=== PATIENT | female | born 1970 | race Caucasian/White ===

== ENCOUNTER 2016-08-20 19:36 | Observation (INO) | payer OTHER ==
[~2016-08-20] VITALS: Ht 167.6 cm; Wt 121.9 kg
[~2016-08-20 19:36] MED LIST: ACET-1325; ATV/1 PO; CALC600T9 PO; CARB200T PO; CARB200T3 PO; CLOM50CA3 PO; DULO60CA44 PO; ERGO500037 PO; FERR1TAB23 PO; FURO-85 PO; LAMO100T16 PO; LSNP/30 PO; MAGN250T8 PO; METO-551 PO; MULTTAB58 PO; OMEP40CA41 PO; RIBO100T9 PO; TOPI100T45 PO; ZIPR1CAP6 PO
[2016-08-20] MEDS ORDERED: SODIUM CHLORIDE 0.9% 1000ML 1,000 ML IV STA (19:54)
[2016-08-20] MEDS ORDERED: SODIUM CHLORIDE 0.9% 500ML 500 ML IV STA (19:54)
--- NOTE | 2016-08-20 19:59 | EMERGENCY ROOM VISIT NOTE ---
History Report prepared by Garret: Molina Bailon Under the Supervision of: Dr. Parish Nguyen M.D. 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 She notes taking seven 1 mg Klonopin tablets this evening. She admits this was an attempt at suicide, noting that she "just does not care anymore". She has done this before in the past and has been to a hospital before for similar reasons. She notes she misses her father who around 1 year ago. The patient states her mental health issues began before the holidays but became worse after the holidays. She feels sleepy, and denies any vomiting or alcohol consumption. the patient is not wanting to stay in the hospital. Per the patient 's , she was holding groceries, dropped them and went to the bedroom and locked the door. She has been struggling with depression around the holidays. 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 Review of Systems See HPI for pertinent positives & negatives. A total of 10 systems reviewed and were otherwise negative. Past Medical & Surgical Medical Problems: (1) Benign hypertension (2) Bipolar disorder (3) Klonopin use disorder, severe Family History No pertinent family history stated. Social History Smoking Status: Never Smoker Marital Status: Occupation Status: disabled Current/Historical Medications Scheduled Atorvastatin (Lipitor), 10 MG PO DAILY Carbamazepine (Tegretol), 800 MG PO HS Clomipramine Hcl (Anafranil), 200 MG PO HS Duloxetine Hcl (Cymbalta), 60 MG PO DAILY Ferrous Sulfate (Ferrous Sulfate), 325 MG PO DAILY Furosemide (Lasix), 40 MG PO DAILY Magnesium Oxide (Mg Supplement (Magnesium), 250 MG PO BID Metoprolol Tartrate (Lopressor), 50 MG PO QPM Multiple Minerals W/ Vitamins (Citracal Plus), 2 TABS PO BID Omeprazole (Prilosec), 40 MG PO DAILY Riboflavin (Vitamin B-2), 200 MG PO BID Topiramate (Topamax), 100 MG PO BID Valsartan/Hctz (Diovan Hct 320MG/12.5MG), 1 TAB PO DAILY Ziprasidone Hcl (Geodon), 60 MG PO BID Scheduled PRN Clonazepam (Klonopin), 1 MG PO UD PRN for Anxiety and/or Sedation Lorazepam (Ativan), 0.5-1 MG PO Q4-6HRS PRN for Anxiety Ziprasidone Hcl (Geodon), 20-40 MG PO DAILY PRN for UNDECIDED Allergies Coded Allergies: No Known Allergies (Unverified , 03/04/13) Physical Exam Vital Signs Date Time Temp Pulse Resp B/P Pulse Ox O2 Delivery O2 Flow Rate FiO2 08/20/16 20:49 68 08/20/16 19:57 96 Room Air 08/20/16 19:44 36.9 77 20 144/85 98 Room Air Physical Exam GENERAL: Patient is in no acute distress, but tearful. HEENT: No acute trauma, normocephalic atraumatic, mucous membranes moist, no nasal congestion, no scleral icterus. NECK: No stridor, no adenopathy, no meningismus, trachea is midline. LUNGS: Clear to auscultation bilaterally, no wheeze, no rhonchi, breath sounds equal. HEART: Without murmurs gallops or rubs, regular rate and rhythm. ABDOMEN: Soft, nontender, bowel sounds positive, no hernias, no peritonitis. EXTREMITIES: No cyanosis or edema, full range of motion of all the joints without pain or difficulty, no signs for acute trauma. NEUROLOGIC: Oriented x 3, no acute motor or sensory deficits, no focal weakness. Patient is somewhat somnolent. SKIN: No rash, no jaundice, no diaphoresis. PSYCH: Patient is tearful, cooperative, and admits to overdosing on pills this evening. Medical Decision & Procedures Laboratory Results 08/20/16 20:07 08/20/16 20:07 Test 08/20/16 00:00 08/20/16 20:07 Red Blood Count 4.19 M/uL (4.2-5.4) Mean Corpuscular Volume 95.2 fL (80-100) Mean Corpuscular Hemoglobin 33.2 pg (25-34) Mean Corpuscular Hemoglobin Concent 34.8 g/dl (32-36) RDW Standard Deviation 42.4 fL (36.4-46.3) RDW Coefficient of Variation 12.3 % (11.5-14.5) Mean Platelet Volume 10.2 fL (7.4-10.4) Anion Gap 12.0 mmol/L (3-11) Est Creatinine Clear Calc Drug Dose 151.0 ml/min Estimated GFR () 126.4 Estimated GFR (Non- 109.1 BUN/Creatinine Ratio 28.6 (10-20) Calcium Level 8.5 mg/dl (8.5-10.1) Magnesium Level 2.4 mg/dl (1.8-2.4) Total Bilirubin 0.3 mg/dl (0.2-1) Aspartate Amino Transf (AST/SGOT) 23 U/L (15-37) Alanine Aminotransferase (ALT/SGPT) 46 U/L (12-78) Alkaline Phosphatase 121 U/L (45-117) Total Protein 6.9 gm/dl (6.4-8.2) Albumin 4.2 gm/dl (3.4-5.0) Globulin 2.7 gm/dl (2.5-4.0) Albumin/Globulin Ratio 1.6 (0.9-2) Thyroid Stimulating Hormone (TSH) 0.786 uIu/ml (0.300-4.500) Human Chorionic Gonadotropin, Qual NEG (NEG) Salicylates Level < 1.7 mg/dl (2.8-20) Acetaminophen Level < 2 ug/ml (10-30) Carbamazepine (Tegretol) Level 8.2 mcg/ml (4-12) Ethyl Alcohol mg/dL < 3.0 mg/dl (0-3) Laboratory results reviewed by me. Medications Administered Medications (Trade) Dose Ordered Sig/Nisha Route Start Time Stop Time Status Last Admin Dose Admin Sodium Chloride 500 ml @ 999 mls/hr Q31M STAT IV 08/20/16 19:54 08/20/16 20:24 DC 08/20/16 20:19 999 MLS/HR Sodium Chloride (Nss 1000ml) 1,000 ml @ 125 mls/hr Q8H STAT IV 08/20/16 19:54 08/21/16 03:53 08/20/16 21:01 125 MLS/HR ED Course 1948: The patient was evaluated in room A2. A complete history and physical exam was performed. 1953: Ordered NSS 1,000 ml @ 125 mls/hr IV, and NSS 500 ml @ 999 mls/hr IV. 2134: Discussed the patient's case with Dr. Angie Kumari. The patient will be evaluated for further management. 2139: Upon reexamination the patient is hemodynamically stable. I discussed results and treatment plan with the patient. She verbalizes agreement and understanding. The patient will be evaluated for further management. Medical Decision Differentials include suicidal ideation, overdose, electrolyte imbalance, anemia , and alcohol or drug abuse. There is no leukocytosis or worrisome anemia. No significant electrolyte abnormality, kidney failure, hepatitis. The patient appears to be in a euthyroid state. Carbamazepine level is therapeutic. Aspirin and Tylenol levels are undetectable. Alcohol level is undetectable. Urine tox and urinalysis are pending. testing is negative. The patient presents for suicidal ideation. She overdosed on Klonopin. She is somnolent but arousable to voice and tactile stimulation. She requires hospitalization medically until her mental status returns to baseline. She is not clear to be admitted directly to psychiatry. I talked to the patient and her . I talked to case management. The on-call hospitalist was consulted. During the patient's ER stay, she received IV saline, her vital signs are stable.. Consults Time Called: 2129 Consulting Physician: Dr. Angie Kumari Returned Call: 2134 Discussed the patient's case with Dr. Angie Kumari. The patient will be evaluated for further management. Impression Primary Impression: Suicidal ideation Additional Impressions: Medication overdose Somnolence Scribe Attestation The scribe's documentation has been prepared under my direction and personally reviewed by me in its entirety. I confirm that the note above accurately reflects all work, treatment, procedures, and medical decision making performed by me. Departure Information Dispostion Being Evaluated By Hospitalist Referrals Abdoul Oseguera M.D. (PCP) Patient Instructions A Signature Page, My Norma Kumari Health Problem Qualifiers
[2016-08-20 20:16] LABS: HEMATOCRIT 39.9 % (37-47); MEAN CELL VOLUME 95.2 fL (80-100); MEAN CORPUSCULAR HEMOGLOBIN 33.2 pg (25-34); MEAN CORPUSCULAR HGB CONC 34.8 g/dl (32-36); MEAN PLATELET VOLUME 10.2 fL (7.4-10.4); PLATELET COUNT 165 K/uL (130-400); RED BLOOD COUNT 4.19 M/uL (4.2-5.4); WHITE BLOOD COUNT 8.15 K/uL (4.8-10.8)
[2016-08-20 20:37] LABS: BUN/CREATININE RATIO 28.6 (10-20); CALCIUM 8.5 mg/dl (8.5-10.1); CREATININE 0.63 mg/dl (0.60-1.20); POTASSIUM 3.1 mmol/L (3.5-5.1)
[2016-08-20 20:47] LABS: ALB/GLOB RATIO 1.6 (0.9-2); THYROID STIMULATING HORMONE 0.786 uIu/ml (0.300-4.500)
[2016-08-20] MEDS ORDERED: ZIPR20CA PO (20:56)
[2016-08-20] MEDS ORDERED: ZIPR1CAP5 PO (20:56)
[2016-08-20] MEDS ORDERED: FURO40TA3 PO (20:56)
[2016-08-20] MEDS ORDERED: ATOR10TA88 PO (20:56)
[2016-08-20] MEDS ORDERED: ZIPR60CA PO (20:56)
[2016-08-20] MEDS ORDERED: VALS-10 PO (20:56)
[2016-08-20 20:57] LABS: PREG INTERNAL NEGATIVE QC NEG CLEAR BACKGROUND; PREG INTERNAL POSITIVE QC POS CONTROL LINE
[2016-08-20] MEDS ORDERED: MULT-663 PO (21:00)
[2016-08-20] MEDS ORDERED: FERR325T PO (21:00)
[2016-08-20 21:15] LABS: ACETAMINOPHEN < 2 ug/ml (10-30)
[2016-08-20] MEDS ORDERED: CLON1TAB3 PO (21:29)
[2016-08-20] MEDS ORDERED: ACETAMINOPHEN 325 MG TAB PO PRN (21:45)
[2016-08-20] MEDS ORDERED: ZOLPIDEM TARTRATE 5 MG TAB PO PRN (21:45)
[2016-08-20 22:07] LABS: MANUAL MICROSCOPIC REQUIRED? NO; REVIEW REQ? NO; URINE APPEARANCE CLEAR (CLEAR); URINE BILIRUBIN NEG (NEG); URINE COLOR DK YELLOW; URINE NITRITE NEG (NEG); URINE PH 6.5 (4.5-7.5); URINE SPECIFIC GRAVITY 1.019 (1.000-1.030); UROBILINOGEN NEG (NEG); ZZUR CULT IF INDIC CLEAN CATCH NO
[2016-08-20 22:33] LABS: BENZODIAZEPINE, URINE NEG (NEG); COCAINE,URINE NEG (NEG); PHENCYCLIDINE, URINE NEG (NEG)
[2016-08-20] MEDS ORDERED: IV FLUIDS COMPLETED PRN (22:45)
[2016-08-20 22:55] VITALS: BP 137/85; PULSE 67; TEMP 36.9; O2SAT 97; Ht 167.6 cm; Wt 121.9 kg
[2016-08-20] MEDS: NSS + 20MEQ KCL 1000ML 1,000 ML IV SCH (23:12)
[2016-08-20] MEDS ORDERED: NURSING DECISION MEDICATION ORDER SCH (23:45)
[2016-08-20 23:59] VITALS: O2SAT 97
[2016-08-21 03:26] VITALS: BP 118/73; PULSE 58; TEMP 36.7; O2SAT 97
[2016-08-21 04:00] VITALS: O2SAT 97
--- NOTE | 2016-08-21 04:03 | History and Physical ---
History & Physical Date & Time of Service: Aug 21, 2016 at 03:54 Chief Complaint: Klonopin Use Disorder, Severe; Medication Overdose Primary Care Physician: Abdoul Oseguera M.D. History of Present Illness Source: patient, spouse The patient is a 46-year-old female who presents to the emergency department after an intentional overdose occurred about 2 hours prior to arrival. She reports that she took 7 Klonopin 1 mg tablets, and would've taken more, but that was all she had. She has had suicidal ideations in the past, and this episode appears be triggered by remembrance of the of her father who 1 year ago. She reports that she became more depressed before the holidays has become even worse after the holidays. The reports that she was holding groceries, drop them and that went to the bathroom a lot the door. The patient herself does not want to stay in the hospital. Past Medical/Surgical History Medical Problems: (1) Benign hypertension Status: Chronic (2) Bipolar disorder Status: Chronic Social History Smoking Status: Never Smoker Smokeless Tobacco Use: No Alcohol Use: none Drug Use: none Marital Status: Housing status: lives with family Occupational Status: disabled Immunizations History of Influenza Vaccine: Yes History of Tetanus Vaccine?: unknown History of Pneumococcal: No History of Hepatitis B Vaccine: Yes Multi-Drug Resistant Organisms History of MDRO: No Allergies Coded Allergies: No Known Allergies (Unverified , 03/04/13) Home Medications Scheduled Atorvastatin (Lipitor), 10 MG PO DAILY Carbamazepine (Tegretol), 800 MG PO HS Clomipramine Hcl (Anafranil), 200 MG PO HS Duloxetine Hcl (Cymbalta), 60 MG PO DAILY Ferrous Sulfate (Ferrous Sulfate), 325 MG PO DAILY Furosemide (Lasix), 40 MG PO DAILY Magnesium Oxide (Mg Supplement (Magnesium), 250 MG PO BID Metoprolol Tartrate (Lopressor), 50 MG PO QPM Multiple Minerals W/ Vitamins (Citracal Plus), 2 TABS PO BID Omeprazole (Prilosec), 40 MG PO DAILY Riboflavin (Vitamin B-2), 200 MG PO BID Topiramate (Topamax), 100 MG PO BID Valsartan/Hctz (Diovan Hct 320MG/12.5MG), 1 TAB PO DAILY Ziprasidone Hcl (Geodon), 60 MG PO BID Scheduled PRN Clonazepam (Klonopin), 1 MG PO UD PRN for Anxiety and/or Sedation Lorazepam (Ativan), 0.5-1 MG PO Q4-6HRS PRN for Anxiety Ziprasidone Hcl (Geodon), 20-40 MG PO DAILY PRN for UNDECIDED Review of Systems The patient denies chest pain, palpitations, shortness of breath, cough, lower extremity swelling, vision change, hearing change, sore throat, fevers, chills, sweats, nausea, vomiting, abdominal pain, pelvic pain, blood in urine or stool, dysuria, urinary frequency or urgency, rash, abnormal bruising or bleeding, imbalance, focal weakness, numbness or tingling in arms or legs, arthralgias or myalgias, back or neck pain, night sweats, or allergy symptoms. The review of systems is otherwise negative other than for that already noted above, and at least 10 systems have been reviewed. Physical Exam Vital Signs Date Time Temp Pulse Resp B/P Pulse Ox O2 Delivery O2 Flow Rate FiO2 08/21/16 03:26 36.7 58 18 118/73 97 Room Air 08/20/16 23:59 97 Room Air 08/20/16 22:55 36.9 67 18 137/85 97 Room Air 08/20/16 22:00 72 12 116/70 98 08/20/16 21:00 70 16 109/80 99 08/20/16 20:49 68 08/20/16 20:00 70 12 119/94 98 08/20/16 19:57 96 Room Air 08/20/16 19:44 36.9 77 20 144/85 98 Room Air The patient is awake, alert and oriented 3, opens her eyes in a slit -like fashion as she answers questions , normocephalic and atraumatic, lying in bed and in no acute distress. HEENT--PERRL, EOMI, mucous membranes moist, and oropharynx normal. Neck--supple, no JVD or bruits, thyroid normal, trachea midline, no adenopathy. Heart--normal S1 and S2, no extra beats, no murmurs, rubs or gallops. Lungs--clear bilaterally with good air movement, no respiratory distress, no accessory muscle use. Abdomen--normal bowel sounds and soft, nontender and nondistended, no hernias or masses, no organomegaly. Extremities--no cyanosis, clubbing or edema. There are good distal pulses b/l. Dermatologic--normal skin turgor, normal color, warm and dry, no abnormal lymph nodes, no rash. Neurologic--cranial nerves II through XII grossly intact. Rheumatologic--normal range of motion, nontender, muscles and joints. Psychiatric--depressed. Diagnostics Laboratory Results Results Past 24 Hours Test 08/20/16 20:07 Range/Units White Blood Count 8.15 4.8-10.8 K/uL Red Blood Count 4.19 4.2-5.4 M/uL Hemoglobin 13.9 12.0-16.0 g/dL Hematocrit 39.9 37-47 % Mean Corpuscular Volume 95.2 80-100 fL Mean Corpuscular Hemoglobin 33.2 25-34 pg Mean Corpuscular Hemoglobin Concent 34.8 32-36 g/dl RDW Standard Deviation 42.4 36.4-46.3 fL RDW Coefficient of Variation 12.3 11.5-14.5 % Platelet Count 165 130-400 K/uL Mean Platelet Volume 10.2 7.4-10.4 fL Sodium Level 140 136-145 mmol/L Potassium Level 3.1 3.5-5.1 mmol/L Chloride Level 99 98-107 mmol/L Carbon Dioxide Level 29 21-32 mmol/L Anion Gap 12.0 3-11 mmol/L Blood Urea Nitrogen 18 7-18 mg/dl Creatinine 0.63 0.60-1.20 mg/dl Est Creatinine Clear Calc Drug Dose 151.0 ml/min Estimated GFR () 126.4 Estimated GFR (Non- 109.1 BUN/Creatinine Ratio 28.6 10-20 Random Glucose 86 70-99 mg/dl Calcium Level 8.5 8.5-10.1 mg/dl Magnesium Level 2.4 1.8-2.4 mg/dl Total Bilirubin 0.3 0.2-1 mg/dl Aspartate Amino Transf (AST/SGOT) 23 15-37 U/L Alanine Aminotransferase (ALT/SGPT) 46 12-78 U/L Alkaline Phosphatase 121 45-117 U/L Total Protein 6.9 6.4-8.2 gm/dl Albumin 4.2 3.4-5.0 gm/dl Globulin 2.7 2.5-4.0 gm/dl Albumin/Globulin Ratio 1.6 0.9-2 Thyroid Stimulating Hormone (TSH) 0.786 0.300-4.500 uIu/ml Human Chorionic Gonadotropin, Qual NEG NEG Salicylates Level < 1.7 2.8-20 mg/dl Acetaminophen Level < 2 10-30 ug/ml Carbamazepine (Tegretol) Level 8.2 4-12 mcg/ml Ethyl Alcohol mg/dL < 3.0 0-3 mg/dl Impression Assessment and Plan Intentional Klonopin overdose, with previous episodes of suicidal ideation, bipolar disorder with depression--the patient will be admitted to the telemetry unit, for cardiac rhythm monitoring. We'll consult psychiatry. We'll continue carbamazepine 800 mg by mouth at bedtime, clomipramine 20 mg by mouth at bedtime , Cymbalta 60 mg by mouth every morning, Topamax 100 mg by mouth twice a day and Geodon 60 mg by mouth twice a day. We'll hold Klonopin 1 mg by mouth daily when necessary and lorazepam when necessary. She'll be placed on a one-on-one observation Hypercholesterolemia--continue atorvastatin 10 mg by mouth daily. Hypertension--continue metoprolol tartrate 50 mg by mouth every afternoon, hold Diovan HCT 320/12.5 daily, and hold furosemide 40 mg by mouth daily. GERD--change omeprazole to 40 mg by mouth daily to pantoprazole 40 mg by mouth daily. Level of Care Telemetry Advanced Directives Existing Advance Directive: No Existing Living Will: No Existing Power of Range Aide: No Resuscitation Status FULL RESUSCITATION VTE Prophylaxis VTE Risk Assessment Done? Y/N: Yes Risk Level: Moderate Given or contraindicated: SCD's Social Service Consult None Apply
[2016-08-21 07:28] VITALS: BP 119/81; PULSE 63; TEMP 36.8; O2SAT 97
[2016-08-21] MEDS: NSS + 20MEQ KCL 1000ML 1,000 ML IV SCH (08:21)
[2016-08-21] MEDS ORDERED: ZIPRASIDONE 20 MG CAP PO SCH (09:00)
[2016-08-21] MEDS ORDERED: PANTOprazole SOD 40 MG TAB PO SCH (09:00)
[2016-08-21] MEDS ORDERED: TOPIRAMATE 100 MG TAB PO SCH (09:00)
[2016-08-21] MEDS ORDERED: ATORVASTATIN 10 MG TAB PO SCH (09:00)
[2016-08-21] MEDS ORDERED: DULOXETINE HCL 60 MG CAP PO SCH (09:00)
[2016-08-21 10:47] VITALS: BP 127/84; PULSE 68; TEMP 36.3; O2SAT 96
[2016-08-21 11:59] VITALS: O2SAT 96
--- NOTE | 2016-08-21 12:10 | Psychiatric Consultation ---
Psychiatric Consultation Date of Service: Aug 21, 2016. 46 yo female admitted following an intentional toxic ingestion of 7 klonopin. Patient is an OP of Dr. Ozuna and Lesley Armando LCSW at [facility]. Has been increasingly depressed over the loss of several close relatives in recent years , ongoing marital conflict, parent child relational problems. Took the OD to "escape". Is willing for voluntary inpatient treatment and will admit to the Behavioral Health Unit today with Dr. Kapoor as attending. Full psychiatric intake will be completed upon admission to mental health as she is medically cleared and transferring today. DIAGNOSES: 1. Bipolar disorder NOS, depressed, severe, without psychotic features. 2. Other mixed anxiety disorder PLAN: Transfer voluntarily to mental health.
--- NOTE | 2016-08-21 12:15 | Discharge Instructions ---
Discharge Instructions Admission Reason for Admission: Klonopin Use Disorder, Severe; Medication Overdose Discharge Discharge Diagnosis / Problem: Medication overdose Discharge Goals Goal(s): Improve disease control Activity Recommendations Activity Limitations: resume your previous activity . Instructions / Follow-Up Instructions / Follow-Up Follow up with family physician in one week after discharge from Mental health unit Current Hospital Diet Patient's current hospital diet: Regular Diet Discharge Diet Recommended Diet: AHA Diet (Heart Healthy) Pending Studies Studies pending at discharge: no Medical Emergencies . Who to Call and When: Medical Emergencies: If at any time you feel your situation is an emergency, please call 911 immediately. . Non-Emergent Contact Non-Emergency issues call your: Primary Care Provider . . "Provider Documentation" section prepared by Sri Magdaleno. VTE Core Measure Inpt VTE Proph given/why not?: SCD's
[2016-08-21 13:37] VITALS: BP 127/84; PULSE 68; TEMP 36.3; O2SAT 96
--- NOTE | 2016-08-21 15:03 | Discharge Summary ---
Discharge Summary Admission Date: Aug 20, 2016 at 21:53 Discharge Date: Aug 21, 2016 Discharge Disposition: Acute care mental health Principal Diagnosis: Overdose Immunizations: Have You Had Influenza Vaccine: Yes History of Tetanus Vaccine?: unknown History of Pneumococcal: No History of Hepatitis B Vaccine: Yes Consultations: Psychiatry Medication Reconciliation Continued Medications: Atorvastatin (Lipitor) 10 Mg Tab 10 MG PO DAILY, TAB Carbamazepine (Tegretol) 200 Mg Tab 800 MG PO HS, TAB Clomipramine Hcl (Anafranil) 50 Mg Cap 200 MG PO HS Clonazepam (Klonopin) 1 Mg Tab 1 MG PO UD PRN for Anxiety and/or Sedation, TAB Duloxetine Hcl (Cymbalta) 60 Mg Cap 60 MG PO DAILY, CAP Ferrous Sulfate (Ferrous Sulfate) 325 Mg Tab 325 MG PO DAILY TAKE THIS MEDICATION WITH EVENING MEAL Furosemide (Lasix) 40 Mg Tab 40 MG PO DAILY, TAB Lorazepam (Ativan) 1 Mg Tab 0.5-1 MG PO Q4-6HRS PRN for Anxiety, TAB Magnesium Oxide (Mg Supplement (Magnesium) 250 Mg Tab 250 MG PO BID TAKE THIS MEDICATION WITH BREKFAST AND EVENING MEAL Metoprolol Tartrate (Lopressor) 50 Mg Tab 50 MG PO QPM, TAB TAKE THIS MEDICATION WITH EVENING MEAL Multiple Minerals W/ Vitamins (Citracal Plus) 1 Tab Tab 2 TABS PO BID TAKE THIS MEDICATION WITH BREKFAST AND EVENING MEAL Omeprazole (Prilosec) 40 Mg Cap 40 MG PO DAILY, CAP Riboflavin (Vitamin B-2) 100 Mg Tab 200 MG PO BID TAKE THIS MEDICATION WITH BREKFAST AND EVENING MEAL Topiramate (Topamax) 100 Mg Tab 100 MG PO BID, TAB Valsartan/Hctz (Diovan Hct 320MG/12.5MG) 1 Tab Tab 1 TAB PO DAILY, TAB Ziprasidone Hcl (Geodon) 20 Mg Cap 20-40 MG PO DAILY PRN for UNDECIDED, CAP Ziprasidone Hcl (Geodon) 60 Mg Cap 60 MG PO BID, CAP TAKE THIS MEDICATION WITH BREKFAST AND EVENING MEAL Discharge Exam Last 24 Hours Test 08/20/16 20:07 08/21/16 11:15 White Blood Count 8.15 K/uL Red Blood Count 4.19 M/uL Hemoglobin 13.9 g/dL Hematocrit 39.9 % Mean Corpuscular Volume 95.2 fL Mean Corpuscular Hemoglobin 33.2 pg Mean Corpuscular Hemoglobin Concent 34.8 g/dl RDW Standard Deviation 42.4 fL RDW Coefficient of Variation 12.3 % Platelet Count 165 K/uL Mean Platelet Volume 10.2 fL Sodium Level 140 mmol/L Potassium Level 3.1 mmol/L Chloride Level 99 mmol/L Carbon Dioxide Level 29 mmol/L Anion Gap 12.0 mmol/L Blood Urea Nitrogen 18 mg/dl Creatinine 0.63 mg/dl Est Creatinine Clear Calc Drug Dose 151.0 ml/min Estimated GFR () 126.4 Estimated GFR (Non- 109.1 BUN/Creatinine Ratio 28.6 Random Glucose 86 mg/dl Calcium Level 8.5 mg/dl Magnesium Level 2.4 mg/dl Total Bilirubin 0.3 mg/dl Aspartate Amino Transf (AST/SGOT) 23 U/L Alanine Aminotransferase (ALT/SGPT) 46 U/L Alkaline Phosphatase 121 U/L Total Protein 6.9 gm/dl Albumin 4.2 gm/dl Globulin 2.7 gm/dl Albumin/Globulin Ratio 1.6 Thyroid Stimulating Hormone (TSH) 0.786 uIu/ml Human Chorionic Gonadotropin, Qual NEG Salicylates Level < 1.7 mg/dl Acetaminophen Level < 2 ug/ml Carbamazepine (Tegretol) Level 8.2 mcg/ml Ethyl Alcohol mg/dL < 3.0 mg/dl Bedside Glucose 112 mg/dl Review of Systems: Constitutional: No fever Respiratory: No shortness of breath Cardiovascular: No chest pain Abdomen: No nausea, No pain, No vomiting Psychiatric: + depression symptoms Hospital Course 46 yo female with h/o Bipolar ds and sees Dr. Ozuna and Lesley Armando [facility] was brought to the ED for intentional toxic ingestion of 7 klonopin. Has been increasingly depressed over the loss of several close relatives in recent years, ongoing marital conflict, parent child relational problems. Took the OD to "escape". Was kept on PCU for monitoring overnight. Stayed medically stable. Evaluated by Psychiatry and willing for voluntary inpatient treatment. Discharged to Psychiatry unit. Total Time Spent: Greater than 30 minutes (35) This includes examination of the patient, discharge planning, medication reconciliation, and communication with other providers. Discharge Instructions Please refer to the electronic Patient Visit Report (Discharge Instructions) for additional information.
[2016-08-21] MEDS ORDERED: CARBAMAZEPINE 200 MG TAB PO SCH (21:00)
[2016-08-21] MEDS ORDERED: METOPROLOL TARTRATE 50 MG TAB PO SCH (21:00)
[2016-08-21] MEDS ORDERED: CLOMIPRAMINE HCL 25 MG PO SCH (21:00)
[2016-08-26] MEDS ORDERED: CYM30 PO (09:06)
[2016-08-26] MEDS ORDERED: ATR25 PO (09:07)
== END 2016-08-21 14:00 ==
LOC: ENRESERVTM → ENRESERVDT → C.EDB 19:36 → C.2T 21:53
PROVIDERS: ADMIT Hospitalist; ATTEND Family Medicine
DX: T42.4X2A Poisoning by benzodiazepines, intentional self-harm, initial encounter (principal); F31.4 Bipolar disorder, current episode depressed, severe, without psychotic features; K21.9 Gastro-esophageal reflux disease without esophagitis; E78.00 Pure hypercholesterolemia, unspecified; I10 Essential (primary) hypertension

== ENCOUNTER 2016-08-21 12:15 | Inpatient (IN) | payer OTHER ==
[~2016-08-21] VITALS: Ht 167.6 cm; Wt 123.1 kg
[~2016-08-21 12:15] MED LIST changes: -ACET-1325; +ATOR10TA88 PO; -CALC600T9 PO; -CARB200T3 PO; +CLON1TAB3 PO; -ERGO500037 PO; -FERR1TAB23 PO; +FERR325T PO; -FURO-85 PO; +FURO40TA3 PO; -LAMO100T16 PO; -LSNP/30 PO; +MULT-663 PO; -MULTTAB58 PO; +VALS-10 PO; +ZIPR1CAP5 PO; -ZIPR1CAP6 PO; +ZIPR60CA PO
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
[2016-08-21 15:02] VITALS: BP 139/88; PULSE 69; TEMP 37.1; Ht 167.6 cm; Wt 123.1 kg
[2016-08-21] MEDS ORDERED: hydrOXYzine HCL 25 MG TAB PO PRN (15:15)
[2016-08-21] MEDS ORDERED: MAGNESIUM HYDROXIDE SUSP 30 ML UDC PO PRN (15:15)
[2016-08-21] MEDS ORDERED: ACETAMINOPHEN 325 MG TAB PO PRN (15:15)
[2016-08-21] MEDS ORDERED: BISMUTH SUBSALICYLATE PER ML OMNICELL CHARGE PO PRN (15:15)
[2016-08-21] MEDS ORDERED: SODIUM CHLORIDE 0.65% NA SOLN 45 ML (OCEAN) PRN (15:15)
[2016-08-21] MEDS ORDERED: ALUMINUM/MAGNESIUM SUSP 30 ML UDC PO PRN (15:15)
[2016-08-21] MEDS: ZIPRASIDONE 20 MG CAP PO SCH (17:23)
[2016-08-21 21:00] VITALS: BP 117/75; PULSE 69
[2016-08-21] MEDS: METOPROLOL TARTRATE 50 MG TAB PO SCH (21:01)
[2016-08-21] MEDS: TOPIRAMATE 100 MG TAB PO SCH (21:01)
[2016-08-21] MEDS: CARBAMAZEPINE 200 MG TAB PO SCH (21:02)
[2016-08-22 06:49] VITALS: BP_SYST 129; BP_SYST 139; BP_DIAS 82; BP_DIAS 93; PULSE 59; PULSE 67; TEMP 36.6
[2016-08-22] MEDS: DULOXETINE HCL 60 MG CAP PO SCH (08:03)
[2016-08-22] MEDS: VALSARTAN/HCTZ 320/12.5 MG TAB PO SCH (08:03)
[2016-08-22] MEDS: ZIPRASIDONE 20 MG CAP PO SCH ×2 (08:04→17:26)
[2016-08-22] MEDS: FUROSEMIDE 40 MG TAB PO SCH (08:04)
[2016-08-22] MEDS: TOPIRAMATE 100 MG TAB PO SCH ×2 (08:04→21:22)
[2016-08-22] MEDS ORDERED: ATORVASTATIN 10 MG TAB PO SCH (09:00)
--- NOTE | 2016-08-22 11:13 | Psychiatric Progress Notes ---
Progress Note Date of Service Aug 22, 2016. Interval History Crystal Reyna is a 46-year-old woman from [place], [place], who was brought to the Emergency Room by her after overdosing on 7 Klonopin pills. She was initially admitted to the medical floor initially and then transferred to our mental health unit 08/21/16 on a voluntary basis. Chief Complaint "Not great". Subjective Patient was seen & assessed interval progress reviewed with Treatment Team. Staff report she is cooperative with treatment, but remains very depressed. She continues to report severe depression, saying she feels hopeless, "I can't do anything, can't work, worthless." She says she tried to return to work in Apr. "but I couldn't do it." She admits it was a high-stress job, and there were problems with coworkers, which made it more difficult. She feels "I don't matter , and it wouldn't matter" if she committed suicide, and is having suicidal thoughts, looking around to find something sharp to cut herself with, but hasn' t found anything. She is not sure if she could go to staff, saying "I haven't been here long enough." She says she wouldn't tell anyone because "I want to be successful," says there is an 80% chance she will try to hurt herself here. Her and daughter came to visit but she "didn't really talk to them." She She doesn't think anything will help, "I just don't know what to do." She went to some groups last night, but is in her room in bed today, after leaving group early because "I wasn't interested." Sleep Information Total Hours of Sleep: 6.00 Meal Information Percent of Breakfast Consumed: 100 Percent of Dinner Consumed: 5 Mental Status Exam During interview pt is: alert and oriented Appearance: appropriately dressed, appropriately groomed Eye contact is: poor Motor behavior is: psychomotor retardation Speech: loud Affect: depressed, tearful, constricted Mood is: depressed Thought process: goal directed Thought content: hopelessness, worthlessness, self deprecation Suicidal thought are: present, Plan: present, Intent: present Homicidal thoughts are: denied Hallucinations: denies auditory, denies visual Cognition: memory grossly intact, attention grossly intact, language grossly intact Intelligence estimated to be: average Insight: impaired Judgement: severely impaired Impression RISK ASSESSMENT: 1. Risk factors -- , access to guns, multiple comorbid medical conditions, ongoing mental illness, episodic substance use, previous hospitalizations and suicide attempts, intentional overdose prior to admission, psychosocial stress, unemployed, severe depression and anxiety, continued SI here with a plan and intent to harm herself, inability to contract for safety even on the inpatient unit. 2. Protective factors -- , cares for her children, and has good rapport with outpatient providers. IMPRESSION: A 46-year-old woman admitted to the hospital following a toxic ingestion of Klonopin. She admits to being severely depressed with multiple stressors. She is on multiple psychotropic agents from her outpatient provider , Dr. Ozuna. Anafranil is being used for obsessive thoughts, and she was on two different benzodiazepines, which are now being held due to overdose and risk for suicide. We will need to schedule a family meeting. At this time, the patient requires inpatient mental health treatment due to the severity of her condition and high risk for suicide if discharged. DIAGNOSES: 1. Bipolar disorder, not otherwise specified, depressed, severe, without psychotic features. 2. Mixed anxiety disorder. 3. Hypertension. 4. Dyslipidemia. 5. Obesity. Plan (1) Intentional clonazepam overdose Benzos held on admission. Will consider discontinuing vs minimizing use and developing plan to ensure she doesn't have access to large amounts of medications. Outpatient psychiatrist in favor of limiting benzos given overdose and risk of harm to herself. - Work on safety plan to include no access to guns or other weapons, or medications (2) Depressed bipolar disorder 08/21 - Continue home medications for now (Geodon, Anafranil, Topamax, Tegretol, and Cymbalta) until we clarify dosage and purpose of some of her medications. Consider tapering off of antidepressants in the event it is destabilizing her mood. - Family meeting with . - Q 15 minute checks for safety. - Encourage participation in group and individual counseling. - Coordinate aftercare with current providers and obtain outpatient records. 08/22 - Fasting lipid profile and glucose ordered for tomorrow for monitoring on an atypical antipsychotic. - Consider increasing Geodon - Patient reporting SI with a plan to find something sharp enough to cut herself, unable to go to staff if feels unsafe, states she wants her next attempt to be successful. Will place on close observation (within line of sight of staff), as she agrees to stay in sight of staff and to attend all groups. Have a low threshold to place on 1:1 if she is not compliant or SI worsens. (3) Anxiety 08/21 - Continue home meds. She is on both Klonopin and Ativan and we may want to reevaluate this during her stay. - Assist the patient in learning and utilize additional healthy coping strategies. (4) Obesity 08/21 - Consider a dietary consult. - Encourage exercise. (5) Benign hypertension Continue home medications. Monitor blood pressure. (6) Hyperlipidemia Continue home dose of Lipitor. Discharge / Aftercare Planning Primary Care Physician: Name: Dr Oseguera Psychiatrist: Name: Dr Ozuna Date of Appointment: Aug 29, 2016 Time of Appointment: 1:20am Therapist: Name: Lesley Armando Date of Appointment: Aug 27, 2016 Time of Appointment: 11:00am Visit Code E&M Code: 52257 Data Vital Signs Last 24 Hrs: Date Time Temp Pulse Resp B/P Pulse Ox O2 Delivery O2 Flow Rate FiO2 08/22/16 06:49 36.6 67 16 139/82 59 129/93 08/21/16 21:00 69 18 117/75 08/21/16 15:02 37.1 69 16 139/88 Meds Administered Last 24 Hrs: Meds Administered (Past 24Hrs) Medications (Trade) Dose Ordered Sig/Nisha Route Start Time Stop Time Status Last Admin Dose Admin Carbamazepine (Tegretol Tab) 800 mg HS PO 08/21/16 22:00 09/20/16 21:59 08/21/16 21:02 800 MG Duloxetine HCl (Cymbalta Cap) 60 mg DAILY PO 08/22/16 09:00 09/21/16 08:59 08/22/16 08:03 60 MG Furosemide (Lasix tab) 40 mg DAILY PO 08/22/16 09:00 09/21/16 08:59 08/22/16 08:04 40 MG Metoprolol Tartrate (Lopressor Tab) 50 mg QPM PO 08/21/16 21:00 09/20/16 20:59 08/21/16 21:01 50 MG Topiramate (Topamax Tab) 100 mg BID PO 08/21/16 22:00 09/20/16 21:59 08/22/16 08:04 100 MG HCTZ/Valsartan (Diovan Hct 320/ 12.5MG Tab) 1 tab DAILY PO 08/22/16 09:00 09/21/16 08:59 08/22/16 08:03 1 TAB Ziprasidone (Geodon Cap) 60 mg BIDM PO 08/21/16 17:45 09/20/16 17:44 08/22/16 08:04 60 MG
[2016-08-22] MEDS: FERROUS SULFATE 325 MG TAB PO SCH (12:23)
[2016-08-22] MEDS: hydrOXYzine HCL 25 MG TAB PO PRN (14:28)
[2016-08-22 21:13] VITALS: BP 119/78; PULSE 60
[2016-08-22] MEDS: MAGNESIUM OXIDE 400 MG TAB PO SCH (21:22)
[2016-08-22] MEDS: METOPROLOL TARTRATE 50 MG TAB PO SCH (21:22)
[2016-08-22] MEDS: CARBAMAZEPINE 200 MG TAB PO SCH (21:22)
[2016-08-22] MEDS: ATORVASTATIN 10 MG TAB PO SCH (21:22)
[2016-08-22] MEDS ORDERED: NON-FORMULARY MEDICATION (Riboflavin (Vitamin B-2) 200 MG) PO SCH (22:00)
[2016-08-23 06:47] VITALS: BP_SYST 145; BP_SYST 152; BP_DIAS 102; BP_DIAS 93; PULSE 58; PULSE 64; TEMP 36.4
[2016-08-23] MEDS: ZIPRASIDONE 20 MG CAP PO SCH ×2 (08:04→18:00)
[2016-08-23] MEDS: FERROUS SULFATE 325 MG TAB PO SCH (08:04)
[2016-08-23] MEDS: VALSARTAN/HCTZ 320/12.5 MG TAB PO SCH (08:04)
[2016-08-23] MEDS: DULOXETINE HCL 60 MG CAP PO SCH (08:04)
[2016-08-23] MEDS: MAGNESIUM OXIDE 400 MG TAB PO SCH ×2 (08:05→22:27)
[2016-08-23] MEDS: FUROSEMIDE 40 MG TAB PO SCH (08:05)
[2016-08-23] MEDS: TOPIRAMATE 100 MG TAB PO SCH ×2 (08:05→22:29)
[2016-08-23] MEDS: PANTOprazole SOD 40 MG TAB PO SCH (08:05)
[2016-08-23 08:25] LABS: CHOLESTEROL/HDL RATIO 3.5
[2016-08-23] MEDS: hydrOXYzine HCL 25 MG TAB PO PRN ×3 (08:32→18:00)
[2016-08-23 08:51] LABS: POTASSIUM 3.6 mmol/L (3.5-5.1)
[2016-08-23 09:27] VITALS: BP 121/82; PULSE 73
--- NOTE | 2016-08-23 12:55 | Psychiatric Progress Notes ---
Progress Note Date of Service Aug 23, 2016. Interval History Crystal Reyna is a 46-year-old woman from [place], [place], who was brought to the Emergency Room by her after overdosing on 7 Klonopin pills. She was initially admitted to the medical floor initially and then transferred to our mental health unit 08/21/16 on a voluntary basis. Chief Complaint "Better". Subjective Patient was seen & assessed interval progress reviewed with Treatment Team. The patient had a very difficult day yesterday feeling "worthless", with suicidal thoughts, and not feeling in control of herself. She was place on Line of Vision (CIARA) for her safety and she slept in the quiet room for the night. Today she is feeling in better control and has been taken off of CIARA. She had a family meeting with her this AM and felt that it went well. She and her talked about their relationship, with her saying that he has been sleeping in the basement due to his sleep apnea, but wants to be able to return to their bedroom. She was surprised and happy about this. She also describes that she is a "dominant personality" and tends to dominate their relationship, with her being somewhat passive. He agrees that he has fallen away from some of the base remover that he usually helps with and is willing to return to them. today she says that her mood is improved, rating it 7/10 and denying any SI so far today. Sleep was poor last night, but attributes this to not having her clomipramine which her will bring in today. Review of Systems Constitutional: + fatigue ENT: No dental problems, No hearing loss, No nasal symptoms, No problem reported, No sore throat, No tinnitus, No trouble swallowing, No unusual epistaxis Respiratory: No cough, No dyspnea at rest, No dyspnea on exertion, No hemoptysis, No problem reported, No shortness of breath, No sputum, No wheezing Cardiovascular: No PND, No chest pain, No claudication, No edema, No orthopnea , No palpitations, No problem reported Abdomen: No GI bleeding, No constipation, No diarrhea, No nausea, No pain, No problem reported, No vomiting Musculoskeletal: No calf pain, No joint pain, No muscle pain, No problem reported, No swelling Neurologic: No balance problems, No memory loss, No numbness/tingling, No paralysis, No problem reported, No vertigo, No weakness Psychiatric: + anxiety, + depression symptoms Sleep Information Total Hours of Sleep: 6.00 Meal Information Percent of Breakfast Consumed: 100 Percent of Lunch Consumed: 100 Percent of Dinner Consumed: 100 Mental Status Exam During interview pt is: alert and oriented Appearance: appropriately dressed, appropriately groomed Eye contact is: poor Motor behavior is: no abnormal motor movements Speech: loud (but of normal rate) Affect: depressed, flat, constricted Mood is: depressed Thought process: goal directed Thought content: hopelessness, worthlessness, self deprecation Suicidal thought are: denied, Plan: denied, Intent: denied Homicidal thoughts are: denied Hallucinations: denies auditory, denies visual Cognition: memory grossly intact, attention grossly intact, language grossly intact Intelligence estimated to be: average Insight: impaired Judgement: impaired Impression RISK ASSESSMENT: 1. Risk factors -- , access to guns, multiple comorbid medical conditions, ongoing mental illness, episodic substance use, previous hospitalizations and suicide attempts, intentional overdose prior to admission, psychosocial stress, unemployed, severe depression and anxiety, continued SI here with a plan and intent to harm herself, inability to contract for safety even on the inpatient unit. 2. Protective factors -- , cares for her children, and has good rapport with outpatient providers. IMPRESSION: A 46-year-old woman admitted to the hospital following a toxic ingestion of Klonopin. She admits to being severely depressed with multiple stressors. She is on multiple psychotropic agents from her outpatient provider , Dr. Ozuna. Anafranil is being used for obsessive thoughts, and she was on two different benzodiazepines, which are now being held due to overdose and risk for suicide. We will need to schedule a family meeting. At this time, the patient requires inpatient mental health treatment due to the severity of her condition and high risk for suicide if discharged. DIAGNOSES: 1. Bipolar disorder, not otherwise specified, depressed, severe, without psychotic features. 2. Mixed anxiety disorder. 3. Hypertension. 4. Dyslipidemia. 5. Obesity. Plan (1) Intentional clonazepam overdose Benzos held on admission. Will consider discontinuing vs minimizing use and developing plan to ensure she doesn't have access to large amounts of medications. Outpatient psychiatrist in favor of limiting benzos given overdose and risk of harm to herself. - Work on safety plan to include no access to guns or other weapons, or medications (2) Depressed bipolar disorder 08/21 - Continue home medications for now (Geodon, Anafranil, Topamax, Tegretol, and Cymbalta) until we clarify dosage and purpose of some of her medications. Consider tapering off of antidepressants in the event it is destabilizing her mood. - Family meeting with . - Q 15 minute checks for safety. - Encourage participation in group and individual counseling. - Coordinate aftercare with current providers and obtain outpatient records. 08/22 - Fasting lipid profile and glucose ordered for tomorrow for monitoring on an atypical antipsychotic. - Consider increasing Geodon - Patient reporting SI with a plan to find something sharp enough to cut herself, unable to go to staff if feels unsafe, states she wants her next attempt to be successful. Will place on close observation (within line of sight of staff), as she agrees to stay in sight of staff and to attend all groups. Have a low threshold to place on 1:1 if she is not compliant or SI worsens. 08/23 -Increase Cymbalta to 90 mg. daily - Will have family bring in clomipramine - DC Line of Vision (CIARA) (3) Anxiety 08/21 - Continue home meds. She is on both Klonopin and Ativan and we may want to reevaluate this during her stay. - Assist the patient in learning and utilize additional healthy coping strategies. (4) Obesity 08/21 - Consider a dietary consult. - Encourage exercise. 08/23 - Patient has modifiable cardiovascular risks including obesity, dyslipidemia and sedentary lifestyle. Encourage patient to exercise, make good food choices (5) Benign hypertension Continue home medications. Monitor blood pressure. (6) Hyperlipidemia Continue home dose of Lipitor. Discharge / Aftercare Planning Primary Care Physician: Name: Dr Oseguera Psychiatrist: Name: Dr Ozuna Date of Appointment: Aug 29, 2016 Time of Appointment: 1:20am Therapist: Name: Lesley Armando Date of Appointment: Aug 27, 2016 Time of Appointment: 11:00am Visit Code E&M Code: 77161 Risk Factors Assessment : Yes /single/: No Higher / Fall in social status: Yes Access to guns: No Health problems: Yes Mental Health Diagnoses: Yes Substance use disorders: Yes Previous attempt: Yes Previous psychiatric stay: Yes Smoker: No Protective Factors Assessment Hoahaoism beliefs: No : Yes Responsible for young children: Yes Employed: No Stable relationships: Yes Supportive family: Yes Good rapport with provider: Yes Data Vital Signs Last 24 Hrs: Date Time Temp Pulse Resp B/P Pulse Ox O2 Delivery O2 Flow Rate FiO2 08/23/16 09:27 73 121/82 08/23/16 06:47 36.4 58 16 145/102 64 152/93 08/22/16 21:13 60 119/78 Meds Administered Last 24 Hrs: Meds Administered (Past 24Hrs) Medications (Trade) Dose Ordered Sig/Nisha Route Start Time Stop Time Status Last Admin Dose Admin Carbamazepine (Tegretol Tab) 800 mg HS PO 08/21/16 22:00 09/20/16 21:59 08/22/16 21:22 800 MG Duloxetine HCl (Cymbalta Cap) 60 mg DAILY PO 08/22/16 09:00 08/23/16 12:38 DC 08/23/16 08:04 60 MG Furosemide (Lasix tab) 40 mg DAILY PO 08/22/16 09:00 09/21/16 08:59 08/23/16 08:05 40 MG Metoprolol Tartrate (Lopressor Tab) 50 mg QPM PO 08/21/16 21:00 09/20/16 20:59 08/22/16 21:22 50 MG Topiramate (Topamax Tab) 100 mg BID PO 08/21/16 22:00 09/20/16 21:59 08/23/16 08:05 100 MG HCTZ/Valsartan (Diovan Hct 320/ 12.5MG Tab) 1 tab DAILY PO 08/22/16 09:00 09/21/16 08:59 08/23/16 08:04 1 TAB Ziprasidone (Geodon Cap) 60 mg BIDM PO 08/21/16 17:45 09/20/16 17:44 08/23/16 08:04 60 MG Hydroxyzine HCl (Vistaril Tab) 25 mg Q4H PRN PO 08/21/16 15:15 09/20/16 15:14 08/23/16 08:32 25 MG Atorvastatin Calcium (Lipitor Tab) 10 mg HS PO 08/22/16 22:00 09/21/16 21:59 08/22/16 21:22 10 MG Ferrous Sulfate (Feosol Tab) 325 mg DAILY PO 08/22/16 09:00 09/21/16 08:59 08/23/16 08:04 325 MG Magnesium Oxide (Mag-Ox Tab) 400 mg BID PO 08/22/16 22:00 09/21/16 21:59 08/23/16 08:05 400 MG Pantoprazole Sodium (Protonix Tab) 40 mg QAM PO 08/23/16 09:00 09/22/16 08:59 08/23/16 08:05 40 MG Lab Results Last 24 Hrs: Last 24 Hours Test 08/23/16 07:10 Sodium Level 142 mmol/L Potassium Level 3.6 mmol/L Chloride Level 106 mmol/L Carbon Dioxide Level 26 mmol/L Anion Gap 10.0 mmol/L Fasting Glucose 85 mg/dl Triglycerides Level 171 mg/dl Cholesterol Level 188 mg/dl HDL Cholesterol 53 mg/dl LDL Cholesterol, Calculated 101 mg/dl VLDL Cholesterol, Calculated 34 mg/dl Cholesterol/HDL Ratio 3.5 Problem Qualifiers (1) Obesity: Obesity type: due to excess calories
[2016-08-23] MEDS ORDERED: DULOXETINE (CYMBALTA) 30 MG CAP PO ONE (13:15)
[2016-08-23 22:23] VITALS: BP 114/76; PULSE 63
[2016-08-23] MEDS: CEROVITE ADV FORMULA TAB PO SCH (22:27)
[2016-08-23] MEDS: ATORVASTATIN 10 MG TAB PO SCH (22:27)
[2016-08-23] MEDS: METOPROLOL TARTRATE 50 MG TAB PO SCH (22:28)
[2016-08-23] MEDS: CARBAMAZEPINE 200 MG TAB PO SCH (22:29)
[2016-08-23] MEDS: CLOMIPRAMINE 50 MG PO SCH (22:32)
[2016-08-24 06:47] VITALS: BP_SYST 116; BP_SYST 134; BP_DIAS 80; BP_DIAS 84; PULSE 60; PULSE 63; TEMP 37.1
[2016-08-24] MEDS: DULOXETINE (CYMBALTA) 30 MG CAP PO SCH (07:50)
[2016-08-24] MEDS: VALSARTAN/HCTZ 320/12.5 MG TAB PO SCH (07:50)
[2016-08-24] MEDS: MAGNESIUM OXIDE 400 MG TAB PO SCH ×2 (07:50→21:40)
[2016-08-24] MEDS: FERROUS SULFATE 325 MG TAB PO SCH (07:50)
[2016-08-24] MEDS: ZIPRASIDONE 20 MG CAP PO SCH ×2 (07:51→17:44)
[2016-08-24] MEDS: PANTOprazole SOD 40 MG TAB PO SCH (07:51)
[2016-08-24] MEDS: FUROSEMIDE 40 MG TAB PO SCH (07:52)
[2016-08-24] MEDS: CEROVITE ADV FORMULA TAB PO SCH ×2 (07:52→21:40)
[2016-08-24] MEDS: TOPIRAMATE 100 MG TAB PO SCH ×2 (07:52→21:42)
[2016-08-24] MEDS: hydrOXYzine HCL 25 MG TAB PO PRN (07:58)
--- NOTE | 2016-08-24 09:41 | Psychiatric Progress Notes ---
Progress Note Date of Service Aug 24, 2016. Interval History Crystal Reyna is a 46-year-old woman from [place], [place], who was brought to the Emergency Room by her after overdosing on 7 Klonopin pills. She was initially admitted to the medical floor initially and then transferred to our mental health unit 08/21/16 on a voluntary basis. Chief Complaint "Not as depressed". Subjective Patient was seen & assessed interval progress reviewed with nursing. Staff report she had a meeting with her that went well, he is supportive, and agreed to monitor her meds. She says her mood has improved which she attributes to being out of her home environment which she thinks is stressful, a good meeting with her , and med adjustments. She has been using Vistaril prn for anxiety and says it is "soothing." Denies side effects to meds. Has been working on better ways to communicate and cope in the groups and finds that helpful. She had a good visit with her mother and daughter last night. She is now feeling safe on the unit, and denies urges to try to harm herself here. She thinks her SI has improved because her "recognized what I was doing around the house." She agrees with the plan to keep her meds locked and to hold the le and dispense to her weekly pill container, so that she won't have access to large amounts of pills. Sleep Information Total Hours of Sleep: 6.50 Meal Information Percent of Breakfast Consumed: 100 Percent of Lunch Consumed: 100 Percent of Dinner Consumed: 100 Mental Status Exam During interview pt is: alert and oriented Appearance: appropriately dressed, appropriately groomed Eye contact is: good Motor behavior is: steady gait & station, no abnormal motor movements Speech: loud (but of normal rate) Affect: depressed (but reactive and more animated) Mood is: other ("better") Thought process: goal directed Thought content: worthlessness, self deprecation Suicidal thought are: denied Homicidal thoughts are: denied Hallucinations: denies auditory, denies visual Cognition: memory grossly intact, attention grossly intact, language grossly intact Intelligence estimated to be: average Insight: fair Judgement: fair Impression RISK ASSESSMENT: 1. Risk factors -- , access to guns, multiple comorbid medical conditions, ongoing mental illness, episodic substance use, previous hospitalizations and suicide attempts, intentional overdose prior to admission, psychosocial stress, unemployed, severe depression and anxiety, continued SI here with a plan and intent to harm herself, inability to contract for safety even on the inpatient unit. 2. Protective factors -- , cares for her children, and has good rapport with outpatient providers. IMPRESSION: A 46-year-old woman admitted to the hospital following a toxic ingestion of Klonopin. She admits to being severely depressed with multiple stressors. She is on multiple psychotropic agents from her outpatient provider , Dr. Ozuna. Anafranil is being used for obsessive thoughts, and she was on two different benzodiazepines, which are now being held due to overdose and risk for suicide. We will need to schedule a family meeting. At this time, the patient requires inpatient mental health treatment due to the severity of her condition and high risk for suicide if discharged. DIAGNOSES: 1. Bipolar disorder, not otherwise specified, depressed, severe, without psychotic features. 2. Mixed anxiety disorder. 3. Hypertension. 4. Dyslipidemia. 5. Obesity. Plan (1) Intentional clonazepam overdose Benzos held on admission. Will consider discontinuing vs minimizing use and developing plan to ensure she doesn't have access to large amounts of medications. Outpatient psychiatrist in favor of limiting benzos given overdose and risk of harm to herself. - Work on safety plan to include no access to guns or other weapons, or medications - agreed to keep her meds locked and fill weekly pill box (2) Depressed bipolar disorder 08/21 - Continue home medications for now (Geodon, Anafranil, Topamax, Tegretol, and Cymbalta) until we clarify dosage and purpose of some of her medications. Consider tapering off of antidepressants in the event it is destabilizing her mood. - Family meeting with . - Q 15 minute checks for safety. - Encourage participation in group and individual counseling. - Coordinate aftercare with current providers and obtain outpatient records. 08/22 - Fasting lipid profile and glucose ordered for tomorrow for monitoring on an atypical antipsychotic. - Consider increasing Geodon - Patient reporting SI with a plan to find something sharp enough to cut herself, unable to go to staff if feels unsafe, states she wants her next attempt to be successful. Will place on close observation (within line of sight of staff), as she agrees to stay in sight of staff and to attend all groups. Have a low threshold to place on 1:1 if she is not compliant or SI worsens. 08/23 - Increase Cymbalta to 90 mg. daily - Will have family bring in clomipramine - DC Line of Vision (CIARA) 08/24 - Continue current meds - Patient report chronic talking in her sleep, snoring, and PCP has recommended sleep study, which she never followed through on. Discussed concerns for sleep disorder and recs that she pursue sleep study as outpatient (3) Anxiety 08/21 - Continue home meds. She is on both Klonopin and Ativan and we may want to reevaluate this during her stay. - Assist the patient in learning and utilize additional healthy coping strategies. (4) Obesity 08/21 - Consider a dietary consult. - Encourage exercise. 08/23 - Patient has modifiable cardiovascular risks including obesity, dyslipidemia and sedentary lifestyle. Encourage patient to exercise, make good food choices (5) Benign hypertension Continue home medications. Monitor blood pressure. (6) Hyperlipidemia Continue home dose of Lipitor. Discharge / Aftercare Planning Primary Care Physician: Name: Dr Oseguera Psychiatrist: Name: Dr Ozuna Date of Appointment: Aug 29, 2016 Time of Appointment: 1:20am Therapist: Name: Lesley Armando Date of Appointment: Aug 27, 2016 Time of Appointment: 11:00am Visit Code E&M Code: 35528 Risk Factors Assessment : Yes /single/: No Higher / Fall in social status: Yes Access to guns: No Health problems: Yes Mental Health Diagnoses: Yes Substance use disorders: Yes Previous attempt: Yes Previous psychiatric stay: Yes Hopelessness: Yes Smoker: No Protective Factors Assessment Sikh beliefs: No : Yes Responsible for young children: Yes Employed: No Stable relationships: Yes Supportive family: Yes Good rapport with provider: Yes Data Vital Signs Last 24 Hrs: Date Time Temp Pulse Resp B/P Pulse Ox O2 Delivery O2 Flow Rate FiO2 08/24/16 06:47 37.1 63 16 134/84 60 116/80 08/23/16 22:23 63 20 114/76 Meds Administered Last 24 Hrs: Meds Administered (Past 24Hrs) Medications (Trade) Dose Ordered Sig/Nisha Route Start Time Stop Time Status Last Admin Dose Admin Atorvastatin Calcium (Lipitor Tab) 10 mg HS PO 08/22/16 22:00 2/11/17 21:59 08/23/16 22:27 10 MG Magnesium Oxide (Mag-Ox Tab) 400 mg BID PO 08/22/16 22:00 09/21/16 21:59 08/24/16 07:50 400 MG Multivitamins/ Minerals (Multivitamin W/ Minerals Tab) 1 tab BID PO 08/23/16 22:00 09/22/16 21:59 08/24/16 07:52 1 TAB Pantoprazole Sodium (Protonix Tab) 40 mg QAM PO 08/23/16 09:00 09/22/16 08:59 08/24/16 07:51 40 MG Duloxetine HCl (Cymbalta Cap) 90 mg QAM PO 08/24/16 09:00 09/23/16 08:59 08/24/16 07:50 90 MG Duloxetine HCl (Cymbalta Cap) 30 mg 1315 ONCE PO 08/23/16 13:15 08/23/16 13:16 DC 08/23/16 13:14 30 MG Non-Formulary Medication (Non-Formulary Patient'S Own Med) 4 ea HS PO 08/23/16 22:00 09/22/16 21:59 08/23/16 22:32 4 EA Problem Qualifiers (1) Obesity: Obesity type: due to excess calories
[2016-08-24 21:37] VITALS: BP 150/96; PULSE 71
[2016-08-24] MEDS: METOPROLOL TARTRATE 50 MG TAB PO SCH (21:40)
[2016-08-24] MEDS: ATORVASTATIN 10 MG TAB PO SCH (21:40)
[2016-08-24] MEDS: CLOMIPRAMINE 50 MG PO SCH (21:41)
[2016-08-24] MEDS: CARBAMAZEPINE 200 MG TAB PO SCH (21:42)
[2016-08-25 07:04] VITALS: BP_SYST 132; BP_SYST 133; BP_DIAS 76; BP_DIAS 85; PULSE 62; PULSE 70; TEMP 36.9
[2016-08-25] MEDS: MAGNESIUM OXIDE 400 MG TAB PO SCH ×2 (08:04→21:23)
[2016-08-25] MEDS: PANTOprazole SOD 40 MG TAB PO SCH (08:04)
[2016-08-25] MEDS: FUROSEMIDE 40 MG TAB PO SCH (08:04)
[2016-08-25] MEDS: TOPIRAMATE 100 MG TAB PO SCH ×2 (08:05→21:25)
[2016-08-25] MEDS: CEROVITE ADV FORMULA TAB PO SCH ×2 (08:05→21:23)
[2016-08-25] MEDS: FERROUS SULFATE 325 MG TAB PO SCH (08:05)
[2016-08-25] MEDS: DULOXETINE (CYMBALTA) 30 MG CAP PO SCH (08:05)
[2016-08-25] MEDS: VALSARTAN/HCTZ 320/12.5 MG TAB PO SCH (08:05)
[2016-08-25] MEDS: ZIPRASIDONE 20 MG CAP PO SCH ×2 (08:05→17:17)
--- NOTE | 2016-08-25 08:19 | Psychiatric Progress Notes ---
Progress Note Date of Service Aug 25, 2016. Interval History Crystal Reyna is a 46-year-old woman from [place], [place], who was brought to the Emergency Room by her after overdosing on 7 Klonopin pills. She was initially admitted to the medical floor initially and then transferred to our mental health unit 08/21/16 on a voluntary basis. Chief Complaint "My threw a little bit of a tantrum before he left, so that was a little bit hard". Subjective Patient was seen & assessed interval progress reviewed with nursing. Staff report she is going to groups and participating. Her visited and they got into an argument. The patient is still upset about this today, saying she doesn't have many friends, but does have a male friend who now lives in another state, but comes to visit his mother every couple months, and they go out to drink and socialize, which her doesn't like. He accused them of having an affair in the past, so she stopped seeing him, and then "weaned him back into my life." He called her here, and was "asking me what I was wearing, he was just joking," but her heard her talking about it to her daughter and got upset. He stormed out of the unit last night after she "yelled at him." She has not talked to him since then, but is planning to talk to him today, and met with staff last night to discuss how she wants to address this problem. 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 She says that now that she is not working, she'll have more free time, and will also be spending more time with her mom. Her mood is improved from admission, but still feels overwhelmed at times. She denies SI and feels safe here. Sleep Information Total Hours of Sleep: 6.75 Meal Information Percent of Breakfast Consumed: 100 Percent of Lunch Consumed: 90 Percent of Dinner Consumed: 100 Mental Status Exam During interview pt is: alert and oriented Appearance: appropriately dressed, appropriately groomed Eye contact is: good Motor behavior is: steady gait & station, no abnormal motor movements Speech: loud (but of normal rate) Affect: depressed (but reactive and more animated) Mood is: other ("better") Thought process: goal directed Thought content: loneliness Suicidal thought are: denied Homicidal thoughts are: denied Hallucinations: denies auditory, denies visual Cognition: memory grossly intact, attention grossly intact, language grossly intact Intelligence estimated to be: average Insight: fair Judgement: fair Impression RISK ASSESSMENT: 1. Risk factors -- , access to guns, multiple comorbid medical conditions, ongoing mental illness, episodic substance use, previous hospitalizations and suicide attempts, intentional overdose prior to admission, psychosocial stress, unemployed, severe depression and anxiety, continued SI here with a plan and intent to harm herself, inability to contract for safety even on the inpatient unit. 2. Protective factors -- , cares for her children, and has good rapport with outpatient providers. IMPRESSION: A 46-year-old woman admitted to the hospital following a toxic ingestion of Klonopin. She admits to being severely depressed with multiple stressors. She is on multiple psychotropic agents from her outpatient provider , Dr. Ozuna. Anafranil is being used for obsessive thoughts, and she was on two different benzodiazepines, which are now being held due to overdose and risk for suicide. At this time, the patient requires inpatient mental health treatment due to the severity of her condition and high risk for suicide if discharged. DIAGNOSES: 1. Bipolar disorder, not otherwise specified, depressed, severe, without psychotic features. 2. Mixed anxiety disorder. 3. Hypertension. 4. Dyslipidemia. 5. Obesity. Plan (1) Intentional clonazepam overdose Benzos held on admission. Will consider discontinuing vs minimizing use and developing plan to ensure she doesn't have access to large amounts of medications. Outpatient psychiatrist in favor of limiting benzos given overdose and risk of harm to herself. - Work on safety plan to include no access to guns or other weapons, or medications. - agreed to keep her meds locked and fill weekly pill box. (2) Depressed bipolar disorder 08/21 - Continue home medications for now (Geodon, Anafranil, Topamax, Tegretol, and Cymbalta) until we clarify dosage and purpose of some of her medications. Consider tapering off of antidepressants in the event it is destabilizing her mood. - Family meeting with . - Q 15 minute checks for safety. - Encourage participation in group and individual counseling. - Coordinate aftercare with current providers and obtain outpatient records. 08/22 - Fasting lipid profile and glucose ordered for tomorrow for monitoring on an atypical antipsychotic. - Consider increasing Geodon - Patient reporting SI with a plan to find something sharp enough to cut herself, unable to go to staff if feels unsafe, states she wants her next attempt to be successful. Will place on close observation (within line of sight of staff), as she agrees to stay in sight of staff and to attend all groups. Have a low threshold to place on 1:1 if she is not compliant or SI worsens. 08/23 - Increase Cymbalta to 90 mg. daily - Will have family bring in clomipramine - DC Line of Vision ([facility]) 08/24 - Continue current meds - Patient report chronic talking in her sleep, snoring, and PCP has recommended sleep study, which she never followed through on. Discussed concerns for sleep disorder and recs that she pursue sleep study as outpatient 08/25 - Discussed ways to increase socialization and structure after returning home , including volunteering and getting involved in activities she's previously enjoyed - Encourage couples' counseling as patient feels there are chronic marital issues that need to be addressed (3) Anxiety 08/21 - Continue home meds. She is on both Klonopin and Ativan and we may want to reevaluate this during her stay. - Assist the patient in learning and utilize additional healthy coping strategies. (4) Obesity 08/21 - Consider a dietary consult. - Encourage exercise. 08/23 - Patient has modifiable cardiovascular risks including obesity, dyslipidemia and sedentary lifestyle. Encourage patient to exercise, make good food choices (5) Benign hypertension Continue home medications. Monitor blood pressure. (6) Hyperlipidemia Continue home dose of Lipitor. Discharge / Aftercare Planning Primary Care Physician: Name: Dr Oseguera Psychiatrist: Name: Dr Ozuna Date of Appointment: Aug 29, 2016 Time of Appointment: 1:20am Therapist: Name: Lesley Armando Date of Appointment: Aug 27, 2016 Time of Appointment: 11:00am Visit Code E&M Code: 58742 Risk Factors Assessment : Yes /single/: No Higher / Fall in social status: Yes Access to guns: No Health problems: Yes Mental Health Diagnoses: Yes Substance use disorders: Yes Previous attempt: Yes Previous psychiatric stay: Yes Hopelessness: Yes Smoker: No Protective Factors Assessment Oriental Orthodox beliefs: No : Yes Responsible for young children: Yes Employed: No Stable relationships: Yes Supportive family: Yes Good rapport with provider: Yes Data Vital Signs Last 24 Hrs: Date Time Temp Pulse Resp B/P Pulse Ox O2 Delivery O2 Flow Rate FiO2 08/25/16 07:04 36.9 62 16 133/76 70 132/85 08/24/16 21:37 71 20 150/96 Meds Administered Last 24 Hrs: Meds Administered (Past 24Hrs) Medications (Trade) Dose Ordered Sig/Nisha Route Start Time Stop Time Status Last Admin Dose Admin Multivitamins/ Minerals (Multivitamin W/ Minerals Tab) 1 tab BID PO 08/23/16 22:00 09/22/16 21:59 08/24/16 21:40 1 TAB Pantoprazole Sodium (Protonix Tab) 40 mg QAM PO 08/23/16 09:00 09/22/16 08:59 08/24/16 07:51 40 MG Duloxetine HCl (Cymbalta Cap) 90 mg QAM PO 08/24/16 09:00 09/23/16 08:59 08/24/16 07:50 90 MG Duloxetine HCl (Cymbalta Cap) 30 mg 1315 ONCE PO 08/23/16 13:15 08/23/16 13:16 DC 08/23/16 13:14 30 MG Non-Formulary Medication (Non-Formulary Patient'S Own Med) 4 ea HS PO 08/23/16 22:00 09/22/16 21:59 08/24/16 21:41 4 EA Problem Qualifiers (1) Obesity: Obesity type: due to excess calories
[2016-08-25 21:17] VITALS: BP 130/85; PULSE 75
[2016-08-25] MEDS: METOPROLOL TARTRATE 50 MG TAB PO SCH (21:22)
[2016-08-25] MEDS: ATORVASTATIN 10 MG TAB PO SCH (21:23)
[2016-08-25] MEDS: CLOMIPRAMINE 50 MG PO SCH (21:24)
[2016-08-25] MEDS: CARBAMAZEPINE 200 MG TAB PO SCH (21:25)
[2016-08-26 06:47] VITALS: BP_SYST 112; BP_SYST 126; BP_DIAS 78; BP_DIAS 84; PULSE 57; PULSE 70; TEMP 36.8
[2016-08-26] MEDS: FERROUS SULFATE 325 MG TAB PO SCH (07:56)
[2016-08-26] MEDS: ZIPRASIDONE 20 MG CAP PO SCH (07:56)
[2016-08-26] MEDS: DULOXETINE (CYMBALTA) 30 MG CAP PO SCH (07:56)
[2016-08-26] MEDS: VALSARTAN/HCTZ 320/12.5 MG TAB PO SCH (07:56)
[2016-08-26] MEDS: PANTOprazole SOD 40 MG TAB PO SCH (07:57)
[2016-08-26] MEDS: CEROVITE ADV FORMULA TAB PO SCH (07:57)
[2016-08-26] MEDS: TOPIRAMATE 100 MG TAB PO SCH (07:57)
[2016-08-26] MEDS: MAGNESIUM OXIDE 400 MG TAB PO SCH (07:57)
[2016-08-26] MEDS: FUROSEMIDE 40 MG TAB PO SCH (07:57)
[2016-08-26] MEDS ORDERED: CYM30 PO (09:06)
[2016-08-26] MEDS ORDERED: ATR25 PO (09:07)
--- NOTE | 2016-08-26 09:19 | Discharge Instructions ---
Discharge Information Report Includes Report will include the: Discharge Instructions & Summary Admission Admission Date / Time: Aug 21, 2016 at 12:15 Reason for Admission: Bipolar Disorder Discharge Discharge Diagnosis / Problem: Klonopin overdose, bipolar depression, anxiety Condition at Discharge: Good Discharge Goals Goal(s): Improve function, Improve disease control, Learn about illness, Therapeutic intervention Activity Recommendations Activity Limitations: resume your previous activity . Instructions / Follow-Up Instructions / Follow-Up . SPECIAL CARE INSTRUCTIONS: 1. Follow through with your scheduled aftercare appointments. If unable to keep an appointment, please call to reschedule. 2. Take your medication only as prescribed. Medication should not be changed or stopped without the approval of your doctor. In the event of worsening symptoms or concerns about side effects, contact your doctor immediately. 3. Utilize new healthy coping skills, anger management skills, and stress management skills learned during your hospitalization. Journal feelings and process them with a support person. Identify stressors or situations that may result in relapse, deterioration or inappropriate behaviors and develop a plan to deal with those issues. 4. If your coping skills are ineffective and you are in crisis, contact your outpatient providers for direction. If unable to reach your providers, please call the CAN HELP LINE AT or go to the closest Emergency Room. 5. Avoid alcohol and un-prescribed drugs. 6. You have been provided with the Mental Health Advance Directives Pamphlet for your review. AFTERCARE APPOINTMENTS: * Please call your insurance company prior to your scheduled appointment to confirm your aftercare providers are covered. Take your insurance information to your appointments. . Discharge / Aftercare Planning Primary Care Physician: Name: Dr Oseguera Psychiatrist: Name: Dr Ozuna Date of Appointment: Aug 29, 2016 Time of Appointment: 1:20am Therapist: Name Of Therapist: Lesley Armando Date of Appointment: Aug 27, 2016 Time of Appointment: 11:00am . Follow-Up Care Plan for Follow-Up Care: See above Current Hospital Diet Patient's current hospital diet: Regular Diet Discharge Diet Recommended Diet: Regular Diet Procedures Procedures Performed: No Pending Studies Pending Studies at Discharge: No Medical Emergencies . Who to Call and When: Medical Emergencies: For questions or emergencies related to your hospital stay, please contact the Inpatient Behavioral Health Unit at [phone]. A parking lot attendant is on-call 03/03 for the Behavioral Health Unit for emergencies At any time you feel your situation is an emergency, you may also call 911 immediately. . Non-Emergent Contact Non-Emergency issues call your: Primary Care Provider, Psychiatrist, Therapist Past History Medical & Surgical History: (1) Obesity (2) Hyperlipidemia (3) Hypertension Advance Directives Existing Advance Directive: No Do You Have an Existing Mental: No Existing Living Will: No Existing Power of Credit Counselor: No Advance Directives Info Given: To Pt/S.O. Discharge Summary Admission HPI Per the Admitting provider: Please see admission H&P. Admission Exam Per the Admitting provider: Please see admission H&P. Hospital Course (1) Intentional clonazepam overdose Benzos held on admission. Will consider discontinuing vs minimizing use and developing plan to ensure she doesn't have access to large amounts of medications. Outpatient psychiatrist in favor of limiting benzos given overdose and risk of harm to herself. - Work on safety plan to include no access to guns or other weapons, or medications. - agreed to keep her meds locked and fill weekly pill box. - Patient has done well here without benzos, so will discontinue. She reports benefit from prn hydroxyzine 25mg for anxiety, so will write prescription for # 28 tabs. (2) Depressed bipolar disorder 08/21 - Continue home medications for now (Geodon, Anafranil, Topamax, Tegretol, and Cymbalta) until we clarify dosage and purpose of some of her medications. Consider tapering off of antidepressants in the event it is destabilizing her mood. - Family meeting with . - Q 15 minute checks for safety. - Encourage participation in group and individual counseling. - Coordinate aftercare with current providers and obtain outpatient records. 08/22 - Fasting lipid profile and glucose ordered for tomorrow for monitoring on an atypical antipsychotic. - Consider increasing Geodon - Patient reporting SI with a plan to find something sharp enough to cut herself, unable to go to staff if feels unsafe, states she wants her next attempt to be successful. Will place on close observation (within line of sight of staff), as she agrees to stay in sight of staff and to attend all groups. Have a low threshold to place on 1:1 if she is not compliant or SI worsens. 08/23 - Increase Cymbalta to 90 mg. daily - Will have family bring in clomipramine - DC Line of Vision ([facility]) 08/24 - Continue current meds - Patient report chronic talking in her sleep, snoring, and PCP has recommended sleep study, which she never followed through on. Discussed concerns for sleep disorder and recs that she pursue sleep study as outpatient 08/25 - Discussed ways to increase socialization and structure after returning home , including volunteering and getting involved in activities she's previously enjoyed - Encourage couples' counseling as patient feels there are chronic marital issues that need to be addressed (3) Anxiety 08/21 - Continue home meds, with the exception of Klonopin and Ativan, due to overdose. - Assist the patient in learning and utilize additional healthy coping strategies. 08/26 - anxiety well controlled. Provided Rx for #28 hydroxyzine 25mg (bid prn anxiety) at patient's request. (4) Obesity 08/21 - Consider a dietary consult. - Encourage exercise. 08/23 - Patient has modifiable cardiovascular risks including obesity, dyslipidemia and sedentary lifestyle. Encourage patient to exercise, make good food choices (5) Benign hypertension Continue home medications. Monitor blood pressure. (6) Hyperlipidemia Continue home dose of Lipitor. Risk Factors Assessment : Yes /single/: No Higher / Fall in social status: Yes Access to guns: No Health problems: Yes Mental Health Diagnoses: Yes Substance use disorders: Yes Previous attempt: Yes Previous psychiatric stay: Yes Hopelessness: Yes Smoker: No Protective Factors Assessment Amish beliefs: No : Yes Responsible for young children: Yes Employed: No Stable relationships: Yes Supportive family: Yes Good rapport with provider: Yes Absence of risk factors above: Yes (Patient has participated in treatment, medications have been adjusted to target mood and anxiety and to remove medications dangerous in OD, her mood and anxiety have both improved, she has denied SI for several days, had a meeting with her who is supportive, and has worked on healthy coping skills and her discharge safety plan. She has appointments with her therapist and psychiatrist this week. She is denying SI and is requesting discharge today. She is no longer at acute risk of harm to herself, so can be managed as an outpatient at this time.) Day of Discharge Assessment Hospital course: On admission, the patient's benzodiazepines were stopped, due to her overdose. She was offered hydroxyzine 25 mg as needed for anxiety, which she used with good benefit throughout her stay. She continued to endorse suicidal thoughts during her first 2 days on the unit, stating that she didn't feel safe and was looking around the unit for think she could use to cut herself, so was kept in the line of sight of staff for safety. She attended groups and participated appropriately. She tolerated the increased dose of Cymbalta well, and consistently denied development of any manic symptoms. Her sleep was fair, 5-7 hours a night throughout her stay. Appetite was good, and she ate 100% of most meals. She denied side effects to medications. She had a family meeting with her on 08/23/2016, and she discussed her frustration as she does not feel supported by her , whom she described as rather passive. She discussed her struggles to lose weight, having gained back much of the weight she lost while in [employer], and that this makes her feel like a failure. She also endorsed worries about her 's weight and health as he is morbidly obese, and he agreed to also attend [employer]. They also discussed moving back into the same bedroom, which both agreed with. They discussed their family dynamics, including their son with autism, which requires a lot of the patient's time and energy. They discussed giving their son some additional responsibilities, so that the patient would not be responsible for every aspect of his daily life. She was also encouraged to follow through on ideas to get out of the home, such as returning to volunteer work. Safety concerns at home were also discussed. Their son has guns, and they are kept locked up and he has the le. Her agreed to get a weekly med box which she will fill, and keep all the other medications locked. The patient's mood improved over the next several days, and her suicidal ideation resolved. She was able to work on healthy ways to cope with anxiety and frustration, and was able to review her discharge safety plan. She had an argument with her during visiting hours, when he became upset because she had been talking on the phone to a male friend of hers. She was able to process this with staff, and talked about the fact that she has few friends and does not think it is fair that her gets upset with her for talking to this particular male friend. She discussed her desire to get couples counseling , as this is a long-standing issue, and was also encouraged to work on ways to increase her socialization outside the home and make new friends. Date of discharge assessment: The patient states that her mood is "great," and she feels ready for discharge. She denies any suicidal thoughts for the past 3-4 days. She reports good sleep and appetite, and denies mood swings, euphoric mood, and racing thoughts. She is able to review her safety plan. She has appointments with both her therapist and her psychiatrist this week. She states that she had a very good visit with her last night, as he apologized for his behavior the previous day, which surprised her. He states that they had a good talk about their disagreements over her eating friends with this particular male, and that she thinks her understands her perspective. She feels safe going home, and denies any concerns. She is excited to see her family and her dog, and endorses hopefulness that things will continue to improve. She feels the hydroxyzine has been helpful for anxiety here, and requested a prescription at discharge. Obese WF appearing stated age. Casually dressed and adequately groomed. Calm and cooperative. Seated in NAD, with fair eye contact and no abnormal movements. Speech is normal rate, volume, and tone. Mood is "great," and affect is stable and congruent. Thoughts are linear, logical and goal directed. The patient denied suicidal and homicidal ideation and was able to safety plan. No paranoia, delusions, or hallucinations, and did not appear to be responding to internal stimuli. Cognition was grossly intact. Alert and oriented to person, place and time. Intelligence is consistent with level of education. Insight and and judgment are fair. Laboratory Refer to printed laboratory reports Total Time Total Time Spent (min): Greater than 30 minutes Total Time Included: examination of the patient, discharge planning, medication reconciliation, communication with other providers Tobacco Cessation at Discharge FDA approved Prescription: non-smoker Problem Qualifiers (1) Obesity: Obesity type: due to excess calories
== END 2016-08-26 11:38 | disposition home or self-care (01) | DRG 885 ==
LOC: C.MHU 12:15
PROVIDERS: ADMIT Psychiatry & Neurology Psychiatry; ATTEND Psychiatry & Neurology Psychiatry
DX: F31.9 Bipolar disorder, unspecified (principal); R45.851 Suicidal ideations; Z68.41 Body mass index [BMI] 40.0-44.9, adult; F41.9 Anxiety disorder, unspecified; T42.4X2A Poisoning by benzodiazepines, intentional self-harm, initial encounter; E66.9 Obesity, unspecified; Z81.8 Family history of other mental and behavioral disorders; E78.5 Hyperlipidemia, unspecified; I10 Essential (primary) hypertension; Y92.009 Unspecified place in unspecified non-institutional (private) residence as the place of occurrence of the external cause

== ENCOUNTER 2017-08-19 16:35 | Inpatient (IN) | payer OTHER ==
[~2017-08-19] VITALS: Ht 170.2 cm; Wt 127.3 kg
[~2017-08-19 16:35] MED LIST changes: +ATOR10TA82 PO; -ATOR10TA88 PO; -ATV/1 PO; +CALC500T83 PO; -CLON1TAB3 PO; +CYM30 PO; -DULO60CA44 PO; +FERR1TAB62 PO; -FERR325T PO; -ZIPR1CAP5 PO
[2017-08-19 17:39] LABS: BASO % 0.2 %; BASO ABS # 0.02 K/uL (0-0.2); EOS % 1.6 %; EOS ABS # 0.15 K/uL (0-0.5); HEMATOCRIT 38.8 % (37-47); HEMOGLOBIN 13.3 g/dL (12.0-16.0); IG# 0.05 K/uL (0.00-0.02); LYMPH % 32.5 %; LYMPH ABS # 3.13 K/uL (1.2-3.4); MEAN CELL VOLUME 99.2 fL (80-100); MEAN CORPUSCULAR HGB CONC 34.3 g/dl (32-36); MEAN PLATELET VOLUME 10.3 fL (7.4-10.4); MONO % 6.9 %; MONO ABS # 0.66 K/uL (0.11-0.59); NEUT % 58.3 %; NEUT ABS # 5.61 K/uL (1.4-6.5); PLATELET COUNT 178 K/uL (130-400); RED CELL DISTRIBUTION WIDTH CV 12.7 % (11.5-14.5); RED CELL DISTRIBUTION WIDTH SD 45.9 fL (36.4-46.3); WHITE BLOOD COUNT 9.62 K/uL (4.8-10.8)
[2017-08-19] MEDS ORDERED: CYM/60 PO (17:46)
[2017-08-19] MEDS ORDERED: ERGO500037 PO (17:46)
[2017-08-19] MEDS ORDERED: ZIPR1CAP4 PO (17:49)
[2017-08-19 17:57] LABS: ALBUMIN 3.9 gm/dl (3.4-5.0); ALT/SGPT 46 U/L (12-78); BLOOD UREA NITROGEN 17 mg/dl (7-18); CALCIUM 8.7 mg/dl (8.5-10.1); CARBON DIOXIDE 24 mmol/L (21-32); CREATININE 0.63 mg/dl (0.60-1.20); GLUCOSE 89 mg/dl (70-99); POTASSIUM 3.6 mmol/L (3.5-5.1); SODIUM 138 mmol/L (136-145)
[2017-08-19 18:08] LABS: ALKALINE PHOSPHATASE 122 U/L (45-117); AST/SGOT 21 U/L (15-37)
[2017-08-19 18:42] VITALS: O2SAT 98
[2017-08-19] MEDS ORDERED: SODIUM CHLORIDE 0.65% NA SOLN 45 ML (OCEAN) PRN (19:00)
[2017-08-19] MEDS ORDERED: hydrOXYzine HCL 25 MG TAB PO PRN (19:00)
[2017-08-19] MEDS ORDERED: BISMUTH SUBSALICYLATE PER ML OMNICELL CHARGE PO PRN (19:00)
[2017-08-19] MEDS ORDERED: MAGNESIUM HYDROXIDE SUSP 30 ML UDC PO PRN (19:00)
[2017-08-19] MEDS ORDERED: ALUMINUM/MAGNESIUM SUSP 30 ML UDC PO PRN (19:00)
--- NOTE | 2017-08-19 19:13 | EMERGENCY ROOM VISIT NOTE ---
History Report prepared by Garret: Rao John Under the Supervision of: Dr. Emir Mcgregor M.D. First contact with patient: 16:51 Chief Complaint: MENTAL HEALTH EVALUATION Stated Complaint: DEPRESSION,SUICIDAL THOUGHTS History of Present Illness The patient is a 47 year old female who presents to the Emergency Room for a mental health evaluation for persistent depression and suicidal thoughts for the past week. The patient states that she was admitted in June for similar episodes, and she states that she never bounced back and feels even worse than before being admitted. The patient states that there were no specific triggers this time. The patient notes that she was looking up medications that she could take to harm herself, and she was thinking about Seroquel which her son takes. She additionally states that she has no energy, and she has been unable to get out of bed and is sleeping all day or is just laying in bed. The patient denies any alcohol or drug use. The patient states that she takes Cymbalta, Geodon, and Tegretol. Pt denies LOC, headache, fevers, chills, diaphoresis, visual changes, neck pain, chest pain, breathing difficulties, nausea, vomiting, abdominal pain, back pain, melena, hematochezia, urinary symptoms, numbness, weakness, lymphadenopathy, rash, or other complaints. Source of History: patient Onset: the past week Position: other (global) Quality: other (depression and suicidal ideations) Timing: other (persistent) Review of Systems See HPI for pertinent positives and negatives. A total of ten systems were reviewed and were otherwise negative. Past Medical & Surgical Medical Problems: (1) Anxiety (2) Benign hypertension (3) Bipolar disorder current episode depressed (4) Hyperlipidemia (5) Hypertension (6) Klonopin use disorder, severe (7) Obesity Social History Smoking Status: Never Smoker Drug Use: none Marital Status: Occupation Status: disabled Current/Historical Medications Scheduled Atorvastatin (Lipitor), 10 MG PO DAILY Calcium (Calcium), 1,000 MG PO BID Carbamazepine (Tegretol), 800 MG PO HS Clomipramine Hcl (Anafranil), 100 MG PO HS Duloxetine HCl (Cymbalta), 60 MG PO QAM Ergocalciferol (Vitamin D 62141 Unit), 50,000 UNIT PO MWF Ferrous Sulfate (Ferrous Sulfate), 325 MG PO DAILY Furosemide (Lasix), 20 MG PO QAM Magnesium Oxide (Mg Supplement (Magnesium), 250 MG PO BID Metoprolol Tartrate (Lopressor), 50 MG PO QPM Multiple Minerals W/ Vitamins (Citracal Plus), 1 TABS PO BID Omeprazole (Prilosec), 40 MG PO DAILY Riboflavin (Vitamin B-2), 200 MG PO BID Topiramate (Topamax), 100 MG PO BID Valsartan/Hctz (Diovan Hct 320MG/12.5MG), 1 TAB PO DAILY Ziprasidone Hcl (Geodon), 40 MG PO BID Allergies Coded Allergies: Milk (Unverified Allergy, Unknown, GI UPSET, 08/19/17) Physical Exam Vital Signs Date Time Temp Pulse Resp B/P (MAP) Pulse Ox O2 Delivery O2 Flow Rate FiO2 08/19/17 18:42 65 20 103/51 98 Room Air 08/19/17 16:37 37.1 75 20 195/112 100 Room Air Physical Exam GENERAL: Awake, alert, well-appearing, in no distress HENT: Normocephalic, atraumatic. Oropharynx unremarkable. EYES: Normal conjunctiva. Sclera non-icteric. NECK: Supple. No nuchal rigidity. FROM. No JVD. RESPIRATORY: Clear to auscultation. CARDIAC: Regular rate, normal rhythm. Extremities warm and well perfused. Pulses equal. ABDOMEN: Soft, non-distended. No tenderness to palpation. No rebound or guarding. No masses. RECTAL: Deferred. MUSCULOSKELETAL: Chest examination reveals no tenderness. The back is symmetrical on inspection without obvious abnormality. There is no CVA tenderness to palpation. No joint edema. LOWER EXTREMITIES: Calves are equal size bilaterally and non-tender. No edema. No discoloration. NEURO: Normal sensorium. No sensory or motor deficits noted. SKIN: No rash or jaundice noted. PSYCH: Flat affect. Admits to suicidal ideations by overdose. Medical Decision & Procedures Laboratory Results 08/19/17 17:22 Red Blood Count 3.91, Mean Corpuscular Volume 99.2, Mean Corpuscular Hemoglobin 34.0, Mean Corpuscular Hemoglobin Concent 34.3, Mean Platelet Volume 10.3, Neutrophils (%) (Auto) 58.3, Lymphocytes (%) (Auto) 32.5, Monocytes (%) (Auto) 6.9, Eosinophils (%) (Auto) 1.6, Basophils (%) (Auto) 0.2, Neutrophils # (Auto) 5.61, Lymphocytes # (Auto) 3.13, Monocytes # (Auto) 0.66, Eosinophils # (Auto) 0.15, Basophils # (Auto) 0.02 08/19/17 17:22 Test 08/19/17 16:55 08/19/17 17:22 Urine Color DK YELLOW Urine Appearance CLEAR (CLEAR) Urine pH 5.0 (4.5-7.5) Urine Specific [place] 1.018 (1.000-1.030) Urine Protein NEG (NEG) Urine Glucose (UA) NEG (NEG) Urine Ketones NEG (NEG) Urine Occult Blood NEG (NEG) Urine Nitrite NEG (NEG) Urine Bilirubin NEG (NEG) Urine Urobilinogen NEG (NEG) Urine Leukocyte Esterase NEG (NEG) Urine Test NEG (NEG) Urine Opiates Screen NEG (NEG) Urine Methadone, Qualitative NEG (NEG) Urine Barbiturates NEG (NEG) Urine Phencyclidine (PCP) Level NEG (NEG) Ur Amphetamine/Methamphetamine NEG (NEG) MDMA (Ecstasy) Screen NEG (NEG) Urine Benzodiazepines Screen NEG (NEG) Urine Cocaine Metabolite NEG (NEG) Urine Marijuana (THC) NEG (NEG) White Blood Count 9.62 K/uL (4.8-10.8) Red Blood Count 3.91 M/uL (4.2-5.4) Hemoglobin 13.3 g/dL (12.0-16.0) Hematocrit 38.8 % (37-47) Mean Corpuscular Volume 99.2 fL (80-100) Mean Corpuscular Hemoglobin 34.0 pg (25-34) Mean Corpuscular Hemoglobin Concent 34.3 g/dl (32-36) Platelet Count 178 K/uL (130-400) Mean Platelet Volume 10.3 fL (7.4-10.4) Neutrophils (%) (Auto) 58.3 % Lymphocytes (%) (Auto) 32.5 % Monocytes (%) (Auto) 6.9 % Eosinophils (%) (Auto) 1.6 % Basophils (%) (Auto) 0.2 % Neutrophils # (Auto) 5.61 K/uL (1.4-6.5) Lymphocytes # (Auto) 3.13 K/uL (1.2-3.4) Monocytes # (Auto) 0.66 K/uL (0.11-0.59) Eosinophils # (Auto) 0.15 K/uL (0-0.5) Basophils # (Auto) 0.02 K/uL (0-0.2) RDW Standard Deviation 45.9 fL (36.4-46.3) RDW Coefficient of Variation 12.7 % (11.5-14.5) Immature Granulocyte % (Auto) 0.5 % Immature Granulocyte # (Auto) 0.05 K/uL (0.00-0.02) Anion Gap 9.0 mmol/L (3-11) Est Creatinine Clear Calc Drug Dose 156.5 ml/min Estimated GFR () 125.6 Estimated GFR (Non- 108.3 BUN/Creatinine Ratio 27.0 (10-20) Calcium Level 8.7 mg/dl (8.5-10.1) Total Bilirubin 0.1 mg/dl (0.2-1) Direct Bilirubin < 0.1 mg/dl (0-0.2) Aspartate Amino Transf (AST/SGOT) 21 U/L (15-37) Alanine Aminotransferase (ALT/SGPT) 46 U/L (12-78) Alkaline Phosphatase 122 U/L (45-117) Total Protein 7.0 gm/dl (6.4-8.2) Albumin 3.9 gm/dl (3.4-5.0) Thyroid Stimulating Hormone (TSH) 0.974 uIu/ml (0.300-4.500) Salicylates Level < 1.7 mg/dl (2.8-20) Acetaminophen Level < 2 ug/ml (10-30) Carbamazepine (Tegretol) Level 9.5 mcg/ml (4-12) Ethyl Alcohol mg/dL < 3.0 mg/dl (0-3) Laboratory results reviewed by ar ED Course 1651: The patient was evaluated in room A8. A complete history and physical exam was performed. 1730: The patient was accepted as a patient by [facility] Prior records/ancillary studies reviewed. Triage Nursing notes reviewed and agree them. The patient's history was concerning for possible psychiatric disturbance. Differential diagnosis: Etiologies such as mood disorder, infection, hypoglycemia, electrolyte abnormalities, cardiac sources, intracerebral event, toxicologic, neurologic, as well as others were entertained. Physical examination: The physical examination was performed as above and was completely benign. No emergent medical pathologies were noted. No cart suturing. ER treatment provided: No parenteral medications given. Diagnostic interpretation by me: The labs revealed normal CBC and chemistry panel. Tox screen unremarkable. Imaging studies: Deferred Patient was referred to the Emergency Room by her psychiatrist for inpatient treatment. Consultation: A consultation was placed with [address] [place] [address]. The patient was accepted for voluntary psychiatric treatment. Medication Reconcilliation Current Medication List: was personally reviewed by me Blood Pressure Screening Patient's blood pressure: Elevated blood pressure Blood pressure disposition: Elevated BP felt to be situational Impression Primary Impression: Suicidal ideation Additional Impression: Mood disorder Scribe Attestation The scribe's documentation has been prepared under my direction and personally reviewed by me in its entirety. I confirm that the note above accurately reflects all work, treatment, procedures, and medical decision making performed by me. Departure Information Dispostion Mental Health Acute Care Referrals No Doctor, Assigned (PCP) Forms HOME CARE DOCUMENTATION FORM, IMPORTANT VISIT INFORMATION Patient Instructions My [facility] Problem Qualifiers
[2017-08-19 20:46] VITALS: BP 128/83; PULSE 76; TEMP 37.1; Ht 170.2 cm; Wt 127.3 kg
[2017-08-19] MEDS ORDERED: NON-FORMULARY MEDICATION (Riboflavin (Vitamin B-2) 200 MG) PO SCH (21:00)
[2017-08-19] MEDS ORDERED: ZIPRASIDONE 20 MG CAP PO SCH (21:00)
[2017-08-19] MEDS: CARBAMAZEPINE 200 MG TAB PO SCH (21:15)
[2017-08-19] MEDS: MAGNESIUM OXIDE 400 MG TAB PO SCH (21:15)
[2017-08-19] MEDS: TOPIRAMATE 100 MG TAB PO SCH (21:15)
[2017-08-19] MEDS: CEROVITE ADV FORMULA TAB PO SCH (21:15)
[2017-08-19] MEDS: METOPROLOL TARTRATE 50 MG TAB PO SCH (21:16)
[2017-08-19] MEDS: CALCIUM 600MG + VIT D 400 IU TAB PO SCH (21:16)
[2017-08-19] MEDS ORDERED: NURSING VERBAL MED ORDER ONE (21:30)
[2017-08-20] MEDS: hydrOXYzine HCL 25 MG TAB PO PRN ×2 (02:36→21:18)
[2017-08-20 06:54] VITALS: BP_SYST 149; BP_SYST 154; BP_DIAS 91; BP_DIAS 98; PULSE 61; PULSE 63; TEMP 36.4
[2017-08-20] MEDS: FERROUS SULFATE 325 MG TAB PO SCH (08:42)
[2017-08-20] MEDS: VALSARTAN 80 MG TAB PO SCH (08:42)
[2017-08-20] MEDS: DULOXETINE HCL 60 MG CAP PO SCH (08:42)
[2017-08-20] MEDS: CALCIUM 600MG + VIT D 400 IU TAB PO SCH ×2 (08:42→21:15)
[2017-08-20] MEDS: FUROSEMIDE 20 MG TAB PO SCH (08:43)
[2017-08-20] MEDS: HYDROCHLOROTHIAZIDE 25 MG TAB PO SCH (08:43)
[2017-08-20] MEDS: MAGNESIUM OXIDE 400 MG TAB PO SCH ×2 (08:43→21:16)
[2017-08-20] MEDS: PANTOprazole SOD 40 MG TAB PO SCH (08:44)
[2017-08-20] MEDS: CEROVITE ADV FORMULA TAB PO SCH ×2 (08:44→21:17)
[2017-08-20] MEDS: TOPIRAMATE 100 MG TAB PO SCH ×2 (08:44→21:17)
[2017-08-20] MEDS: ERGOCALCIFEROL 50,000 INTER.UNIT CAP PO SCH (08:44)
[2017-08-20] MEDS ORDERED: ATORVASTATIN 10 MG TAB PO SCH (09:00)
--- NOTE | 2017-08-20 11:43 | Psychiatric History & Physical ---
History Date of Service Aug 20, 2017. Identifying Data Crystal Reyna is a 47-year-old female admitted on Aug 19, 2017 at 18:48 who currently lives in [place] with her and son, has a history of bipolar disorder type I, and follows with this physician at [facility]. She was admitted on a 201 voluntary commitment after she made an urgent appointment at the office yesterday and expressed worsening depression and suicidal ideation with a plan to overdose on her son's Seroquel. Chief Complaint "Okay". Past Psychiatric History Current OP Treatment: psychiatrist (Dr. Kapoor at [facility]), therapist ( Lesley Armando ) Prior OP Treatment: psychiatrist (Dr. Ozuna, Dr. Rowe), therapist Prior Psych Hospitalizations: [facility] (June 2017 for mood instability and suicidal ideation), [facility] (first hospitalization in February 2013, again in August 2016), [facility] (2015) Access to a Gun: Yes (son owns guns) Suicide Attempts: Yes (2 or 3: overdose on clonazepam in August 2016, overdose on zolpidem prior to 2012) Past Medication Trials [place] - patient self discontinued in 2012 due to concerns for "increased pressure in my brain," per patient neurologist Dr. He advised her of this (has pseudotumor cerebri). It helped, and her mood worsened leading to her first hospitalization in 2012. Lamotrigine - years ago, doesn't recall response Depakote - "eyes were fast and jittery when I lay down or stood up" Paliperidone - doesn't recall response Aripiprazole - multiple trials, doesn't recall response Risperidone - ? Clonazepam - stopped after intentional overdose in August 2016 Temazepam Lorazepam Hydroxyzine Trazodone Zolpidem Bupropion SR Fluoxetine - activating Escitalopram - activating Citalopram - activating Paroxetine Sertraline - activating Additional Notes Diagnosed with bipolar disorder at age 32, although her symptoms began in high school. Also had significant anxiety in high school and would develop GI symptoms prior to field trips or exposure to new settings. History of self injury by cutting during adolescence. Was prescribed a series of antidepressants when she was first diagnosed (in the period), as she was only reporting symptoms of depression. She has been on current meds ( duloxetine, carbamazepine, topiramate, ziprasidone) for many years, with others added at times. During her [facility] admission, medications were decreased due to polypharmacy (ziprasidone, clomipramine, duloxetine), with a plan to taper her off of some of them over time. Past Medical/Surgical History History of Concussion/Seizure: No (1) Pseudotumor cerebri (2) Hyperlipidemia (3) Hypertension (4) Obesity (5) H/O gastric bypass (6) H/O: hysterectomy PCP is Marisol Garcia PA-C Allergies Allergies: Coded Allergies: Milk (Unverified Allergy, Unknown, GI UPSET, 08/19/17) Home Medications Scheduled Atorvastatin (Lipitor), 10 MG PO DAILY Calcium (Calcium), 1,000 MG PO BID Carbamazepine (Tegretol), 800 MG PO HS Clomipramine Hcl (Anafranil), 100 MG PO HS Duloxetine HCl (Cymbalta), 60 MG PO QAM Ergocalciferol (Vitamin D 38832 Unit), 50,000 UNIT PO MWF Ferrous Sulfate (Ferrous Sulfate), 325 MG PO DAILY Furosemide (Lasix), 20 MG PO QAM Magnesium Oxide (Mg Supplement (Magnesium), 250 MG PO BID Metoprolol Tartrate (Lopressor), 50 MG PO QPM Multiple Minerals W/ Vitamins (Citracal Plus), 1 TABS PO BID Omeprazole (Prilosec), 40 MG PO DAILY Riboflavin (Vitamin B-2), 200 MG PO BID Topiramate (Topamax), 100 MG PO BID Valsartan/Hctz (Diovan Hct 320MG/12.5MG), 1 TAB PO DAILY Ziprasidone Hcl (Geodon), 40 MG PO BID Family History History of Suicide: Yes (brother committed suicide by gun at age 30, had depression and alcohol abuse) History of Substance Abuse: Yes (Brother with alcohol abuse, uncle with drug and alcohol addiction, cousin with alcoholism, and another cousin with drug and alcohol) Psychiatric History: Yes (Brother with depression as above, son with autism, maternal aunt with depression, and maternal cousin with bipolar disorder.) Alcohol Use Alcohol Use In Past 12 Months: No AUDIT Total Score: 0 Smoking Use Smoking Status: Never Smoker Substance History Denies abusing recreational or illicit substances. Clonazepam was discontinued after she overdosed on it one year ago. Personal History Lives in: [place] with her and 17-year-old son Childhood: Grew up in [place], raised by both parents. Education: advanced degree (master's degree from [employer] in undergraduate degree from [employer] Work History: Unemployed Relationship History: (25 years) Children: 23-year-old daughter and 17-year-old son. Spiritual Affiliation: none Psychological Trauma History: Significant Loss, Other (denies history of abuse) Additional Comments: Father in July 2015 and paternal grandfather in October 2015, and she has struggled with her grief. Her brother completed suicide in 2004 when he was 30 years old, which was a surprise to the family. 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 Examination Physical Examination A physical exam was performed in the ER prior to admission to the unit by Dr. Mcgregor. I accept that physical as correct/medical clearance for the inpatient physical exam. Vital Signs Vital Signs Past 12 Hours Date Time Temp Pulse Resp B/P (MAP) Pulse Ox O2 Delivery O2 Flow Rate FiO2 08/20/17 06:54 36.4 63 16 154/91 61 149/98 Laboratory Results Last 24 Hours Test 08/19/17 16:55 08/19/17 17:22 Urine Color DK YELLOW Urine Appearance CLEAR Urine pH 5.0 Urine Specific [place] 1.018 Urine Protein NEG Urine Glucose (UA) NEG Urine Ketones NEG Urine Occult Blood NEG Urine Nitrite NEG Urine Bilirubin NEG Urine Urobilinogen NEG Urine Leukocyte Esterase NEG Urine Test NEG Urine Opiates Screen NEG Urine Methadone, Qualitative NEG Urine Barbiturates NEG Urine Phencyclidine (PCP) Level NEG Ur Amphetamine/Methamphetamine NEG MDMA (Ecstasy) Screen NEG Urine Benzodiazepines Screen NEG Urine Cocaine Metabolite NEG Urine Marijuana (THC) NEG White Blood Count 9.62 K/uL Red Blood Count 3.91 M/uL Hemoglobin 13.3 g/dL Hematocrit 38.8 % Mean Corpuscular Volume 99.2 fL Mean Corpuscular Hemoglobin 34.0 pg Mean Corpuscular Hemoglobin Concent 34.3 g/dl Platelet Count 178 K/uL Mean Platelet Volume 10.3 fL Neutrophils (%) (Auto) 58.3 % Lymphocytes (%) (Auto) 32.5 % Monocytes (%) (Auto) 6.9 % Eosinophils (%) (Auto) 1.6 % Basophils (%) (Auto) 0.2 % Neutrophils # (Auto) 5.61 K/uL Lymphocytes # (Auto) 3.13 K/uL Monocytes # (Auto) 0.66 K/uL Eosinophils # (Auto) 0.15 K/uL Basophils # (Auto) 0.02 K/uL RDW Standard Deviation 45.9 fL RDW Coefficient of Variation 12.7 % Immature Granulocyte % (Auto) 0.5 % Immature Granulocyte # (Auto) 0.05 K/uL Sodium Level 138 mmol/L Potassium Level 3.6 mmol/L Chloride Level 105 mmol/L Carbon Dioxide Level 24 mmol/L Anion Gap 9.0 mmol/L Blood Urea Nitrogen 17 mg/dl Creatinine 0.63 mg/dl Est Creatinine Clear Calc Drug Dose 156.5 ml/min Estimated GFR () 125.6 Estimated GFR (Non- 108.3 BUN/Creatinine Ratio 27.0 Random Glucose 89 mg/dl Calcium Level 8.7 mg/dl Total Bilirubin 0.1 mg/dl Direct Bilirubin < 0.1 mg/dl Aspartate Amino Transf (AST/SGOT) 21 U/L Alanine Aminotransferase (ALT/SGPT) 46 U/L Alkaline Phosphatase 122 U/L Total Protein 7.0 gm/dl Albumin 3.9 gm/dl Thyroid Stimulating Hormone (TSH) 0.974 uIu/ml Salicylates Level < 1.7 mg/dl Acetaminophen Level < 2 ug/ml Carbamazepine (Tegretol) Level 9.5 mcg/ml Ethyl Alcohol mg/dL < 3.0 mg/dl Mental Examination During interview pt is: alert and oriented, cooperative Appearance: appropriately dressed, appropriately groomed, appeared stated age Eye contact is: good Motor behavior is: steady gait & station, no abnormal motor movements Speech: normal in rate, rhythm & volume Affect: mood congruent, depressed, tearful Mood is: depressed Thought process: goal directed, linear, logical, clear, coherent Thought content: reality based without delusions Suicidal thought are: present, Plan: present, Intent: denied (in the hospital, but cannot contract for safety outside of the hospital) Hallucinations: denies auditory, denies visual Cognition: memory grossly intact, attention grossly intact, language grossly intact Intelligence estimated to be: consistent with level of education Insight: fair Judgement: fair Impression / Recommendations Impression 47-year-old white female with bipolar disorder type I and anxiety disorder not otherwise specified who presents with worsening depression and suicidal ideation with a plan to overdose on her son's quetiapine, which she researched and actually counted his pills to determine if there was enough to end her life. She requires inpatient treatment due to the high risk of suicide if discharged, as she has a history of multiple suicide attempts, and was unable to contract for safety outside of the hospital. She has communication difficulties with her which she would like to address in a family meeting, and have also discussed the idea of working on a safety plan with him, given her multiple episodes of depression and suicidal thoughts, which would include her intervening when she becomes more depressed or has suicidal thoughts and securing the guns and medications to decrease the chances that she would act impulsively on these thoughts. She has been on multiple medications for mood and anxiety for many years, including carbamazepine, duloxetine, clomipramine, topiramate, and ziprasidone, some of which were decreased during her admission to the [facility] several months ago. She is willing for a trial of lurasidone, and we will attempt to clean up her medication regimen to avoid polypharmacy and remove medications that have not been effective. Inventory Assets Strengths: willing for treatment, good medication compliance, intelligence Needs: medication adjustments, increased structure at home Risk Factors Assessment : Yes /single/: No Higher / Fall in social status: No Access to guns: Yes (son owns guns) Health problems: Yes Mental Health Diagnoses: Yes Substance use disorders: No Previous attempt: Yes Family history of suicide: Yes Previous psychiatric stay: Yes Hopelessness: Yes Smoker: No Protective Factors Assessment Baptism beliefs: No : Yes Responsible for young children: Yes Employed: No Stable relationships: Yes Supportive family: Yes Good rapport with provider: Yes Recommendations (1) Suicidal ideation Q 15 min checks for safety Attend groups and work on healthy coping skills and discharge safety plan, to include no access to guns or medications. Recommend involving her in this, and given her recurrent suicidal ideation, working on a plan whereby she notifies him when mood is worse or suicidal thoughts are returning, so that all medications can be locked and secured during the times when she is at high risk. (2) Bipolar disorder current episode depressed 08/20 - reviewed extensive past medication trials, and she has not been on lurasidone, quetiapine, olanzapine/fluoxetine combination, or cariprazine, and had a good response to lithium but self-discontinued it due to concerns that it would cause increased intracranial pressure. Olanzapine and quetiapine are relatively contraindicated given her obesity, hyperlipidemia, and hypertension, but a trial of lurasidone would be less likely to exacerbate metabolic syndrome. Reviewed medication options with her, and she agreed to a trial of lurasidone after review of the side effects. Provided her with an Up To Date handout about the medication. - Reviewed her current medications: topiramate 100 mg twice a day (initially started for migraines, but continued for mood stabilizing properties as HAs are much improved, but prescribed by PCP), duloxetine 60mg qam, ziprasidone 40mg bid w/ meals, clomipramine 100mg qhs, and carbamazepine 800mg qhs. Ideally, I would like to taper her off some of these medications, consolidate her to one antidepressant, and I am not sure if the topiramate is doing anything as a mood stabilizer. We will start by tapering off the trazodone, and decreasing the clomipramine to 50 mg daily at bedtime. We will check with her insurance to ensure that lurasidone will be covered/affordable, and then will start 20 mg daily and titrate as tolerated. - Care coordinated with therapist, Lesley Armando at [facility]; next appointment is 08/26/2017 at 3 PM. She has an appointment with this physician on , 08/28/2016 at 4 PM. - Schedule family meeting with , both to discuss communication issues and a detailed safety plan as above. (3) Anxiety Diagnosed with anxiety not otherwise specified, with symptoms of generalized anxiety disorder and panic. Continue duloxetine 60 mg daily. Offer hydroxyzine as needed, and encourage behavioral techniques to manage anxiety. (4) Hyperlipidemia Continue home dose of atorvastatin, and check fasting lipid profile tomorrow. (5) Hypertension Continue home doses of furosemide and metoprolol. She has had intermittent elevated blood pressure, and we will continue to monitor here. (6) Obesity Encourage healthy diet and exercise. (7) GERD (gastroesophageal reflux disease) Takes Prilosec at home, will administer pantoprazole here. CPT Code Initial Hospital Care: 23431
[2017-08-20] MEDS ORDERED: ZIPRASIDONE 20 MG CAP PO SCH (17:30)
[2017-08-20 20:44] VITALS: BP 126/79; PULSE 72
[2017-08-20] MEDS: METOPROLOL TARTRATE 50 MG TAB PO SCH (21:14)
[2017-08-20] MEDS: CLOMIPRAMINE 50 MG PO SCH (21:15)
[2017-08-20] MEDS: ATORVASTATIN 10 MG TAB PO SCH (21:15)
[2017-08-20] MEDS: CARBAMAZEPINE 200 MG TAB PO SCH (21:17)
[2017-08-21] MEDS: hydrOXYzine HCL 25 MG TAB PO PRN ×2 (01:30→20:52)
[2017-08-21 06:45] VITALS: BP_SYST 135; BP_SYST 141; BP_DIAS 84; BP_DIAS 89; PULSE 61; PULSE 63; TEMP 36.5
[2017-08-21] MEDS: CALCIUM 600MG + VIT D 400 IU TAB PO SCH ×2 (08:43→20:49)
[2017-08-21] MEDS: FERROUS SULFATE 325 MG TAB PO SCH (08:44)
[2017-08-21] MEDS: ZIPRASIDONE 20 MG CAP PO SCH (08:44)
[2017-08-21] MEDS: HYDROCHLOROTHIAZIDE 25 MG TAB PO SCH (08:44)
[2017-08-21] MEDS: DULOXETINE HCL 60 MG CAP PO SCH (08:44)
[2017-08-21] MEDS: VALSARTAN 80 MG TAB PO SCH (08:44)
[2017-08-21] MEDS: MAGNESIUM OXIDE 400 MG TAB PO SCH ×2 (08:45→20:50)
[2017-08-21] MEDS: FUROSEMIDE 20 MG TAB PO SCH (08:45)
[2017-08-21] MEDS: TOPIRAMATE 100 MG TAB PO SCH ×2 (08:46→20:51)
[2017-08-21] MEDS: CEROVITE ADV FORMULA TAB PO SCH ×2 (08:46→20:50)
[2017-08-21] MEDS: PANTOprazole SOD 40 MG TAB PO SCH (08:46)
--- NOTE | 2017-08-21 11:29 | Psychiatric Progress Notes ---
Progress Note Date of Service Aug 21, 2017. Interval History Crystal Reyna is a 47-year-old female admitted on Aug 19, 2017 at 18:48 who currently lives in [place] with her and son, has a history of bipolar disorder type I, and follows with this physician at [facility]. She was admitted on a 201 voluntary commitment after she made an urgent appointment at the office yesterday and expressed worsening depression and suicidal ideation with a plan to overdose on her son's Seroquel. Chief Complaint "feeling pretty low". Subjective Patient was seen & assessed interval progress reviewed with Nursing. Pt reportedly slept well with 2 prn doses of Vistaril. Planning for meeting this afternoon with . Prior-auth for Latuda completed and is approved by patient's insurance, but is a $300 copay. Nursing planning to call insurance with $15-copay card to see if cost can be reduced before starting. Pt seen today to assess progress since admission. She report feeling "low" and being nervous bout her meeting with her this afternoon. Pt states he will agree to changes, but is unable to keep them going. She states she has been focusing a lot on a recent therapy group in which the discussion was about assertive, aggressive, and passive conversations. Pt states she is interested in working on how to be more assertive without coming off as aggressive to her as she feels this causes him to get upset. Pt states she has been sleeping well with occasional assistance from prn Vistaril. She reports eating less since admission to the unit, but she remains hungry. Pt reports this may not be a bad thing as she was over-eating and frequently snacking prior to her admission. Pt denies SI since admission as "I've been removed from that environment". She is able to distract herself with activities while on the unit , but is unable to contract for safety outside the unit stating, "I'll just end up crawling back into bed...that's what I feel like doing now." Pt is discouraged that she is not feeling better and that medication changes have not been made, but she is understanding to the process and patient about hearing back from her insurance. Review of Systems Psych: denies symptoms other than stated above Constitutional: denied Cardiovascular: denied GI: denied Neurologic: denied Remainder of 10 body systems also reviewed and denied other than noted above. Sleep Information Total Hours of Sleep: 7.00 Meal Information Percent of Breakfast Consumed: 90 Percent of Lunch Consumed: 100 Percent of Dinner Consumed: 100 Mental Status Exam During interview pt is: alert and oriented, cooperative Appearance: appropriately dressed, appropriately groomed, appeared stated age Eye contact is: good Motor behavior is: steady gait & station, no abnormal motor movements Speech: normal in rate, rhythm & volume Affect: depressed, tearful Mood is: depressed Thought process: goal directed, linear, logical Thought content: reality based without delusions Suicidal thought are: denied, Plan: present (overdose on son's Seroquel), Intent: denied (currently, but cannot contract for safety outside the hospital) Hallucinations: denies auditory, denies visual Cognition: memory grossly intact, attention grossly intact, language grossly intact Intelligence estimated to be: consistent with level of education Insight: fair Judgement: fair Medication Trials [place] - patient self discontinued in 2012 due to concerns for "increased pressure in my brain," per patient neurologist Dr. He advised her of this (has pseudotumor cerebri). It helped, and her mood worsened leading to her first hospitalization in 2012. Lamotrigine - years ago, doesn't recall response Depakote - "eyes were fast and jittery when I lay down or stood up" Paliperidone - doesn't recall response Aripiprazole - multiple trials, doesn't recall response Risperidone - ? Clonazepam - stopped after intentional overdose in August 2016 Temazepam Lorazepam Hydroxyzine Trazodone Zolpidem Bupropion SR Fluoxetine - activating Escitalopram - activating Citalopram - activating Paroxetine Sertraline - activating Impression Ongoing depression while inpatient, but admitting that SI has resolved since her admission. Continues to be unable to contract for safety outside the hospital. Meeting with this afternoon to address support and help with safety plan to assist patient in safe and helpful discharge. Pt has tried multiple medications for mood and anxiety in the past which have either been ineffective or activating. Currently awaiting response from patient's insurance on starting Latuda. Prior-auth has been approved with a copay of $ 303. Call placed to patient's insurance about possibility of using $15 copay card, reported we should hear back tomorrow about the status. Pt eager for medication adjustment, but understanding as to the process. Will plan to further simplify medication regimen if Latuda is started. Plan (1) Suicidal ideation Q 15 min checks for safety Attend groups and work on healthy coping skills and discharge safety plan, to include no access to guns or medications. Recommend involving her in this, and given her recurrent suicidal ideation, working on a plan whereby she notifies him when mood is worse or suicidal thoughts are returning, so that all medications can be locked and secured during the times when she is at high risk. 08/21 - Address safety plan during meeting with this afternoon. - Continue as above. (2) Bipolar disorder current episode depressed 08/20 - reviewed extensive past medication trials, and she has not been on lurasidone, quetiapine, olanzapine/fluoxetine combination, or cariprazine, and had a good response to lithium but self-discontinued it due to concerns that it would cause increased intracranial pressure. Olanzapine and quetiapine are relatively contraindicated given her obesity, hyperlipidemia, and hypertension, but a trial of lurasidone would be less likely to exacerbate metabolic syndrome. Reviewed medication options with her, and she agreed to a trial of lurasidone after review of the side effects. Provided her with an Up To Date handout about the medication. - Reviewed her current medications: topiramate 100 mg twice a day (initially started for migraines, but continued for mood stabilizing properties as HAs are much improved, but prescribed by PCP), duloxetine 60mg qam, ziprasidone 40mg bid w/ meals, clomipramine 100mg qhs, and carbamazepine 800mg qhs. Ideally, I would like to taper her off some of these medications, consolidate her to one antidepressant, and I am not sure if the topiramate is doing anything as a mood stabilizer. We will start by tapering off the trazodone, and decreasing the clomipramine to 50 mg daily at bedtime. We will check with her insurance to ensure that lurasidone will be covered/affordable, and then will start 20 mg daily and titrate as tolerated. - Care coordinated with therapist, Lesley Armando at [facility]; next appointment is 08/26/2017 at 3 PM. She has an appointment with this physician on , 08/28/2016 at 4 PM. - Schedule family meeting with , both to discuss communication issues and a detailed safety plan as above. 08/21 - Continue medication regimen as above. Awaiting response from insurance as to $15 copay coupon for Latuda as previous copay was $303/month. Pt supplied with home medication of clomipramine and received 50mg dose last PM. Continue for now, but plan to taper dose in the next few days. (3) Anxiety Diagnosed with anxiety not otherwise specified, with symptoms of generalized anxiety disorder and panic. Continue duloxetine 60 mg daily. Offer hydroxyzine as needed, and encourage behavioral techniques to manage anxiety. 08/21 - continue as above (4) Hyperlipidemia Continue home dose of atorvastatin, and check fasting lipid profile tomorrow. (5) Hypertension Continue home doses of furosemide and metoprolol. She has had intermittent elevated blood pressure, and we will continue to monitor here. (6) Obesity Encourage healthy diet and exercise. (7) GERD (gastroesophageal reflux disease) Takes Prilosec at home, will administer pantoprazole here. Discharge / Aftercare Planning Primary Care Physician: Name: Marisol Garcia, [facility] in [facility] Therapist: Name: Lesley Armando Date of Appointment: Aug 26, 2017 Director Of Recruitment And Admissions: Name: Claudio Visit Code E&M Code: 06176 Inventory Assets Strengths: willing for treatment, good medication compliance, intelligence Needs: medication adjustments, increased structure at home Risk Factors Assessment : Yes /single/: No Higher / Fall in social status: No Health problems: Yes Mental Health Diagnoses: Yes Substance use disorders: No Previous attempt: Yes Family history of suicide: Yes Previous psychiatric stay: Yes Hopelessness: Yes Smoker: No Protective Factors Assessment Tenriism beliefs: No : Yes Responsible for young children: Yes Employed: No Stable relationships: Yes Supportive family: Yes Good rapport with provider: Yes Data Vital Signs Last 24 Hrs: Date Time Temp Pulse Resp B/P (MAP) Pulse Ox O2 Delivery O2 Flow Rate FiO2 08/21/17 06:45 36.5 63 16 135/84 61 141/89 08/20/17 20:44 72 16 126/79 Meds Administered Last 24 Hrs: Meds Administered (Past 24Hrs) Medications (Trade) Dose Ordered Sig/Nisha Route Start Time Stop Time Status Last Admin Dose Admin Hydroxyzine HCl (Vistaril Tab) 50 mg HSZ PRN PO 08/19/17 19:00 09/18/17 18:59 08/21/17 01:30 50 MG Atorvastatin Calcium (Lipitor Tab) 10 mg DAILY PO 08/20/17 09:00 08/20/17 09:00 DC 08/19/17 21:20 10 MG Carbamazepine (Tegretol Tab) 800 mg HS PO 08/19/17 21:00 09/18/17 20:59 08/20/17 21:17 800 MG Duloxetine HCl (Cymbalta Cap) 60 mg QAM PO 08/20/17 09:00 09/19/17 08:59 08/21/17 08:44 60 MG Ergocalciferol (Vitamin D Cap) 50,000 interunit MoWeFr@0900 PO 08/20/17 09:00 09/19/17 08:59 08/20/17 08:44 50,000 INTERUNIT Furosemide (Lasix Tab) 20 mg QAM PO 08/20/17 09:00 09/19/17 08:59 08/21/17 08:45 20 MG Metoprolol Tartrate (Lopressor Tab) 50 mg QPM PO 08/19/17 21:00 09/18/17 20:59 08/20/17 21:14 50 MG Topiramate (Topamax Tab) 100 mg BID PO 08/19/17 21:00 09/18/17 20:59 08/21/17 08:46 100 MG Valsartan (Diovan Tab) 320 mg DAILY PO 08/20/17 09:00 09/19/17 08:59 08/21/17 08:44 320 MG Calcium/Vitamin D (Caltrate Plus Tab) 1 tab BID PO 08/19/17 21:00 09/18/17 20:59 08/21/17 08:43 1 TAB Ferrous Sulfate (Feosol Tab) 325 mg DAILY PO 08/20/17 09:00 09/19/17 08:59 08/21/17 08:44 325 MG Magnesium Oxide (Mag-Ox Tab) 200 mg BID PO 08/19/17 21:00 09/18/17 20:59 08/21/17 08:45 200 MG Multivitamins/ Minerals (Multivitamin W/ Minerals Tab) 1 tab BID PO 08/19/17 21:00 09/18/17 20:59 08/21/17 08:46 1 TAB Pantoprazole Sodium (Protonix Tab) 40 mg QAM PO 08/20/17 09:00 09/19/17 08:59 08/21/17 08:46 40 MG Ziprasidone (Geodon Cap) 40 mg BID PO 08/19/17 21:00 08/20/17 08:21 DC 08/19/17 21:16 40 MG Hydrochlorothiazide (Hydrochlorothiazide Tab) 12.5 mg DAILY PO 08/20/17 09:00 09/19/17 08:59 08/21/17 08:44 12.5 MG Atorvastatin Calcium (Lipitor Tab) 10 mg HS PO 08/20/17 22:00 09/19/17 21:59 08/20/17 21:15 10 MG Ziprasidone (Geodon Cap) 40 mg QAM PO 08/21/17 09:00 08/23/17 08:59 08/21/17 08:44 40 MG Non-Formulary Medication (Non-Formulary Patient'S Own Med) 1 ea QPM PO 08/20/17 21:00 09/19/17 20:59 08/20/17 21:15 1 EA Lab Results Last 24 Hrs: Last 24 Hours Test 08/21/17 08:24 Fasting Glucose 92 mg/dl Triglycerides Level 171 mg/dl Cholesterol Level 186 mg/dl HDL Cholesterol 52 mg/dl LDL Cholesterol, Calculated 100 mg/dl VLDL Cholesterol, Calculated 34 mg/dl Cholesterol/HDL Ratio 3.6
[2017-08-21] MEDS: ACETAMINOPHEN 325 MG TAB PO PRN (12:32)
[2017-08-21] MEDS: METOPROLOL TARTRATE 50 MG TAB PO SCH (20:48)
[2017-08-21] MEDS: ATORVASTATIN 10 MG TAB PO SCH (20:49)
[2017-08-21] MEDS: CARBAMAZEPINE 200 MG TAB PO SCH (20:50)
[2017-08-21] MEDS: CLOMIPRAMINE 50 MG PO SCH (20:51)
[2017-08-21 20:59] VITALS: BP 125/86; PULSE 71
[2017-08-22] MEDS: hydrOXYzine HCL 25 MG TAB PO PRN ×2 (01:35→21:08)
[2017-08-22 06:55] VITALS: BP_SYST 139; BP_SYST 154; BP_DIAS 93; BP_DIAS 95; PULSE 60; PULSE 67; TEMP 36.8
[2017-08-22] MEDS: VALSARTAN 80 MG TAB PO SCH (08:52)
[2017-08-22] MEDS: MAGNESIUM OXIDE 400 MG TAB PO SCH ×2 (08:52→21:10)
[2017-08-22] MEDS: PANTOprazole SOD 40 MG TAB PO SCH (08:52)
[2017-08-22] MEDS: DULOXETINE HCL 60 MG CAP PO SCH (08:52)
[2017-08-22] MEDS: FUROSEMIDE 20 MG TAB PO SCH (08:52)
[2017-08-22] MEDS: ZIPRASIDONE 20 MG CAP PO SCH (08:52)
[2017-08-22] MEDS: CALCIUM 600MG + VIT D 400 IU TAB PO SCH ×2 (08:52→21:10)
[2017-08-22] MEDS: ERGOCALCIFEROL 50,000 INTER.UNIT CAP PO SCH (08:52)
[2017-08-22] MEDS: TOPIRAMATE 100 MG TAB PO SCH ×2 (08:53→21:09)
[2017-08-22] MEDS: CEROVITE ADV FORMULA TAB PO SCH ×2 (08:53→21:09)
[2017-08-22] MEDS: HYDROCHLOROTHIAZIDE 25 MG TAB PO SCH (08:53)
[2017-08-22] MEDS: FERROUS SULFATE 325 MG TAB PO SCH (08:53)
--- NOTE | 2017-08-22 13:34 | Psychiatric Progress Notes ---
Progress Note Date of Service Aug 22, 2017. Interval History Crystal Reyna is a 47-year-old female admitted on Aug 19, 2017 at 18:48 who currently lives in [place] with her and son, has a history of bipolar disorder type I, and follows with this physician at [facility]. She was admitted on a 201 voluntary commitment after she made an urgent appointment at the office yesterday and expressed worsening depression and suicidal ideation with a plan to overdose on her son's Seroquel. Chief Complaint "I'm getting a UTI". Subjective Patient was seen & assessed interval progress reviewed with Treatment Team. Pt slept well with two doses of Vistril last evening. Meeting with went well yesterday and patient received a visit from her daughter as well. Pt was seen today to assess progress since admission. Pt states today has not been good due to feeling as though she has a UTI. Pt states she will frequently experience, low-grade fever, sweats, and pain and burning with urination. She has been in bed most of the day due to not feeling well. Her last UTI was in July and patient says she required antibiotic treatment for 2 weeks because her symptoms did not resolve. Pt reports that apart from physical symptoms, her mood is "good" and she feels as though she is improving. Pt was informed of $180 copay for Latuda and she is agreeable, stating, "We' ll make it work". Discussed the medication with the patient who states she had already received information on the drug and is agreeable. She feels that her meeting with her went well yesterday and is appearing a little more optimistic than the day before. Denies SI at this point in time, but has had limited intervention in regard to medication changes. Review of Systems Psych: denies symptoms other than stated above Constitutional: reports sweating and hot flashes Cardiovascular: denied GI: denied : reports burning and pain with urination, bladder "fullness". Neurologic: denied Remainder of 10 body systems also reviewed and denied other than noted above. Sleep Information Total Hours of Sleep: 7.25 Meal Information Percent of Breakfast Consumed: 100 Percent of Lunch Consumed: 100 Percent of Dinner Consumed: 100 Mental Status Exam During interview pt is: alert and oriented, cooperative Appearance: appropriately dressed, appropriately groomed, appeared stated age Eye contact is: good Motor behavior is: steady gait & station, no abnormal motor movements Speech: normal in rate, rhythm & volume Affect: depressed Mood is: depressed Thought process: goal directed, linear, logical Thought content: reality based without delusions Suicidal thought are: denied, Plan: present (take an overdose of son's Seroquel ), Intent: denied Hallucinations: denies auditory, denies visual Cognition: memory grossly intact, attention grossly intact, language grossly intact Intelligence estimated to be: consistent with level of education Insight: fair Judgement: fair Medication Trials [place] - patient self discontinued in 2012 due to concerns for "increased pressure in my brain," per patient neurologist Dr. He advised her of this (has pseudotumor cerebri). It helped, and her mood worsened leading to her first hospitalization in 2012. Lamotrigine - years ago, doesn't recall response Depakote - "eyes were fast and jittery when I lay down or stood up" Paliperidone - doesn't recall response Aripiprazole - multiple trials, doesn't recall response Risperidone - ? Clonazepam - stopped after intentional overdose in August 2016 Temazepam Lorazepam Hydroxyzine Trazodone Zolpidem Bupropion SR Fluoxetine - activating Escitalopram - activating Citalopram - activating Paroxetine Sertraline - activating Impression Pt reports mild improvement in mood, but has been noticing symptoms of UTI. UA ordered since it sounds like pt's last UTI was complicated and required additional treatment. Pt denies SI at this point in time. Will start Latuda this evening at 20mg. Copay of $180, but patient says will be fine. Plan to taper Latuda to adequate dosing and then simplify medication regimen from there. EKG ordered due to combination of medications to evaluate for QTc. Plan (1) Suicidal ideation Q 15 min checks for safety Attend groups and work on healthy coping skills and discharge safety plan, to include no access to guns or medications. Recommend involving her in this, and given her recurrent suicidal ideation, working on a plan whereby she notifies him when mood is worse or suicidal thoughts are returning, so that all medications can be locked and secured during the times when she is at high risk. 08/21 - Address safety plan during meeting with this afternoon. - Continue as above. 08/22 - continue as above (2) Bipolar disorder current episode depressed 08/20 - reviewed extensive past medication trials, and she has not been on lurasidone, quetiapine, olanzapine/fluoxetine combination, or cariprazine, and had a good response to lithium but self-discontinued it due to concerns that it would cause increased intracranial pressure. Olanzapine and quetiapine are relatively contraindicated given her obesity, hyperlipidemia, and hypertension, but a trial of lurasidone would be less likely to exacerbate metabolic syndrome. Reviewed medication options with her, and she agreed to a trial of lurasidone after review of the side effects. Provided her with an Up To Date handout about the medication. - Reviewed her current medications: topiramate 100 mg twice a day (initially started for migraines, but continued for mood stabilizing properties as HAs are much improved, but prescribed by PCP), duloxetine 60mg qam, ziprasidone 40mg bid w/ meals, clomipramine 100mg qhs, and carbamazepine 800mg qhs. Ideally, I would like to taper her off some of these medications, consolidate her to one antidepressant, and I am not sure if the topiramate is doing anything as a mood stabilizer. We will start by tapering off the trazodone, and decreasing the clomipramine to 50 mg daily at bedtime. We will check with her insurance to ensure that lurasidone will be covered/affordable, and then will start 20 mg daily and titrate as tolerated. - Care coordinated with therapist, Lesley Armando at [facility]; next appointment is 08/26/2017 at 3 PM. She has an appointment with this physician on , 08/28/2016 at 4 PM. - Schedule family meeting with , both to discuss communication issues and a detailed safety plan as above. 08/21 - Continue medication regimen as above. Awaiting response from insurance as to $15 copay coupon for Latuda as previous copay was $303/month. Pt supplied with home medication of clomipramine and received 50mg dose last PM. Continue for now, but plan to taper dose in the next few days. 08/22 - Pt confirms $180 copay for Latuda will be manageable and agrees to proceed with plan as above. Pt was provided with information on Latuda previously, but risks, benefits, side effects, and alternatives were reviewed. Pt verbalized understanding and is in agreement. EKG ordered prior to start to assess QTc due to combination of multiple medications. Latuda 20mg to start this even, will titrate from there to an effective dose. Plan to simplify medication regimen thereafter. - Fasting labs completed 08/21 within normal limits aside from elevated triglycerides at 171. - Clomipramine at 50mg at bedtime, tapering to discontinue. - UA ordered to assess for UTI as patient is verbalizing symptoms. (3) Anxiety Diagnosed with anxiety not otherwise specified, with symptoms of generalized anxiety disorder and panic. Continue duloxetine 60 mg daily. Offer hydroxyzine as needed, and encourage behavioral techniques to manage anxiety. 08/21 - continue as above (4) Hyperlipidemia Continue home dose of atorvastatin, and check fasting lipid profile tomorrow. (5) Hypertension Continue home doses of furosemide and metoprolol. She has had intermittent elevated blood pressure, and we will continue to monitor here. (6) Obesity Encourage healthy diet and exercise. (7) GERD (gastroesophageal reflux disease) Takes Prilosec at home, will administer pantoprazole here. Discharge / Aftercare Planning Primary Care Physician: Name: Marisol Garcia [facility] Psychiatrist: Name: Dr. Kapoor, [facility] Date of Appointment: Aug 28, 2017 Time of Appointment: 4pm Therapist: Name: Lesley Armando, [facility] Date of Appointment: Aug 26, 2017 Time of Appointment: 3pm [facility] Specialists: Name: Claudio Visit Code E&M Code: 66431 Inventory Assets Strengths: willing for treatment, good medication compliance, intelligence Needs: medication adjustments, increased structure at home Risk Factors Assessment : Yes /single/: No Higher / Fall in social status: No Health problems: Yes Mental Health Diagnoses: Yes Substance use disorders: No Previous attempt: Yes Family history of suicide: Yes Previous psychiatric stay: Yes Hopelessness: Yes Smoker: No Protective Factors Assessment Cheondoism beliefs: No : Yes Responsible for young children: Yes Employed: No Stable relationships: Yes Supportive family: Yes Good rapport with provider: Yes Data Vital Signs Last 24 Hrs: Date Time Temp Pulse Resp B/P (MAP) Pulse Ox O2 Delivery O2 Flow Rate FiO2 08/22/17 06:55 36.8 60 16 154/95 67 139/93 08/21/17 20:59 71 125/86 Meds Administered Last 24 Hrs: Meds Administered (Past 24Hrs) Medications (Trade) Dose Ordered Sig/Nisha Route Start Time Stop Time Status Last Admin Dose Admin Atorvastatin Calcium (Lipitor Tab) 10 mg HS PO 08/20/17 22:00 09/19/17 21:59 08/21/17 20:49 10 MG Ziprasidone (Geodon Cap) 40 mg QAM PO 08/21/17 09:00 08/23/17 08:59 08/22/17 08:52 40 MG Non-Formulary Medication (Non-Formulary Patient'S Own Med) 1 ea QPM PO 08/20/17 21:00 09/19/17 20:59 08/21/17 20:51 1 EA
[2017-08-22] MEDS: LURASIDONE HCL 40 MG TAB PO SCH (17:22)
[2017-08-22 21:04] VITALS: BP 168/76; PULSE 81; TEMP 37.3
[2017-08-22] MEDS: ACETAMINOPHEN 325 MG TAB PO PRN (21:08)
[2017-08-22] MEDS: ATORVASTATIN 10 MG TAB PO SCH (21:09)
[2017-08-22] MEDS: METOPROLOL TARTRATE 50 MG TAB PO SCH (21:09)
[2017-08-22] MEDS: CLOMIPRAMINE 50 MG PO SCH (21:09)
[2017-08-22] MEDS: CARBAMAZEPINE 200 MG TAB PO SCH (21:11)
[2017-08-23 07:06] VITALS: BP_SYST 109; BP_SYST 120; BP_DIAS 74; BP_DIAS 85; PULSE 66; PULSE 72; TEMP 36.6
[2017-08-23] MEDS: DULOXETINE HCL 60 MG CAP PO SCH (08:14)
[2017-08-23] MEDS: CALCIUM 600MG + VIT D 400 IU TAB PO SCH ×2 (08:14→21:13)
[2017-08-23] MEDS: FERROUS SULFATE 325 MG TAB PO SCH (08:15)
[2017-08-23] MEDS: VALSARTAN 80 MG TAB PO SCH (08:15)
[2017-08-23] MEDS: HYDROCHLOROTHIAZIDE 25 MG TAB PO SCH (08:16)
[2017-08-23] MEDS: FUROSEMIDE 20 MG TAB PO SCH (08:17)
[2017-08-23] MEDS: MAGNESIUM OXIDE 400 MG TAB PO SCH ×2 (08:18→21:14)
[2017-08-23] MEDS: CEROVITE ADV FORMULA TAB PO SCH ×2 (08:19→21:13)
[2017-08-23] MEDS: TOPIRAMATE 100 MG TAB PO SCH (08:19)
[2017-08-23] MEDS: PANTOprazole SOD 40 MG TAB PO SCH (08:19)
--- NOTE | 2017-08-23 12:04 | Psychiatric Progress Notes ---
Progress Note Date of Service Aug 23, 2017. Interval History Crystal Reyna is a 47-year-old female admitted on Aug 19, 2017 at 18:48 who currently lives in [place] with her and son, has a history of bipolar disorder type I, and follows with this physician at [facility]. She was admitted on a 201 voluntary commitment after she made an urgent appointment at the office yesterday and expressed worsening depression and suicidal ideation with a plan to overdose on her son's Seroquel. Chief Complaint "good". Subjective Patient was seen & assessed interval progress reviewed with Nursing. Pt states she feels "good" in regard to mood and thinks things have been improving. Pt voiced concerns for urinary symptoms despite no sign of UTI on UA. She now feels this may have been caused by a small kidney stone which she has had in the past. Will continue to monitor. Pt denies any adverse reaction to starting Latuda. She reports mild difficulty sleeping last evening, but found a white noise machine helpful. She denies any issues with appetite. Continues to denies SI while here on the unit. Review of Systems Psych: denies symptoms other than stated above Constitutional: denied Cardiovascular: denied GI: denied : pain and bleeding with urination, bladder "fullness" Neurologic: denied Remainder of 10 body systems also reviewed and denied other than noted above. Sleep Information Total Hours of Sleep: 6.25 Meal Information Percent of Breakfast Consumed: 100 Percent of Lunch Consumed: 100 Percent of Dinner Consumed: 100 Mental Status Exam During interview pt is: alert and oriented, cooperative Appearance: appropriately dressed, appropriately groomed Eye contact is: good Motor behavior is: steady gait & station, no abnormal motor movements Speech: normal in rate, rhythm & volume Affect: blunted Mood is: other ("good") Thought process: goal directed, linear, logical Thought content: reality based without delusions Suicidal thought are: denied, Plan: present (overdose on son's Seroquel), Intent: denied Hallucinations: denies auditory, denies visual Cognition: memory grossly intact, attention grossly intact, language grossly intact Intelligence estimated to be: consistent with level of education Insight: fair Judgement: fair Medication Trials [place] - patient self discontinued in 2012 due to concerns for "increased pressure in my brain," per patient neurologist Dr. He advised her of this (has pseudotumor cerebri). It helped, and her mood worsened leading to her first hospitalization in 2012. Lamotrigine - years ago, doesn't recall response Depakote - "eyes were fast and jittery when I lay down or stood up" Paliperidone - doesn't recall response Aripiprazole - multiple trials, doesn't recall response Risperidone - ? Clonazepam - stopped after intentional overdose in August 2016 Temazepam Lorazepam Hydroxyzine Trazodone Zolpidem Bupropion SR Fluoxetine - activating Escitalopram - activating Citalopram - activating Paroxetine Sertraline - activating Impression Improvement in mood without adverse reaction to starting Latuda 20mg last PM. Reports ongoing pain and blood with urination. UA negative for UTI, and patient feels she may have passed a small kidney stone. She states pain has improved, but is still present. Mood is stable with start of Latuda. Pt requested this provider call her PCP to determine if Topamax could be tapered while she is inpatient. Marisol Garcia PA-C was called and was in agreement to tapering medication so as to simplify regimen. The hope is that any mood stabilization she had been receiving for this medication, initially started for pain resulting from pseudotumor cerebri, would be covered by starting Latuda. Will continue to monitor as dose is tapered. EKG ordered yesterday with QTc of 460. Plan (1) Suicidal ideation Q 15 min checks for safety Attend groups and work on healthy coping skills and discharge safety plan, to include no access to guns or medications. Recommend involving her in this, and given her recurrent suicidal ideation, working on a plan whereby she notifies him when mood is worse or suicidal thoughts are returning, so that all medications can be locked and secured during the times when she is at high risk. 08/21 - Address safety plan during meeting with this afternoon. - Continue as above. 08/22 - continue as above (2) Bipolar disorder current episode depressed 08/20 - reviewed extensive past medication trials, and she has not been on lurasidone, quetiapine, olanzapine/fluoxetine combination, or cariprazine, and had a good response to lithium but self-discontinued it due to concerns that it would cause increased intracranial pressure. Olanzapine and quetiapine are relatively contraindicated given her obesity, hyperlipidemia, and hypertension, but a trial of lurasidone would be less likely to exacerbate metabolic syndrome. Reviewed medication options with her, and she agreed to a trial of lurasidone after review of the side effects. Provided her with an Up To Date handout about the medication. - Reviewed her current medications: topiramate 100 mg twice a day (initially started for migraines, but continued for mood stabilizing properties as HAs are much improved, but prescribed by PCP), duloxetine 60mg qam, ziprasidone 40mg bid w/ meals, clomipramine 100mg qhs, and carbamazepine 800mg qhs. Ideally, I would like to taper her off some of these medications, consolidate her to one antidepressant, and I am not sure if the topiramate is doing anything as a mood stabilizer. We will start by tapering off the trazodone, and decreasing the clomipramine to 50 mg daily at bedtime. We will check with her insurance to ensure that lurasidone will be covered/affordable, and then will start 20 mg daily and titrate as tolerated. - Care coordinated with therapist, Lesley Armando at [facility]; next appointment is 08/26/2017 at 3 PM. She has an appointment with this physician on , 08/28/2016 at 4 PM. - Schedule family meeting with , both to discuss communication issues and a detailed safety plan as above. 08/21 - Continue medication regimen as above. Awaiting response from insurance as to $15 copay coupon for Latuda as previous copay was $303/month. Pt supplied with home medication of clomipramine and received 50mg dose last PM. Continue for now, but plan to taper dose in the next few days. 08/22 - Pt confirms $180 copay for Latuda will be manageable and agrees to proceed with plan as above. Pt was provided with information on Latuda previously, but risks, benefits, side effects, and alternatives were reviewed. Pt verbalized understanding and is in agreement. EKG ordered prior to start to assess QTc due to combination of multiple medications. Latuda 20mg to start this even, will titrate from there to an effective dose. Plan to simplify medication regimen thereafter. - Fasting labs completed 08/21 within normal limits aside from elevated triglycerides at 171. - Clomipramine at 50mg at bedtime, tapering to discontinue. - UA ordered to assess for UTI as patient is verbalizing symptoms. 08/23 - Pt started on Latuda 20mg last evening. Tolerating medication well. EKG shows QTc of 460. - Topamax to be tapered with approval from pt's PCP. Will order 50mg BID to taper dose. - Clomipramine reached scheduled stop date and will therefore be discontinued with start of Latuda. - No current treatment for urinary symptoms, continue to monitor. (3) Anxiety Diagnosed with anxiety not otherwise specified, with symptoms of generalized anxiety disorder and panic. Continue duloxetine 60 mg daily. Offer hydroxyzine as needed, and encourage behavioral techniques to manage anxiety. 08/21 - continue as above (4) Hyperlipidemia Continue home dose of atorvastatin, and check fasting lipid profile tomorrow. (5) Hypertension Continue home doses of furosemide and metoprolol. She has had intermittent elevated blood pressure, and we will continue to monitor here. (6) Obesity Encourage healthy diet and exercise. (7) GERD (gastroesophageal reflux disease) Takes Prilosec at home, will administer pantoprazole here. Discharge / Aftercare Planning Primary Care Physician: Name: Marisol Garcia [facility] in [facility] Psychiatrist: Name: Dr. Kapoor, [facility] [employer] Date of Appointment: Aug 28, 2017 Time of Appointment: 4pm Therapist: Name: Lesley Armando [employer] Date of Appointment: Aug 26, 2017 Time of Appointment: 3pm Service Plumber: Name: Claudio Visit Code E&M Code: 77020 Inventory Assets Strengths: willing for treatment, good medication compliance, intelligence Needs: medication adjustments, increased structure at home Risk Factors Assessment : Yes /single/: No Higher / Fall in social status: No Health problems: Yes Mental Health Diagnoses: Yes Substance use disorders: No Previous attempt: Yes Family history of suicide: Yes Previous psychiatric stay: Yes Hopelessness: Yes Smoker: No Protective Factors Assessment Mormonism beliefs: No : Yes Responsible for young children: Yes Employed: No Stable relationships: Yes Supportive family: Yes Good rapport with provider: Yes Data Vital Signs Last 24 Hrs: Date Time Temp Pulse Resp B/P (MAP) Pulse Ox O2 Delivery O2 Flow Rate FiO2 08/23/17 07:06 36.6 66 16 120/85 72 109/74 08/22/17 21:04 37.3 81 16 168/76 Meds Administered Last 24 Hrs: Meds Administered (Past 24Hrs) Medications (Trade) Dose Ordered Sig/Nisha Route Start Time Stop Time Status Last Admin Dose Admin Lurasidone HCl (Latuda Tab) 20 mg DAILY@1730 PO 08/22/17 17:30 09/21/17 17:29 08/22/17 17:22 20 MG Lab Results Last 24 Hrs: Last 24 Hours Test 08/22/17 18:02 Urine Color YELLOW Urine Appearance CLEAR Urine pH 5.0 Urine Specific [place] 1.020 Urine Protein NEG Urine Glucose (UA) NEG Urine Ketones NEG Urine Occult Blood NEG Urine Nitrite NEG Urine Bilirubin NEG Urine Urobilinogen NEG Urine Leukocyte Esterase NEG
[2017-08-23] MEDS: LURASIDONE HCL 40 MG TAB PO SCH (18:02)
[2017-08-23 21:11] VITALS: BP 126/81; PULSE 76
[2017-08-23] MEDS: METOPROLOL TARTRATE 50 MG TAB PO SCH (21:12)
[2017-08-23] MEDS: TOPIRAMATE 50 MG TAB PO SCH (21:13)
[2017-08-23] MEDS: CARBAMAZEPINE 200 MG TAB PO SCH (21:13)
[2017-08-23] MEDS: ATORVASTATIN 10 MG TAB PO SCH (21:13)
[2017-08-23] MEDS: hydrOXYzine HCL 25 MG TAB PO PRN (21:16)
[2017-08-24 07:03] VITALS: BP_SYST 121; BP_SYST 124; BP_DIAS 70; BP_DIAS 77; PULSE 66; PULSE 72; TEMP 36.9
[2017-08-24] MEDS: CALCIUM 600MG + VIT D 400 IU TAB PO SCH ×2 (08:13→21:33)
[2017-08-24] MEDS: VALSARTAN 80 MG TAB PO SCH (08:13)
[2017-08-24] MEDS: DULOXETINE HCL 60 MG CAP PO SCH (08:13)
[2017-08-24] MEDS: FERROUS SULFATE 325 MG TAB PO SCH (08:14)
[2017-08-24] MEDS: HYDROCHLOROTHIAZIDE 25 MG TAB PO SCH (08:15)
[2017-08-24] MEDS: FUROSEMIDE 20 MG TAB PO SCH (08:16)
[2017-08-24] MEDS: MAGNESIUM OXIDE 400 MG TAB PO SCH ×2 (08:16→21:31)
[2017-08-24] MEDS: CEROVITE ADV FORMULA TAB PO SCH ×2 (08:16→21:32)
[2017-08-24] MEDS: PANTOprazole SOD 40 MG TAB PO SCH (08:17)
[2017-08-24] MEDS: TOPIRAMATE 50 MG TAB PO SCH (08:18)
[2017-08-24] MEDS ORDERED: DESTROY THIS MEDICATION ONE (11:45)
[2017-08-24] MEDS ORDERED: LURASIDONE HCL 40 MG TAB PO SCH (17:30)
--- NOTE | 2017-08-24 18:34 | Psychiatric Progress Notes ---
Progress Note Date of Service Aug 24, 2017. Interval History Crystal Reyna is a 47-year-old female admitted on Aug 19, 2017 at 18:48 who currently lives in [place] with her and son, has a history of bipolar disorder type I, and follows with Dr. Kapoor at [facility]. She was admitted on a 201 voluntary commitment after she made an urgent appointment at the office 08/18/17 and expressed worsening depression and suicidal ideation with a plan to overdose on her son's Seroquel. Chief Complaint "I'm trying to ignore annoying people". Subjective Patient was seen & assessed interval progress reviewed with Nursing. No acute issues over night. Tolerating med changes. glad to be consolidating but seems somewhat resistant to discuss any issues with peers on the unit. She became tearful but couldn't say why. Denied SI. Seemed to have a good visit with family. Review of Systems Psych: denies symptoms other than stated above Constitutional: denied Cardiovascular: denied GI: denied Neurologic: denied Remainder of 10 body systems also reviewed and denied other than noted above. Sleep Information Total Hours of Sleep: 6.75 Meal Information Percent of Breakfast Consumed: 100 Percent of Lunch Consumed: 100 Percent of Dinner Consumed: 75 Mental Status Exam During interview pt is: alert and oriented, cooperative Appearance: appropriately dressed, appropriately groomed Eye contact is: good Motor behavior is: steady gait & station, no abnormal motor movements Speech: normal in rate, rhythm & volume Affect: blunted Mood is: depressed Thought process: goal directed, linear, logical Thought content: reality based without delusions Suicidal thought are: denied Homicidal thoughts are: denied Hallucinations: denies auditory, denies visual Cognition: memory grossly intact, attention grossly intact, language grossly intact Intelligence estimated to be: consistent with level of education Insight: fair Judgement: fair Medication Trials [place] - patient self discontinued in 2012 due to concerns for "increased pressure in my brain," per patient neurologist Dr. He advised her of this (has pseudotumor cerebri). It helped, and her mood worsened leading to her first hospitalization in 2012. Lamotrigine - years ago, doesn't recall response Depakote - "eyes were fast and jittery when I lay down or stood up" Paliperidone - doesn't recall response Aripiprazole - multiple trials, doesn't recall response Risperidone - ? Clonazepam - stopped after intentional overdose in August 2016 Temazepam Lorazepam Hydroxyzine Trazodone Zolpidem Bupropion SR Fluoxetine - activating Escitalopram - activating Citalopram - activating Paroxetine Sertraline - activating Impression Crystal's clomipramine was tapered and discontinued during her stay as was Henry in favor of a trial of Latuda. Topamax is being tapered and discontinued with support of PCP given hx of kidney stones. Plan (1) Suicidal ideation Q 15 min checks for safety Attend groups and work on healthy coping skills and discharge safety plan, to include no access to guns or medications. Recommend involving her in this, and given her recurrent suicidal ideation, working on a plan whereby she notifies him when mood is worse or suicidal thoughts are returning, so that all medications can be locked and secured during the times when she is at high risk. 08/21 - Address safety plan during meeting with this afternoon. - Continue as above. 08/22 - continue as above 08/24 -- brought in meds that she is no longer taking and wrote order to destroy. He also brought son's old medications but pharmacy cannot destroy a non-patient meds so staff to direct to take to drop box. He has also agreed to oversee son's meds for safety. (2) Bipolar disorder current episode depressed 08/20 - reviewed extensive past medication trials, and she has not been on lurasidone, quetiapine, olanzapine/fluoxetine combination, or cariprazine, and had a good response to lithium but self-discontinued it due to concerns that it would cause increased intracranial pressure. Olanzapine and quetiapine are relatively contraindicated given her obesity, hyperlipidemia, and hypertension, but a trial of lurasidone would be less likely to exacerbate metabolic syndrome. Reviewed medication options with her, and she agreed to a trial of lurasidone after review of the side effects. Provided her with an Up To Date handout about the medication. - Reviewed her current medications: topiramate 100 mg twice a day (initially started for migraines, but continued for mood stabilizing properties as HAs are much improved, but prescribed by PCP), duloxetine 60mg qam, ziprasidone 40mg bid w/ meals, clomipramine 100mg qhs, and carbamazepine 800mg qhs. Ideally, I would like to taper her off some of these medications, consolidate her to one antidepressant, and I am not sure if the topiramate is doing anything as a mood stabilizer. We will start by tapering off the trazodone, and decreasing the clomipramine to 50 mg daily at bedtime. We will check with her insurance to ensure that lurasidone will be covered/affordable, and then will start 20 mg daily and titrate as tolerated. - Care coordinated with therapist, Lesley Armando at [facility]; next appointment is 08/26/2017 at 3 PM. She has an appointment with this physician on , 08/28/2016 at 4 PM. - Schedule family meeting with , both to discuss communication issues and a detailed safety plan as above. 08/21 - Continue medication regimen as above. Awaiting response from insurance as to $15 copay coupon for Latuda as previous copay was $303/month. Pt supplied with home medication of clomipramine and received 50mg dose last PM. Continue for now, but plan to taper dose in the next few days. 08/22 - Pt confirms $180 copay for Latuda will be manageable and agrees to proceed with plan as above. Pt was provided with information on Latuda previously, but risks, benefits, side effects, and alternatives were reviewed. Pt verbalized understanding and is in agreement. EKG ordered prior to start to assess QTc due to combination of multiple medications. Latuda 20mg to start this even, will titrate from there to an effective dose. Plan to simplify medication regimen thereafter. - Fasting labs completed 08/21 within normal limits aside from elevated triglycerides at 171. - Clomipramine at 50mg at bedtime, tapering to discontinue. - UA ordered to assess for UTI as patient is verbalizing symptoms. 08/23 - Pt started on Latuda 20mg last evening. Tolerating medication well. EKG shows QTc of 460. - Topamax to be tapered with approval from pt's PCP. Will order 50mg BID to taper dose. - Clomipramine reached scheduled stop date and will therefore be discontinued with start of Latuda. - No current treatment for urinary symptoms, continue to monitor. 08/24--titrate Latuda to 40 mg (3) Anxiety Diagnosed with anxiety not otherwise specified, with symptoms of generalized anxiety disorder and panic. Continue duloxetine 60 mg daily. Offer hydroxyzine as needed, and encourage behavioral techniques to manage anxiety. 08/21 - continue as above (4) Hyperlipidemia Continue home dose of atorvastatin, and check fasting lipid profile tomorrow. (5) Hypertension Continue home doses of furosemide and metoprolol. She has had intermittent elevated blood pressure, and we will continue to monitor here. (6) Obesity Encourage healthy diet and exercise. (7) GERD (gastroesophageal reflux disease) Takes Prilosec at home, will administer pantoprazole here. Discharge / Aftercare Planning Primary Care Physician: Name: Marisol Garcia [facility] in [facility] Psychiatrist: Name: Dr. Kapoor, [employer] Date of Appointment: Aug 28, 2017 Time of Appointment: 4pm Therapist: Name: Lesley Armando, [email or web address] Date of Appointment: Aug 26, 2017 Time of Appointment: 3pm Public Policy Professor: Name: Claudio Visit Code E&M Code: 69724 Inventory Assets Strengths: willing for treatment, good medication compliance, intelligence Needs: medication adjustments, increased structure at home Risk Factors Assessment : Yes /single/: No Higher / Fall in social status: No Health problems: Yes Mental Health Diagnoses: Yes Substance use disorders: No Previous attempt: Yes Family history of suicide: Yes Previous psychiatric stay: Yes Hopelessness: Yes Smoker: No Protective Factors Assessment Islam beliefs: No : Yes Responsible for young children: Yes Employed: No Stable relationships: Yes Supportive family: Yes Good rapport with provider: Yes Data Vital Signs Last 24 Hrs: Date Time Temp Pulse Resp B/P (MAP) Pulse Ox O2 Delivery O2 Flow Rate FiO2 08/24/17 07:03 36.9 66 20 121/70 72 124/77 08/23/17 21:11 76 18 126/81 Meds Administered Last 24 Hrs: Meds Administered (Past 24Hrs) Medications (Trade) Dose Ordered Sig/Nisha Route Start Time Stop Time Status Last Admin Dose Admin Topiramate (Topamax Tab) 50 mg BID PO 08/23/17 22:00 08/24/17 13:17 DC 08/24/17 08:18 50 MG Lurasidone HCl (Latuda Tab) 40 mg DAILY@1730 PO 1/14/18 17:30 09/21/17 17:29 08/24/17 18:22 40 MG
[2017-08-24 21:28] VITALS: BP 139/85; PULSE 75
[2017-08-24] MEDS: METOPROLOL TARTRATE 50 MG TAB PO SCH (21:30)
[2017-08-24] MEDS: ATORVASTATIN 10 MG TAB PO SCH (21:30)
[2017-08-24] MEDS: CARBAMAZEPINE 200 MG TAB PO SCH (21:33)
[2017-08-24] MEDS: hydrOXYzine HCL 25 MG TAB PO PRN (21:37)
[2017-08-25 06:58] VITALS: BP_SYST 117; BP_SYST 137; BP_DIAS 77; BP_DIAS 83; PULSE 60; PULSE 67; TEMP 36.5
[2017-08-25] MEDS: VALSARTAN 80 MG TAB PO SCH (08:03)
[2017-08-25] MEDS: FERROUS SULFATE 325 MG TAB PO SCH (08:03)
[2017-08-25] MEDS: CALCIUM 600MG + VIT D 400 IU TAB PO SCH (08:03)
[2017-08-25] MEDS: DULOXETINE HCL 60 MG CAP PO SCH (08:03)
[2017-08-25] MEDS: FUROSEMIDE 20 MG TAB PO SCH (08:04)
[2017-08-25] MEDS: HYDROCHLOROTHIAZIDE 25 MG TAB PO SCH (08:04)
[2017-08-25] MEDS: CEROVITE ADV FORMULA TAB PO SCH (08:05)
[2017-08-25] MEDS: PANTOprazole SOD 40 MG TAB PO SCH (08:05)
[2017-08-25] MEDS: MAGNESIUM OXIDE 400 MG TAB PO SCH (08:05)
[2017-08-25] MEDS: ERGOCALCIFEROL 50,000 INTER.UNIT CAP PO SCH (08:05)
[2017-08-25] MEDS ORDERED: TOPIRAMATE 50 MG TAB PO SCH (09:00)
[2017-08-25] MEDS ORDERED: LTD40 PO ×3 (10:07→10:36)
--- NOTE | 2017-08-25 10:33 | Discharge Instructions ---
Discharge Information Report Includes Report will include the: Discharge Instructions & Summary Admission Admission Date / Time: Aug 19, 2017 at 18:48 Reason for Admission: Bipolar Disorder Current Episode Depressed Discharge Discharge Diagnosis / Problem: bipolar disorder type I, most recent episode depressed Condition at Discharge: Fair Discharge Goals Goal(s): Improve function, Increase independence, Improve disease control, Learn about illness, Therapeutic intervention, Specific goals (increase structure and socialization) Activity Recommendations Activity Limitations: per Instructions/Follow-up section . Instructions / Follow-Up Instructions / Follow-Up . SPECIAL CARE INSTRUCTIONS: 1. Follow through with your scheduled aftercare appointments. If unable to keep an appointment, please call to reschedule. 2. Take your medication only as prescribed. Medication should not be changed or stopped without the approval of your doctor. In the event of worsening symptoms or concerns about side effects, contact your doctor immediately. 3. Utilize new healthy coping skills, anger management skills, and stress management skills learned during your hospitalization. Journal feelings and process them with a support person. Identify stressors or situations that may result in relapse, deterioration or inappropriate behaviors and develop a plan to deal with those issues. 4. If your coping skills are ineffective and you are in crisis, contact your outpatient providers for direction. If unable to reach your providers, please call the CAN HELP LINE AT or go to the closest Emergency Room. 5. Avoid alcohol and un-prescribed drugs. 6. You have been provided with the Mental Health Advance Directives Pamphlet for your review. AFTERCARE APPOINTMENTS: * Please call your insurance company prior to your scheduled appointment to confirm your aftercare providers are covered. Take your insurance information to your appointments. . Discharge / Aftercare Planning Primary Care Physician: Name: Marisol Garcia [facility] Appointment Notes: follow up as needed Psychiatrist: Name: Dr. Kapoor, [facility] Date of Appointment: Aug 28, 2017 Time of Appointment: 1:30 PM Therapist: Name Of Therapist: Lesley Armando Neuravi Date of Appointment: Aug 26, 2017 Time of Appointment: 3pm Front Desk Agent: Name: Claudio . Follow-Up Care Plan for Follow-Up Care: See above. Current Hospital Diet Patient's current hospital diet: Regular Diet Discharge Diet Recommended Diet: Regular Diet Procedures Procedures Performed: No Pending Studies Pending Studies at Discharge: No Medical Emergencies . Who to Call and When: Medical Emergencies: For questions or emergencies related to your hospital stay, please contact the Inpatient Behavioral Health Unit at [phone]. A box annealer is on-call 03/03 for the Behavioral Health Unit for emergencies At any time you feel your situation is an emergency, you may also call 911 immediately. . Non-Emergent Contact Non-Emergency issues call your: Primary Care Provider, Psychiatrist, Therapist Advance Directives Existing Advance Directive: No Do You Have an Existing Mental: No Existing Living Will: No Existing Power of Engineer System Administrator: No Advance Directives Info Given: To Pt/S.O. Advance Directives Reason: Declines as Mental Health Visit. Discharge Summary Admission HPI Per the Admitting provider: Please see admission H&P. Admission Exam Per the Admitting provider: Please see admission H&P. Consultations None. Hospital Course (1) Suicidal ideation Q 15 min checks for safety Attend groups and work on healthy coping skills and discharge safety plan, to include no access to guns or medications. Recommend involving her in this, and given her recurrent suicidal ideation, working on a plan whereby she notifies him when mood is worse or suicidal thoughts are returning, so that all medications can be locked and secured during the times when she is at high risk. 08/21 - Address safety plan during meeting with this afternoon. - Continue as above. 08/22 - continue as above 08/24 - brought in meds that she is no longer taking and wrote order to destroy. He also brought son's old medications but pharmacy cannot destroy a non-patient meds so staff to direct to take to drop box. He has also agreed to oversee son's meds for safety. 08/25 - Patient able to review her discharge safety plan, and is aware of the plan as well, and that they should secure medications any time that the patient becomes depressed or that suicidal thoughts return. secured guns and medications at home, and old prescription medications were disposed of. (2) Bipolar disorder current episode depressed 08/20 - reviewed extensive past medication trials, and she has not been on lurasidone, quetiapine, olanzapine/fluoxetine combination, or cariprazine, and had a good response to lithium but self-discontinued it due to concerns that it would cause increased intracranial pressure. Olanzapine and quetiapine are relatively contraindicated given her obesity, hyperlipidemia, and hypertension, but a trial of lurasidone would be less likely to exacerbate metabolic syndrome. Reviewed medication options with her, and she agreed to a trial of lurasidone after review of the side effects. Provided her with an Up To Date handout about the medication. - Reviewed her current medications: topiramate 100 mg twice a day (initially started for migraines, but continued for mood stabilizing properties as HAs are much improved, but prescribed by PCP), duloxetine 60mg qam, ziprasidone 40mg bid w/ meals, clomipramine 100mg qhs, and carbamazepine 800mg qhs. Ideally, I would like to taper her off some of these medications, consolidate her to one antidepressant, and I am not sure if the topiramate is doing anything as a mood stabilizer. We will start by tapering off the trazodone, and decreasing the clomipramine to 50 mg daily at bedtime. We will check with her insurance to ensure that lurasidone will be covered/affordable, and then will start 20 mg daily and titrate as tolerated. - Care coordinated with therapist, Lesley Armando at [facility]; next appointment is 08/26/2017 at 3 PM. She has an appointment with this physician on , 08/28/2016 at 4 PM. - Schedule family meeting with , both to discuss communication issues and a detailed safety plan as above. 08/21 - Continue medication regimen as above. Awaiting response from insurance as to $15 copay coupon for Latuda as previous copay was $303/month. Pt supplied with home medication of clomipramine and received 50mg dose last PM. Continue for now, but plan to taper dose in the next few days. 08/22 - Pt confirms $180 copay for Latuda will be manageable and agrees to proceed with plan as above. Pt was provided with information on Latuda previously, but risks, benefits, side effects, and alternatives were reviewed. Pt verbalized understanding and is in agreement. EKG ordered prior to start to assess QTc due to combination of multiple medications. Latuda 20mg to start this even, will titrate from there to an effective dose. Plan to simplify medication regimen thereafter. - Fasting labs completed 08/21 within normal limits aside from elevated triglycerides at 171. - Clomipramine at 50mg at bedtime, tapering to discontinue. - UA ordered to assess for UTI as patient is verbalizing symptoms. 08/23 - Pt started on Latuda 20mg last evening. Tolerating medication well. EKG shows QTc of 460. - Topamax to be tapered with approval from pt's PCP. Will order 50mg BID to taper dose. - Clomipramine reached scheduled stop date and will therefore be discontinued with start of Latuda. - No current treatment for urinary symptoms, continue to monitor. 08/24 - titrate Latuda to 40 mg 08/25 - although patient is nervous about returning home and resuming her previous patterns of behavior including social isolation, she is denying suicidal thoughts, mood has improved, and she is willing for discharge. We explored options for increasing her outpatient supports, but there is no psych rehabilitation or IOP available in her county. She will follow-up with this psychiatrist in 3 days, and her therapist tomorrow (care coordinated with Lesley Armando). She will be provided with a coupon to assist with the cost of lurasidone. A 30 day supply prescription was sent to [facility], and at her request a 10 day prescription was sent to [facility] while she waits for the mail order medication to arrive. - Reviewed all of her medications with her, including discontinued medications ( clomipramine, topiramate, ziprasidone), new medication (lurasidone), and all other medications were continued at home doses. - The patient states her primary concern is her loneliness at home, and has looked into options for volunteering. She was encouraged to make phone calls today before leaving the hospital to set this up, as she is worried that when she returns home, she will not follow through on it, and will continue in her pattern of isolation. (3) Anxiety Diagnosed with anxiety not otherwise specified, with symptoms of generalized anxiety disorder and panic. Continue duloxetine 60 mg daily. Offer hydroxyzine as needed, and encourage behavioral techniques to manage anxiety. 08/21 - continue as above (4) Hyperlipidemia Continue home dose of atorvastatin, and check fasting lipid profile tomorrow. (5) Hypertension Continue home doses of furosemide and metoprolol. She has had intermittent elevated blood pressure, and we will continue to monitor here. (6) Obesity Encourage healthy diet and exercise. (7) GERD (gastroesophageal reflux disease) Takes Prilosec at home, will administer pantoprazole here. Risk Factors Assessment : Yes /single/: No Higher / Fall in social status: No Access to guns: No ( will secure guns so that the patient will not have access) Health problems: Yes Mental Health Diagnoses: Yes Substance use disorders: No Previous attempt: Yes Family history of suicide: Yes Previous psychiatric stay: Yes Hopelessness: Yes Smoker: No Protective Factors Assessment Muslim beliefs: No : Yes Responsible for young children: Yes Employed: No Stable relationships: Yes Supportive family: Yes Good rapport with provider: Yes Absence of risk factors above: Yes (risk factors were mitigated by admission to the inpatient unit, adjusting medications to target bipolar depression, tapering her off medications that have not been overly effective, involving her in groups and therapy on the unit, working on healthy coping skills, encouraging a plan to better structure her days at home and increase socialization (she is exploring volunteer options), working on a discharge safety plan to include securing guns in the home so she will not have access, securing all medications in the home so she will not have access to large amounts of pills, and assisting with oversight of medications. Her mood has improved here in the hospital, she is actively participated in groups and unit programming, and she is denying suicidal thoughts. She had a family meeting with her who is supportive, and has outpatient appointments with her therapist and psychiatrist in the next 3 days. She is no longer at acute risk of harm to herself, so can be discharged and managed as an outpatient at this time.) Day of Discharge Assessment Hospital course: Multiple medication changes were made during this hospitalization, as she has been on multiple medications with limited efficacy, and doses of ziprasidone, clomipramine, and duloxetine were decreased during her hospitalization at the [facility] in June 2017. While here, she was tapered off of clomipramine, ziprasidone, and topiramate, and continued on duloxetine 60 mg daily and carbamazepine 800 mg daily at bedtime. She was started on lurasidone for bipolar depression, which she tolerated well. As cost is an issue, options for vouchers were explored. She attended and participated in groups, and identified loneliness and lack of structure at home his chronic issues. She talked about her goal to volunteer, as had previously explored multiple options in her community which she thought would be appropriate for her. She tended to her ADLs independently. She had a meeting with her on 08/21/2017, and they processed stressors, including ongoing issues with her 17-year-old son who has ASD, stressors related to their daughter, and the patient's mental illness and loneliness. Her son is doing poorly in school, and does not always tended his ADLs, and resents encouragement to work on these things. Her son owns guns , several of which are not locked, and they agreed to recommendations to lock all of the guns. She stated that she recently thought herself and both of her children new cars, and was planning to buy her 's new car, but agreed to forego that in order to be able to afford her medication. She talked about feeling overwhelmed with all there is to do at home, so ends up for treating to bed and doing nothing. Her works full-time, and often needs to do all the housework and cooking as well. Their daughter is 23 and lives at home, but does not contribute to the household, and does not even do her own laundry. They discussed their communication issues, as they typically do not talk unless they have a date night, and both said they know they need to do a better job of talking about issues on a regular basis. The patient said she understands she needs to take some responsibility for her feelings of loneliness, and not expect that her will fix this for her. She talked about exploring options for volunteering, and is looking into a book club. Her suggested they consider sleeping in the same bed again, but the patient dismissed this idea. Her safety plan was reviewed, and her agreed to secure all medications, including the patient's and her son's prescription medications, so that the patient would not have access to them. He also brought in all of her old medications to be destroyed and the pharmacy. Her son 's old medications were taken to a drop box to be safely disposed of. Day of discharge assessment: The patient states that her mood has improved since admission, and she denies suicidal thoughts. She is able to review her safety plan in detail, and is willing to communicate with her if mood is worsening her suicidal thoughts return. She also confirms the plan to have all medications locked and secured so that she will not have access to large amounts of pills in the home, and the plan to secure guns. She states she would ultimately like the guns to be removed, and they're discussing taking them to a relative's house. Social work explored options for increased outpatient care in her county, but unfortunately there is no option for psych rehabilitation or IOP/PHP. The patient states her primary concern in going home is that she will again revert to old behavioral patterns of isolating and will not follow through on her plans to volunteer. She was encouraged to make some phone calls regarding potential volunteer options today before she leaves the unit, and is considering the [employer] or [employer]. She denies side effects to medications, and we reviewed all of her discharge medications in detail. Obese white female appearing stated age. Casually dressed and adequately groomed. Calm and cooperative. Seated in NAD, with fair eye contact and no abnormal movements. Speech is normal rate, volume, and tone. Mood is "okay," and affect is tearful at times. Thoughts are linear, logical and goal directed. The patient denied suicidal and homicidal ideation and was able to review her safety plan. No paranoia, delusions, or hallucinations, and did not appear to be responding to internal stimuli. Cognition was grossly intact. Alert and oriented to person, place and time. Intelligence is consistent with level of education. Insight and and judgment are fair. Laboratory Test 08/19/17 16:55 08/19/17 17:22 08/21/17 08:24 08/22/17 18:02 Urine Color DK YELLOW YELLOW Urine Appearance CLEAR CLEAR Urine pH 5.0 5.0 Urine Specific [place] 1.018 1.020 Urine Protein NEG NEG Urine Glucose (UA) NEG NEG Urine Ketones NEG NEG Urine Occult Blood NEG NEG Urine Nitrite NEG NEG Urine Bilirubin NEG NEG Urine Urobilinogen NEG NEG Urine Leukocyte Esterase NEG NEG Urine Test NEG Urine Opiates Screen NEG Urine Methadone, Qualitative NEG Urine Barbiturates NEG Urine Phencyclidine (PCP) Level NEG Ur Amphetamine/Methamphetamine NEG MDMA (Ecstasy) Screen NEG Urine Benzodiazepines Screen NEG Urine Cocaine Metabolite NEG Urine Marijuana (THC) NEG White Blood Count 9.62 Red Blood Count 3.91 Hemoglobin 13.3 Hematocrit 38.8 Mean Corpuscular Volume 99.2 Mean Corpuscular Hemoglobin 34.0 Mean Corpuscular Hemoglobin Concent 34.3 Platelet Count 178 Mean Platelet Volume 10.3 Neutrophils (%) (Auto) 58.3 Lymphocytes (%) (Auto) 32.5 Monocytes (%) (Auto) 6.9 Eosinophils (%) (Auto) 1.6 Basophils (%) (Auto) 0.2 Neutrophils # (Auto) 5.61 Lymphocytes # (Auto) 3.13 Monocytes # (Auto) 0.66 Eosinophils # (Auto) 0.15 Basophils # (Auto) 0.02 RDW Standard Deviation 45.9 RDW Coefficient of Variation 12.7 Immature Granulocyte % (Auto) 0.5 Immature Granulocyte # (Auto) 0.05 Sodium Level 138 Potassium Level 3.6 Chloride Level 105 Carbon Dioxide Level 24 Anion Gap 9.0 Blood Urea Nitrogen 17 Creatinine 0.63 Est Creatinine Clear Calc Drug Dose 156.5 Estimated GFR () 125.6 Estimated GFR (Non- 108.3 BUN/Creatinine Ratio 27.0 Random Glucose 89 Calcium Level 8.7 Total Bilirubin 0.1 Direct Bilirubin < 0.1 Aspartate Amino Transferase (AST) 21 Alanine Aminotransferase (ALT) 46 Alkaline Phosphatase 122 Total Protein 7.0 Albumin 3.9 Thyroid Stimulating Hormone (TSH) 0.974 Salicylates Level < 1.7 Acetaminophen Level < 2 Carbamazepine (Tegretol) Level 9.5 Ethyl Alcohol mg/dL < 3.0 Fasting Glucose 92 Triglycerides Level 171 Cholesterol Level 186 HDL Cholesterol 52 LDL Cholesterol, Calculated 100 VLDL Cholesterol, Calculated 34 Cholesterol/HDL Ratio 3.6 Total Time Total Time Spent (min): Greater than 30 minutes Total Time Included: examination of the patient, discharge planning, medication reconciliation, communication with other providers Tobacco Cessation at Discharge Smoking Status: Never Smoker FDA approved Prescription: non-smoker
== END 2017-08-25 13:12 | disposition home or self-care (01) | DRG 885 ==
LOC: C.EDB 16:36 → C.MHU 18:48
PROVIDERS: ADMIT Psychiatry & Neurology Psychiatry; ATTEND Psychiatry & Neurology Psychiatry
DX: F31.9 Bipolar disorder, unspecified (principal); R45.851 Suicidal ideations; F41.9 Anxiety disorder, unspecified; I10 Essential (primary) hypertension; E78.5 Hyperlipidemia, unspecified; E66.9 Obesity, unspecified; K21.9 Gastro-esophageal reflux disease without esophagitis; Z81.8 Family history of other mental and behavioral disorders

== ENCOUNTER 2018-11-19 18:00 | Inpatient (IN) ==
[2018-11-19 18:45] LABS: Appearance Urine Clear (Clear); Bilirubin Urine Negative (Negative); Blood Urine Negative (Negative); Color Urine Yellow; Glucose Urine UA Negative (Negative); Ketones Urine Negative (Negative); Leukocyte Esterase Urine Negative (Negative); Nitrite Urine Negative (Negative); Protein Urine Negative (Negative); Specific Gravity Urine 1.023 (1.000-1.030); Urobilinogen Urine Negative (Negative); pH Urine 6.5 (4.5-7.5)
[2018-11-19 18:56] LABS: Basophils # (auto) 0.01 K/uL (0-0.2); Basophils % (auto) 0.1 %; Eosinophils % (auto) 1.2 %; Hematocrit (blood only) 39.3 % (37-47); Hemoglobin 13.5 g/dL (12.0-16.0); Immature Granulocytes # (auto) 0.05 K/uL (0.00-0.02); Immature Granulocytes % (auto) 0.6 %; Lymphocytes # (auto) 2.59 K/uL (1.2-3.4); Lymphocytes % (auto) 31.7 %; Mean Corpuscular Hgb Conc 34.4 g/dL (32-36); Mean Corpuscular Volume 95.2 fL (80-100); Mean Platelet Volume 10.6 fL (7.4-10.4); Monocytes # (auto) 0.62 K/uL (0.11-0.59); Monocytes % (auto) 7.6 %; Neutrophils % (auto) 58.8 %; Platelet Count 190 K/uL (130-400); RDW Coefficient of Variation 12.5 % (11.5-14.5); RDW Standard Deviation 43.1 fL (36.4-46.3); Red Blood Count 4.13 M/uL (4.2-5.4); White Blood Count 8.17 K/uL (4.8-10.8)
[2018-11-19 19:07] LABS: Amphetamines+Metham, Urine Neg (Neg); Barbiturates, Urine Neg (Neg); Benzodiazepine, Urine Neg (Neg); Cocaine, Urine Neg (Neg); MDMA (Ecstacy), Urine Neg (Neg); Methadone, Urine Neg (Neg); Opiate, Urine Neg (Neg); Phencyclidine, Urine Neg (Neg)
[2018-11-19 19:20] LABS: Alanine Aminotransferase 42 U/L (12-78); Albumin Level 3.6 gm/dl (3.4-5.0); Aspartate Aminotransferase 18 U/L (15-37); BUN Creatinine Ratio 33.1 (10-20); Blood Urea Nitrogen 22 mg/dl (7-18); Calcium 8.3 mg/dl (8.5-10.1); Carbon Dioxide 24 mmol/L (21-32); Chloride 111 mmol/L (98-107); Creatinine Clr Calc Pharmacy 138.8 ml/min; Est GFR (African American) 122.2; Est GFR (Non-African American) 105.4; Glucose 105 mg/dl (70-99); Potassium 3.3 mmol/L (3.5-5.1); Sodium 141 mmol/L (136-145)
[2018-11-19 19:30] LABS: Albumin Globulin Ratio 1.1 (0.9-2); Alkaline Phosphatase 134 U/L (45-117); Bilirubin,Total < 0.1 mg/dl (0.2-1); Globulin 3.2 gm/dl (2.5-4.0); Total Protein 6.8 gm/dl (6.4-8.2)
[2018-11-19 19:31] LABS: Acetaminophen < 2 ug/ml (10-30); Salicylate < 1.7 mg/dl (2.8-20)
[2018-11-19 20:43] LABS: Pregnancy Test, Urine Negative (Negative)
--- NOTE | 2018-11-20 01:02 | Emergency Department Note ---
Entered by Kemi Almonte acting as a scribe for History of Present Illness General Chief Complaint: Mental Health Evaluation Stated Complaint: SUICIDAL/DEPRESSED Time Seen by Provider: 11/19/18 18:36 Source: patient Mode of arrival: ambulatory Limitations: no limitations History of Present Illness Provider complaint: suicidal ideation Onset (ago): week(s) (3-4) Duration: getting worse History of same: Yes Relieved By: not by medication Associated psychiatric symptoms: + depression; no homicidal ideation, no auditory hallucinations and no visual hallucinations Associated symptoms: + denies other symptoms (abd pain, leg swelling); no nausea and no vomiting If self harm: + admits thoughts of self harm The patient is a 48 year old white female with a past medical history of depression who presents to the Emergency Room with complaints of a worsening suicidal ideation that began 3-4 weeks ago. The patient reports that she was referred to the ER by her psychiatrist whom she conatcted earlier today stating that she has been having thoughts about hurting herself. She states that they did recently increase her medication and notes it has not been alleviating her symptoms. She reports that since the dosage increase, she has not wanted to leave her bed. She admits to trying to hurt herself in the past. She denies any homicidal ideation as well as any auditory or visual hallucinations. She denies any alcohol, tobacco or substance use. She reports that she has been compliant with her medications. She denies any abdominal pain, nausea, vomiting or leg swelling. Home Medications Home Medications Medication Instructions Recorded Confirmed Type Ca-D3-mag ph-arjh-afc-davey-bor 1 tab PO DAILY 06/13/18 11/19/18 History [Calcium 600-D3 Plus] atorvastatin 10 mg PO DAILY 06/13/18 11/19/18 History carbamazepine [Tegretol] 600 mg PO QPM 06/13/18 11/19/18 History duloxetine [Cymbalta] 120 mg PO DAILY 06/13/18 11/19/18 History ergocalciferol (vitamin D2) 50,000 unit PO 3XWK 06/13/18 11/19/18 History [Vitamin D2] furosemide [Lasix] 20 mg PO DAILY 06/13/18 11/19/18 History iron 27 mg PO DAILY 06/13/18 11/19/18 History lurasidone [Latuda] 80 mg PO DAILY 06/13/18 11/19/18 History magnesium oxide 400 mg PO DAILY 06/13/18 11/19/18 History omeprazole 40 mg PO DAILY 06/13/18 11/19/18 History riboflavin (vitamin B2) [Vitamin 400 mg PO BID 06/13/18 11/19/18 History B-2] acetazolamide 125 mg PO BID 11/19/18 11/19/18 History losartan-hydrochlorothiazide 1 tab PO DAILY 11/19/18 11/19/18 History metoprolol succinate [Toprol XL] 75 mg PO DAILY 11/19/18 11/19/18 History mccuappmirfe-wmqc-ihcuw acid 1 tab PO DAILY 11/19/18 11/19/18 History [Centrum Complete] Allergies Allergy/AdvReac Type Severity Reaction Status Date / Time Sulfa (Sulfonamide Allergy Hives Verified 11/19/18 19:44 Antibiotics) milk AdvReac Intermediate Diarrhea Verified 11/19/18 19:44 Past Med/Surg History Medical History Bipolar disorder current episode depressed (Chronic 03/04/13) Anxiety (Chronic) Hyperlipidemia Hypertension Obesity Klonopin use disorder, severe GERD (gastroesophageal reflux disease) Pseudotumor cerebri Surgical History H/O gastric bypass H/O: hysterectomy Social History Preferred Language: Croatian current occupational status: retired Feels Safe at Home: Yes Smoking Status: Never smoker Hx Alcohol Use: No Hx Substance Use: No Review of Systems See HPI for pertinent positives & negatives. and A total of 10 systems reviewed and were otherwise negative Physical Exam Vital Signs Vital Signs - 24 hr 11/19/18 18:07 Temperature 36.9 C Temperature Source Oral Sepsis Recent Fever Within 48 Hours No Sepsis New/Unexplained Change in Mental Status No Sepsis Action Taken by Nursing No Action Required Pulse Rate 72 Respiratory Rate 20 Blood Pressure 157/85 H Blood Pressure Mean 109 Pulse Oximetry 97 Oxygen Delivery Method Room Air GENERAL: Well appearing, well nourished, NAD, non-toxic. Wearing glasses. EYE EXAM: Normal conjunctiva. PERRL, no anisocoria and EOM's grossly intact w/o pain. OROPHARYNX: Moist MM. NECK: Supple, no nuchal rigidity, no adenopathy, non-tender. No signs of meningismus. LUNGS: Clear to auscultation. Normal chest wall mechanics. HEART: NSR, no MRG. ABDOMEN: Abdomen soft, non-tender, normo-active bowel sounds, no masses, no rebound or guarding. BACK: No CVA TTP. SKIN: No rashes and no bruising. UPPER EXTREMITIES: Upper extremities are grossly normal. LOWER EXTREMITIES: No pitting edema. No calf pain. NEURO EXAM: A and O x3. GCS 15. Moves all 4 extremities on command w/o issue. PSYCH: Depressed mood. Apathetic. No HI or AVH. Course 191: Past medical records reviewed. The patient was evaluated in room A7, and a complete history and physical examination were performed. 0030: The patient was signed-out to Dr. Coughlin at the change of shifts. Administered Medications Medical Decision Making Medical Records Attestation: I reviewed the patient's medical records. Home Medications Current Medication List: was personally reviewed by me Laboratory Data Attestation: I reviewed the patient's lab results. Result diagrams: 11/19/18 18:45 11/19/18 18:45 Lab Results 11/19/18 11/19/18 11/19/18 Range/Units 18:16 18:16 18:16 WBC (4.8-10.8) K/uL RBC (4.2-5.4) M/uL Hgb (12.0-16.0) g/dL Hct (37-47) % MCV (80-100) fL MCH (25-34) pg MCHC (32-36) g/dL RDW Std Deviation (36.4-46.3) fL RDW Coeff of Reji (11.5-14.5) % Plt Count (130-400) K/uL MPV (7.4-10.4) fL Immature Gran % (Auto) % Neut % (Auto) % Lymph % (Auto) % Lea % (Auto) % Eos % (Auto) % Baso % (Auto) % Immature Gran # (Auto) (0.00-0.02) K/uL Neut # (Auto) (1.4-6.5) K/uL Lymph # (Auto) (1.2-3.4) K/uL Lea # (Auto) (0.11-0.59) K/uL Eos # (Auto) (0-0.5) K/uL Baso # (Auto) (0-0.2) K/uL Sodium (136-145) mmol/L Potassium (3.5-5.1) mmol/L Chloride (98-107) mmol/L Carbon Dioxide (21-32) mmol/L Anion Gap (3-11) BUN (7-18) mg/dl Creatinine (0.6-1.2) mg/dl Est Cr Clr Drug Dosing ml/min Est GFR ( Amer) Est GFR (Non-Af Amer) BUN/Creatinine Ratio (10-20) Glucose (70-99) mg/dl Calcium (8.5-10.1) mg/dl Total Bilirubin (0.2-1) mg/dl AST (15-37) U/L ALT (12-78) U/L Alkaline Phosphatase (45-117) U/L Total Protein (6.4-8.2) gm/dl Albumin (3.4-5.0) gm/dl Globulin (2.5-4.0) gm/dl Albumin/Globulin Ratio (0.9-2) TSH (0.300-4.500) uIu/ml Urine Color Yellow Urine Appearance Clear (Clear) Urine pH 6.5 (4.5-7.5) Ur Specific [place] 1.023 (1.000-1.030) Urine Protein Negative (Negative) Urine Glucose (UA) Negative (Negative) Urine Ketones Negative (Negative) Urine Blood Negative (Negative) Urine Nitrite Negative (Negative) Urine Bilirubin Negative (Negative) Urine Urobilinogen Negative (Negative) Ur Leukocyte Esterase Negative (Negative) Urine Test Negative (Negative) Salicylates (2.8-20) mg/dl Urine Opiates Screen Neg (Neg) Ur Methadone, Qual Neg (Neg) Acetaminophen (10-30) ug/ml Urine Barbiturates Neg (Neg) Ur Phencyclidine (PCP) Neg (Neg) U Amphetamin/Meth Scrn Neg (Neg) MDMA (Ecstasy) Screen Neg (Neg) U Benzodiazepines Scrn Neg (Neg) Ur Cocaine Metabolite Neg (Neg) U Marijuana (THC) Screen Neg (Neg) Ethyl Alcohol mg/dL (0-3) mg/dl 0411/19/18 11/19/18 Range/Units 18:45 18:45 18:45 WBC 8.17 (4.8-10.8) K/uL RBC 4.13 L (4.2-5.4) M/uL Hgb 13.5 (12.0-16.0) g/dL Hct 39.3 (37-47) % MCV 95.2 (80-100) fL MCH 32.7 (25-34) pg MCHC 34.4 (32-36) g/dL RDW Std Deviation 43.1 (36.4-46.3) fL RDW Coeff of Reji 12.5 (11.5-14.5) % Plt Count 190 (130-400) K/uL MPV 10.6 H (7.4-10.4) fL Immature Gran % (Auto) 0.6 % Neut % (Auto) 58.8 % Lymph % (Auto) 31.7 % Lea % (Auto) 7.6 % Eos % (Auto) 1.2 % Baso % (Auto) 0.1 % Immature Gran # (Auto) 0.05 H (0.00-0.02) K/uL Neut # (Auto) 4.80 (1.4-6.5) K/uL Lymph # (Auto) 2.59 (1.2-3.4) K/uL Lea # (Auto) 0.62 H (0.11-0.59) K/uL Eos # (Auto) 0.10 (0-0.5) K/uL Baso # (Auto) 0.01 (0-0.2) K/uL Sodium 141 (136-145) mmol/L Potassium 3.3 L (3.5-5.1) mmol/L Chloride 111 H (98-107) mmol/L Carbon Dioxide 24 (21-32) mmol/L Anion Gap 6.0 (3-11) BUN 22 H (7-18) mg/dl Creatinine 0.67 (0.6-1.2) mg/dl Est Cr Clr Drug Dosing 138.8 ml/min Est GFR ( Amer) 122.2 Est GFR (Non-Af Amer) 105.4 BUN/Creatinine Ratio 33.1 H (10-20) Glucose 105 H (70-99) mg/dl Calcium 8.3 L (8.5-10.1) mg/dl Total Bilirubin < 0.1 L (0.2-1) mg/dl AST 18 (15-37) U/L ALT 42 (12-78) U/L Alkaline Phosphatase 134 H (45-117) U/L Total Protein 6.8 (6.4-8.2) gm/dl Albumin 3.6 (3.4-5.0) gm/dl Globulin 3.2 (2.5-4.0) gm/dl Albumin/Globulin Ratio 1.1 (0.9-2) TSH 0.671 (0.300-4.500) uIu/ml Urine Color Urine Appearance (Clear) Urine pH (4.5-7.5) Ur Specific [place] (1.000-1.030) Urine Protein (Negative) Urine Glucose (UA) (Negative) Urine Ketones (Negative) Urine Blood (Negative) Urine Nitrite (Negative) Urine Bilirubin (Negative) Urine Urobilinogen (Negative) Ur Leukocyte Esterase (Negative) Urine Test (Negative) Salicylates < 1.7 L (2.8-20) mg/dl Urine Opiates Screen (Neg) Ur Methadone, Qual (Neg) Acetaminophen < 2 L (10-30) ug/ml Urine Barbiturates (Neg) Ur Phencyclidine (PCP) (Neg) U Amphetamin/Meth Scrn (Neg) MDMA (Ecstasy) Screen (Neg) U Benzodiazepines Scrn (Neg) Ur Cocaine Metabolite (Neg) U Marijuana (THC) Screen (Neg) Ethyl Alcohol mg/dL (0-3) mg/dl 11/19/18 Range/Units 18:45 WBC (4.8-10.8) K/uL RBC (4.2-5.4) M/uL Hgb (12.0-16.0) g/dL Hct (37-47) % MCV (80-100) fL MCH (25-34) pg MCHC (32-36) g/dL RDW Std Deviation (36.4-46.3) fL RDW Coeff of Reji (11.5-14.5) % Plt Count (130-400) K/uL MPV (7.4-10.4) fL Immature Gran % (Auto) % Neut % (Auto) % Lymph % (Auto) % Lea % (Auto) % Eos % (Auto) % Baso % (Auto) % Immature Gran # (Auto) (0.00-0.02) K/uL Neut # (Auto) (1.4-6.5) K/uL Lymph # (Auto) (1.2-3.4) K/uL Lea # (Auto) (0.11-0.59) K/uL Eos # (Auto) (0-0.5) K/uL Baso # (Auto) (0-0.2) K/uL Sodium (136-145) mmol/L Potassium (3.5-5.1) mmol/L Chloride (98-107) mmol/L Carbon Dioxide (21-32) mmol/L Anion Gap (3-11) BUN (7-18) mg/dl Creatinine (0.6-1.2) mg/dl Est Cr Clr Drug Dosing ml/min Est GFR ( Amer) Est GFR (Non-Af Amer) BUN/Creatinine Ratio (10-20) Glucose (70-99) mg/dl Calcium (8.5-10.1) mg/dl Total Bilirubin (0.2-1) mg/dl AST (15-37) U/L ALT (12-78) U/L Alkaline Phosphatase (45-117) U/L Total Protein (6.4-8.2) gm/dl Albumin (3.4-5.0) gm/dl Globulin (2.5-4.0) gm/dl Albumin/Globulin Ratio (0.9-2) TSH (0.300-4.500) uIu/ml Urine Color Urine Appearance (Clear) Urine pH (4.5-7.5) Ur Specific [place] (1.000-1.030) Urine Protein (Negative) Urine Glucose (UA) (Negative) Urine Ketones (Negative) Urine Blood (Negative) Urine Nitrite (Negative) Urine Bilirubin (Negative) Urine Urobilinogen (Negative) Ur Leukocyte Esterase (Negative) Urine Test (Negative) Salicylates (2.8-20) mg/dl Urine Opiates Screen (Neg) Ur Methadone, Qual (Neg) Acetaminophen (10-30) ug/ml Urine Barbiturates (Neg) Ur Phencyclidine (PCP) (Neg) U Amphetamin/Meth Scrn (Neg) MDMA (Ecstasy) Screen (Neg) U Benzodiazepines Scrn (Neg) Ur Cocaine Metabolite (Neg) U Marijuana (THC) Screen (Neg) Ethyl Alcohol mg/dL < 3.0 (0-3) mg/dl Blood Pressure Blood Pressure Findings: Elevated blood pressure Blood Pressure Disposition: Referred to patients primary care provider KAL Narrative The patient is a 48 year old white female with a past medical history of depression who presents to the Emergency Room with complaints of a worsening suicidal ideation that began 3-4 weeks ago. Differential diagnosis includes: mood disorder, infection, hypoglycemia, electrolyte abnormalities, cardiac sources, intracerebral event, toxicologic, neurologic, as well as others. Patient was seen and evaluated the bedside. The patient was referred from her psychiatrist's office for increasing depressed mood. The patient has SI without active plan. The patient denies any alcohol tobacco or drug use. The patient recently did have an up titration of her antidepressants without much change in her symptoms. Patient was deemed medically clear and seen and evaluated by the psych case consultant. The patient is pending reassessment and possible placement in the morning tired of the [facility] or inpatient psychiatric service on 3 [address]. Patient had brought her medications which she took here in the department. The patient was pending reassessment and placement in the morning she was signed out to the nighttime physician Dr. Coughlin. Impression & Plan Depression with suicidal ideation Discharge Plan Visit Data Chief Complaint: Mental Health Evaluation Stated Complaint: SUICIDAL/DEPRESSED ED Provider: Bhumi Coughlin Discharge Problem: Depression with suicidal ideation Forms Stand Alone Forms: [facility] Prescriptions Prescriptions: No Action atorvastatin 10 mg Tablet 10 mg PO DAILY RF: 0 riboflavin (vitamin B2) [Vitamin B-2] 100 mg Tablet 400 mg PO BID RF: 0 omeprazole 40 mg Capsule,Delayed Release(Dr/Ec) 40 mg PO DAILY RF: 0 carbamazepine [Tegretol] 200 mg Tablet 600 mg PO QPM RF: 0 magnesium oxide 400 mg (241.3 mg magnesium) Tablet 400 mg PO DAILY RF: 0 furosemide [Lasix] 20 mg Tablet 20 mg PO DAILY RF: 0 ergocalciferol (vitamin D2) [Vitamin D2] 50,000 unit Capsule 50,000 unit PO 3XWK RF: 0 iron 18 mg Tablet 27 mg PO DAILY RF: 0 duloxetine [Cymbalta] 60 mg Capsule,Delayed Release(Dr/Ec) 120 mg PO DAILY RF: 0 Latuda 80 mg Tablet 80 mg PO DAILY RF: 0 Ca-D3-mag ba-vdme-aol-davey-bor [Calcium 600-D3 Plus] 600 mg calcium- 800 unit- 50 mg Tablet 1 tab PO DAILY RF: 0 acetazolamide 125 mg Tablet 125 mg PO BID RF: 0 metoprolol succinate [Toprol XL] 50 mg Tablet Extended Release 24 Hr 75 mg PO DAILY RF: 0 losartan-hydrochlorothiazide 100-12.5 mg Tablet 1 tab PO DAILY RF: 0 Centrum Complete 18-400 mg-mcg Tablet 1 tab PO DAILY RF: 0 Referrals Referrals: Gayatri Granda, [Primary Care Provider] - The scribe's documentation has been prepared under my direction and personally reviewed by me in its entirety. I confirm that the note above accurately reflects all work, treatment, procedures, and medical decision making performed by me.
--- NOTE | 2018-11-20 07:09 | Emergency Department Note ---
ED Visit Note I received this patient in signout at the change of shift from Dr. Zavala, awaiting psychiatric bed placement. The patient's bed search was suspended overnight and she is awaiting a bed hopefully at [facility] or the [facility]. Patient was signed out at the change of shift to Dr. Alegria. Please see previous documentation for details of the history, physical and visit. .
[2018-11-20] MEDS ORDERED: SODIUM CHLORIDE 0.65% NA SOLN 45 ML (OCEAN) PRN (11:27)
[2018-11-20] MEDS ORDERED: ACETAMINOPHEN 325 MG TAB PO PRN (11:27)
[2018-11-20] MEDS ORDERED: BISMUTH SUBSALICYLATE PER ML OMNICELL CHARGE PO PRN (11:27)
[2018-11-20] MEDS ORDERED: ALUMINUM/MAGNESIUM SUSP 30 ML UDC PO PRN (11:27)
[2018-11-20] MEDS ORDERED: MAGNESIUM HYDROXIDE SUSP 30 ML UDC PO PRN (11:27)
--- NOTE | 2018-11-20 13:00 | History & Physical ---
Date of Service November 20, 2018 Impression / Recommendations Impression This 48-year-old woman with a known diagnosis of bipolar disorder type I reports a long-standing history of mood alterations, beginning when she was in college and persisting throughout her adult life. She notes that typically her episodes of depression and her episodes of be (or hypomania) are short-lived and may only last a matter of part of a day, or several days in a row before relief is achieved. She does acknowledges that there have been times during which she is experienced persistent manic episodes that have lasted for as long as 6 months, but she does not believe that she has had a full-blown manic episode since her college days. She also says that she is depressed more often than she is hypomanic, but, currently y, she has been feeling depressed since approximately November 01, 2018. November 01 is significant to the patient because it is the anniversary of her late brother's . The patient's brother committed suicide by self-inflicted gunshot wound in 2004. The patient tells me that she typically has trouble around the time of her brother's birthday, as well as on the anniversary of his in May, and, sometimes, at [facility] she always associates as being a "fun family time." Several adjustments in the patient's medications have been made recently by her outpatient psychiatrist. Her dose of duloxetine had been increased several months ago to a dose of 120 mg daily, and her outpatient psychiatrist was concerned that some of the hypomanic symptoms that she was experiencing during the months of August and September may have been related to the higher dose of duloxetine. Her dose of duloxetine was then decreased back to the previous dose, which had been 60 mg a day, and not long after that the patient began to experience depression. Her current pres entation is somewhat puzzling. She is quite verbal, and her speech is fairly rapid, although not fully pressured. She also is tangential, and at times circumferential in a fashion that is suggestive of a mild flight of ideas. At the same time, the patient tells me that her mood is "depressed" and then "mixed" and at times she becomes tearful, and at other times she laughs out loud and makes joking comments. The context is that the patient tells me that she is feeling better now that she has taken a positive step to get help and is in the hospital. She tells me that she feels proud of herself because of making this decision and feels that she will not require a particularly long hospitalization. As noted above, the patient quickly told me that she wants to be out of the hospital by Friday because she has an appointment Friday afternoon for further testing of a lesion that was identified in upper right quadrant of her right breast. She identifies several women friends as well as her as strong sources of support. She is also extremely close with her 24-year-old daughter. 1 of the recent stressors identified by the patient is the fact that her daughter recently moved out of the home and into her own apartment. 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 The patient and I discussed possible changes in her treatment plan. I recommended that we decrease her dose of Cymbalta to a dose of 100 mg daily. We will hold Latuda at 80 mg daily. We will also continue carbamazepine extended release 600 mg daily. The patient indicates that she feels that this is quite helpful to her. Her laboratory studies at admission indicate that she may be somewhat dehydrated. She takes furosemide 20 mg daily for hypertension, according the patient, and we discussed possibly decreasing her dose this medication. However, for now the decision will be to continue to encourage fluids.. The patient is also taking multiple somatic medications, and collectively these medications may be contributing to some of the patient's presenting symptoms which include lethargy and fatigue. The most recent carbamazepine level on file was obtained in June 2018 and was 11 (1) Depression with suicidal ideation: 11/20/18 -immediately following admission, the patient reports that her mood improved considerably and now presents with a somewhat mixed pattern, characterized by a generally bright, animated mood, combined with emotional lability and periodic tearfulness when discussing sad subjects, such as her brother's by suicide and the fact that she is missing her daughter who recently moved family home. -Her outpatient psychiatrist reportedly has suspected that her dose of duloxetine may have contributed to symptoms of hypomania experienced earlier this year, and it is noted that her dose of duloxetine was decreased to a dose of 60 mg daily, shortly before her depression returned, and the dose was recently increased back to 120 mg daily. Because now the patient seems to be presenting with more hypomanic symptoms than anything, I will reduce the dose of duloxetine to a dose of 100 mg daily. -Patient reports that her suicidal thoughts have resolved, but she had them as recently as last evening. She had a plan to take an overdose and has a history of at least 2 suicide attempts by overdose. Patient will be placed on suicide precautions and observed closely. Present on Admission?: Yes (2) Bipolar disorder current episode depressed: 11/20/18 -the patient reports that her standing diagnosis recently has been bipolar 1 disorder, rapid cycling or mixed. Although the patient presented to the emergency room with complaints of depression and suicidality, she has noticed a shift in her mood subsequent to arriving on the unit and now appears to be somewhat hypomanic, although she continues to endorse mixed symptoms which include fleeting feelings of depression, mixed with feelings of optimism and enthusiasm. -We will obtain a current carbamazepine level. -The plan will be to continue carbamazepine 600 mg daily, Latuda 80 mg daily, and we will decrease the dose of duloxetine from a dose of 120 mg daily to 100 mg daily, primarily because the patient now appears to be experiencing symptoms of hypomania. Present on Admission?: Yes (3) Pseudotumor cerebri: 11/20/18 -we will continue Diamox 250 mg twice a day. Present on Admission?: Yes (4) Hypertension: 11/20/18 -patient has a known history of hypertension and her most recent measured blood pressures have been elevated. The patient tells me that she has been taking metoprolol extended release at 75 mg daily by taking an extended release tablet, 50 mg, and breaking it in half. This may be contributing to alterations in her blood pressure, and she was advised accordingly that one cannot divide extended release tablets -We will increase the dose of metoprolol XL to 100 mg daily, continue losartan 100/12.5, and monitor blood pressure. Present on Admission?: Yes Inventory Assets Strengths: Supportive family. Motivated to recovery. Actively involved in treatment. Adherent with treatment recommendations. Knowledgeable about her illness and medications. Risk Factors Assessment Improve mood regulation. Resolution of suicidal thoughts. Improved coping strategies when feeling depressed. Male: No : Yes Do You Have Access To A Gun?: Yes (The patient says that there are 2 guns in the house but they are antiques, they do not have ammunition, and she adds "I would have no idea how to use them.") Health Problems: Yes Mental Health Diagnoses: Yes Substance Use Disorders: No Previous Attempt: Yes Previous Attempt; Highly Lethal: Yes Previous Attempt; Planned: Yes Previous Attempt; Didn't Tell Anyone: No Family History of Suicide: Yes (The patient's brother committed suicide by self- inflicted gunshot wound in 2004. The patient's brother may have carried a diagnosis of bipolar disorder.) Previous Psychiatric Hospitalization: Yes Hopelessness: No Smoker: No Protective Factors Assessment : Yes Responsible for Young Children: No Employed: No Stable Relationships: Yes Supportive Family: Yes Good Rapport with Provider: Yes Absence of Any Risk Factors Above: No Psychiatric History Identifying Data ANGELO MEHTA is a 48-year-old F who currently lives in [place], [place] with her of 26-years. She has a history of Bipolar I Disorder, and was admitted on 11/20/18 11:35 on a 201 voluntary. According to the patient, she has a known diagnosis of bipolar 1 disorder, "rapid cycling," and has a history of multiple previous psychiatric hospitalizations, as well as a history of at least 2 suicide attempts. The patient reports that she came to the emergency department because she was having persistent suicidal thoughts with a plan to overdose on her medications. These thoughts have persisted for several days, but during the past 2 days her was home from work, and the patient realized her was going to go into work today and she thought it was not a good idea for her to stay home alone because of the persistent suicidal thoughts. Although the patient reports that her usual pattern is to have rapid cycling symptoms with be, alternating with depression and rapid sequences of sometimes less than a day, this time she indicates that she had been feeling "manic" or "hypomanic" for approximately 2 months, beginning in August 2018. And then on or about November 01, the anniversary of her late brothers , she suddenly became depr essed. The depression persisted for about a week and then worsened. She became concerned because often when she becomes depressed she "snaps out of it" fairly quickly, at this time she was alarmed because the depression seemed to be intensifying. Patient reports that her symptoms of be typically include elevated mood, expansive mood, increased energy, flight of ideas, pressured speech, decreased desire for sleep, and some impulsive behaviors. The patient reports that her symptoms of depression include depressed mood, psychosocial withdrawal, anergia, anhedonia, mood irritability, and recurrent thoughts of suicide. Her most recent previous suicide attempt occurred in August 2017 and involved an overdose of "sleeping pills" (Ambien) she was psychiatrically hospitalized on the behavioral health unit at [facility] at that time. Although the patient tells me that she was eminently suicidal when she came to the hospital, she indicates that her suicidal thoughts have now dissipated, and she is future oriented to the degree that she tells me that she is eager to be discharged "by Friday morning" so that she can keep an appointment at [facility] for further studies of a lesion that has been discovered on mammogram and her left breast (at "11:00") Chief Complaint "Depressed and Suicidal". Past Psychiatric History Current Psychiatric Diagnosis: Bipolar Do You Have Access To A Gun?: Yes (The patient says that there are 2 guns in the house but they are antiques, they do not have ammunition, and she adds "I would have no idea how to use them.") Describe Attempts in the Past: OD on Ambien Aug 2017 Allergies Allergy/AdvReac Type Severity Reaction Status Date / Time Sulfa (Sulfonamide Allergy Hives Verified 11/19/18 19:44 Antibiotics) Home Medications Home Medications Medication Instructions Recorded Confirmed Type Ca-D3-mag gu-cugi-zpj-davey-bor 1 tab PO DAILY 06/13/18 11/19/18 History [Calcium 600-D3 Plus] atorvastatin 10 mg PO DAILY 06/13/18 11/19/18 History carbamazepine [Tegretol] 600 mg PO QPM 06/13/18 11/19/18 History duloxetine [Cymbalta] 120 mg PO DAILY 06/13/18 11/19/18 History ergocalciferol (vitamin D2) 50,000 unit PO 3XWK 06/13/18 11/19/18 History [Vitamin D2] furosemide [Lasix] 20 mg PO DAILY 06/13/18 11/19/18 History iron 27 mg PO DAILY 06/13/18 11/19/18 History lurasidone [Latuda] 80 mg PO DAILY 06/13/18 11/19/18 History magnesium oxide 400 mg PO DAILY 06/13/18 11/19/18 History omeprazole 40 mg PO DAILY 06/13/18 11/19/18 History riboflavin (vitamin B2) [Vitamin 400 mg PO BID 06/13/18 11/19/18 History B-2] acetazolamide 250 mg PO BID 11/19/18 11/20/18 History losartan-hydrochlorothiazide 1 tab PO DAILY 11/19/18 11/19/18 History metoprolol succinate [Toprol XL] 75 mg PO DAILY 11/19/18 11/19/18 History gmkdoibhzmbj-anvz-zxclc acid 1 tab PO DAILY 11/19/18 11/19/18 History [Centrum Complete] Family History Family History of: Depression and Suicide Completion Family Mental Health History Comment: brother Alcohol History Hx of Alcohol Use Over the Past 12 Months: No AUDIT Total Score: 0 Smoking Use Have You Smoked or Used Tobacco Products in the Last 30 Days: No Smoking Status: Never smoker Substance History Hx of Prescription Med Misuse Over the Past 12 Months: No Hx of Over the Counter Med Misuse Over the Past 12 Months: No Hx of Inhalent Misuse Over the Past 12 Months: No Hx of Organic Substance Use Over the Past 12 Months: No Hx of Illegal Substances/Street Drug Use Over Past 12 Months: No Problems as a Result of Past Substance Use: None Identified Personal History Living Arrangements: Home Beliefs That Will Affect Care: None Patient History Medical History Bipolar disorder current episode depressed (Chronic 03/04/13) Anxiety (Chronic) Hyperlipidemia Hypertension Obesity Klonopin use disorder, severe GERD (gastroesophageal reflux disease) Pseudotumor cerebri Surgical History H/O gastric bypass H/O: hysterectomy Social History Preferred Language: Welsh Communication Ability: Effective 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 Physical Exam Psychiatric Orientation: oriented x 3 Apperance: appropriately dressed and appropriately groomed Eye Contact: + fair eye contact Motor Behavior: steady gait and station Speech: + pressured speech Affect: + labile affect For the most part, the patient's affect was quite bright. She laughed a number of times and smiled frequently during the interview. She also joked a bit. The patient did first describes her mood as "depressed." When I commented that she did not appear particularly depressed, she explains that she has "mixed" mood symptoms, and describes emotional lability. Thought Process: + circumstantial thought process and + tangential thought process At times the patient's thought processes approach flight of ideas, but she was interruptible and although she was quite circumferential, she was able to stay on a subject long enough to complete the thought and make her point, in most cases. Thought Content: reality based without delusions The patient reports suicidal thoughts as recently as last evening. She tells me that today she is not experiencing active suicidal thoughts, but recognizes that her suicidal thoughts tend to "come and go." Homicidal Thoughts: denies homicidal thoughts Hallucinations: no auditory hallucinations and no visual hallucinations Cognition: recent memory grossly intact, remote memory grossly intact and language grossly intact Estimated Intelligence: + above average estimated intelligence Insight: + fair insight Judgement: + fair judgement The patient indicates that this is 1 of the only time she has ever directly sought hospital treatment in the face of worsening symptoms. She notes that typically she has allowed the symptoms to become so severe that someone else brings her to the hospital, or she makes a suicide attempt. She described the decision to come to the hospital on her own this time is evident "growing up." Vital Signs (Past 24 Hours) Last Vital Signs Temp 37 C 11/20/18 12:12 Pulse 58 L 11/20/18 12:12 Resp 20 11/20/18 12:12 BP 149/88 H 11/20/18 12:12 Pulse Ox 97 11/20/18 11:36 Results & Data Laboratory Results Laboratory Results - last 24 hr 11/19/18 11/19/18 11/19/18 18:16 18:16 18:16 WBC RBC Hgb Hct MCV MCH MCHC RDW Std Deviation RDW Coeff of Reji Plt Count MPV Immature Gran % (Auto) Neut % (Auto) Lymph % (Auto) Callahan % (Auto) Eos % (Auto) Baso % (Auto) Immature Gran # (Auto) Neut # (Auto) Lymph # (Auto) Callahan # (Auto) Eos # (Auto) Baso # (Auto) Sodium Potassium Chloride Carbon Dioxide Anion Gap BUN Creatinine Est Cr Clr Drug Dosing Est GFR ( Amer) Est GFR (Non-Af Amer) BUN/Creatinine Ratio Glucose Calcium Total Bilirubin AST ALT Alkaline Phosphatase Total Protein Albumin Globulin Albumin/Globulin Ratio TSH Urine Color Yellow Urine Appearance Clear Urine pH 6.5 Ur Specific Shreve 1.023 Urine Protein Negative Urine Glucose (UA) Negative Urine Ketones Negative Urine Blood Negative Urine Nitrite Negative Urine Bilirubin Negative Urine Urobilinogen Negative Ur Leukocyte Esterase Negative Urine Test Negative Salicylates Urine Opiates Screen Neg Ur Methadone, Qual Neg Acetaminophen Urine Barbiturates Neg Ur Phencyclidine (PCP) Neg U Amphetamin/Meth Scrn Neg MDMA (Ecstasy) Screen Neg U Benzodiazepines Scrn Neg Ur Cocaine Metabolite Neg U Marijuana (THC) Screen Neg Ethyl Alcohol mg/dL 11/19/18 11/19/18 11/19/18 18:45 18:45 18:45 WBC 8.17 RBC 4.13 L Hgb 13.5 Hct 39.3 MCV 95.2 MCH 32.7 MCHC 34.4 RDW Std Deviation 43.1 RDW Coeff of Reji 12.5 Plt Count 190 MPV 10.6 H Immature Gran % (Auto) 0.6 Neut % (Auto) 58.8 Lymph % (Auto) 31.7 Callahan % (Auto) 7.6 Eos % (Auto) 1.2 Baso % (Auto) 0.1 Immature Gran # (Auto) 0.05 H Neut # (Auto) 4.80 Lymph # (Auto) 2.59 Callahan # (Auto) 0.62 H Eos # (Auto) 0.10 Baso # (Auto) 0.01 Sodium 141 Potassium 3.3 L Chloride 111 H Carbon Dioxide 24 Anion Gap 6.0 BUN 22 H Creatinine 0.67 Est Cr Clr Drug Dosing 138.8 Est GFR ( Amer) 122.2 Est GFR (Non-Af Amer) 105.4 BUN/Creatinine Ratio 33.1 H Glucose 105 H Calcium 8.3 L Total Bilirubin < 0.1 L AST 18 ALT 42 Alkaline Phosphatase 134 H Total Protein 6.8 Albumin 3.6 Globulin 3.2 Albumin/Globulin Ratio 1.1 TSH 0.671 Urine Color Urine Appearance Urine pH Ur Specific [place]reve Urine Protein Urine Glucose (UA) Urine Ketones Urine Blood Urine Nitrite Urine Bilirubin Urine Urobilinogen Ur Leukocyte Esterase Urine Test Salicylates < 1.7 L Urine Opiates Screen Ur Methadone, Qual Acetaminophen < 2 L Urine Barbiturates Ur Phencyclidine (PCP) U Amphetamin/Meth Scrn MDMA (Ecstasy) Screen U Benzodiazepines Scrn Ur Cocaine Metabolite U Marijuana (THC) Screen Ethyl Alcohol mg/dL 11/19/18 18:45 WBC RBC Hgb Hct MCV MCH MCHC RDW Std Deviation RDW Coeff of Reji Plt Count MPV Immature Gran % (Auto) Neut % (Auto) Lymph % (Auto) Callahan % (Auto) Eos % (Auto) Baso % (Auto) Immature Gran # (Auto) Neut # (Auto) Lymph # (Auto) Callahan # (Auto) Eos # (Auto) Baso # (Auto) Sodium Potassium Chloride Carbon Dioxide Anion Gap BUN Creatinine Est Cr Clr Drug Dosing Est GFR ( Amer) Est GFR (Non-Af Amer) BUN/Creatinine Ratio Glucose Calcium Total Bilirubin AST ALT Alkaline Phosphatase Total Protein Albumin Globulin Albumin/Globulin Ratio TSH Urine Color Urine Appearance Urine pH Ur Specific Shreve Urine Protein Urine Glucose (UA) Urine Ketones Urine Blood Urine Nitrite Urine Bilirubin Urine Urobilinogen Ur Leukocyte Esterase Urine Test Salicylates Urine Opiates Screen Ur Methadone, Qual Acetaminophen Urine Barbiturates Ur Phencyclidine (PCP) U Amphetamin/Meth Scrn MDMA (Ecstasy) Screen U Benzodiazepines Scrn Ur Cocaine Metabolite U Marijuana (THC) Screen Ethyl Alcohol mg/dL < 3.0 Current Inpatient Medications Current Inpatient Medications: Current Inpatient Medications Acetaminophen (Tylenol) 650 mg PO Q4H PRN PRN Reason: Headache or Minor Fever Stop: 12/20/18 11:26 Al Hydrox/Mg Hydrox/Simethicone (Maalox) 30 ml PO Q4H PRN PRN Reason: GI Upset Stop: 12/20/18 11:26 Bismuth Subsalicylate (Kaopectate) 15 ml PO PRN PRN PRN Reason: Loose Stool Stop: 12/20/18 11:26 Hydroxyzine HCl (Vistaril) 25 mg PO Q4H PRN PRN Reason: Anxiety Stop: 12/20/18 11:26 Hydroxyzine HCl (Vistaril) 50 mg PO HSZ PRN PRN Reason: Insomnia Stop: 12/20/18 11:26 Magnesium Hydroxide (Milk Of Magnesia) 30 ml PO DAILY PRN PRN Reason: Heartburn Stop: 12/20/18 11:26 Sodium Chloride ([place] Nasal) 1 - 2 sprays NA PRN PRN PRN Reason: Nasal Dryness/Congestion Stop: 12/20/18 11:26 CPT Code CPT Code Initial Hospital Care: [id number]
[2018-11-20] MEDS: CARBAMAZEPINE 200 MG TABCR PO SCH (20:57)
[2018-11-20] MEDS ORDERED: acetaZOLAMIDE 250 MG TAB PO SCH ×2 (21:00)
[2018-11-20] MEDS ORDERED: PANTOprazole 40 MG TAB PO SCH (21:00)
[2018-11-21] MEDS: DULOXETINE HCL 60 MG CAP PO SCH (08:44)
[2018-11-21] MEDS: LOSARTAN POTASSIUM 50 MG TAB PO SCH (08:44)
[2018-11-21] MEDS: PANTOprazole 40 MG TAB PO SCH (08:45)
[2018-11-21] MEDS: DULOXETINE HCL 20 MG CAP PO SCH (08:45)
[2018-11-21] MEDS: hydroCHLOROthiazide 25 MG TAB PO SCH (08:45)
[2018-11-21] MEDS: acetaZOLAMIDE 250 MG TAB PO SCH ×2 (08:45→17:46)
[2018-11-21] MEDS: CEROVITE ADV FORMULA TAB PO SCH ×2 (08:46→17:47)
[2018-11-21] MEDS ORDERED: CHOLECALCIFEROL 1,000 UNITS TAB PO SCH (09:00)
[2018-11-21] MEDS ORDERED: LURASIDONE HCL 40 MG TAB PO SCH (09:00)
[2018-11-21] MEDS ORDERED: CARBAMAZEPINE 200 MG TABCR PO SCH (09:00)
[2018-11-21] MEDS ORDERED: METOPROLOL SUCC 50MG EXT REL TAB PO SCH (09:00)
[2018-11-21] MEDS ORDERED: CEROVITE ADV FORMULA TAB PO SCH (09:00)
--- NOTE | 2018-11-21 10:43 | Psychiatric Progress Note ---
Date of Service November 21, 2018 Impression / Recommendations Impression Already appearing more stable and euthymic however she has h/o rapid cycling and 2 suicide attempts and requires continued monitoring. Tolerating dose reduction of Cymbalta without difficulty. Tegretol level within acceptable range. Watching mild bradycardia following metoprolol dose escalation. (1) Depression with suicidal ideation: 11/20/18 -immediately following admission, the patient reports that her mood improved considerably and now presents with a somewhat mixed pattern, characterized by a generally bright, animated mood, combined with emotional lability and periodic tearfulness when discussing sad subjects, such as her brother's by suicide and the fact that she is missing her daughter who recently moved family home. -Her outpatient psychiatrist reportedly has suspected that her dose of duloxetine may have contributed to symptoms of hypomania experienced earlier this year, and it is noted that her dose of duloxetine was decreased to a dose of 60 mg daily, shortly before her depression returned, and the dose was recently increased back to 120 mg daily. Because now the patient seems to be presenting with more hypomanic symptoms than anything, I will reduce the dose of duloxetine to a dose of 100 mg daily. -Patient reports that her suicidal thoughts have resolved, but she had them as recently as last evening. She had a plan to take an overdose and has a history of at least 2 suicide attempts by overdose. Patient will be placed on suicide precautions and observed closely. (2) Bipolar disorder current episode depressed: 11/20/18 -the patient reports that her standing diagnosis recently has been bipolar 1 disorder, rapid cycling or mixed. Although the patient presented to the emergency room with complaints of depression and suicidality, she has noticed a shift in her mood subsequent to arriving on the unit and now appears to be somewhat hypomanic, although she continues to endorse mixed symptoms which include fleeting feelings of depression, mixed with feelings of optimism and enthusiasm. -We will obtain a current carbamazepine level. -The plan will be to continue carbamazepine 600 mg daily, Latuda 80 mg daily, and we will decrease the dose of duloxetine from a dose of 120 mg daily to 100 mg daily, primarily because the patient now appears to be experiencing symptoms of hypomania. 11/21 - continue reduced dose of cymbalta - tegretol level 7.7 (3) Pseudotumor cerebri: 11/20/18 -we will continue Diamox 250 mg twice a day. (4) Hypertension: 11/20/18 -patient has a known history of hypertension and her most recent measured blood pressures have been elevated. The patient tells me that she has been taking metoprolol extended release at 75 mg daily by taking an extended release tablet, 50 mg, and breaking it in half. This may be contributing to alterations in her blood pressure, and she was advised accordingly that one cannot divide extended release tablets -We will increase the dose of metoprolol XL to 100 mg daily, continue losartan 100/12.5, and monitor blood pressure. 11/21 - watch HR. mild bradycardia asymptomatic Inventory Assets Strengths: Supportive family. Motivated to recovery. Actively involved in treatment. Adherent with treatment recommendations. Knowledgeable about her illness and medications. Risk Factors Assessment Male: No : Yes Do You Have Access To A Gun?: Yes (The patient says that there are 2 guns in the house but they are antiques, they do not have ammunition, and she adds "I would have no idea how to use them.") Health Problems: Yes Mental Health Diagnoses: Yes Substance Use Disorders: No Previous Attempt: Yes Previous Attempt; Highly Lethal: Yes Previous Attempt; Planned: Yes Previous Attempt; Didn't Tell Anyone: No Family History of Suicide: Yes (The patient's brother committed suicide by self- inflicted gunshot wound in 2004. The patient's brother may have carried a diagnosis of bipolar disorder.) Previous Psychiatric Hospitalization: Yes Hopelessness: No Smoker: No Protective Factors Assessment : Yes Responsible for Young Children: No Employed: No Stable Relationships: Yes Supportive Family: Yes Good Rapport with Provider: Yes Absence of Any Risk Factors Above: No Interval History Chief Complaint "I feel peaceful and well rested". Review of Systems Sleep Information Total Hours of Sleep: 8 Sleep Comments: pt on q-15 minute checks Meal Information Percent Meal Consumed - Breakfast: 100 Percent Meal Consumed - Lunch: 75 Percent Meal Consumed - Dinner: 100 Subjective Subjective Patient was seen & assessed and interval progress reviewed with treatment team. Patient was admitted on a voluntary status yesterday seen by Dr. Childress at which time Cymbalta was decreased by 20 mg daily and metoprolol increased to 100 mg. Tegretol level drawn this morning 7.7. Patient reports Tegretol was recently decreased as an outpatient because she was feeling "spacey" on higher dose. She reports mood improving already since admission. "Usually taking me out of the home environment helps a lot." She comments that she feels very comfortable with her mental health providers and notes that requesting admission when feeling unsafe is "something new for me." She attributes this to improving insight and willingness to accept need for help. Possibly of note, she refers to her outpatient psychiatrist repeatedly as Lindsey rather than Dr. Kapoor, which might suggest desire to feel close to this provider. She denies any self- injurious impulses since admission. We discussed acute stressor of breast pump with follow-up appointment scheduled Friday. Physical Exam Psychiatric Orientation: alert and cooperative Apperance: appropriately dressed and appropriately groomed Eye Contact: good eye contact Motor Behavior: steady gait and station and no abnormal motor movements; n tremor Speech: no pressured speech (however speech is a little rapid) Affect: mood congruent with affect; no labile affect (appears near tears briefly) "peaceful" Thought Process: goal directed thought process; thought process not tangential Thought Content: + preoccupation Suicidal Thoughts: denies suicidal thoughts, denies suicidal plan and denies suicidal intent Homicidal Thoughts: denies homicidal thoughts Hallucinations: no auditory hallucinations, no visual hallucinations and no tactile hallucinations Cognition: recent memory grossly intact Estimated Intelligence: average estimated intelligence Insight: + fair insight Judgement: + fair judgement Vital Signs (Past 24 Hours) Last Vital Signs Temp 36.4 C L 11/21/18 06:47 Pulse 58 L 11/21/18 06:48 Resp 16 11/21/18 06:47 BP 137/94 11/21/18 06:48 Pulse Ox 97 11/20/18 11:36 Results & Data Laboratory Results Laboratory Results - last 24 hr 11/21/18 07:21 Carbamazepine 7.7 Current Inpatient Medications Current Inpatient Medications: Current Inpatient Medications Acetaminophen (Tylenol) 650 mg PO Q4H PRN PRN Reason: Headache or Minor Fever Stop: 12/20/18 11:26 Last Admin: 11/20/18 18:06 Dose: 650 mg Documented by: Acetazolamide (Diamox) 250 mg PO BIDM [facility] Stop: 12/21/18 08:59 Last Admin: 11/21/18 08:45 Dose: 250 mg Documented by: Al Hydrox/Mg Hydrox/Simethicone (Maalox) 30 ml PO Q4H PRN PRN Reason: GI Upset Stop: 12/20/18 11:26 Bismuth Subsalicylate (Kaopectate) 15 ml PO PRN PRN PRN Reason: Loose Stool Stop: 12/20/18 11:26 Carbamazepine (Tegretol Xr) 600 mg PO HS CONNIE Stop: 12/20/18 21:59 Last Admin: 11/20/18 20:57 Dose: 600 mg Documented by: Duloxetine HCl (Cymbalta) 40 mg PO QAM [facility] Stop: 12/21/18 08:59 Last Admin: 11/21/18 08:45 Dose: 40 mg Documented by: Duloxetine HCl (Cymbalta) 60 mg PO QAM [facility] Stop: 12/21/18 08:59 Last Admin: 11/21/18 08:44 Dose: 60 mg Documented by: Hydrochlorothiazide (Hctz) 12.5 mg PO DAILY [facility] Stop: 12/21/18 08:59 Last Admin: 11/21/18 08:45 Dose: 12.5 mg Documented by: Hydroxyzine HCl (Vistaril) 25 mg PO Q4H PRN PRN Reason: Anxiety Stop: 12/20/18 11:26 Hydroxyzine HCl (Vistaril) 50 mg PO HSZ PRN PRN Reason: Insomnia Stop: 12/20/18 11:26 Last Admin: 11/20/18 20:57 Dose: 50 mg Documented by: Losartan Potassium (Cozaar) 100 mg PO QAM [facility] Stop: 12/21/18 08:59 Last Admin: 11/21/18 08:44 Dose: 100 mg Documented by: Lurasidone HCl (Latuda) 80 mg PO 1700 [facility] Stop: 12/21/18 16:59 Magnesium Hydroxide (Milk Of Magnesia) 30 ml PO DAILY PRN PRN Reason: Heartburn Stop: 12/20/18 11:26 Metoprolol Succinate (Toprol Xl) 100 mg PO 1700 [facility] Stop: 12/21/18 16:59 Multivitamins/Minerals (Multivitamin W/ Minerals Tab) 1 tab PO BIDM [facility] Stop: 12/21/18 08:59 Last Admin: 11/21/18 08:46 Dose: 1 tab Documented by: Pantoprazole Sodium (Protonix) 40 mg PO DAILY [facility] Stop: 12/21/18 08:59 Last Admin: 11/21/18 08:45 Dose: 40 mg Documented by: Sodium Chloride ([place] Nasal) 1 - 2 sprays NA PRN PRN PRN Reason: Nasal Dryness/Congestion Stop: 12/20/18 11:26 Vitamin D (Vitamin D3) 2,000 units PO 1700 [facility] Stop: 12/21/18 16:59 Post Discharge Appointments Primary Care Physician Name Of Family Doctor: Sb Therapist Name of Therapist: Lesley Armando @ [facility] Date of Therapist Appointment: 11/24/18 Lineworker Name of Lineworker: Claudio CPT Code CPT Code 10692
[2018-11-21] MEDS: LURASIDONE HCL 40 MG TAB PO SCH (17:34)
[2018-11-21] MEDS: METOPROLOL SUCC 50MG EXT REL TAB PO SCH (17:34)
[2018-11-21] MEDS: CHOLECALCIFEROL 1,000 UNITS TAB PO SCH (17:35)
[2018-11-21] MEDS: CARBAMAZEPINE 200 MG TABCR PO SCH (21:00)
[2018-11-21] MEDS: ATORVASTATIN 10 MG TAB PO SCH (21:36)
[2018-11-22] MEDS: LOSARTAN POTASSIUM 50 MG TAB PO SCH (09:04)
[2018-11-22] MEDS: DULOXETINE HCL 20 MG CAP PO SCH (09:05)
[2018-11-22] MEDS: CEROVITE ADV FORMULA TAB PO SCH ×2 (09:06→17:42)
[2018-11-22] MEDS: DULOXETINE HCL 60 MG CAP PO SCH (09:06)
[2018-11-22] MEDS: hydroCHLOROthiazide 25 MG TAB PO SCH (09:06)
[2018-11-22] MEDS: PANTOprazole 40 MG TAB PO SCH (09:06)
[2018-11-22] MEDS: acetaZOLAMIDE 250 MG TAB PO SCH ×2 (09:06→17:42)
--- NOTE | 2018-11-22 10:32 | Psychiatric Progress Note ---
Date of Service November 22, 2018 Impression / Recommendations Impression Mood more euthymic today and she has responded very positively to support and structure of the hospital environment and will likely be ready for discharge tomorrow however she does endorse feeling slightly elevated and we discussed consideration for titration of mood stabilizer but ultimately elected to defer this consideration to Dr. Kapoor when the primary team returns tomorrow. (1) Depression with suicidal ideation: 11/20/18 -immediately following admission, the patient reports that her mood improved considerably and now presents with a somewhat mixed pattern, characterized by a generally bright, animated mood, combined with emotional lability and periodic tearfulness when discussing sad subjects, such as her brother's by suicide and the fact that she is missing her daughter who recently moved family home. -Her outpatient psychiatrist reportedly has suspected that her dose of duloxetine may have contributed to symptoms of hypomania experienced earlier t his year, and it is noted that her dose of duloxetine was decreased to a dose of 60 mg daily, shortly before her depression returned, and the dose was recently increased back to 120 mg daily. Because now the patient seems to be presenting with more hypomanic symptoms than anything, I will reduce the dose of duloxetine to a dose of 100 mg daily. -Patient reports that her suicidal thoughts have resolved, but she had them as recently as last evening. She had a plan to take an overdose and has a history of at least 2 suicide attempts by overdose. Patient will be placed on suicide precautions and observed closely. 11/22 -continues to deny suicidal ideation (2) Bipolar disorder current episode depressed: 11/20/18 -the patient reports that her standing diagnosis recently has been bipolar 1 disorder, rapid cycling or mixed. Although the patient presented to the emergency room with complaints of depression and suicidality, she has noticed a shift in her mood subsequent to arriving on the unit and now appears to be somewhat hypomanic, although she continues to endorse mixed symptoms which include fleeting feelings of depression, mixed with feelings of optimism and enthusiasm. -We will obtain a current carbamazepine level. -The plan will be to continue carbamazepine 600 mg daily, Latuda 80 mg daily, and we will decrease the dose of duloxetine from a dose of 120 mg daily to 100 mg daily, primarily because the patient now appears to be experiencing symptoms of hypomania. 11/21 - continue reduced dose of cymbalta - tegretol level 7.7 11/22 -No medication changes made today. Consider further titration of Tegretol which can likely be done as an outpatient (3) Pseudotumor cerebri: 11/20/18 -we will continue Diamox 250 mg twice a day. (4) Hypertension: 11/20/18 -patient has a known history of hypertension and her most recent measured blood pressures have been elevated. The patient tells me that she has been taking metoprolol extended release at 75 mg daily by taking an extended release tablet, 50 mg, and breaking it in half. This may be contributing to alterations in her blood pressure, and she was advised accordingly that one cannot divide extended release tablets -We will increase the dose of metoprolol XL to 100 mg daily, continue losartan 100/12.5, and monitor blood pressure. 11/21 - watch HR. mild bradycardia asymptomatic 11/22 -BP and heart rate within normal limits today Inventory Assets Strengths: Supportive family. Motivated to recovery. Actively involved in treatment. Adherent with treatment recommendations. Knowledgeable about her illness and medications. Risk Factors Assessment Male: No : Yes Do You Have Access To A Gun?: Yes (The patient says that there are 2 guns in the house but they are antiques, they do not have ammunition, and she adds "I would have no idea how to use them.") Health Problems: Yes Mental Health Diagnoses: Yes Substance Use Disorders: No Previous Attempt: Yes Previous Attempt; Highly Lethal: Yes Previous Attempt; Planned: Yes Previous Attempt; Didn't Tell Anyone: No Family History of Suicide: Yes (The patient's brother committed suicide by self- inflicted gunshot wound in 2004. The patient's brother may have carried a diagnosis of bipolar disorder.) Previous Psychiatric Hospitalization: Yes Hopelessness: No Smoker: No Protective Factors Assessment : Yes Responsible for Young Children: No Employed: No Stable Relationships: Yes Supportive Family: Yes Good Rapport with Provider: Yes Absence of Any Risk Factors Above: No Interval History Chief Complaint "I think I feel slightly elevated". Review of Systems Sleep Information Total Hours of Sleep: 8.5 Sleep Comments: pt appeared to sleep 1.5 hrs during evening shift. pt on q-15 minute checks Meal Information Percent Meal Consumed - Breakfast: 100 Percent Meal Consumed - Lunch: 100 Percent Meal Consumed - Dinner: 100 Denies suicidal ideation or AVH Subjective Subjective Patient was seen & assessed and interval progress reviewed with treatment team. She has a family meeting with her scheduled for today at 230. Doing well here on the unit and attending programming. She has described quickly compensation and mood. Today she reports feeling perhaps slightly elevated as compared to her typical baseline however she slept well last night, denies thought racing today, and is logical and well-organized conversationally. She continues to deny recurrence of thoughts of . She denies any symptoms of psychosis. She remains eager to consider discharge tomorrow to attend her outside appointment. Physical Exam Psychiatric Orientation: alert and cooperative Apperance: appropriately dressed and appropriately groomed Eye Contact: good eye contact Motor Behavior: no abnormal motor movements Speech: no pressured speech (But is a little hyperverbal) Affect: euthymic affect Mood: no depressed mood ("Very good.") Thought Process: clear/coherent thought process (With mild circumstantiality but not tangential and no flight of ideas) Thought Content: reality based without delusions Suicidal Thoughts: denies suicidal thoughts, denies suicidal plan and denies suicidal intent Hallucinations: no auditory hallucinations and no visual hallucinations Cognition: recent memory grossly intact and remote memory grossly intact Estimated Intelligence: average estimated intelligence Insight: + fair insight Judgement: + fair judgement Vital Signs (Past 24 Hours) Last Vital Signs Temp 36.7 C 11/22/18 06:37 Pulse 63 11/22/18 06:38 Resp 16 11/22/18 06:37 BP 122/89 11/22/18 06:38 Pulse Ox 97 11/20/18 11:36 Results & Data Current Inpatient Medications Current Inpatient Medications: Current Inpatient Medications Acetaminophen (Tylenol) 650 mg PO Q4H PRN PRN Reason: Headache or Minor Fever Stop: 12/20/18 11:26 Last Admin: 11/20/18 18:06 Dose: 650 mg Documented by: Acetazolamide (Diamox) 250 mg PO BIDM [facility] Stop: 12/21/18 08:59 Last Admin: 11/22/18 09:06 Dose: 250 mg Documented by: Al Hydrox/Mg Hydrox/Simethicone (Maalox) 30 ml PO Q4H PRN PRN Reason: GI Upset Stop: 12/20/18 11:26 Atorvastatin Calcium (Lipitor) 10 mg PO HS CONNIE Stop: 12/21/18 21:59 Last Admin: 11/21/18 21:36 Dose: 10 mg Documented by: Bismuth Subsalicylate (Kaopectate) 15 ml PO PRN PRN PRN Reason: Loose Stool Stop: 12/20/18 11:26 Carbamazepine (Tegretol Xr) 600 mg PO HS [facility] Stop: 12/20/18 21:59 Last Admin: 11/21/18 21:00 Dose: 600 mg Documented by: Duloxetine HCl (Cymbalta) 40 mg PO QAM [facility] Stop: 12/21/18 08:59 Last Admin: 11/22/18 09:05 Dose: 40 mg Documented by: Duloxetine HCl (Cymbalta) 60 mg PO QAM [facility] Stop: 12/21/18 08:59 Last Admin: 11/22/18 09:06 Dose: 60 mg Documented by: Hydrochlorothiazide (Hctz) 12.5 mg PO DAILY [facility] Stop: 12/21/18 08:59 Last Admin: 11/22/18 09:06 Dose: 12.5 mg Documented by: Hydroxyzine HCl (Vistaril) 25 mg PO Q4H PRN PRN Reason: Anxiety Stop: 12/20/18 11:26 Hydroxyzine HCl (Vistaril) 50 mg PO HSZ PRN PRN Reason: Insomnia Stop: 12/20/18 11:26 Last Admin: 11/21/18 21:00 Dose: 50 mg Documented by: Losartan Potassium (Cozaar) 100 mg PO QAM [facility] Stop: 12/21/18 08:59 Last Admin: 11/22/18 09:04 Dose: 100 mg Documented by: Lurasidone HCl (Latuda) 80 mg PO 1700 [facility] Stop: 12/21/18 16:59 Last Admin: 11/21/18 17:34 Dose: 80 mg Documented by: Magnesium Hydroxide (Milk Of Magnesia) 30 ml PO DAILY PRN PRN Reason: Heartburn Stop: 12/20/18 11:26 Metoprolol Succinate (Toprol Xl) 100 mg PO 1700 [facility] Stop: 12/21/18 16:59 Last Admin: 11/21/18 17:34 Dose: 100 mg Documented by: Multivitamins/Minerals (Multivitamin W/ Minerals Tab) 1 tab PO BIDM [facility] Stop: 12/21/18 08:59 Last Admin: 11/22/18 09:06 Dose: 1 tab Documented by: Pantoprazole Sodium (Protonix) 40 mg PO DAILY [facility] Stop: 12/21/18 08:59 Last Admin: 11/22/18 09:06 Dose: 40 mg Documented by: Sodium Chloride ([place] Nasal) 1 - 2 sprays NA PRN PRN PRN Reason: Nasal Dryness/Congestion Stop: 12/20/18 11:26 Vitamin D (Vitamin D3) 2,000 units PO 1700 [facility] Stop: 12/21/18 16:59 Last Admin: 11/21/18 17:35 Dose: 2,000 units Documented by: Post Discharge Appointments Primary Care Physician Name Of Family Doctor: Freddie Cash - Dr. Gayatri Granda Primary Care Date of Appointment with PCP: 11/23/18 Time of Appointment with PCP: 1pm Provider Appointment Comment: [address] [place] [address] [facility] Psych[facility]rist's Psychiatric Appointment Comment: [address], [place] [address] Therapist Name of Therapist: [facility] - Lesley Armando Therapist's Date of Therapist Appointment: 11/24/18 Therapy Appointment Comment: [address], [place] [address] Hand Shoe Cutter Name of Hand Shoe Cutter: Denies Contact Information Discharge Discharge Address: [address] [place] [address] [address], [place] [address] CPT Code CPT Code 44040
[2018-11-22] MEDS: METOPROLOL SUCC 50MG EXT REL TAB PO SCH (17:31)
[2018-11-22] MEDS: CHOLECALCIFEROL 1,000 UNITS TAB PO SCH (17:31)
[2018-11-22] MEDS: LURASIDONE HCL 40 MG TAB PO SCH (17:31)
[2018-11-22] MEDS: CARBAMAZEPINE 200 MG TABCR PO SCH (21:27)
[2018-11-22] MEDS: ATORVASTATIN 10 MG TAB PO SCH (21:27)
[2018-11-23] MEDS: hydroCHLOROthiazide 25 MG TAB PO SCH (08:36)
[2018-11-23] MEDS: DULOXETINE HCL 60 MG CAP PO SCH (08:36)
[2018-11-23] MEDS: acetaZOLAMIDE 250 MG TAB PO SCH (08:36)
[2018-11-23] MEDS: CEROVITE ADV FORMULA TAB PO SCH (08:36)
[2018-11-23] MEDS: LOSARTAN POTASSIUM 50 MG TAB PO SCH (08:36)
[2018-11-23] MEDS: DULOXETINE HCL 20 MG CAP PO SCH (08:36)
[2018-11-23] MEDS: PANTOprazole 40 MG TAB PO SCH (08:37)
--- NOTE | 2018-11-23 10:12 | Discharge Summary ---
Date of Service November 23, 2018 History of Present Illness ANGELO MEHTA is a 48-year-old F who currently lives in [place], [place] with her of 26-years. She has a history of Bipolar I Disorder, and was admitted on 11/20/18 11:35 on a 201 voluntary. According to the patient, she has a known diagnosis of bipolar 1 disorder, "rapid cycling," and has a history of multiple previous psychiatric hospitalizations, as well as a history of at least 2 suicide attempts. The patient reports that she came to the emergency department because she was having persistent suicidal thoughts with a plan to overdose on her medications. These thoughts have persisted for several days, but during the past 2 days her was home from work, and the patient realized her was going to go into work today and she thought it was not a good idea for her to stay home alone because of the persistent suicidal thoughts. Although the patient reports that her usual pattern is to have rapid cycling symptoms with be, alternating with depression and rapid sequences of sometimes less than a day, this time she indicates that she had been feeling "manic" or "hypomanic" for approximately 2 months, beginning in August 2018. And then on or about November 01, the anniversary of her late brothers , she suddenly became depressed. The depression persisted for about a week and then worsened. She became concerned because often when she becomes depressed she "snaps out of it" fairly quickly, at this time she was alarmed because the depression seemed to be intensifying. Patient reports that her symptoms of be typically include elevated mood, expansive mood, increased energy, flight of ideas, pressured s peech, decreased desire for sleep, and some impulsive behaviors. The patient reports that her symptoms of depression include depressed mood, psychosocial withdrawal, anergia, anhedonia, mood irritability, and recurrent thoughts of suicide. Her most recent previous suicide attempt occurred in August 2017 and involved an overdose of "sleeping pills" (Ambien) she was psychiatrically hospitalized on the behavioral health unit at [facility] at that time. Although the patient tells me that she was eminently suicidal when she came to the hospital, she indicates that her suicidal thoughts have now dissipated, and she is future oriented to the degree that she tells me that she is eager to be discharged "by Friday morning" so that she can keep an appointment at [facility] for further studies of a lesion that has been discovered on mammogram and her left breast (at "11:00") Physical Exam Psychiatric Orientation: alert, oriented x 3 and cooperative Apperance: appropriately dressed, appropriately groomed and appeared stated age Eye Contact: good eye contact Motor Behavior: steady gait and station and no abnormal motor movements Speech: normal rate/rhythm/volume of speech Affect: euthymic affect and mood congruent with affect A lot better." Thought Process: goal directed thought process Thought Content: reality based without delusions Suicidal Thoughts: denies suicidal thoughts Homicidal Thoughts: denies homicidal thoughts Hallucinations: no auditory hallucinations and no visual hallucinations Cognition: recent memory grossly intact, attention grossly intact and language grossly intact Estimated Intelligence: consistent with education level Insight: + fair insight Judgement: + fair judgement Vital Signs (Past 24 Hours) Last Vital Signs Temp 36.5 C 11/23/18 09:31 Pulse 67 11/23/18 09:31 Resp 18 11/23/18 09:31 BP 138/87 11/23/18 09:31 Pulse Ox 97 11/23/18 09:31 Principal Diagnosis Bipolar disorder type I, rapid cycling Psychiatric Data The patient was hospitalized for 3 days. On admission, she endorsed rapid cycling moods, with mixed depressive and manic symptoms. Recent stressors included the anniversary of her brother's by suicide, and abnormal mammogram, and missing her daughter who recently moved out. Her duloxetine dose was decreased from 120 mg daily to 100 mg daily due to the risk of destabilizing mood. She was continued on her home doses of carbamazepine and lurasidone. Carbamazepine level was checked and was 7.7. She was hypertensive, and reported she was taking 1-1/2 tabs of metoprolol XL at home, which was increased to 2 tabs for a total of 100 mg daily. Furosemide was discontinued as she reported it was causing dry mouth. Blood pressure improved, but she still had elevated readings occasionally. She reported rapid improvement in mood, which she attributed to being out of her home environment and away from stressors. She processed her stress related to her abnormal mammogram and need for further workup, with outpatient appointment scheduled on the day of discharge for repeat mammogram and ultrasound. She attended and participated actively in groups and therapy, work on healthy coping skills and her discharge safety plan, and had a family meeting with her on 11/22/2018. They reviewed her safety plan, and agreed to keep all medications locked and secured and dispensed them to her or her med minder, and that guns would be removed from the home prior to discharge. They had good communication skills, and he appeared supportive. She talked about her guilt for volunteering and then not making dinner, and he reassured her that this was not a concern. Cognitive distortions were pointed out and discussed. The patient also discussed her concerns about her 's health, and he was noncommittal regarding making changes. They discussed boundaries and allowing others to make their own decisions. Day of Discharge Assessment Patient reports her mood is "so much better," stating she feels stable, optimistic, and ready to go home. She denies suicidal thoughts, and is able to review her safety plan. She states that she and her discussed keeping the medications locked and guns out of the home indefinitely, as her mood can change rapidly and without warning at times. She feels treatment was helpful, and is proud of herself or seeking treatment before things got worse and she attempted suicide, which has been her pattern in the past. 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 She denies side effects to medications, and denies any safety concerns with discharge. Transition of Care Transition Of Care Record: was reviewed with the patient Advance Directives Advance Directives Information Provided: Yes Advance Directives: No Mental Health Advance Directive: No Advance Directives on File: No Living Will: No Power of Continuous Miner: No Advance Directives Reason:: Declines as Mental Health Visit. Risk Factors Assessment Risk factors were mitigated by admission to the inpatient unit, adjusting medications to target mood, involving her in groups and therapy, working on healthy coping skills and discharge safety plan, family meeting with her , coordination of care with outpatient clinicians, and securing medications/removing guns from the home. She has demonstrated improvement in mood, is consistently denying suicidal thoughts, and is tending to ADLs independently, and is requesting discharge. She is requesting discharge, and as she is no longer at acute risk of harm to herself, can be managed as an outpatient at this time. Male: No : Yes Do You Have Access To A Gun?: Yes (The patient says that there are 2 guns in the house but they are antiques, they do not have ammunition, and she adds "I would have no idea how to use them.") Health Problems: Yes Mental Health Diagnoses: Yes Substance Use Disorders: No Previous Attempt: Yes Previous Attempt; Highly Lethal: Yes Previous Attempt; Planned: Yes Previous Attempt; Didn't Tell Anyone: No Family History of Suicide: Yes (The patient's brother committed suicide by self- inflicted gunshot wound in 2004. The patient's brother may have carried a diagnosis of bipolar disorder.) Previous Psychiatric Hospitalization: Yes Hopelessness: No Smoker: No Protective Factors Assessment : Yes Responsible for Young Children: No Employed: No Stable Relationships: Yes Supportive Family: Yes Good Rapport with Provider: Yes Absence of Any Risk Factors Above: No Tobacco Cessation at Discharge Tobacco Cessation Medication Prescribed at Discharge: Not Applicable/Non-Smoker Total Time Total Time Spent: Greater Than 30 Minutes Total Time Includes: Examination of the patient, Discharge Planning and Medication Reconciliation Discharge Data Lab Results 11/19/18 11/19/18 11/19/18 18:16 18:16 18:16 WBC RBC Hgb Hct MCV MCH MCHC RDW Std Deviation RDW Coeff of Reji Plt Count MPV Immature Gran % (Auto) Neut % (Auto) Lymph % (Auto) Winn % (Auto) Eos % (Auto) Baso % (Auto) Immature Gran # (Auto) Neut # (Auto) Lymph # (Auto) Winn # (Auto) Eos # (Auto) Baso # (Auto) Sodium Potassium Chloride Carbon Dioxide Anion Gap BUN Creatinine Est Cr Clr Drug Dosing Est GFR ( Amer) Est GFR (Non-Af Amer) BUN/Creatinine Ratio Glucose Calcium Total Bilirubin AST ALT Alkaline Phosphatase Total Protein Albumin Globulin Albumin/Globulin Ratio TSH Urine Color Yellow Urine Appearance Clear Urine pH 6.5 Ur Specific [place] 1.023 Urine Protein Negative Urine Glucose (UA) Negative Urine Ketones Negative Urine Blood Negative Urine Nitrite Negative Urine Bilirubin Negative Urine Urobilinogen Negative Ur Leukocyte Esterase Negative Urine Test Negative Salicylates Urine Opiates Screen Neg Ur Methadone, Qual Neg Acetaminophen Urine Barbiturates Neg Carbamazepine Ur Phencyclidine (PCP) Neg U Amphetamin/Meth Scrn Neg MDMA (Ecstasy) Screen Neg U Benzodiazepines Scrn Neg Ur Cocaine Metabolite Neg U Marijuana (THC) Screen Neg Ethyl Alcohol mg/dL 11/19/18 11/19/18 11/19/18 18:45 18:45 18:45 WBC 8.17 RBC 4.13 L Hgb 13.5 Hct 39.3 MCV 95.2 MCH 32.7 MCHC 34.4 RDW Std Deviation 43.1 RDW Coeff of Reji 12.5 Plt Count 190 MPV 10.6 H Immature Gran % (Auto) 0.6 Neut % (Auto) 58.8 Lymph % (Auto) 31.7 Winn % (Auto) 7.6 Eos % (Auto) 1.2 Baso % (Auto) 0.1 Immature Gran # (Auto) 0.05 H Neut # (Auto) 4.80 Lymph # (Auto) 2.59 Winn # (Auto) 0.62 H Eos # (Auto) 0.10 Baso # (Auto) 0.01 Sodium 141 Potassium 3.3 L Chloride 111 H Carbon Dioxide 24 Anion Gap 6.0 BUN 22 H Creatinine 0.67 Est Cr Clr Drug Dosing 138.8 Est GFR ( Amer) 122.2 Est GFR (Non-Af Amer) 105.4 BUN/Creatinine Ratio 33.1 H Glucose 105 H Calcium 8.3 L Total Bilirubin < 0.1 L AST 18 ALT 42 Alkaline Phosphatase 134 H Total Protein 6.8 Albumin 3.6 Globulin 3.2 Albumin/Globulin Ratio 1.1 TSH 0.671 Urine Color Urine Appearance Urine pH Ur Specific [place] Urine Protein Urine Glucose (UA) Urine Ketones Urine Blood Urine Nitrite Urine Bilirubin Urine Urobilinogen Ur Leukocyte Esterase Urine Test Salicylates < 1.7 L Urine Opiates Screen Ur Methadone, Qual Acetaminophen < 2 L Urine Barbiturates Carbamazepine Ur Phencyclidine (PCP) U Amphetamin/Meth Scrn MDMA (Ecstasy) Screen U Benzodiazepines Scrn Ur Cocaine Metabolite U Marijuana (THC) Screen Ethyl Alcohol mg/dL 11/19/18 11/21/18 18:45 07:21 WBC RBC Hgb Hct MCV MCH MCHC RDW Std Deviation RDW Coeff of Reji Plt Count MPV Immature Gran % (Auto) Neut % (Auto) Lymph % (Auto) Winn % (Auto) Eos % (Auto) Baso % (Auto) Immature Gran # (Auto) Neut # (Auto) Lymph # (Auto) Winn # (Auto) Eos # (Auto) Baso # (Auto) Sodium Potassium Chloride Carbon Dioxide Anion Gap BUN Creatinine Est Cr Clr Drug Dosing Est GFR ( Amer) Est GFR (Non-Af Amer) BUN/Creatinine Ratio Glucose Calcium Total Bilirubin AST ALT Alkaline Phosphatase Total Protein Albumin Globulin Albumin/Globulin Ratio TSH Urine Color Urine Appearance Urine pH Ur Specific [place] Urine Protein Urine Glucose (UA) Urine Ketones Urine Blood Urine Nitrite Urine Bilirubin Urine Urobilinogen Ur Leukocyte Esterase Urine Test Salicylates Urine Opiates Screen Ur Methadone, Qual Acetaminophen Urine Barbiturates Carbamazepine 7.7 Ur Phencyclidine (PCP) U Amphetamin/Meth Scrn MDMA (Ecstasy) Screen U Benzodiazepines Scrn Ur Cocaine Metabolite U Marijuana (THC) Screen Ethyl Alcohol mg/dL < 3.0 Hospital Course (1) Depression with suicidal ideation: (2) Bipolar disorder current episode depressed: 11/20/18 -the patient reports that her standing diagnosis recently has been bipolar 1 disorder, rapid cycling or mixed. Although the patient presented to the emergency room with complaints of depression and suicidality, she has not iced a shift in her mood subsequent to arriving on the unit and now appears to be somewhat hypomanic, although she continues to endorse mixed symptoms which include fleeting feelings of depression, mixed with feelings of optimism and enthusiasm. -Her outpatient psychiatrist reportedly has suspected that her dose of duloxetine may have contributed to symptoms of hypomania experienced earlier this year, and it is noted that her dose of duloxetine was decreased to a dose of 60 mg daily, shortly before her depression returned, and the dose was recently increased back to 120 mg daily. Because now the patient seems to be presenting with more hypomanic symptoms than anything, I will reduce the dose of duloxetine to a dose of 100 mg daily. -Patient reports that her suicidal thoughts have resolved, but she had them as recently as last evening. She had a plan to take an overdose and has a history of at least 2 suicide attempts by overdose. -Patient will be placed on suicide precautions and observed closely. -We will obtain a current carbamazepine level. -The plan will be to continue carbamazepine 600 mg daily, Latuda 80 mg daily, and we will decrease the dose of duloxetine from a dose of 120 mg daily to 100 mg daily, primarily because the patient now appears to be experiencing symptoms of hypomania. 11/21 - continue reduced dose of cymbalta - tegretol level 7.7 11/22 -No medication changes made today. Consider further titration of Tegretol which can likely be done as an outpatient. Continues to deny suicidal ideation. (3) Pseudotumor cerebri: 11/20/18 -we will continue Diamox 250 mg twice a day. (4) Hypertension: 11/20/18 -patient has a known history of hypertension and her most recent measured blood pressures have been elevated. The patient tells me that she has been taking metoprolol extended release at 75 mg daily by taking an extended release tablet, 50 mg, and breaking it in half. This may be contributing to alterations in her blood pressure, and she was advised accordingly that one cannot divide extended release tablets -We will increase the dose of metoprolol XL to 100 mg daily, continue losartan 100/12.5, and monitor blood pressure. 11/21 - watch HR. mild bradycardia asymptomatic 11/22 -BP and heart rate within normal limits today 11/23 -furosemide was discontinued on admission, as the patient reported it was causing dry mouth. Blood pressure has improved since metoprolol was increased, but she continues to have intermittent elevated readings. Follow-up with PCP, Dr. Granda, today at 1 PM. Post Discharge Appointments Primary Care Physician Name Of Family Doctor: Freddie Cash - Dr. Gayatri Granda Primary Care Date of Appointment with PCP: 11/23/18 Time of Appointment with PCP: 1pm Provider Appointment Comment: [address] [place] [address] Primary Care Release of Information: Obtained, Reviewed and Signed Psychiatrist Name of Psychiatrist: Martina Dee - Dr. Kapoor Psychiatrist's Date of Appointment with Psychiatrist: 11/26/18 Time of Appointment with Psychiatrist: 1:30pm Psychiatric Appointment Comment: [address], [place] [address] Psychiatrist Release of Information: Obtained, Reviewed and Signed Therapist Name of Therapist: [facility] Angelita Armando Therapist's Date of Therapist Appointment: 11/24/18 Time of Therapist Appointment: 1pm Therapy Appointment Comment: [address], [place] [address] Therapist Release of Information: Obtained, Reviewed and Signed Powder Press Operator Name of Powder Press Operator: Denies Smoking Cessation Counseling Tobacco Cessation Medication Prescribed at Discharge: Not Applicable/Non-Smoker Contact Information Discharge Discharge Address: [address], [place] [address] Discharge Plan Discharge Items Patient Disposition: Home - Self-Care Reason For Visit: BIPLOAR,DEPRESSED Discharge Diagnosis: Bipolar disorder type I Discharge Goals: Improve disease control, Improve function and Therapeutic intervention Activity: Per 'Additional Instructions' section Non-emergency contact: Primary Care Provider, Psychiatrist and Therapist Call non-emergency contact if: you have any medication questions and your symptoms worsen Follow-up/Referrals: Gayatri Granda DO [Primary Care Provider] - Lindsey Kapoor MD [Physician] - 11/26/18 1:30 pm (Appointment 11/26/18 at 1:30pm) Diet: Regular Addtl Provider Instructions: SPECIAL CARE INSTRUCTIONS: 1. Follow through with your scheduled aftercare appointments. If unable to keep an appointment, please call to reschedule. 2. Take your medication only as prescribed. Medication should not be changed or stopped without the approval of your doctor. In the event of worsening symptoms or concerns about side effects, contact your doctor immediately. 3. Utilize new healthy coping skills, anger management skills, and stress management skills learned during your hospitalization. Journal feelings and process them with a support person. Identify stressors or situations that may result in relapse, deterioration or inappropriate behaviors and develop a plan to deal with those issues. 4. If your coping skills are ineffective and you are in crisis, contact your outpatient providers for direction. If unable to reach your providers, please call the CAN HELP LINE AT or go to the closest Emergency Room. 5. Avoid alcohol and un-prescribed drugs. 6. You have been provided with the Mental Health Advance Directives Pamphlet for your review. AFTERCARE APPOINTMENTS: * Please call your insurance company prior to your scheduled appointment to confirm your aftercare providers are covered. Take your insurance information to your appointments. WHO TO CALL AND WHEN: Medical Emergencies: For questions or emergencies related to your hospital stay, please contact the Inpatient Behavioral Health Unit at [phone]. A block press operator is on-call 03/03 for the Behavioral Health Unit for emergencies At any time you feel your situation is an emergency, you may also call 911 immediately. Your Doctors Instructions noted above were prepared by provider Lindsey Kapoor MD. Prescriptions: New metoprolol succinate 50 mg Tablet Extended Release 24 Hr 100 mg PO 1700 Qty: 30 RF: 0 duloxetine 40 mg capsule,delayed release(DR/EC) 40 mg PO QAM Qty: 90 RF: 0 duloxetine 60 mg Capsule,Delayed Release(Dr/Ec) 60 mg PO QAM Qty: 1 RF: 0 Continued atorvastatin 10 mg Tablet 10 mg PO DAILY RF: 0 riboflavin (vitamin B2) [Vitamin B-2] 100 mg Tablet 400 mg PO BID RF: 0 omeprazole 40 mg Capsule,Delayed Release(Dr/Ec) 40 mg PO DAILY RF: 0 carbamazepine [Tegretol] 200 mg Tablet 600 mg PO QPM RF: 0 magnesium oxide 400 mg (241.3 mg magnesium) Tablet 400 mg PO DAILY RF: 0 ergocalciferol (vitamin D2) [Vitamin D2] 50,000 unit Capsule 50,000 unit PO 3XWK RF: 0 iron 18 mg Tablet 27 mg PO DAILY RF: 0 Latuda 80 mg Tablet 80 mg PO 1700 RF: 0 Ca-D3-mag [id number] [Calcium 600-D3 Plus] 600 mg calcium- 800 unit- 50 mg Tablet 1 tab PO DAILY RF: 0 acetazolamide 125 mg Tablet 250 mg PO BID RF: 0 losartan-hydrochlorothiazide 100-12.5 mg Tablet 1 tab PO DAILY RF: 0 Centrum Complete 18-400 mg-mcg Tablet 1 tab PO DAILY RF: 0 Discontinued furosemide [Lasix] 20 mg Tablet 20 mg PO DAILY RF: 0 duloxetine [Cymbalta] 60 mg Capsule,Delayed Release(Dr/Ec) 120 mg PO DAILY RF: 0 metoprolol succinate [Toprol XL] 50 mg Tablet Extended Release 24 Hr 75 mg PO DAILY RF: 0 Stand-Alone Forms: [facility] Discharge Orders: Discharge Order (Routine); Ordered 11/23/18 Ordered By: Lindsey Kapoor Admission Data Admit Date/Time: 11/20/18 11:35 Attending Provider: Dony Sears Admit Provider: Ze Childress Primary Care Provider: Gayatri Granda Service: Psychiatry Other Interventions: Discharge Summary Assessment (RN) Last Done: 11/23/18 09:31 PSY Interdisciplinary Discharge Planning Last Done: 11/23/18 09:25 Pending Studies at Discharge: No
== END 2018-11-23 10:35 | disposition home or self-care (01) | DRG 885 ==
LOC: ED 18:00 → 3S 11-20 11:35

== ENCOUNTER 2022-02-13 13:17 | Inpatient (IN) ==
--- NOTE | 2022-02-13 15:02 | Emergency Department Note ---
Impression & Plan Suicidal ideations, Mood disorder ED Provider Note NAME: ANGELO MEHTA AGE: 51 SEX: F : 1970 ARRIVES VIA: Walk-In INFORMANT: Patient ED PROVIDER(S): Peetr Brown DO CHIEF COMPLAINT: Suicidal ideations HPI: Patient is a 51-year-old female who presents to ER for suicidal ideations. Patient notes that he has been having thoughts of wanting to kill her self since yesterday. She has a plan for overdosing. The only thing that is stopping her currently is her son who is autistic. Denies any headache or change in vision. No chest pain or shortness of breath. No nausea vomiting or diarrhea. No dysuria urgency or frequency. No other exacerbating or remitting factors. Major driving factor for her depression is she feels short out from her family including daughter and mother. ROS: See above HPI for pertinent positives & negatives. A total of 10 systems reviewed and were otherwise negative. PAST MEDICAL HISTORY:See Below PAST SURGICAL HISTORY:See Below FAMILY HISTORY:See Below SOCIAL HISTORY:See Below HOME MEDICATIONS:See Below ALLERGIES:See Below VITALS:See Below PHYSICAL EXAMINATION: GENERAL: Sitting up in bed, alert, well appearing, well nourished, no distress, non-toxic EYE EXAM: normal conjunctiva. OROPHARYNX:mucous membranes are moist NECK: non-tender LUNGS: Clear to auscultation. Normal chest wall mechanics HEART: no murmurs, S1 normal and S2 normal ABDOMEN: abdomen soft, non-tender, normo-active bowel sounds, no masses, no rebound or guarding. UPPER EXTREMITIES: upper extremities are grossly normal. LOWER EXTREMITIES: No pitting edema. NEURO EXAM: Normal sensorium, cranial nerves II-XII grossly intact, normal speec h, no gross weakness of arms, no gross weakness of legs. PSYCH: Admits to suicidal ideations with a plan to overdose MEDICAL DECISION MAKING: Patient is a 51-year-old female who presents ER for suicidal ideations with a plan to kill her self. Blood work was obtained and showed no significant leukocytosis or anemia. BMP along with LFTs bilirubin and TSH was unremarkable. UA was clean. Tox was negative. Alcohol was negative. COVID was negative. Patient was seen and evaluated and admitted to [address] on a 201. Start Time:1425 Reason: Patient with PMHx of depression underwent ED Observation for suicidal ideations with plan. Fam Hx: no Pertinent family history SocHx: See Below Assessment(s): Evaluated multiple times Summary: As described above in the MDM Disposition: 1705 on 02/14/2020 Total Time: 3 hours and 45 minutes Triage Nursing notes reviewed. Limited review of prior medical records performed Vital Signs: reviewed and remarkable for HTN Differential diagnosis: Mood disorder, infection, hypoglycemia, electrolyte abnormalities, cardiac sources, intracerebral event, toxicologic, trauma, neurologic, as well as other pathologies. ER treatment provided: See below Diagnostics interpreted by me: ECG: none Laboratory studies: As stated above and show below. Imaging studies: See below Consultation(s): none Procedures: none Critical Care: None Past Med/Surg History Medical History Anxiety Degenerative disc disease lumbar Depression Hearing deficit no hearing aides History of lumbar puncture Hx gestational diabetes Hx of Clostridium difficile infection (~2012) Hyperlipidemia Hypertension Osteoarthritis Pseudotumor cerebri Sleep apnea cpap Surgical History H/O gastric bypass H/O vaginal hysterectomy History of adenoidectomy History of bilateral tubal ligation History of bladder surgery hx of bladder tack. History of section x1 History of cholecystectomy History of colonoscopy History of esophagogastroduodenoscopy (EGD) History of herniorrhaphy multiple History of laparotomy (~2012) with a large piece of mesh for multiple hernia repairs. 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 Allergies Allergies Allergy/AdvReac Type Severity Reaction Status Date / Time Sulfa (Sulfonamide Allergy Hives Verified 06/21/20 13:14 Antibiotics) Home Meds Home Medications Medication Instructions Recorded Confirmed Ca 600 mg-D3 20 mcg-mag oxide 50 1 tab PO QAM 06/13/18 02/13/22 ib-Hd-aqkjzm-manganese-boron tablet (Calcium 600-D3 Plus (mag-zinc)) carbamazepine 200 mg tablet 800 mg PO QPM 06/13/18 02/13/22 (Tegretol) magnesium oxide 400 mg (241.3 mg 400 mg PO BID 06/13/18 02/13/22 magnesium) tablet omeprazole 40 mg capsule,delayed 40 mg PO BID 06/13/18 02/13/22 release riboflavin (vitamin B2) 100 mg 200 mg PO BID 06/13/18 02/13/22 tablet (Vitamin B-2) multivitamin-ferrous 1 tab PO QAM 11/19/18 02/13/22 fumarate-folic acid 18 mg-400 mcg tablet (Centrum Complete) duloxetine 30 mg capsule,delayed 30 mg PO QAM 08/02/19 02/13/22 release (Cymbalta) iron 18 mg tablet 18 mg PO QPM tab 08/02/19 02/13/22 losartan 100 mg tablet 100 mg PO QAM 08/02/19 02/13/22 cholecalciferol (vitamin D3) 50 2,000 unit PO QPM 06/21/20 02/13/22 mcg (2,000 unit) capsule (Vitamin D3) metformin 500 mg tablet 500 mg PO BID 06/23/20 02/13/22 Latuda 120 mg PO PM 02/13/22 02/13/22 acetazolamide See Rx Instructions .ROUTE .COMPLEX 02/13/22 02/13/22 atorvastatin 20 mg PO DAILY 02/13/22 02/13/22 hydrochlorothiazide 25 mg PO DAILY 02/13/22 02/13/22 hydroxyzine HCl 50 mg PO HS PRN 02/13/22 02/13/22 metoprolol succinate 100 mg PO DAILY 02/13/22 02/13/22 Previous Rx's Medication Instructions Recorded duloxetine 60 mg capsule,delayed 60 mg PO QAM #1 cap 11/23/18 release Results & Data (ED) Vital Signs Vital Signs - 24 hr 02/13/22 13:30 Temperature 36.4 C L Temperature Source Temporal Artery Scan Pulse Rate 65 Pulse Rhythm Regular Pulse Strength Normal Respiratory Rate 18 Respiratory Effort / Characteristics Non-Labored Spontaneous Respiratory Depth Normal Respiratory Pattern Regular Blood Pressure 141/88 H Blood Pressure Mean 105 Blood Pressure Position Sitting Pulse Oximetry 96 Oxygen Delivery Method Room Air Sepsis Recent Fever Within 48 Hours No Sepsis New/Unexplained Change in Mental Status N/A Sepsis Action Taken by Nursing No Action Required Laboratory Data Result diagrams: 02/13/22 14:27 02/13/22 14:27 Lab Results 02/13/22 02/13/22 02/13/22 Range/Units 13:55 13:55 13:55 WBC (4.8-10.8) K/ul RBC (3.93-5.22) M/uL Hgb (12.0-16.0) g/dl Hct (34.1-44.9) % MCV (80.0-100.0) fL MCH (25.0-34.0) pg MCHC (32.0-36.0) g/dL RDW Std Deviation (36.4-46.3) fL RDW Coeff of Reji (11.5-14.5) % Plt Count (130-400) K/uL MPV (9.4-12.3) fL Immature Gran % (Auto) % Neut % (Auto) % Lymph % (Auto) % Johnson % (Auto) % Eos % (Auto) % Baso % (Auto) % Neut # (Auto) (1.4-6.5) K/uL Lymph # (Auto) (1.2-3.4) K/uL Johnson # (Auto) (0.24-0.82) K/uL Eos # (Auto) (0-0.50) K/uL Baso # (Auto) (0-0.2) K/uL Immature Gran # (Auto) (0.00-0.02) K/uL Sodium (136-145) mmol/L Potassium (3.5-5.1) mmol/L Chloride (98-107) mmol/L Carbon Dioxide (21-32) mmol/L Anion Gap (3-11) BUN (6-23) mg/dl Creatinine (0.6-1.2) mg/dl Est Cr Clr Drug Dosing ml/min Est GFR ( Amer) ml/min Est GFR (Non-Af Amer) ml/min BUN/Creatinine Ratio (10-20) Glucose (70-99(Fasting)) mg/dl Calcium (8.5-10.1) mg/dl Total Bilirubin (0.2-1.0) mg/dl AST (13-39) U/L ALT (7-52) U/L Alkaline Phosphatase (34-104) U/L Total Protein (6.0-8.3) gm/dl Albumin (3.4-5.0) gm/dl Globulin (2.5-4.0) gm/dl Albumin/Globulin Ratio (0.9-2) TSH (0.300-4.500) uIu/ml Urine Color Yellow Urine Appearance Clear (Clear) Urine pH 5.5 (4.5-7.5) Ur Specific [place] 1.010 (1.000-1.030) Urine Protein Negative (Negative) Urine Glucose (UA) Negative (Negative) Urine Ketones Negative (Negative) Urine Blood Negative (Negative) Urine Nitrite Negative (Negative) Urine Bilirubin Negative (Negative) Urine Urobilinogen Negative (Negative) Ur Leukocyte Esterase Negative (Negative) Urine Test Negative (Negative) Salicylates (3.0-30) mg/dl Urine Opiates Screen Neg (Neg) Ur Methadone, Qual Neg (Neg) Acetaminophen (10-30) ug/ml Urine Barbiturates Neg (Neg) Ur Phencyclidine (PCP) Neg (Neg) U Amphetamin/Meth Scrn Neg (Neg) MDMA (Ecstasy) Screen Neg (Neg) U Benzodiazepines Scrn Neg (Neg) Ur Cocaine Metabolite Neg (Neg) U Marijuana (THC) Screen Neg (Neg) Ethyl Alcohol mg/dL (<10.0) mg/dl SARS-CoV-2, RNA, NAAT (NEGATIVE) 02/13/22 02/13/22 02/13/22 Range/Units 13:55 14:27 14:27 WBC 9.73 (4.8-10.8) K/ul RBC 4.25 (3.93-5.22) M/uL Hgb 13.8 (12.0-16.0) g/dl Hct 40.6 (34.1-44.9) % MCV 95.5 (80.0-100.0) fL MCH 32.5 (25.0-34.0) pg MCHC 34.0 (32.0-36.0) g/dL RDW Std Deviation 41.4 (36.4-46.3) fL RDW Coeff of Reji 11.9 (11.5-14.5) % Plt Count 250 (130-400) K/uL MPV 10.4 (9.4-12.3) fL Immature Gran % (Auto) 0.7 % Neut % (Auto) 61.2 % Lymph % (Auto) 28.7 % Johnson % (Auto) 8.0 % Eos % (Auto) 1.0 % Baso % (Auto) 0.4 % Neut # (Auto) 5.95 (1.4-6.5) K/uL Lymph # (Auto) 2.79 (1.2-3.4) K/uL Johnson # (Auto) 0.78 (0.24-0.82) K/uL Eos # (Auto) 0.10 (0-0.50) K/uL Baso # (Auto) 0.04 (0-0.2) K/uL Immature Gran # (Auto) 0.07 H (0.00-0.02) K/uL Sodium 137 (136-145) mmol/L Potassium 3.6 (3.5-5.1) mmol/L Chloride 107 (98-107) mmol/L Carbon Dioxide 24 (21-32) mmol/L Anion Gap 6 (3-11) BUN 19 (6-23) mg/dl Creatinine 0.72 (0.6-1.2) mg/dl Est Cr Clr Drug Dosing 124.4 ml/min Est GFR ( Amer) 114.0 ml/min Est GFR (Non-Af Amer) 98.3 ml/min BUN/Creatinine Ratio 26.4 H (10-20) Glucose 76 (70-99(Fasting)) mg/dl Calcium 9.3 (8.5-10.1) mg/dl Total Bilirubin 0.2 (0.2-1.0) mg/dl AST 26 (13-39) U/L ALT 38 (7-52) U/L Alkaline Phosphatase 115 H (34-104) U/L Total Protein 7.0 (6.0-8.3) gm/dl Albumin 4.6 (3.4-5.0) gm/dl Globulin 2.4 L (2.5-4.0) gm/dl Albumin/Globulin Ratio 1.9 (0.9-2) TSH (0.300-4.500) uIu/ml Urine Color Urine Appearance (Clear) Urine pH (4.5-7.5) Ur Specific [place] (1.000-1.030) Urine Protein (Negative) Urine Glucose (UA) (Negative) Urine Ketones (Negative) Urine Blood (Negative) Urine Nitrite (Negative) Urine Bilirubin (Negative) Urine Urobilinogen (Negative) Ur Leukocyte Esterase (Negative) Urine Test (Negative) Salicylates (3.0-30) mg/dl Urine Opiates Screen (Neg) Ur Methadone, Qual (Neg) Acetaminophen (10-30) ug/ml Urine Barbiturates (Neg) Ur Phencyclidine (PCP) (Neg) U Amphetamin/Meth Scrn (Neg) MDMA (Ecstasy) Screen (Neg) U Benzodiazepines Scrn (Neg) Ur Cocaine Metabolite (Neg) U Marijuana (THC) Screen (Neg) Ethyl Alcohol mg/dL (<10.0) mg/dl SARS-CoV-2, RNA, NAAT NEGATIVE (NEGATIVE) 02/13/22 02/13/22 02/13/22 Range/Units 14:27 14:27 14:27 WBC (4.8-10.8) K/ul RBC (3.93-5.22) M/uL Hgb (12.0-16.0) g/dl Hct (34.1-44.9) % MCV (80.0-100.0) fL MCH (25.0-34.0) pg MCHC (32.0-36.0) g/dL RDW Std Deviation (36.4-46.3) fL RDW Coeff of Reji (11.5-14.5) % Plt Count (130-400) K/uL MPV (9.4-12.3) fL Immature Gran % (Auto) % Neut % (Auto) % Lymph % (Auto) % Johnson % (Auto) % Eos % (Auto) % Baso % (Auto) % Neut # (Auto) (1.4-6.5) K/uL Lymph # (Auto) (1.2-3.4) K/uL Johnson # (Auto) (0.24-0.82) K/uL Eos # (Auto) (0-0.50) K/uL Baso # (Auto) (0-0.2) K/uL Immature Gran # (Auto) (0.00-0.02) K/uL Sodium (136-145) mmol/L Potassium (3.5-5.1) mmol/L Chloride (98-107) mmol/L Carbon Dioxide (21-32) mmol/L Anion Gap (3-11) BUN (6-23) mg/dl Creatinine (0.6-1.2) mg/dl Est Cr Clr Drug Dosing ml/min Est GFR ( Amer) ml/min Est GFR (Non-Af Amer) ml/min BUN/Creatinine Ratio (10-20) Glucose (70-99(Fasting)) mg/dl Calcium (8.5-10.1) mg/dl Total Bilirubin (0.2-1.0) mg/dl AST (13-39) U/L ALT (7-52) U/L Alkaline Phosphatase (34-104) U/L Total Protein (6.0-8.3) gm/dl Albumin (3.4-5.0) gm/dl Globulin (2.5-4.0) gm/dl Albumin/Globulin Ratio (0.9-2) TSH 0.615 (0.300-4.500) uIu/ml Urine Color Urine Appearance (Clear) Urine pH (4.5-7.5) Ur Specific [place] (1.000-1.030) Urine Protein (Negative) Urine Glucose (UA) (Negative) Urine Ketones (Negative) Urine Blood (Negative) Urine Nitrite (Negative) Urine Bilirubin (Negative) Urine Urobilinogen (Negative) Ur Leukocyte Esterase (Negative) Urine Test (Negative) Salicylates < 3.0 L (3.0-30) mg/dl Urine Opiates Screen (Neg) Ur Methadone, Qual (Neg) Acetaminophen < 3 L (10-30) ug/ml Urine Barbiturates (Neg) Ur Phencyclidine (PCP) (Neg) U Amphetamin/Meth Scrn (Neg) MDMA (Ecstasy) Screen (Neg) U Benzodiazepines Scrn (Neg) Ur Cocaine Metabolite (Neg) U Marijuana (THC) Screen (Neg) Ethyl Alcohol mg/dL < 10.0 (<10.0) mg/dl SARS-CoV-2, RNA, NAAT (NEGATIVE) Discharge Plan Visit Data Chief Complaint: Mental Health Evaluation Stated Complaint: SUICIDAL THOUGHTS ED Provider: Peter Brown Discharge Problem: Suicidal ideations, Mood disorder Patient Disposition: Admitted As Inpatient Discharge Instructions Interventions: ED Discharge Assessment Last Done: 02/13/22 17:06
[2022-02-13 15:09] LABS: Albumin Globulin Ratio 1.9 (0.9-2); Albumin Level 4.6 gm/dl (3.4-5.0); BUN Creatinine Ratio 26.4 (10-20); Bilirubin,Total 0.2 mg/dl (0.2-1.0); Calcium 9.3 mg/dl (8.5-10.1); Creatinine Clr Calc Pharmacy 124.4 ml/min; Est GFR (Non-African American) 98.3 ml/min; Globulin 2.4 gm/dl (2.5-4.0); Potassium 3.6 mmol/L (3.5-5.1)
[2022-02-13 15:10] LABS: Acetaminophen < 3 ug/ml (10-30); Salicylate < 3.0 mg/dl (3.0-30)
[2022-02-13 15:19] LABS: Basophils # (auto) 0.04 K/uL (0-0.2); Basophils % (auto) 0.4 %; Hematocrit (blood only) 40.6 % (34.1-44.9); Hemoglobin 13.8 g/dl (12.0-16.0); Immature Granulocytes # (auto) 0.07 K/uL (0.00-0.02); Immature Granulocytes % (auto) 0.7 %; Lymphocytes # (auto) 2.79 K/uL (1.2-3.4); Lymphocytes % (auto) 28.7 %; Mean Corpuscular Hemoglobin 32.5 pg (25.0-34.0); Mean Corpuscular Volume 95.5 fL (80.0-100.0); Mean Platelet Volume 10.4 fL (9.4-12.3); Monocytes # (auto) 0.78 K/uL (0.24-0.82); Neutrophils # (auto) 5.95 K/uL (1.4-6.5); Neutrophils % (auto) 61.2 %; Platelet Count 250 K/uL (130-400); RDW Coefficient of Variation 11.9 % (11.5-14.5); RDW Standard Deviation 41.4 fL (36.4-46.3); Red Blood Count 4.25 M/uL (3.93-5.22); White Blood Count 9.73 K/ul (4.8-10.8)
[2022-02-13 15:25] LABS: Appearance Urine Clear (Clear); Bilirubin Urine Negative (Negative); Blood Urine Negative (Negative); Color Urine Yellow; Glucose Urine UA Negative (Negative); Ketones Urine Negative (Negative); Leukocyte Esterase Urine Negative (Negative); Nitrite Urine Negative (Negative); Protein Urine Negative (Negative); Urobilinogen Urine Negative (Negative); pH Urine 5.5 (4.5-7.5)
[2022-02-13 15:26] LABS: Pregnancy Test, Urine Negative (Negative)
[2022-02-13 16:36] LABS: Amphetamines+Metham, Urine Neg (Neg); Barbiturates, Urine Neg (Neg); Benzodiazepine, Urine Neg (Neg); Cocaine, Urine Neg (Neg); MDMA (Ecstacy), Urine Neg (Neg); Methadone, Urine Neg (Neg); Opiate, Urine Neg (Neg); Phencyclidine, Urine Neg (Neg)
[2022-02-13] MEDS ORDERED: ALUMINUM/MAGNESIUM SUSP 30 ML UDC PO PRN (16:51)
[2022-02-13] MEDS ORDERED: BISMUTH SUBSALICYLATE LIQD 236 ML PO PRN (16:51)
[2022-02-13] MEDS ORDERED: SODIUM CHLORIDE 0.65% NA SOLN 45 ML (OCEAN) PRN (16:51)
[2022-02-13] MEDS ORDERED: hydrOXYzine HCl 25 MG TAB PO PRN (16:51)
[2022-02-13] MEDS ORDERED: MAGNESIUM HYDROXIDE SUSP 30 ML UDC PO PRN (16:51)
[2022-02-13] MEDS: metFORMIN HCL 500 MG TAB PO SCH (19:17)
[2022-02-13] MEDS: LURASIDONE HCL 40 MG TAB PO SCH (19:40)
[2022-02-13] MEDS: carBAMazepine 200 MG TABLET PO SCH (20:40)
[2022-02-13] MEDS: PANTOprazole 40 MG TAB PO SCH (20:41)
[2022-02-13] MEDS: FERROUS SULFATE 325 MG TAB PO SCH (20:41)
[2022-02-13] MEDS: acetaZOLAMIDE 250 MG TAB PO SCH (20:41)
[2022-02-13] MEDS: MAGNESIUM OXIDE 400 MG TAB PO SCH (20:41)
[2022-02-13] MEDS: CHOLECALCIFEROL 1,000 UNITS 25 MCG TAB PO SCH (20:41)
[2022-02-13] MEDS: hydrOXYzine HCl 25 MG TAB PO PRN (20:48)
[2022-02-13] MEDS ORDERED: LATUDA 120 MG PO SCH (21:00)
[2022-02-13] MEDS ORDERED: NON-FORMULARY MEDICATION (Riboflavin (Vitamin B2) [Vitamin B-2] 100 mg Tablet) PO SCH (21:00)
[2022-02-14 08:21] LABS: Estimated Average Glucose 114 mg/dl; Hemoglobin A1C 5.6 % (4.5-5.6)
[2022-02-14 08:38] LABS: Chol HDL Ratio 3.8 (0-5)
[2022-02-14] MEDS: hydroCHLOROthiazide 25 MG TAB PO SCH (09:59)
[2022-02-14] MEDS: ATORVASTATIN 20 MG TAB PO SCH (09:59)
[2022-02-14] MEDS: acetaZOLAMIDE 250 MG TAB PO SCH ×3 (09:59→20:45)
[2022-02-14] MEDS: MAGNESIUM OXIDE 400 MG TAB PO SCH ×2 (09:59→20:45)
[2022-02-14] MEDS: DULoxetine HCL 30 MG CAP PO SCH (09:59)
[2022-02-14] MEDS: CEROVITE ADV FORMULA TAB PO SCH (09:59)
[2022-02-14] MEDS: PANTOprazole 40 MG TAB PO SCH ×2 (09:59→20:44)
[2022-02-14] MEDS: LOSARTAN POTASSIUM 50 MG TAB PO SCH (09:59)
[2022-02-14] MEDS: metFORMIN HCL 500 MG TAB PO SCH ×2 (10:00→17:58)
[2022-02-14] MEDS: METOPROLOL SUCC 50MG EXT REL TAB PO SCH (10:00)
[2022-02-14] MEDS: MULTIVITAMIN TAB PO SCH (10:02)
[2022-02-14] MEDS: ACETAMINOPHEN 325 MG TAB PO PRN ×2 (12:24→17:59)
--- NOTE | 2022-02-14 14:23 | History & Physical ---
Date of Service February 14, 2022 Impression / Recommendations Impression 51 yo female with a history of multiple med trials, suicide attempts, and hospitalizations for bipolar disorder presents with ongoing mood instability and SI with plan to OD. (1) Bipolar disorder current episode depressed: (2) H/O gastric bypass: (3) Pseudotumor cerebri: on Diamox The patient was admitted to the [facility] ([facility] mental health unit) on q15 min checks (behavioral with suicide precautions) for safety. The patient will participate in group, recreational, and milieu therapies and will be offered additional individual and family sessions as clinically appropriate. Risks/benefits/alternatives reviewed re: her current medications as drug drug interactions with Tegretol and Latuda and s/p gastic bypass likely also impacts absorption. Tegretol level 9, was taking 900 mg daily of Tegretol previously per Dr. Haney who would support retrial of that and/or Abilify. For now will establish baseline on the unit. Suicide Risk Level Suicide Risk Level: High (q15 min suicide checks) (passive now, able to go to staff but high risk patient overall given current dx, past attempts, brother of suicide) Risk Factors Assessment : Yes Do You Have Access To A Gun?: No Mental Health Diagnoses: Yes Substance Use Disorders: No Previous Attempt: Yes Family History of Suicide: Yes Previous Psychiatric Hospitalization: Yes Protective Factors Assessment : Yes Responsible for Young Children: No Employed: No Supportive Family: Yes Psychiatric History Identifying Data CRYSTAL MEHTA is a 51-year-old F who currently lives in [place], has a history of suicide attempts/inpatient stays for bipolar I disorder, and was admitted on 02/13/22 16:51 on a 201 voluntary commitment for SI with plan . Chief Complaint "I just can't handle the roller coaster, I'm not manic and I've been more depressed before but I do from crying all the time to laughing at dumb stuff--like this am, a staff member said yogurt and and hardboiled egg came up as a snack and I thought it was funny". History of Present Illness This is Crystal's approximately 7th inpatient stay in 10 years. She reported doing "pretty well overall" until recently. She has a good connection with her therapist and was scheduled to follow up with Dr. Haney in 3 months. 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 They were less avaiable to her by phone. Son has high functioning autism but is doing "fine" at home right now. She didn't feel like volunteering at [employer] as much as there is a change in management. She reports crying spells "out of no where, over nothing." and she doesn't feel like she can control them in public. Sleep/appetite/overall health seem improved as she is following Weight Wat[employer] and lost 20 lbs after regaining much of the weight she lost following her gastric bypass surgery. She typically has harder time around the anniversary of her brother's by suicide (2012) but "this is a different time of year" though her mother's friend's brought it up in the context of sikh. She is medication compliant and denies medication related side effects. She is quite knowledgeable re: potential drug drug interactions. She states that her symptoms of concern have been much more persistent over the past week and this culminated in suicidal thoughts to "just OD". She reports the main reason that she is still alive is her son. Past Psychiatric History Current Psychiatric Diagnosis: Bipolar Disorder Outpatient Services: [facility]Note 3] Dr. Haney for meds (on transfer from Dr. Kapoor, on transfer from Dr. Ozuna) [facility] for therapy Previous Psych Admissions: [facility] 2018, 2017, 2017, 2012; [facility] 06/2017; [facility] 2015 Do You Have Access To A Gun?: No History of Previous Suicide Attempt: Yes (Ambien OD 2017, possibly 2012; 2 Klonopin OD) Past Medication Trials: antidepressants: duloxetine, Wellbutrin, fluoxetine, escitalopram, citalopram, Paxil, setraline atypicals: Latuda, Invega, Abilify ([id number]; stopped 30 mg as insurance forced switch to Geodon), Risperdal mood stabilizers: Tegretol, lithium (pseudotumor cerebri), lamictal, depakote (nystagmus, etc), other: Ambien, Klonopin, temazepam, lorazepam, hydroxyzine, trazodone Past Head Trauma/Neuro History History of Concussion/Seizure: No Allergies Allergy/AdvReac Type Severity Reaction Status Date / Time Sulfa (Sulfonamide Allergy Hives Verified 06/21/20 13:14 Antibiotics) Home Medications Medication Instructions Recorded Confirmed Type Ca 600 mg-D3 20 mcg-mag oxide 50 1 tab PO QAM 06/13/18 02/13/22 History ap-Yj-gxblsd-manganese-boron tablet (Calcium 600-D3 Plus (mag-zinc)) carbamazepine 200 mg tablet 800 mg PO QPM 06/13/18 02/13/22 History (Tegretol) magnesium oxide 400 mg (241.3 mg 400 mg PO BID 06/13/18 02/13/22 History magnesium) tablet omeprazole 40 mg capsule,delayed 40 mg PO BID 06/13/18 02/13/22 History release riboflavin (vitamin B2) 100 mg 200 mg PO BID 06/13/18 02/13/22 History tablet (Vitamin B-2) multivitamin-ferrous 1 tab PO QAM 11/19/18 02/13/22 History fumarate-folic acid 18 mg-400 mcg tablet (Centrum Complete) duloxetine 60 mg capsule,delayed 60 mg PO QAM #1 cap 11/23/18 02/13/22 Rx release duloxetine 30 mg capsule,delayed 30 mg PO QAM 08/02/19 02/13/22 History release (Cymbalta) iron 18 mg tablet 18 mg PO QPM tab 08/02/19 02/13/22 History losartan 100 mg tablet 100 mg PO QAM 08/02/19 02/13/22 History cholecalciferol (vitamin D3) 50 2,000 unit PO QPM 06/21/20 02/13/22 History mcg (2,000 unit) capsule (Vitamin D3) metformin 500 mg tablet 500 mg PO BID 06/23/20 02/13/22 History Latuda 120 mg PO PM 02/13/22 02/13/22 History acetazolamide See Rx Instructions .ROUTE .COMPLEX 02/13/22 02/13/22 History atorvastatin 20 mg PO DAILY 02/13/22 02/13/22 History hydrochlorothiazide 25 mg PO DAILY 02/13/22 02/13/22 History hydroxyzine HCl 50 mg PO HS PRN 02/13/22 02/13/22 History metoprolol succinate 100 mg PO DAILY 02/13/22 02/13/22 History Family History Family History of: Depression, Suicide Attempts, Bipolar and Suicide Completion Family Mental Health History Comment: Brother committed suicide by gun in 2012 Alcohol History Hx of Alcohol Use Over the Past 12 Months: Yes (1 drink, every few months, 2 days ago.) AUDIT Total Score: 1 Smoking Use Have You Smoked or Used Tobacco Products in the Last 30 Days: No Smoking Status: Never smoker Substance History Hx of Prescription Med Misuse Over the Past 12 Months: No Hx of Over the Counter Med Misuse Over the Past 12 Months: No Hx of Inhalent Misuse Over the Past 12 Months: No Hx of Organic Substance Use Over the Past 12 Months: No Hx of Illegal Substances/Street Drug Use Over Past 12 Months: No Problems as a Result of Past Substance Use: None Identified Personal History Living Arrangements: Home Highest Grade Completed: Graduate School Employment Status: Disabled Marital Status: Number Of Children: 2 Beliefs That Will Affect Care: None Current Legal Problems: No Hx Traumatic Life Events: Yes (loss) Patient History Medical History Anxiety Degenerative disc disease lumbar Depression Hearing deficit no hearing aides History of lumbar puncture Hx gestational diabetes Hx of Clostridium difficile infection (~2012) Hyperlipidemia Hypertension Osteoarthritis Pseudotumor cerebri Sleep apnea cpap Surgical History H/O gastric bypass H/O vaginal hysterectomy History of adenoidectomy History of bilateral tubal ligation History of bladder surgery hx of bladder tack. History of section x1 History of cholecystectomy History of colonoscopy History of esophagogastroduodenoscopy (EGD) History of herniorrhaphy multiple History of laparotomy (~2012) with a large piece of mesh for multiple hernia repairs. History of myringotomy BMT (multiple) History of tonsillectomy S/P BSO (bilateral salpingo-oophorectomy) S/P epidural steroid injection Family History Other No family history of adverse response to anesthesia Social History Smoking Status: Never smoker Second Hand Exposure: No; Hx Alcohol Use: Yes Alcohol type: wine Hx Substance Use: No Preferred Language: Bhutanese Communication Ability: Effective Visual Impairment: No Limitations Hearing Ability: Normal Floor Grinder Required: No Beliefs That Will Affect Care: None marital status: Current Living Situation: Spouse Current Living Situation Comment: and 19 yr old son current occupational status: disabled Feels Safe at Home: Yes Assistive Devices: Glasses and Hearing Aid - Bilateral Assistive Devices Comment: with patient, supercharger mechanic in locker. Review of Systems Review of Systems: All systems reviewed & are unremarkable except as noted in HPI & below Physical Exam Psychiatric: Orientation: alert and oriented x 3 Apperance: appropriately dressed and appropriately groomed Eye Contact: good eye contact Motor Behavior: no abnormal motor movements Speech: normal rate/rhythm/volume of speech Affect: + depressed affect Mood: + depressed mood Thought Process: goal directed thought process Thought Content: reality based without delusions Suicidal Thoughts: + reports suicidal thoughts (passive, no intent on unit) Homicidal Thoughts: denies homicidal thoughts Hallucinations: no auditory hallucinations and no visual hallucinations Cognition: attention grossly intact and language grossly intact Estimated Intelligence: consistent with education level Insight: + limited insight Judgement: + limited judgement Vital Signs (Past 24 Hours): Last Vital Signs Temp 36.4 C 02/14/22 06:00 Pulse 57 L 02/14/22 06:44 Resp 18 02/14/22 06:00 BP 137/90 02/14/22 06:44 Pulse Ox 100 02/13/22 17:44 Exam Statement: A physical exam was performed in the ED by Dr. Brown for the purposes of medical clearance. I accept that physical as correct and adequate for the purposes of the inpatient physical exam. Results & Data ([facility]) Laboratory Results Laboratory Results - last 24 hr 02/13/22 02/13/22 02/13/22 13:55 13:55 13:55 WBC RBC Hgb Hct MCV MCH MCHC RDW Std Deviation RDW Coeff of Reji Plt Count MPV Immature Gran % (Auto) Neut % (Auto) Lymph % (Auto) [place] % (Auto) Eos % (Auto) Baso % (Auto) Neut # (Auto) Lymph # (Auto) [place] # (Auto) Eos # (Auto) Baso # (Auto) Immature Gran # (Auto) Sodium Potassium Chloride Carbon Dioxide Anion Gap BUN Creatinine Est Cr Clr Drug Dosing Est GFR ( Amer) Est GFR (Non-Af Amer) BUN/Creatinine Ratio Glucose Estimat Average Glucose Hemoglobin A1c Calcium Total Bilirubin AST ALT Alkaline Phosphatase Total Protein Albumin Globulin Albumin/Globulin Ratio Triglycerides Cholesterol LDL Cholesterol, Calc VLDL Cholesterol, Calc HDL Cholesterol Cholesterol/HDL Ratio TSH Urine Color Yellow Urine Appearance Clear Urine pH 5.5 Ur Specific [place] 1.010 Urine Protein Negative Urine Glucose (UA) Negative Urine Ketones Negative Urine Blood Negative Urine Nitrite Negative Urine Bilirubin Negative Urine Urobilinogen Negative Ur Leukocyte Esterase Negative Urine Test Negative Salicylates Urine Opiates Screen Neg Ur Methadone, Qual Neg Acetaminophen Urine Barbiturates Neg Carbamazepine Ur Phencyclidine (PCP) Neg U Amphetamin/Meth Scrn Neg MDMA (Ecstasy) Screen Neg U Benzodiazepines Scrn Neg Ur Cocaine Metabolite Neg U Marijuana (THC) Screen Neg Ethyl Alcohol mg/dL SARS-CoV-2, RNA, NAAT 02/13/22 02/13/22 02/13/22 13:55 14:27 14:27 WBC 9.73 RBC 4.25 Hgb 13.8 Hct 40.6 MCV 95.5 MCH 32.5 MCHC 34.0 RDW Std Deviation 41.4 RDW Coeff of Reji 11.9 Plt Count 250 MPV 10.4 Immature Gran % (Auto) 0.7 Neut % (Auto) 61.2 Lymph % (Auto) 28.7 [place] % (Auto) 8.0 Eos % (Auto) 1.0 Baso % (Auto) 0.4 Neut # (Auto) 5.95 Lymph # (Auto) 2.79 [place] # (Auto) 0.78 Eos # (Auto) 0.10 Baso # (Auto) 0.04 Immature Gran # (Auto) 0.07 H Sodium 137 Potassium 3.6 Chloride 107 Carbon Dioxide 24 Anion Gap 6 BUN 19 Creatinine 0.72 Est Cr Clr Drug Dosing 124.4 Est GFR ( Amer) 114.0 Est GFR (Non-Af Amer) 98.3 BUN/Creatinine Ratio 26.4 H Glucose 76 Estimat Average Glucose Hemoglobin A1c Calcium 9.3 Total Bilirubin 0.2 AST 26 ALT 38 Alkaline Phosphatase 115 H Total Protein 7.0 Albumin 4.6 Globulin 2.4 L Albumin/Globulin Ratio 1.9 Triglycerides Cholesterol LDL Cholesterol, Calc VLDL Cholesterol, Calc HDL Cholesterol Cholesterol/HDL Ratio TSH Urine Color Urine Appearance Urine pH Ur Specific [place] Urine Protein Urine Glucose (UA) Urine Ketones Urine Blood Urine Nitrite Urine Bilirubin Urine Urobilinogen Ur Leukocyte Esterase Urine Test Salicylates Urine Opiates Screen Ur Methadone, Qual Acetaminophen Urine Barbiturates Carbamazepine Ur Phencyclidine (PCP) U Amphetamin/Meth Scrn MDMA (Ecstasy) Screen U Benzodiazepines Scrn Ur Cocaine Metabolite U Marijuana (THC) Screen Ethyl Alcohol mg/dL SARS-CoV-2, RNA, NAAT NEGATIVE 02/13/22 02/13/22 02/13/22 14:27 14:27 14:27 WBC RBC Hgb Hct MCV MCH MCHC RDW Std Deviation RDW Coeff of Reji Plt Count MPV Immature Gran % (Auto) Neut % (Auto) Lymph % (Auto) [place] % (Auto) Eos % (Auto) Baso % (Auto) Neut # (Auto) Lymph # (Auto) [place] # (Auto) Eos # (Auto) Baso # (Auto) Immature Gran # (Auto) Sodium Potassium Chloride Carbon Dioxide Anion Gap BUN Creatinine Est Cr Clr Drug Dosing Est GFR ( Amer) Est GFR (Non-Af Amer) BUN/Creatinine Ratio Glucose Estimat Average Glucose Hemoglobin A1c Calcium Total Bilirubin AST ALT Alkaline Phosphatase Total Protein Albumin Globulin Albumin/Globulin Ratio Triglycerides Cholesterol LDL Cholesterol, Calc VLDL Cholesterol, Calc HDL Cholesterol Cholesterol/HDL Ratio TSH 0.615 Urine Color Urine Appearance Urine pH Ur Specific [place] Urine Protein Urine Glucose (UA) Urine Ketones Urine Blood Urine Nitrite Urine Bilirubin Urine Urobilinogen Ur Leukocyte Esterase Urine Test Salicylates < 3.0 L Urine Opiates Screen Ur Methadone, Qual Acetaminophen < 3 L Urine Barbiturates Carbamazepine Ur Phencyclidine (PCP) U Amphetamin/Meth Scrn MDMA (Ecstasy) Screen U Benzodiazepines Scrn Ur Cocaine Metabolite U Marijuana (THC) Screen Ethyl Alcohol mg/dL < 10.0 SARS-CoV-2, RNA, NAAT 02/14/22 02/14/22 02/14/22 07:52 07:52 07:52 WBC RBC Hgb Hct MCV MCH MCHC RDW Std Deviation RDW Coeff of Reji Plt Count MPV Immature Gran % (Auto) Neut % (Auto) Lymph % (Auto) [place] % (Auto) Eos % (Auto) Baso % (Auto) Neut # (Auto) Lymph # (Auto) [place] # (Auto) Eos # (Auto) Baso # (Auto) Immature Gran # (Auto) Sodium Potassium Chloride Carbon Dioxide Anion Gap BUN Creatinine Est Cr Clr Drug Dosing Est GFR ( Amer) Est GFR (Non-Af Amer) BUN/Creatinine Ratio Glucose Estimat Average Glucose 114 Hemoglobin A1c 5.6 Calcium Total Bilirubin AST ALT Alkaline Phosphatase Total Protein Albumin Globulin Albumin/Globulin Ratio Triglycerides 176 H Cholesterol 169 LDL Cholesterol, Calc 90 VLDL Cholesterol, Calc 35 H HDL Cholesterol 44 Cholesterol/HDL Ratio 3.8 TSH Urine Color Urine Appearance Urine pH Ur Specific [place] Urine Protein Urine Glucose (UA) Urine Ketones Urine Blood Urine Nitrite Urine Bilirubin Urine Urobilinogen Ur Leukocyte Esterase Urine Test Salicylates Urine Opiates Screen Ur Methadone, Qual Acetaminophen Urine Barbiturates Carbamazepine 9.0 Ur Phencyclidine (PCP) U Amphetamin/Meth Scrn MDMA (Ecstasy) Screen U Benzodiazepines Scrn Ur Cocaine Metabolite U Marijuana (THC) Screen Ethyl Alcohol mg/dL SARS-CoV-2, RNA, NAAT Current Inpatient Medications Current Inpatient Medications: Current Inpatient Medications Acetaminophen (Acetaminophen 325 Mg Tab) 650 mg PO Q4H PRN PRN Reason: Headache or Minor Fever Stop: 03/15/22 16:50 Last Admin: 02/14/22 12:24 Dose: 650 mg Documented by: Acetazolamide (Acetazolamide 250 Mg Tab) 500 mg PO DAILY@0900,2200 [facility] Stop: 03/15/22 21:59 Last Admin: 02/14/22 09:59 Dose: 500 mg Documented by: Acetazolamide (Acetazolamide 250 Mg Tab) 250 mg PO DAILY@1400 [facility] Stop: 03/16/22 13:59 Last Admin: 02/14/22 13:56 Dose: 250 mg Documented by: Al Hydrox/Mg Hydrox/Simethicone (Aluminum/Magnesium Susp 30 Ml Udc) 30 ml PO Q4H PRN PRN Reason: GI Upset Stop: 03/15/22 16:50 Atorvastatin Calcium (Atorvastatin 20 Mg Tab) 20 mg PO DAILY [facility] Stop: 03/16/22 08:59 Last Admin: 02/14/22 09:59 Dose: 20 mg Documented by: Bismuth Subsalicylate (Bismuth Subsalicylate Liqd 236 Ml) 15 ml PO PRN PRN PRN Reason: Loose Stool Stop: 03/15/22 16:50 Carbamazepine (Carbamazepine 200 Mg Tablet) 800 mg PO QPM CONNIE Stop: 03/15/22 20:59 Last Admin: 02/13/22 20:40 Dose: 800 mg Documented by: Duloxetine HCl (Duloxetine Hcl 30 Mg Cap) 90 mg PO QAM [facility] Stop: 03/16/22 08:59 Last Admin: 02/14/22 09:59 Dose: 90 mg Documented by: Ferrous Sulfate (Ferrous Sulfate 325 Mg Tab) 325 mg PO QPM CONNIE Stop: 03/15/22 20:59 Last Admin: 02/13/22 20:41 Dose: 325 mg Documented by: Hydrochlorothiazide (Hydrochlorothiazide 25 Mg Tab) 25 mg PO DAILY CONNIE Stop: 03/16/22 08:59 Last Admin: 02/14/22 09:59 Dose: 25 mg Documented by: Hydroxyzine HCl (Hydroxyzine Hcl 25 Mg Tab) 50 mg PO HSZ PRN PRN Reason: Insomnia Stop: 03/15/22 16:50 Last Admin: 02/13/22 20:48 Dose: 50 mg Documented by: Hydroxyzine HCl (Hydroxyzine Hcl 25 Mg Tab) 25 mg PO Q4H PRN PRN Reason: Anxiety Stop: 03/15/22 16:50 Losartan Potassium (Losartan Potassium 50 Mg Tab) 100 mg PO QAM [facility] Stop: 03/16/22 08:59 Last Admin: 02/14/22 09:59 Dose: 100 mg Documented by: Lurasidone HCl (Lurasidone Hcl 40 Mg Tab) 120 mg PO QDD [facility] Stop: 03/16/22 17:44 Last Admin: 02/13/22 19:40 Dose: 120 mg Documented by: Magnesium Hydroxide (Magnesium Hydroxide Susp 30 Ml Udc) 30 ml PO DAILY PRN PRN Reason: Constipation Stop: 03/15/22 16:50 Magnesium Oxide (Magnesium Oxide 400 Mg Tab) 400 mg PO BID CONNIE Stop: 03/15/22 20:59 Last Admin: 02/14/22 09:59 Dose: 400 mg Documented by: Metformin HCl (Metformin Hcl 500 Mg Tab) 500 mg PO BIDM [facility] Stop: 03/15/22 17:44 Last Admin: 02/14/22 10:00 Dose: 500 mg Documented by: Metoprolol Succinate (Metoprolol Succ 50mg Ext Rel Tab) 100 mg PO DAILY CONNIE Stop: 03/16/22 08:59 Last Admin: 02/14/22 10:00 Dose: 100 mg Documented by: Multivitamins (Multivitamin Tab) 1 tab PO QAM [facility] Stop: 03/16/22 08:59 Last Admin: 02/14/22 10:02 Dose: 1 tab Documented by: Multivitamins/Minerals (Cerovite Adv Formula Tab) 1 tab PO QAM CONNIE Stop: 03/16/22 08:59 Last Admin: 02/14/22 09:59 Dose: 1 tab Documented by: Pantoprazole Sodium (Pantoprazole 40 Mg Tab) 40 mg PO BID [facility] Stop: 03/15/22 20:59 Last Admin: 02/14/22 09:59 Dose: 40 mg Documented by: Sodium Chloride (Sodium Chloride 0.65% Na Soln 45 Ml ([facility])) 1 - 2 sprays NA PRN PRN PRN Reason: Nasal Dryness/Congestion Stop: 03/15/22 16:50 Vitamin D (Cholecalciferol 1,000 Units 25 Mcg Tab) 2,000 units PO QPM CONNIE Stop: 03/15/22 20:59 Last Admin: 02/13/22 20:41 Dose: 2,000 units Documented by:
[2022-02-14] MEDS: LURASIDONE HCL 40 MG TAB PO SCH (17:58)
[2022-02-14] MEDS: CHOLECALCIFEROL 1,000 UNITS 25 MCG TAB PO SCH (20:44)
[2022-02-14] MEDS: FERROUS SULFATE 325 MG TAB PO SCH (20:46)
[2022-02-14] MEDS: carBAMazepine 200 MG TABLET PO SCH (20:46)
[2022-02-14] MEDS: hydrOXYzine HCl 25 MG TAB PO PRN (20:52)
[2022-02-15] MEDS: PANTOprazole 40 MG TAB PO SCH ×2 (08:06→20:53)
[2022-02-15] MEDS: MULTIVITAMIN TAB PO SCH (08:07)
[2022-02-15] MEDS: CEROVITE ADV FORMULA TAB PO SCH (08:07)
[2022-02-15] MEDS: METOPROLOL SUCC 50MG EXT REL TAB PO SCH (08:08)
[2022-02-15] MEDS: metFORMIN HCL 500 MG TAB PO SCH ×2 (08:09→17:07)
[2022-02-15] MEDS: MAGNESIUM OXIDE 400 MG TAB PO SCH ×2 (08:09→20:54)
[2022-02-15] MEDS: LOSARTAN POTASSIUM 50 MG TAB PO SCH (08:10)
[2022-02-15] MEDS: hydroCHLOROthiazide 25 MG TAB PO SCH (08:11)
[2022-02-15] MEDS: DULoxetine HCL 30 MG CAP PO SCH (08:12)
[2022-02-15] MEDS: ATORVASTATIN 20 MG TAB PO SCH (08:12)
[2022-02-15] MEDS: acetaZOLAMIDE 250 MG TAB PO SCH ×3 (08:12→20:53)
[2022-02-15] MEDS: ARIPiprazole 5 MG TAB PO SCH (13:22)
--- NOTE | 2022-02-15 14:15 | Psychiatric Progress Note ---
Date of Service February 15, 2022 Impression / Recommendations Impression 51 yo female with a history of multiple med trials, suicide attempts, and hospitalizations for bipolar disorder presents with ongoing mood instability and SI with plan to OD. 02/15/22: minimal change (1) Bipolar disorder current episode depressed: (2) H/O gastric bypass: (3) Pseudotumor cerebri: on Diamox 02/15/22: Patient agreed to increase Tegretol to 900 mg daily (previously effective dose) and to cross taper Latuda to retrial of Abilify. Will start Abilify 5 mg today and decrease Latuda to 80 mg daily. She is aware same cla ss/similar longer term risks re: metabolic/TD. 02/14/22: The patient was admitted to the [facility] ([facility] mental health unit) on q15 min checks (behavioral with suicide precautions) for safety. The patient will participate in group, recreational, and milieu therapies and will be offered additional individual and family sessions as clinically appropriate. Risks/benefits/alternatives reviewed re: her current medications as drug drug interactions with Tegretol and Latuda and s/p gastic bypass likely also impacts absorption. Tegretol level 9, was taking 900 mg daily of Tegretol previously per Dr. Haney who would support retrial of that and/or Abilify. For now will establish baseline on the unit. Suicide Risk Level Suicide Risk Level: High (q15 min suicide checks) (passive now, able to go to staff but high risk patient overall given current dx, past attempts, brother of suicide) Risk Factors Assessment : Yes Do You Have Access To A Gun?: No Mental Health Diagnoses: Yes Substance Use Disorders: No Previous Attempt: Yes Family History of Suicide: Yes Previous Psychiatric Hospitalization: Yes Protective Factors Assessment : Yes Responsible for Young Children: No Employed: No Supportive Family: Yes Interval History Identifying Information ANGELO MEHTA is a 51-year-old F who currently lives in [place], has a hist ory of suicide attempts/inpatient stays for bipolar I disorder, and was admitted on 02/13/22 16:51 on a 201 voluntary commitment for SI with plan . Chief Complaint "I'm still so up and down". Review of Systems Sleep Information Total Hours of Sleep: 7.75 Meal Information Percent Meal Consumed - Breakfast: 100 Percent Meal Consumed - Lunch: 100 Percent Meal Consumed - Dinner: 90 Subjective Subjective Patient was seen & assessed and interval progress reviewed with treatment team. Patient was short tempered with an intrusive peer. She still cries frequently but denies having any suicidal thoughts. Reviewed my consultation with her outpatient psychiatrist. Physical Exam Psychiatric Orientation: alert and oriented x 3 Apperance: appropriately dressed and appropriately groomed Eye Contact: good eye contact Motor Behavior: no abnormal motor movements Speech: normal rate/rhythm/volume of speech Affect: + depressed affect Mood: + depressed mood Thought Process: goal directed thought process Thought Content: reality based without delusions Suicidal Thoughts: denies suicidal thoughts Homicidal Thoughts: denies homicidal thoughts Hallucinations: no auditory hallucinations and no visual hallucinations Cognition: attention grossly intact and language grossly intact Estimated Intelligence: consistent with education level Insight: + limited insight Judgement: + limited judgement Vital Signs (Past 24 Hours) Last Vital Signs Temp 36.5 C 02/15/22 06:00 Pulse 65 02/15/22 13:27 Resp 18 02/15/22 06:00 BP 128/84 02/15/22 13:27 Pulse Ox 100 02/13/22 17:44 Results & Data ([facility]) Current Inpatient Medications Current Inpatient Medications: Current Inpatient Medications Acetaminophen (Acetaminophen 325 Mg Tab) 650 mg PO Q4H PRN PRN Reason: Headache or Minor Fever Stop: 03/15/22 16:50 Last Admin: 02/14/22 17:59 Dose: 650 mg Documented by: Acetazolamide (Acetazolamide 250 Mg Tab) 500 mg PO DAILY@0900,2200 [facility] Stop: 03/15/22 21:59 Last Admin: 02/15/22 08:12 Dose: 500 mg Documented by: Acetazolamide (Acetazolamide 250 Mg Tab) 250 mg PO DAILY@1400 [facility] Stop: 03/16/22 13:59 Last Admin: 02/15/22 13:23 Dose: 250 mg Documented by: Al Hydrox/Mg Hydrox/Simethicone (Aluminum/Magnesium Susp 30 Ml Udc) 30 ml PO Q4H PRN PRN Reason: GI Upset Stop: 03/15/22 16:50 Aripiprazole (Aripiprazole 5 Mg Tab) 5 mg PO QAM [facility] Stop: 03/17/22 12:44 Last Admin: 02/15/22 13:22 Dose: 5 mg Documented by: Atorvastatin Calcium (Atorvastatin 20 Mg Tab) 20 mg PO DAILY [facility] Stop: 03/16/22 08:59 Last Admin: 02/15/22 08:12 Dose: 20 mg Documented by: Bismuth Subsalicylate (Bismuth Subsalicylate Liqd 236 Ml) 15 ml PO PRN PRN PRN Reason: Loose Stool Stop: 03/15/22 16:50 Carbamazepine (Carbamazepine 200 Mg Tablet) 900 mg PO QPM [facility] Stop: 03/17/22 20:59 Duloxetine HCl (Duloxetine Hcl 30 Mg Cap) 90 mg PO QAM [facility] Stop: 03/16/22 08:59 Last Admin: 02/15/22 08:12 Dose: 90 mg Documented by: Ferrous Sulfate (Ferrous Sulfate 325 Mg Tab) 325 mg PO QPM [facility] Stop: 03/15/22 20:59 Last Admin: 02/14/22 20:46 Dose: 325 mg Documented by: Hydrochlorothiazide (Hydrochlorothiazide 25 Mg Tab) 25 mg PO DAILY [facility] Stop: 03/16/22 08:59 Last Admin: 02/15/22 08:11 Dose: 25 mg Documented by: Hydroxyzine HCl (Hydroxyzine Hcl 25 Mg Tab) 50 mg PO HSZ PRN PRN Reason: Insomnia Stop: 03/15/22 16:50 Last Admin: 02/14/22 20:52 Dose: 50 mg Documented by: Hydroxyzine HCl (Hydroxyzine Hcl 25 Mg Tab) 25 mg PO Q4H PRN PRN Reason: Anxiety Stop: 03/15/22 16:50 Losartan Potassium (Losartan Potassium 50 Mg Tab) 100 mg PO QAM [facility] Stop: 03/16/22 08:59 Last Admin: 02/15/22 08:10 Dose: 100 mg Documented by: Lurasidone HCl (Lurasidone Hcl 40 Mg Tab) 80 mg PO QDD [facility] Stop: 03/17/22 17:44 Magnesium Hydroxide (Magnesium Hydroxide Susp 30 Ml Udc) 30 ml PO DAILY PRN PRN Reason: Constipation Stop: 03/15/22 16:50 Magnesium Oxide (Magnesium Oxide 400 Mg Tab) 400 mg PO BID [facility] Stop: 03/15/22 20:59 Last Admin: 02/15/22 08:09 Dose: 400 mg Documented by: Metformin HCl (Metformin Hcl 500 Mg Tab) 500 mg PO BIDM [facility] Stop: 03/15/22 17:44 Last Admin: 02/15/22 08:09 Dose: 500 mg Documented by: Metoprolol Succinate (Metoprolol Succ 50mg Ext Rel Tab) 100 mg PO DAILY [facility] Stop: 03/16/22 08:59 Last Admin: 02/15/22 08:08 Dose: 100 mg Documented by: Multivitamins (Multivitamin Tab) 1 tab PO QAM [facility] Stop: 03/16/22 08:59 Last Admin: 02/15/22 08:07 Dose: 1 tab Documented by: Multivitamins/Minerals (Cerovite Adv Formula Tab) 1 tab PO QAM [facility] Stop: 03/16/22 08:59 Last Admin: 02/15/22 08:07 Dose: 1 tab Documented by: Pantoprazole Sodium (Pantoprazole 40 Mg Tab) 40 mg PO BID [facility] Stop: 03/15/22 20:59 Last Admin: 02/15/22 08:06 Dose: 40 mg Documented by: Sodium Chloride (Sodium Chloride 0.65% Na Soln 45 Ml ([place])) 1 - 2 sprays NA PRN PRN PRN Reason: Nasal Dryness/Congestion Stop: 03/15/22 16:50 Vitamin D (Cholecalciferol 1,000 Units 25 Mcg Tab) 2,000 units PO QPM [facility] Stop: 03/15/22 20:59 Last Admin: 02/14/22 20:44 Dose: 2,000 units Documented by: Mental Health & Subst Abuse Tx Therapist Name of Therapist: Venus Martin Jet Inspector Name of Jet Inspector: None Post Discharge Appointments Primary Care Physician Name Of Family Doctor: Dr. Gayatri Caicedo
[2022-02-15] MEDS: LURASIDONE HCL 40 MG TAB PO SCH (17:07)
[2022-02-15] MEDS: CHOLECALCIFEROL 1,000 UNITS 25 MCG TAB PO SCH (20:53)
[2022-02-15] MEDS: FERROUS SULFATE 325 MG TAB PO SCH (20:54)
[2022-02-15] MEDS: carBAMazepine 200 MG TABLET PO SCH (20:55)
[2022-02-15] MEDS: hydrOXYzine HCl 25 MG TAB PO PRN (22:06)
--- NOTE | 2022-02-15 23:54 | Electrocardiogram Report ---
Test Reason : Blood Pressure : / mmHG Vent. Rate : 060 BPM Atrial Rate : 060 BPM P-R Int : 182 ms QRS Dur : 098 ms QT Int : 438 ms P-R-T Axes : 047 044 017 degrees QTc Int : 447 ms Poor data quality, interpretation may be adversely affected Normal sinus rhythm Nonspecific ST abnormality Abnormal ECG When compared with ECG of 13-JUN-2018 12:49, T wave inversion less evident in Lateral leads Confirmed by Jak Mneon ([id number]) on 02/15/2022 11:54:33 PM Referred By: REFERRED SELF Confirmed By:Jak Menon
[2022-02-16] MEDS: ARIPiprazole 5 MG TAB PO SCH (08:39)
[2022-02-16] MEDS: METOPROLOL SUCC 50MG EXT REL TAB PO SCH (08:39)
[2022-02-16] MEDS: MULTIVITAMIN TAB PO SCH (08:40)
[2022-02-16] MEDS: ATORVASTATIN 20 MG TAB PO SCH (08:40)
[2022-02-16] MEDS: PANTOprazole 40 MG TAB PO SCH ×2 (08:40→20:32)
[2022-02-16] MEDS: MAGNESIUM OXIDE 400 MG TAB PO SCH ×2 (08:40→20:32)
[2022-02-16] MEDS: DULoxetine HCL 30 MG CAP PO SCH (08:41)
[2022-02-16] MEDS: metFORMIN HCL 500 MG TAB PO SCH ×2 (08:41→17:25)
[2022-02-16] MEDS: acetaZOLAMIDE 250 MG TAB PO SCH ×3 (08:41→20:31)
[2022-02-16] MEDS: CEROVITE ADV FORMULA TAB PO SCH (08:42)
[2022-02-16] MEDS: LOSARTAN POTASSIUM 50 MG TAB PO SCH (08:42)
[2022-02-16] MEDS: hydroCHLOROthiazide 25 MG TAB PO SCH (08:42)
--- NOTE | 2022-02-16 11:19 | Psychiatric Progress Note ---
Date of Service February 16, 2022 Impression / Recommendations Impression 51 yo female with a history of multiple med trials, suicide attempts, and hospitalizations for bipolar disorder presents with ongoing mood instability and SI with plan to OD. 02/16/22: improving, doubt activation by Abilify, no restlessness on exam. (1) Bipolar disorder current episode depressed: (2) H/O gastric bypass: (3) Pseudotumor cerebri: on Diamox 02/16/22: increase Abilify 10 mg daily with plan for fruther cross taper. 02/15/22: Patient agreed to increase Tegretol to 900 mg daily (previously effective dose) and to cross taper Latuda to retrial of Abilify. Will start Abilify 5 mg today and decrease Latuda to 80 mg daily. She is aware same class/similar longer term risks re: metabolic/TD. 02/14/22: The patient was admitted to the [facility] ([facility] mental health unit) on q15 min checks (behavioral with suicide precautions) for safety. The patient will participate in group, recreational, and milieu therapies and will be offered additional individual and family sessions as clinically appropriate. Risks/benefits/alternatives reviewed re: her current medications as drug drug interactions with Tegretol and Latuda and s/p gastic bypass likely also impacts absorption. Tegretol level 9, was taking 900 mg daily of Tegretol previously per Dr. Haney who would support retrial of that and/or Abilify. For now will establish baseline on the unit. Suicide Risk Level Suicide Risk Level: High (q15 min suicide checks) (passive now, able to go to staff but high risk patient overall given current dx, past attempts, brother of suicide) Risk Factors Assessment : Yes Do You Have Access To A Gun?: No Mental Health Diagnoses: Yes Substance Use Disorders: No Previous Attempt: Yes Family History of Suicide: Yes Previous Psychiatric Hospitalization: Yes Protective Factors Assessment : Yes Responsible for Young Children: No Employed: No Supportive Family: Yes Interval History Identifying Information ANGELO MEHTA is a 51-year-old F who currently lives in [place], has a history of suicide attempts/inpatient stays for bipolar I disorder, and was admitted on 02/13/22 16:51 on a 201 voluntary commitment for SI with plan . Chief Complaint "I guess last night I was hypomanic". Review of Systems Sleep Information Total Hours of Sleep: 7.25 Meal Information Percent Meal Consumed - Breakfast: 100 Percent Meal Consumed - Lunch: 100 Percent Meal Consumed - Dinner: 100 Subjective Subjective Patient was seen & assessed and interval progress reviewed with nursing and social work. Was chatty and engaged in groups, she reported feeling internally restless and having difficulty settling at night, forgot her hs routine but denies SI or tearfulness. Tolerating med changes. EKG reviewed. Physical Exam Psychiatric Orientation: alert and oriented x 3 Apperance: appropriately dressed and appropriately groomed Eye Contact: good eye contact Motor Behavior: no abnormal motor movements Speech: normal rate/rhythm/volume of speech Affect: + depressed affect Mood: + depressed mood Thought Process: goal directed thought process Thought Content: reality based without delusions Suicidal Thoughts: denies suicidal thoughts Homicidal Thoughts: denies homicidal thoughts Hallucinations: no auditory hallucinations and no visual hallucinations Cognition: attention grossly intact and language grossly intact Estimated Intelligence: consistent with education level Insight: + limited insight Judgement: + limited judgement Vital Signs (Past 24 Hours) Last Vital Signs Temp 36.9 C 02/16/22 06:44 Pulse 62 02/16/22 06:45 Resp 18 02/16/22 06:44 BP 132/82 02/16/22 06:45 Pulse Ox 100 02/13/22 17:44 Results & Data ([facility]) Current Inpatient Medications Current Inpatient Medications: Current Inpatient Medications Acetaminophen (Acetaminophen 325 Mg Tab) 650 mg PO Q4H PRN PRN Reason: Headache or Minor Fever Stop: 03/15/22 16:50 Last Admin: 02/14/22 17:59 Dose: 650 mg Documented by: Acetazolamide (Acetazolamide 250 Mg Tab) 500 mg PO DAILY@0900,2200 [facility] Stop: 03/15/22 21:59 Last Admin: 02/16/22 08:41 Dose: 500 mg Documented by: Acetazolamide (Acetazolamide 250 Mg Tab) 250 mg PO DAILY@1400 [facility] Stop: 03/16/22 13:59 Last Admin: 02/15/22 13:23 Dose: 250 mg Documented by: Al Hydrox/Mg Hydrox/Simethicone (Aluminum/Magnesium Susp 30 Ml Udc) 30 ml PO Q4H PRN PRN Reason: GI Upset Stop: 03/15/22 16:50 Aripiprazole (Aripiprazole 10 Mg Tab) 10 mg PO QAM [facility] Stop: 03/19/22 08:59 Atorvastatin Calcium (Atorvastatin 20 Mg Tab) 20 mg PO DAILY [facility] Stop: 03/16/22 08:59 Last Admin: 02/16/22 08:40 Dose: 20 mg Documented by: Bismuth Subsalicylate (Bismuth Subsalicylate Liqd 236 Ml) 15 ml PO PRN PRN PRN Reason: Loose Stool Stop: 03/15/22 16:50 Carbamazepine (Carbamazepine 200 Mg Tablet) 900 mg PO QPM [facility] Stop: 03/17/22 20:59 Last Admin: 02/15/22 20:55 Dose: 900 mg Documented by: Duloxetine HCl (Duloxetine Hcl 30 Mg Cap) 90 mg PO QAM [facility] Stop: 03/16/22 08:59 Last Admin: 02/16/22 08:41 Dose: 90 mg Documented by: Ferrous Sulfate (Ferrous Sulfate 325 Mg Tab) 325 mg PO QPM [facility] Stop: 03/15/22 20:59 Last Admin: 02/15/22 20:54 Dose: 325 mg Documented by: Hydrochlorothiazide (Hydrochlorothiazide 25 Mg Tab) 25 mg PO DAILY [facility] Stop: 03/16/22 08:59 Last Admin: 02/16/22 08:42 Dose: 25 mg Documented by: Hydroxyzine HCl (Hydroxyzine Hcl 25 Mg Tab) 50 mg PO HSZ PRN PRN Reason: Insomnia Stop: 03/15/22 16:50 Last Admin: 02/15/22 22:06 Dose: 50 mg Documented by: Hydroxyzine HCl (Hydroxyzine Hcl 25 Mg Tab) 25 mg PO Q4H PRN PRN Reason: Anxiety Stop: 03/15/22 16:50 Losartan Potassium (Losartan Potassium 50 Mg Tab) 100 mg PO QAM [facility] Stop: 03/16/22 08:59 Last Admin: 02/16/22 08:42 Dose: 100 mg Documented by: Lurasidone HCl (Lurasidone Hcl 40 Mg Tab) 80 mg PO QDD [facility] Stop: 03/17/22 17:44 Last Admin: 02/15/22 17:07 Dose: 80 mg Documented by: Magnesium Hydroxide (Magnesium Hydroxide Susp 30 Ml Udc) 30 ml PO DAILY PRN PRN Reason: Constipation Stop: 03/15/22 16:50 Magnesium Oxide (Magnesium Oxide 400 Mg Tab) 400 mg PO BID [facility] Stop: 03/15/22 20:59 Last Admin: 02/16/22 08:40 Dose: 400 mg Documented by: Metformin HCl (Metformin Hcl 500 Mg Tab) 500 mg PO BIDM [facility] Stop: 03/15/22 17:44 Last Admin: 02/16/22 08:41 Dose: 500 mg Documented by: Metoprolol Succinate (Metoprolol Succ 50mg Ext Rel Tab) 100 mg PO DAILY [facility] Stop: 03/16/22 08:59 Last Admin: 02/16/22 08:39 Dose: 100 mg Documented by: Multivitamins (Multivitamin Tab) 1 tab PO QAM [facility] Stop: 03/16/22 08:59 Last Admin: 02/16/22 08:40 Dose: 1 tab Documented by: Multivitamins/Minerals (Cerovite Adv Formula Tab) 1 tab PO QAM [facility] Stop: 03/16/22 08:59 Last Admin: 02/16/22 08:42 Dose: 1 tab Documented by: Pantoprazole Sodium (Pantoprazole 40 Mg Tab) 40 mg PO BID [facility] Stop: 03/15/22 20:59 Last Admin: 02/16/22 08:40 Dose: 40 mg Documented by: Sodium Chloride (Sodium Chloride 0.65% Na Soln 45 Ml ([place])) 1 - 2 sprays NA PRN PRN PRN Reason: Nasal Dryness/Congestion Stop: 03/15/22 16:50 Vitamin D (Cholecalciferol 1,000 Units 25 Mcg Tab) 2,000 units PO QPM [facility] Stop: 03/15/22 20:59 Last Admin: 02/15/22 20:53 Dose: 2,000 units Documented by: Mental Health & Subst Abuse Tx Therapist Name of Therapist: Venus Martin Nonprofit Manager Name of Nonprofit Manager: None Post Discharge Appointments Primary Care Physician Name Of Family Doctor: Dr. Gayatri Caicedo
[2022-02-16] MEDS: LURASIDONE HCL 40 MG TAB PO SCH (17:25)
[2022-02-16] MEDS: hydrOXYzine HCl 25 MG TAB PO PRN (20:30)
[2022-02-16] MEDS: FERROUS SULFATE 325 MG TAB PO SCH (20:32)
[2022-02-16] MEDS: carBAMazepine 200 MG TABLET PO SCH (20:33)
[2022-02-16] MEDS: CHOLECALCIFEROL 1,000 UNITS 25 MCG TAB PO SCH (20:35)
[2022-02-17] MEDS: ATORVASTATIN 20 MG TAB PO SCH (08:41)
[2022-02-17] MEDS: DULoxetine HCL 30 MG CAP PO SCH (08:41)
[2022-02-17] MEDS: hydroCHLOROthiazide 25 MG TAB PO SCH (08:42)
[2022-02-17] MEDS: LOSARTAN POTASSIUM 50 MG TAB PO SCH (08:43)
[2022-02-17] MEDS: metFORMIN HCL 500 MG TAB PO SCH (08:44)
[2022-02-17] MEDS: MAGNESIUM OXIDE 400 MG TAB PO SCH (08:44)
[2022-02-17] MEDS: MULTIVITAMIN TAB PO SCH (08:45)
[2022-02-17] MEDS: CEROVITE ADV FORMULA TAB PO SCH (08:45)
[2022-02-17] MEDS: PANTOprazole 40 MG TAB PO SCH (08:45)
[2022-02-17] MEDS: acetaZOLAMIDE 250 MG TAB PO SCH (08:46)
[2022-02-17] MEDS ORDERED: ARIPiprazole 10 MG TAB PO SCH (09:00)
--- NOTE | 2022-02-17 11:26 | Discharge Summary ---
Date of Service February 17, 2022 History of Present Illness This is Crystal's approximately 7th inpatient stay in 10 years. She reported doing "pretty well overall" until recently. She has a good connection with her therapist and was scheduled to follow up with Dr. Haney in 3 months. 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 They were less avaiable to her by phone. Son has high functioning autism but is doing "fine" at home right now. She didn't feel like volunteering at [employer] as much as there is a change in management. She reports crying spells "out of no where, over nothing." and she doesn't feel like she can control them in public. Sleep/appetite/overall health seem improved as she is following Weight [employer] and lost 20 lbs after regaining much of the weight she lost following her gastric bypass surgery. She typically has harder time around the anniversary of her brother's by suicide (2012) but "this is a different time of year" though her mother's friend's brought it up in the context of yazdanism. She is medication compliant and denies medication related side effects. She is quite knowledgeable re: potential drug drug interactions. She states that her symptoms of concern have been much more persistent over the past week and this culminated in suicidal thoughts to "just OD". She reports the main reason that she is still alive is her son. Physical Exam Psychiatric See admission H&P and DOD assessment. Vital Signs (Past 24 Hours) Last Vital Signs Temp 36.5 C 02/17/22 10:59 Pulse 60 02/17/22 10:59 Resp 18 02/17/22 10:59 BP 137/90 02/17/22 10:59 Pulse Ox 100 02/17/22 10:59 Principal Diagnosis bipolar disorder Psychiatric Data See daily stay summary. In short, safety was maintained and the patient was cooperative with care. Medication changes included titration of Tegretol to 900 mg, cross taper of Latuda to Abilify and they tolerated this well. A family session was held with her and safety plan was completed prior to discharge. The patient's tearful spells and suicidal thoughts resolved. She did not exhibit any hypomania while on unit. She is confident she can manage her symptoms at home at this time. She is agreeable to contact Dr. Haney upon discharge re: additional instructions for Abilify and Latuda. A message was left for Dr. Haney since discharging on a Friday. Latuda 120 mg tabs were returned to the patient, she is aware the dose is changed and not to take them but keep in case she would resume that dose in the future (typically destroy meds but she has safety plan around meds and is quite expensive for the patient.). Day of Discharge Assessment Today the patient voices readiness for discharge. They note improvement in mood and deny thoughts to harm self or others. Thoughts remain organized and they are improved from admission. There is no evidence of psychosis. They agree to take mediations as prescribed and keep follow-up appointments. They are stable for discharge to outpatient level of care. Transition of Care Transition Of Care Record: was reviewed with the patient Advance Directives Advance Directives Information Provided: Yes Advance Directives: No Mental Health Advance Directive: No Advance Directives on File: No Living Will: No Power of Child Development Instructor: No Advance Directives Reason:: Declines as Mental Health Visit. Risk Factors Assessment : Yes Do You Have Access To A Gun?: No Mental Health Diagnoses: Yes Substance Use Disorders: No Previous Attempt: Yes Family History of Suicide: Yes Previous Psychiatric Hospitalization: Yes Protective Factors Assessment : Yes Responsible for Young Children: No Employed: No Supportive Family: Yes Tobacco Cessation at Discharge Tobacco Cessation Medication Prescribed at Discharge: Not Applicable/Non-Smoker Antipsychotic Medications The patient is continuing 2 antipsychotics due to: A history of a minimum of 3 failed trials of monotherapy Plan to taper monotherapy due to previous use of multiple antipsychotic medications. Describe cross-taper: Increasing Abilify as decrease Latuda Total Time Total Time Spent: Greater Than 30 Minutes Total Time Includes: Examination of the patient, Discharge Planning and Medication Reconciliation Discharge Data Lab Results 02/13/22 02/13/22 02/13/22 13:55 13:55 13:55 WBC RBC Hgb Hct MCV MCH MCHC RDW Std Deviation RDW Coeff of Reji Plt Count MPV Immature Gran % (Auto) Neut % (Auto) Lymph % (Auto) Pepin % (Auto) Eos % (Auto) Baso % (Auto) Neut # (Auto) Lymph # (Auto) Pepin # (Auto) Eos # (Auto) Baso # (Auto) Immature Gran # (Auto) Sodium Potassium Chloride Carbon Dioxide Anion Gap BUN Creatinine Est Cr Clr Drug Dosing Est GFR ( Amer) Est GFR (Non-Af Amer) BUN/Creatinine Ratio Glucose Estimat Average Glucose Hemoglobin A1c Calcium Total Bilirubin AST ALT Alkaline Phosphatase Total Protein Albumin Globulin Albumin/Globulin Ratio Triglycerides Cholesterol LDL Cholesterol, Calc VLDL Cholesterol, Calc HDL Cholesterol Cholesterol/HDL Ratio TSH Urine Color Yellow Urine Appearance Clear Urine pH 5.5 Ur Specific Montour 1.010 Urine Protein Negative Urine Glucose (UA) Negative Urine Ketones Negative Urine Blood Negative Urine Nitrite Negative Urine Bilirubin Negative Urine Urobilinogen Negative Ur Leukocyte Esterase Negative Urine Test Negative Salicylates Urine Opiates Screen Neg Ur Methadone, Qual Neg Acetaminophen Urine Barbiturates Neg Carbamazepine Ur Phencyclidine (PCP) Neg U Amphetamin/Meth Scrn Neg MDMA (Ecstasy) Screen Neg U Benzodiazepines Scrn Neg Ur Cocaine Metabolite Neg U Marijuana (THC) Screen Neg Ethyl Alcohol mg/dL SARS-CoV-2, RNA, NAAT 02/13/22 02/13/22 02/13/22 13:55 14:27 14:27 WBC 9.73 RBC 4.25 Hgb 13.8 Hct 40.6 MCV 95.5 MCH 32.5 MCHC 34.0 RDW Std Deviation 41.4 RDW Coeff of Reji 11.9 Plt Count 250 MPV 10.4 Immature Gran % (Auto) 0.7 Neut % (Auto) 61.2 Lymph % (Auto) 28.7 Pepin % (Auto) 8.0 Eos % (Auto) 1.0 Baso % (Auto) 0.4 Neut # (Auto) 5.95 Lymph # (Auto) 2.79 Pepin # (Auto) 0.78 Eos # (Auto) 0.10 Baso # (Auto) 0.04 Immature Gran # (Auto) 0.07 H Sodium 137 Potassium 3.6 Chloride 107 Carbon Dioxide 24 Anion Gap 6 BUN 19 Creatinine 0.72 Est Cr Clr Drug Dosing 124.4 Est GFR ( Amer) 114.0 Est GFR (Non-Af Amer) 98.3 BUN/Creatinine Ratio 26.4 H Glucose 76 Estimat Average Glucose Hemoglobin A1c Calcium 9.3 Total Bilirubin 0.2 AST 26 ALT 38 Alkaline Phosphatase 115 H Total Protein 7.0 Albumin 4.6 Globulin 2.4 L Albumin/Globulin Ratio 1.9 Triglycerides Cholesterol LDL Cholesterol, Calc VLDL Cholesterol, Calc HDL Cholesterol Cholesterol/HDL Ratio TSH Urine Color Urine Appearance Urine pH Ur Specific Montour Urine Protein Urine Glucose (UA) Urine Ketones Urine Blood Urine Nitrite Urine Bilirubin Urine Urobilinogen Ur Leukocyte Esterase Urine Test Salicylates Urine Opiates Screen Ur Methadone, Qual Acetaminophen Urine Barbiturates Carbamazepine Ur Phencyclidine (PCP) U Amphetamin/Meth Scrn MDMA (Ecstasy) Screen U Benzodiazepines Scrn Ur Cocaine Metabolite U Marijuana (THC) Screen Ethyl Alcohol mg/dL SARS-CoV-2, RNA, NAAT NEGATIVE 02/13/22 02/13/22 02/13/22 14:27 14:27 14:27 WBC RBC Hgb Hct MCV MCH MCHC RDW Std Deviation RDW Coeff of Reji Plt Count MPV Immature Gran % (Auto) Neut % (Auto) Lymph % (Auto) Pepin % (Auto) Eos % (Auto) Baso % (Auto) Neut # (Auto) Lymph # (Auto) Pepin # (Auto) Eos # (Auto) Baso # (Auto) Immature Gran # (Auto) Sodium Potassium Chloride Carbon Dioxide Anion Gap BUN Creatinine Est Cr Clr Drug Dosing Est GFR ( Amer) Est GFR (Non-Af Amer) BUN/Creatinine Ratio Glucose Estimat Average Glucose Hemoglobin A1c Calcium Total Bilirubin AST ALT Alkaline Phosphatase Total Protein Albumin Globulin Albumin/Globulin Ratio Triglycerides Cholesterol LDL Cholesterol, Calc VLDL Cholesterol, Calc HDL Cholesterol Cholesterol/HDL Ratio TSH 0.615 Urine Color Urine Appearance Urine pH Ur Specific Montour Urine Protein Urine Glucose (UA) Urine Ketones Urine Blood Urine Nitrite Urine Bilirubin Urine Urobilinogen Ur Leukocyte Esterase Urine Test Salicylates < 3.0 L Urine Opiates Screen Ur Methadone, Qual Acetaminophen < 3 L Urine Barbiturates Carbamazepine Ur Phencyclidine (PCP) U Amphetamin/Meth Scrn MDMA (Ecstasy) Screen U Benzodiazepines Scrn Ur Cocaine Metabolite U Marijuana (THC) Screen Ethyl Alcohol mg/dL < 10.0 SARS-CoV-2, RNA, NAAT 02/14/22 02/14/22 02/14/22 07:52 07:52 07:52 WBC RBC Hgb Hct MCV MCH MCHC RDW Std Deviation RDW Coeff of Reji Plt Count MPV Immature Gran % (Auto) Neut % (Auto) Lymph % (Auto) Pepin % (Auto) Eos % (Auto) Baso % (Auto) Neut # (Auto) Lymph # (Auto) Pepin # (Auto) Eos # (Auto) Baso # (Auto) Immature Gran # (Auto) Sodium Potassium Chloride Carbon Dioxide Anion Gap BUN Creatinine Est Cr Clr Drug Dosing Est GFR ( Amer) Est GFR (Non-Af Amer) BUN/Creatinine Ratio Glucose Estimat Average Glucose 114 Hemoglobin A1c 5.6 Calcium Total Bilirubin AST ALT Alkaline Phosphatase Total Protein Albumin Globulin Albumin/Globulin Ratio Triglycerides 176 H Cholesterol 169 LDL Cholesterol, Calc 90 VLDL Cholesterol, Calc 35 H HDL Cholesterol 44 Cholesterol/HDL Ratio 3.8 TSH Urine Color Urine Appearance Urine pH Ur Specific Montour Urine Protein Urine Glucose (UA) Urine Ketones Urine Blood Urine Nitrite Urine Bilirubin Urine Urobilinogen Ur Leukocyte Esterase Urine Test Salicylates Urine Opiates Screen Ur Methadone, Qual Acetaminophen Urine Barbiturates Carbamazepine 9.0 Ur Phencyclidine (PCP) U Amphetamin/Meth Scrn MDMA (Ecstasy) Screen U Benzodiazepines Scrn Ur Cocaine Metabolite U Marijuana (THC) Screen Ethyl Alcohol mg/dL SARS-CoV-2, RNA, NAAT Hospital Course (1) Bipolar disorder current episode depressed: (2) H/O gastric bypass: (3) Pseudotumor cerebri: on Diamox 02/16/22: increase Abilify 10 mg daily with plan for fruther cross taper. 02/15/22: Patient agreed to increase Tegretol to 900 mg daily (previously effective dose) and to cross taper Latuda to retrial of Abilify. Will start Abilify 5 mg today and decrease Latuda to 80 mg daily. She is aware same class/similar longer term risks re: metabolic/TD. 02/14/22: The patient was admitted to the [facility] ([facility] mental health unit) on q15 min checks (behavioral with suicide precautions) for safety. The patient will participate in group, recreational, and milieu therapies and will be offered additional individual and family sessions as clinically appropriate. Risks/benefits/alternatives reviewed re: her current medications as drug drug interactions with Tegretol and Latuda and s/p gastic bypass likely also impacts absorption. Tegretol level 9, was taking 900 mg daily of Tegretol previously per Dr. Haney who would support retrial of that and/or Abilify. For now will establish baseline on the unit. Mental Health & Subst Abuse Tx Psychiatrist Name of Psychiatrist: [facility] - Dr. Haney Psychiatrist's Date of Appointment with Psychiatrist: 03/05/22 Time of Appointment with Psychiatrist: 1:00 PM Psychiatric Appointment Comment: [address] [facility] [id number] Psychiatrist Release of Information: Obtained, Reviewed and Signed Therapist Name of Therapist: [facility] - Venus Martin Therapist's Date of Therapist Appointment: 02/18/22 Time of Therapist Appointment: 11:00 AM [facility] [id number] [facility] Release of Information: Obtained, Reviewed and Signed Library Circulation Technician Name of Library Circulation Technician: None Post Discharge Appointments Primary Care Physician Name Of Family Doctor: Freddie Caicedo Primary Care Time of Appointment with PCP: Follow up as needed. Provider Appointment Comment: [address] [place] [id number] Primary Care Release of Information: Obtained, Reviewed and Signed Smoking Cessation Counseling Tobacco Cessation Medication Prescribed at Discharge: Not Applicable/Non-Smoker Contact Information Discharge Discharge Address[address] [address] [place] [id number] Discharge Plan Discharge Items Patient Disposition: Home - Self-Care Reason For Visit: MDD Discharge Diagnosis: bipolar disorder Activity: Resume your previous activity Non-emergency contact: Primary Care Provider, Psychiatrist and Therapist Call non-emergency contact if: you have any medication questions and your symptoms worsen Follow-up/Referrals: Gayatri Granda DO [Primary Care Provider] - Diet: Regular Addtl Attending Provider Instructions: SPECIAL CARE INSTRUCTIONS: 1. Follow through with your scheduled aftercare appointments. If unable to keep an appointment, please call to reschedule. 2. Take your medication only as prescribed. Medication should not be changed or stopped without the approval of your doctor. In the event of worsening symptoms or concerns about side effects, contact your doctor immediately. 3. Utilize new healthy coping skills, anger management skills, and stress management skills learned during your hospitalization. Journal feelings and process them with a support person. Identify stressors or situations that may result in relapse, deterioration or inappropriate behaviors and develop a plan to deal with those issues. 4. If your coping skills are ineffective and you are in crisis, contact your outpatient providers for direction. If unable to reach your providers, please call the [facility] CRISIS LINE AT , go to the [facility] walk-in center at [address] [facility], [address], [place], or go to the closest Emergency Room. 5. Avoid alcohol and un-prescribed drugs. 6. You have been provided with the Mental Health Advance Directives Pamphlet for your review. 7. Your condition is stable for discharge to outpatient level of care, but recovery is an ongoing process. Ifthoughts to harm yourself or others return, follow the safety plan developed during your stay. Planning for a safe return home includes securing weapons. Our treatment team recommends weaponsbe removed from the home until your outpatient provider reassesses your progress. In rare cases where the items themselvescannot be removed, guns and ammunitionshould be secured separatelyand keys stored by a reliable personoutside of the home. If you were admitted on an involuntary commitment, the police or other legal authorities may be involved in this process. AFTERCARE APPOINTMENTS: * Please call your insurance company prior to your scheduled appointment to confirm your aftercare providers are covered. Take your insurance information to your appointments. WHO TO CALL AND WHEN: Medical Emergencies: For questions or emergencies related to your hospital stay, please contact the Inpatient Behavioral Health Unit at [phone]. A rf engineer is on-call 03/03 for the Behavioral Health Unit for emergencies At any time you feel your situation is an emergency, you may also call 911 immediately. Pending Studies at Discharge: No Stand-Alone Forms: [facility], Smoking Cessation Medications and DC Order Prescriptions: New carbamazepine 200 mg Tablet 900 mg PO QPM Qty: 1 RF: 0 Latuda 40 mg tablet 80 mg PO DAILY Qty: 30 RF: 0 aripiprazole [Abilify] 10 mg Tablet 10 mg PO QAM Qty: 30 RF: 0 Continued duloxetine [Cymbalta] 30 mg capsule,delayed release(DR/EC) 30 mg PO QAM RF: 0 losartan 100 mg tablet 100 mg PO QAM RF: 0 riboflavin (vitamin B2) [Vitamin B-2] 100 mg Tablet 200 mg PO BID RF: 0 omeprazole 40 mg Capsule,Delayed Release(Dr/Ec) 40 mg PO BID RF: 0 magnesium oxide 400 mg (241.3 mg magnesium) Tablet 400 mg PO BID RF: 0 Ca-D3-mag [id number]-davey-bor [Calcium 600-D3 Plus (mag-zinc)] 600 mg calcium- 800 unit-50 mg Tablet 1 tab PO QAM RF: 0 iron 18 mg tablet 18 mg PO QPM RF: 0 cholecalciferol (vitamin D3) [Vitamin D3] 50 mcg (2,000 unit) Capsule 2,000 unit PO QPM RF: 0 metformin 500 mg Tablet 500 mg PO BID RF: 0 Centrum Complete 18-400 mg-mcg Tablet 1 tab PO QAM RF: 0 duloxetine 60 mg Capsule,Delayed Release(Dr/Ec) 60 mg PO QAM Qty: 1 RF: 0 acetazolamide 250 mg tablet See Rx Instructions .ROUTE .COMPLEX RF: 0 atorvastatin 20 mg tablet 20 mg PO DAILY RF: 0 hydrochlorothiazide 25 mg tablet 25 mg PO DAILY RF: 0 hydroxyzine HCl 50 mg tablet 50 mg PO HS PRN (Reason: Insomnia) RF: 0 metoprolol succinate 50 mg tablet 100 mg PO DAILY RF: 0 Discontinued carbamazepine [Tegretol] 200 mg Tablet 800 mg PO QPM RF: 0 Latuda 120 mg tablet 120 mg PO PM RF: 0 Discharge Orders: Discharge Order (Routine); Ordered 02/17/22 Ordered By: Chandni Rios Admission Data Admit Date/Time: 02/13/22 16:51 Attending Provider: Chandni Rios Admit Provider: Chandni Rios Primary Care Provider: Gayatri Granda Other Interventions: Discharge Summary Assessment (RN) Last Done: 02/17/22 10:59 Coding Level of Care Code 49789 D/C day mgmt > 30 min Diagnoses Bipolar disorder current episode depressed F31.30 H/O gastric bypass Z98.84 Pseudotumor cerebri G93.2
[2022-02-17] MEDS ORDERED: METOPROLOL SUCC 50MG EXT REL TAB PO SCH (17:45)
== END 2022-02-17 12:05 | disposition home or self-care (01) | DRG 885 ==
LOC: ED 13:17 → 3S 16:51

== ENCOUNTER 2022-07-03 06:24 | Inpatient (IN) ==
--- NOTE | 2022-06-25 15:36 | PAT Medication Instructions ---
Medication Instructions Date of Service June 25, 2022 Home Medications Medication Instructions Recorded duloxetine 60 mg capsule,delayed 60 mg PO QAM #1 cap 11/23/18 release aripiprazole 10 mg tablet (Abilify) 10 mg PO QAM #30 tabs 02/17/22 carbamazepine 200 mg tablet 900 mg PO QPM #1 tab 02/17/22 Wheeled Walker #1 ea 06/25/22 Ca 600 mg-D3 20 mcg-mag oxide 50 fg-Jt-tpgsuv-manganese-boron tablet (Calcium 600-D3 Plus (mag-zinc)) 1 tab PO QAM magnesium oxide 400 mg (241.3 mg magnesium) tablet 400 mg PO BID omeprazole 40 mg capsule,delayed release 40 mg PO BID riboflavin (vitamin B2) 100 mg tablet (Vitamin B-2) 200 mg PO BID Centrum Complete 1 tab PO QAM duloxetine 60 mg capsule,delayed release 60 mg PO QAM duloxetine 30 mg capsule,delayed release (Cymbalta) 30 mg PO QAM iron 18 mg tablet 18 mg PO QPM losartan 100 mg tablet 100 mg PO QAM cholecalciferol (vitamin D3) 50 mcg (2,000 unit) capsule (Vitamin D3) 2,000 unit PO QPM metformin 500 mg tablet 500 mg PO BID acetazolamide See Rx Instructions .Route .COMPLEX atorvastatin 20 mg PO QPM hydrochlorothiazide 25 mg PO QAM hydroxyzine HCl 50 mg PO HS PRN Insomnia metoprolol succinate 100 mg PO QPM aripiprazole 10 mg tablet (Abilify) 10 mg PO QAM carbamazepine 200 mg tablet 900 mg PO QPM ASK your prescriber and surgeon acetazolamide See Rx Instructions .Route .COMPLEX DO NOT take the morning of surgery Ca 600 mg-D3 20 mcg-mag oxide 50 of-Tm-mnpvgt-manganese-boron tablet (Calcium 600-D3 Plus (mag-zinc)) 1 tab PO QAM magnesium oxide 400 mg (241.3 mg magnesium) tablet 400 mg PO BID riboflavin (vitamin B2) 100 mg tablet (Vitamin B-2) 200 mg PO BID Centrum Complete 1 tab PO QAM losartan 100 mg tablet 100 mg PO QAM metformin 500 mg tablet 500 mg PO BID hydrochlorothiazide 25 mg PO QAM Take morning of surgery With a small sip of water, OTHERWISE NOTHING TO EAT OR DRINK AFTER MIDNIGHT: omeprazole 40 mg capsule,delayed release 40 mg PO BID duloxetine 60 mg capsule,delayed release 60 mg PO QAM duloxetine 30 mg capsule,delayed release (Cymbalta) 30 mg PO QAM aripiprazole 10 mg tablet (Abilify) 10 mg PO QAM Take evening before surgery magnesium oxide 400 mg (241.3 mg magnesium) tablet 400 mg PO BID omeprazole 40 mg capsule,delayed release 40 mg PO BID riboflavin (vitamin B2) 100 mg tablet (Vitamin B-2) 200 mg PO BID iron 18 mg tablet 18 mg PO QPM cholecalciferol (vitamin D3) 50 mcg (2,000 unit) capsule (Vitamin D3) 2,000 unit PO QPM metformin 500 mg tablet 500 mg PO BID atorvastatin 20 mg PO QPM hydroxyzine HCl 50 mg PO HS PRN Insomnia (if needed) metoprolol succinate 100 mg PO QPM carbamazepine 200 mg tablet 900 mg PO QPM Other Notes If you have any questions please call us at [phone] or [phone] or [phone] or [phone]
--- NOTE | 2022-06-28 11:23 | Anesthesiology Consultation ---
Date of Service June 28, 2022 Assessment & Plan (1) Encounter for pre-operative examination: - COVID screening: Per assessment on 06/28: No known COVID-19 positive contacts or current COVID-19 related symptoms. Travel screen negative. Patient vaccinated. At surgeon discretion if preop Covid testing being done. - Outpatient joint assessment: Pt currently scheduled for inpatient pathway. If surgeon requests review for outpatient joint pathway, patient is not recommended candidate for outpatient joint program from anesthesia standpoint. - Neurology office visit (05/22/22): "follow up for pseudo tumor.. Her neurologic examination today reveals no new focal deficit.. Return in 1 year or sooner if needed.. Continue Diamox 250 mg (1 tab) three times daily.. Ultimate goal would be to loose weight - may need help from nutritional consult will defer to PCP.. PCP for medical management.. Reviewed labs with patient no other labs needed at this time CBC and CMP should be monitored every 6 months" > Note written to neurology (S/Dr. Nestor Roman) regarding neuraxial anesthesia recommendations- awaiting response. Chart Review Chart Review: Patient seen in Pre Admission Testing Teaching & Discussion Pre-Anesthesia Teaching/Discussion Notes: Instructed NPO after midnight before surgery,except medications with 15 cc of water. Medication instructions provided according to the PAT guidelines. History Surgery Operation Date: 07/03/22 10:55 Proposed Procedures p Left Total Knee Arthroplasty - Edwin Solano MD Height/Weight Height: 5 ft 6 in Weight: 125.191 kg Allergies Allergy/AdvReac Type Severity Reaction Status Date / Time Sulfa (Sulfonamide Allergy Hives Verified 06/25/22 13:14 Antibiotics) Medications Home Medications Medication Instructions Recorded Confirmed Last Taken Ca 600 mg-D3 20 mcg-mag oxide 50 1 tab PO QAM 06/13/18 06/25/22 02/13/22 ro-Ii-termjj-manganese-boron tablet (Calcium 600-D3 Plus (mag-zinc)) magnesium oxide 400 mg (241.3 mg 400 mg PO BID 06/13/18 06/25/22 02/13/22 magnesium) tablet omeprazole 40 mg capsule,delayed 40 mg PO BID 06/13/18 06/25/22 02/13/22 release riboflavin (vitamin B2) 100 mg 200 mg PO BID 06/13/18 06/25/22 02/13/22 tablet (Vitamin B-2) multivitamin-ferrous 1 tab PO QAM 11/19/18 06/25/22 02/13/22 fumarate-folic acid 18 mg-400 mcg tablet (Centrum Complete) duloxetine 60 mg capsule,delayed 60 mg PO QAM #1 cap 11/23/18 06/25/22 02/13/22 release duloxetine 30 mg capsule,delayed 30 mg PO QAM 08/02/19 06/25/22 02/13/22 release (Cymbalta) iron 18 mg tablet 18 mg PO QPM 08/02/19 06/25/22 02/13/22 losartan 100 mg tablet 100 mg PO QAM 08/02/19 06/25/22 02/13/22 cholecalciferol (vitamin D3) 50 2,000 unit PO QPM 06/21/20 06/25/22 02/13/22 mcg (2,000 unit) capsule (Vitamin D3) metformin 500 mg tablet 500 mg PO BID 06/23/20 06/25/22 02/13/22 acetazolamide See Rx Instructions .Route .COMPLEX 02/13/22 06/25/22 02/13/22 atorvastatin 20 mg PO QPM 02/13/22 06/25/22 1 Day Ago ~02/12/22 hydrochlorothiazide 25 mg PO QAM 02/13/22 06/25/22 02/13/22 hydroxyzine HCl 50 mg PO HS PRN Insomnia 02/13/22 06/25/22 Unknown metoprolol succinate 100 mg PO QPM 02/13/22 06/25/22 02/13/22 aripiprazole 10 mg tablet (Abilify) 10 mg PO QAM #30 tabs 02/17/22 06/25/22 Unknown carbamazepine 200 mg tablet 900 mg PO QPM #1 tab 02/17/22 06/25/22 Unknown Wheeled Walker #1 ea 06/25/22 06/25/22 Unknown Past Medical History Medical History Anxiety Bipolar disorder Degenerative disc disease lumbar Depression Hearing deficit Hyperlipidemia Hypertension Morbid obesity metformin for weight loss Osteoarthritis Pseudotumor cerebri Sleep apnea CPAP (compliant) Exercise / Class Metabolic Activity II 4-5 Yardwork/Stairs/Walk up hill (one FS (no CP, no SOB)) Past Family History Family History Other No family history of adverse response to anesthesia Past Surgical History Surgical History H/O gastric bypass H/O vaginal hysterectomy History of adenoidectomy History of bilateral tubal ligation History of bladder surgery Bladder tack History of section x1 History of cholecystectomy History of colonoscopy History of esophagogastroduodenoscopy (EGD) History of herniorrhaphy multiple History of laparotomy with a large piece of mesh for multiple hernia repairs History of lumbar puncture History of myringotomy BMT (multiple) History of tonsillectomy PONV (postoperative nausea and vomiting) S/P BSO (bilateral salpingo-oophorectomy) S/P epidural steroid injection Past Anesthesia History No Hx of Anesthesia Complications (except PONV) and No Family Hx of Anesthesia Complications (except grandmother PONV) History of PONV No Hx of Motion Sickness and History of PONV Social History Smoking Status: Never smoker Do You Dip or Chew Tobacco: No Hx Alcohol Use: Yes Alcohol type: wine alcohol intake frequency: holidays/special occasions only Hx Substance Use: No substance use type: does not use Review of Systems Patient denies chest pain, shortness of breath, dyspnea on exertion, fever, chills, cough, wheezing, palpitations. Physical Exam Vital Signs VITALS BP 123/73 P 69 TEMP 98.9 SP02 96%RA RESP 18 PHYSICAL Full cervical extension range of motion. Full TMJ range of motion. TMD 4 finger breaths Mallampati Score 1 (small oral opening) Dentition: missing molar Lungs: clear throughout to auscultation Cardiac: regular rate and rhythm, no murmurs noted Spine: normal Carotid arteries: negative bruit Extremities: no edema Thick, short neck Lab Results Anesthesia Preop Results Results Anesthesia Widget: WBC 7.24 K/ul (4.8-10.8) 06/28/22 Hgb 13.3 g/dl (12.0-16.0) 06/28/22 Hct 38.9 % (34.1-44.9) 06/28/22 Plt 202 K/uL (130-400) 06/28/22 Na 137 mmol/L (136-145) 06/28/22 K 3.7 mmol/L (3.5-5.1) 06/28/22 Cl 106 mmol/L (98-107) 06/28/22 CO2 26 mmol/L (21-32) 06/28/22 BUN 18 mg/dl (6-23) 06/28/22 Creat 0.59 mg/dl (0.6-1.2) L 06/28/22 Glucose Level 142 mg/dl (70-99(Fasting)) H 06/28/22 PT 10.0 Seconds (9.0-12.0) 06/28/22 PTT 25.3 Seconds (21.0-31.0) 06/28/22 INR 0.9 (0.9-1.1) 06/28/22 Blood Type O Positive 06/28/22 Antibody Screen NEGATIVE 06/28/22 Testing Electrocardiogram Date: 04/16/22 Findings: + NSR @ (60) Chest X-Ray Date: 04/16/22 Findings: + NAD COVID-19 Risk Screen Screening Information COVID-19 Screen Date: 06/28/22 Exposure 21 Days Family/Household +COVID Last 21 Days: No Exposure 10 Days Any COVID Exposure Last 10 Days: No Symptoms Last 10 Days Experienced COVID Sx Last 10 Days: No + COVID 0-90 Days COVID + in Last 0-90 Days: No
[~2022-07-03 06:24] MED LIST changes: +ACETAMINOPHEN 500 MG TAB PO SCH; -ATOR10TA82 PO; +BUPIVACAINE LIPOSOME/PF 266 MG, BUPIVACAINE/EPINEPHRINE 50 ML, SODIUM CHLORIDE 0.9% 30 ... INFIL SCH; -CALC500T83 PO; -CARB200T PO; -CLOM50CA3 PO; -CYM30 PO; +CeleBREX 200 MG CAP PO SCH; +FAMOTIDINE 20 MG TAB PO SCH; -FERR1TAB62 PO; -FURO40TA3 PO; +LR 500ML BOLUS, THEN 15ML/HR IV SCH; +LR 60ML/HR IV SCH; -MAGN250T8 PO; -METO-551 PO; +METOCLOPRAMIDE HCL 10 MG TABLET PO SCH; -MULT-663 PO; -OMEP40CA41 PO; -RIBO100T9 PO; +Scopolamine 1 MG TDSY TD SCH; -TOPI100T45 PO; +TRANEXAMIC ACID 1,000 MG **IV Intra-op IV SCH; -VALS-10 PO; -ZIPR60CA PO
[2022-07-03] MEDS ORDERED: ROPIVACAINE 0.5% 5 MG/ML 30 ML VIAL ONE (06:35)
[2022-07-03] MEDS ORDERED: BUPIVACAINE 0.5 % 5 MG/1 ML PF 10ML VIAL ONE (06:35)
--- NOTE | 2022-07-03 07:06 | History & Physical Bridge Note ---
Date of Service July 03, 2022 History & Physical Bridge Note I have examined the patient, reviewed the History & Physical and in the interval since the performance of the History & Physical I have noted the following changes of clinical significance: no changes noted
[2022-07-03] MEDS ORDERED: MIDAZOLAM HCL 1 MG/ML 2ML VIAL ONE ×3 (07:37→13:02)
[2022-07-03] MEDS ORDERED: fentaNYL citrate 100 MCG/2 ML VIAL ONE ×2 (07:37→09:44)
[2022-07-03] MEDS ORDERED: ONDANSETRON INJ 2 MG/ML 2 ML VIAL IV PRN ×2 (08:11→13:57)
[2022-07-03] MEDS ORDERED: MEPERIDINE HCL 25 MG/ML CARP/VIAL IV PRN (08:11)
[2022-07-03] MEDS ORDERED: ATROPINE SULFATE 0.1 MG/ML 10ML SYR IV PRN (08:11)
[2022-07-03] MEDS ORDERED: ePHEDrine sulfate 50 MG/ML AMP IV PRN (08:11)
[2022-07-03] MEDS ORDERED: PROPOFOL IV EMULSION 10 MG/ML 20 ML VIAL IV ONE (08:40)
[2022-07-03] MEDS ORDERED: SUCCINYLCHOLINE CHLORIDE 20 MG/ML 10 ML VIAL IV ONE (08:40)
[2022-07-03] MEDS ORDERED: BUPIVACAINE/EPINEPHRINE 0.25% 1:200,000 30 ML VIAL ONE (09:23)
[2022-07-03] MEDS ORDERED: SODIUM CHLORIDE 0.9% PF 50 ML VIAL ONE (09:23)
[2022-07-03] MEDS ORDERED: BUPIVACAINE LIPOSOME 1.3% 266 MG/20 ML VIAL ONE (09:24)
[2022-07-03] MEDS ORDERED: TRANEXAMIC ACID / 0.7% NACL 1000MG/100ML BAG IV ONE (09:40)
[2022-07-03] MEDS ORDERED: GLYCOPYRROLATE 0.2 MG/ML VIAL ONE (09:43)
[2022-07-03] MEDS ORDERED: KETAMINE 50 MG/5 ML SYRINGE ONE (09:45)
[2022-07-03] MEDS ORDERED: ESMOLOL HCL INJ 10 MG/ML 10ML VIAL IV ONE (10:08)
[2022-07-03] MEDS ORDERED: DexMEDEtomidine HCL IV 100 MCG/ML VIAL IV ONE (10:12)
[2022-07-03] MEDS ORDERED: LABETALOL HCL IV 5 MG/ML 20ML IV ONE (10:20)
--- NOTE | 2022-07-03 11:22 | Operative Report ---
PG Post Operative Report Pre & Post Diagnosis Operation Date: 07/03/22 09:05 Pre-Op Diagnosis: Left Knee Degenerative Joint Disease Post-Op Diagnosis: Left Knee Degenerative Joint Disease I identified the patient and participated in the time-out.: Yes Procedure Operation Date: 07/03/22 09:05 Actual Procedures p Left Total Knee Arthroplasty(Left) - Edwin Solano MD Surgeon Edwin Solano MD Time Study Statistician Vaughn Salinas PA-C Estimated Blood Loss 50 Findings Consistent with Post-Op Diagnosis Operative findings were extensive grade 4 vslk-lm-avmg disease the entire medial compartment as well as the patellofemoral compartment. She had a varus deformity to her knee with a moderate-sized joint effusion. She had osteophytes primarily posterior medially. The lateral compartment was pretty well spared. Fluids 1000 cc Specimens Left knee sent for pathology Drains None Anesthesia Type General Regional Complications none Disposition Accompanied Patient To Recovery: No Indications Patient is a 51-year-old female has had a several year history of gradually progressive increasing pain and discomfort in both knees. She been through extensive conservative treatment over time which would become less successful over time. The left knee was bothering more than the right. X-rays show progressive arthritic changes in her knee. She elected proceed with surgical treatment. Description of Procedure Operative implants consist of: 1 Biomet Vanguard size 65 left posterior stabilized femoral component. 2. Biomet size 67 tibial tray. 3. 10 mm posterior stabilized polyethylene insert. 4. 28 x 8 all Paller patella. The patient was taken the operating, identified, placed on the operating table supine position protectors were properly padded. IV antibiotics tried by anesthesia team. An abductor canal block had provided in the holding area. General anesthetic was implemented. A Mccoy catheter was placed in sterile fashion. A left thigh tourniquet was then placed. The left leg was elevated and exsanguinated with use of an Esmarch and the tourniquet was placed at 300 mmHg. An anterior posterior left knee was then performed to longitudinal incision centered over the patella. Sharp dissection Through subcutaneous tissue down the extensor mechanism. A medial parapatellar arthrotomy incision was made. Some subperiosteal dissection was carried out medially. The fat pad was resected from Neath patella tendon. The lateral patellofemoral ligament was released. Patella subluxated laterally knee was flexed. The osteophytes taken off distal femur. The ACL and PCL were then released from the distal femur and the tibia subluxated anteriorly. The external tibial alignment jig was then placed in the interface of the tibia and adjusted 14 mm medially. Proximal tibial cut was made remove about 2 to 3 mm of bone from most deficient aspect me dial tibial plateau. Some osteophytes taken off medially. The tibia sized to size 67. Attention drawn the femur. The distal femur examined the sharp drop with intramedullary canal was suction. A left 5 degree valgus cutting guide was placed. Distal femoral cutting block was pinned in place. Distal femoral cut was made to take an additional 3 mm of bone off distal femur. The femur was then sized to a 65. The AP cutting block was pinned parallel to the epicondylar axis which was 4 degrees of external rotation. Anterior cut, anterior chamfer, posterior cut, posterior chamfer cuts were made. The box cutting guide was placed in just slight lateral and the box cut was made. The knee was flexed. The remnants of the medial and lateral menisci were excised. The osteophyte taken off the posterior aspect the femur. A trial femoral component was placed. The tibial tray was pinned in maximum external rotation and the drill and stem punch used to create defect in proximal tibia for the tibial tray. Knee was then trialed and the 10 mm insert fit most appropriately. Attention drawn the patella. The patella was cleaned of all soft tissues. Patella thickness measured 21 mm in thickness. Was cut down to 14. Was sized to a size 28 patella. The lug holes were drilled for the 28 patella. The lateral osteophytes removed. Patella button was placed. Knee was taken through range of motion and the patella tracked nicely with no thumbs test. Attention drawn to placing permanent components. Nupathe all trial components were removed. Bone plug was placed in the distal femur limit blood loss. A double batch Palacos G cement was mixed. A Biomet Vanguard size 65 left posterior stabilized femoral component, a size 67 tibial tray, 10 mm posterior stabilized polyethylene ins ert, and a 28 x 8 all Paller patella were then cemented in place. Knee was brought out into full extension until cement hardened. Final cement check was then performed. The pericapsular tissues were injected with total of 100 cc of combination of 20 cc of Exparel, 30 cc normal saline, 50 cc of quarter percent Marcaine with epinephrine. Patient did receive 1 g of tranexamic acid. The tourniquet was then let down for final tourniquet time of 53 minutes. Hemostasis reduced electrocautery. Extensor mechanism then closed with combination 1 PDS suture #1 Vicryl suture in [id number] fashion. Extensor mechanism checked found to be intact with subcutaneous tissue then closed with 2 Dexon suture in a buried interrupted fashion skin was closed skin lorrie. Leg was then cleaned and dried and sterile dressed with Xeroform, 4 x 4's, sterile cast padding, Tato bandage were applied. Patient then brought out of general anesthesia and transferred to the recovery room in stable condition. Patient tolerated procedure well no complications. Vaughn Salinas, my physician tv production assistant, was present for the entire procedure. His assistance was essential and required for appropriate patient positioning, prepping and draping, surgical exposure, performing the technical details of the operation, placement the implants, closure of the wound, and placement of the sterile bandage. I attest to the content of the Intraoperative Record and any orders documented therein. Any exceptions are noted below.
[2022-07-03] MEDS: fentaNYL citrate 100 MCG/2 ML VIAL IV PRN ×4 (11:32→11:53)
--- NOTE | 2022-07-03 11:50 | XRay Report ---
XR knee LT 1 or 2V routine HISTORY: 51 years-old Female Surgical Post Op left knee total joint arthroplasty COMPARISON: Knee radiographs 06/21/2022 TECHNIQUE: 2 views of the left knee FINDINGS: Total joint arthroplasty with patellar resurfacing. Anterior midline skin lorrie are noted along wit h expected postoperative soft tissue swelling with deep tissue air. No acute fracture, malalignment o r unexpected opaque foreign body. IMPRESSION: Total joint arthroplasty with expected postoperative changes. ACT 112: Negative or not required by law. The above report was generated using voice recognition software. It may contain grammatical, syntax o r spelling errors. Electronically signed by: Jose Goode M.D. 07/03/2022 11:49 AM
[2022-07-03] MEDS: MoRPHine SULFATE 10 MG/ML CARP/VIAL IV PRN ×4 (12:03→12:49)
--- NOTE | 2022-07-03 12:28 | Anesthesiology Progress Note ---
Date of Service July 03, 2022 Anesthesia Post Procedure Vital Signs Vital Signs: Temp Pulse Pulse Resp BP Pulse Ox O2 Del Method 07/03/22 12:25 66 18 152/96 H 98 Nasal Cannula 07/03/22 12:15 72 19 148/94 H 98 Nasal Cannula 07/03/22 12:05 78 16 154/82 H 98 Nasal Cannula 07/03/22 11:50 73 17 130/71 97 Nasal Cannula 07/03/22 11:40 73 16 139/78 95 Nasal Cannula 07/03/22 11:30 79 17 127/71 98 Oxymask 07/03/22 11:20 36.2 C L 78 18 112/67 98 Oxymask 07/03/22 06:53 36.9 C 61 20 156/70 H 97 Room Air, CPAP 07/03/22 06:53 Room Air, CPAP O2 Flow Rate 07/03/22 12:25 2 07/03/22 12:15 2 07/03/22 12:05 3 07/03/22 11:50 3 07/03/22 11:40 3 07/03/22 11:30 10 07/03/22 11:20 10 07/03/22 06:53 07/03/22 06:53 Pain Intensity Left Knee: Pain Intensity: 4 Transfer of Care Handoff Completed per policy Notes Mental Status: alert / awake / arousable Patient Amnestic to Procedure: Yes Nausea / Vomiting: adequately controlled Pain: adequately controlled Airway Patency, RR, SpO2: stable & adequate BP & HR: stable & adequate Hydration State: stable & adequate Anesthetic Complications: no major complications apparent and Pt Satisfied with anesthetic care
[2022-07-03] MEDS ORDERED: MIDAZOLAM HCL 1 MG/ML 2ML VIAL IV PRN (12:54)
[2022-07-03] MEDS ORDERED: ONDANSETRON 4 MG OD TAB PO PRN (13:57)
[2022-07-03] MEDS ORDERED: NALOXONE HCL 0.4 MG/1 ML VIAL/CARP IV PRN (13:57)
[2022-07-03] MEDS ORDERED: METOCLOPRAMIDE HCL INJ 5 MG/ML 2 ML VIAL IV PRN (13:57)
[2022-07-03] MEDS ORDERED: CARBOHYDRATES FOR HYPOGLYCEMIA PO PRN (13:57)
[2022-07-03] MEDS ORDERED: hydrOXYzine HCl 25 MG TAB PO PRN ×2 (13:57→14:17)
[2022-07-03] MEDS ORDERED: GLUCOSE 40% GEL 15 GM TUBE PO PRN (13:57)
[2022-07-03] MEDS ORDERED: GLUCOSE 10 TAB/TUBE PO PRN (13:57)
[2022-07-03] MEDS ORDERED: MAGNESIUM HYDROXIDE SUSP 30 ML UDC PO PRN (13:57)
[2022-07-03] MEDS ORDERED: diphenhydrAMINE Capsule 25 MG CAP PO PRN (13:57)
[2022-07-03] MEDS ORDERED: GLUCAGON FOR INJ 1 MG VIAL SQ PRN (13:57)
[2022-07-03] MEDS ORDERED: ALUMINUM/MAGNESIUM SUSP 30 ML UDC PO PRN (13:57)
[2022-07-03] MEDS ORDERED: DEXTROSE 50% 50 ML SYRINGE IV PRN (13:57)
[2022-07-03] MEDS ORDERED: PHARMACY GLYCEMIC MGMT CONSULT PRN (13:57)
[2022-07-03] MEDS ORDERED: bisacodyL 10 MG SUPP PR PRN (13:57)
[2022-07-03] MEDS: SODIUM CHLORIDE 0.9% 1000ML 1,000 ML IV SCH (14:10)
--- NOTE | 2022-07-03 14:16 | Pharmacy Report ---
Pharmacy Glycemic Short Note 2 - Date of Service July 03, 2022 - Glycemic Short OUTPATIENT ANTIDIABETIC REGIMEN: * Metformin 500 mg BID * A1c 5.6% 02/14/22 ASSESSMENT: * Patient admitted post-op day #0 with left knee arthroplasty. * Type II DM diet order * Most recent a1c suggests good outpatient control on metformin 500 mg BID * Will hold of on basal insulin and start novolog coverage using weight based stress of 1 PLAN FOR INPATIENT GLYCEMIC CONTROL: * Hold outpatient oral diabetes medications * Basal insulin * Hold * Bolus insulin * NovoLog per scale ACHS or Q6hrs while NPO * Goal Range: Low 110 mg/dL - High 140 mg/dL * Correction Factor: 35 mg/dL/unit * Nutritional / Prandial insulin per carb ratio of 1 unit per 12 grams CHO consumed
[2022-07-03] MEDS: oxyCODONE HCL IR 5 MG TAB (IMMEDIATE RELEASE) PO PRN (15:19)
[2022-07-03] MEDS: ACETAMINOPHEN 500 MG TAB PO SCH (15:19)
[2022-07-03] MEDS: Scopolamine CHECK PATCH PLACEMENT SCH (15:20)
[2022-07-03] MEDS: ceFAZolin 2000MG 2,000 MG/15 ML SYR IV SCH (15:56)
[2022-07-03] MEDS: INSULIN ASPART PER UNIT SC SCH ×3 (16:10→21:35)
[2022-07-03] MEDS: HYDROmorphone INJ 0.5 MG/0.5 ML SYR IV PRN (17:22)
[2022-07-03] MEDS: KETOROLAC 30 MG/ML VIAL IV SCH (17:23)
[2022-07-03] MEDS: ASCORBIC ACID 500 MG TAB PO SCH (17:23)
[2022-07-03] MEDS ORDERED: TRANEXAMIC ACID / 0.7% NACL 1,000 MG/100 ML BAG IV SCH (18:00)
[2022-07-03] MEDS: CHOLECALCIFEROL 1,000 UNITS 25 MCG TAB PO SCH (20:25)
[2022-07-03] MEDS: carBAMazepine 200 MG TABLET PO SCH (20:25)
[2022-07-03] MEDS: PANTOprazole 40 MG TAB PO SCH (20:25)
[2022-07-03] MEDS: MAGNESIUM OXIDE 400 MG TAB PO SCH (20:26)
[2022-07-03] MEDS: ASPIRIN 81 MG ECTAB PO SCH (20:26)
[2022-07-03] MEDS: METOPROLOL SUCC 50MG EXT REL TAB PO SCH (20:30)
[2022-07-03] MEDS ORDERED: DOCUSATE SODIUM/SENNA 50/8.6MG TAB PO SCH (21:00)
[2022-07-03] MEDS ORDERED: ATORVASTATIN 20 MG TAB PO SCH (21:00)
[2022-07-03] MEDS: SENNA 8.6 MG TAB PO SCH (22:45)
[2022-07-03] MEDS: DOCUSATE SODIUM 100 MG CAP PO SCH (22:45)
[2022-07-04] MEDS: ACETAMINOPHEN 500 MG TAB PO SCH ×4 (00:20→23:33)
[2022-07-04] MEDS: ceFAZolin 2000MG 2,000 MG/15 ML SYR IV SCH (00:20)
[2022-07-04] MEDS: SODIUM CHLORIDE 0.9% 1000ML 1,000 ML IV SCH (00:20)
[2022-07-04] MEDS: KETOROLAC 30 MG/ML VIAL IV SCH ×4 (00:21→17:08)
[2022-07-04] MEDS: Scopolamine CHECK PATCH PLACEMENT SCH ×3 (00:21→15:33)
[2022-07-04] MEDS ORDERED: MICONAZOLE NITRATE POWDER 43 GM EXT PRN (07:06)
[2022-07-04 07:38] LABS: BUN Creatinine Ratio 31.6 (10-20); Calcium 7.8 mg/dl (8.5-10.1); Creatinine Clr Calc Pharmacy 245.6 ml/min; Est GFR (African American) 144.2 ml/min; Est GFR (Non-African American) 124.4 ml/min; Potassium 3.7 mmol/L (3.5-5.1)
[2022-07-04 07:46] LABS: Hematocrit (blood only) 29.7 % (34.1-44.9); Hemoglobin 10.5 g/dl (12.0-16.0); Mean Corpuscular Hemoglobin 32.4 pg (25.0-34.0); Mean Corpuscular Hgb Conc 35.4 g/dL (32.0-36.0); Mean Corpuscular Volume 91.7 fL (80.0-100.0); Mean Platelet Volume 11.1 fL (9.4-12.3); Platelet Count 124 K/uL (130-400); Platelet Estimate Normal (Normal); RDW Coefficient of Variation 11.3 % (11.5-14.5); RDW Standard Deviation 38.3 fL (36.4-46.3); Red Blood Count 3.24 M/uL (3.93-5.22); White Blood Count 9.57 K/ul (4.8-10.8)
[2022-07-04] MEDS: HYDROmorphone INJ 0.5 MG/0.5 ML SYR IV PRN ×2 (08:24→20:20)
[2022-07-04] MEDS: DOCUSATE SODIUM 100 MG CAP PO SCH ×2 (08:27→21:57)
[2022-07-04] MEDS: MAGNESIUM OXIDE 400 MG TAB PO SCH ×2 (08:27→21:57)
[2022-07-04] MEDS: DULoxetine HCL 60 MG CAP PO SCH (08:27)
[2022-07-04] MEDS: ARIPiprazole 10 MG TAB PO SCH (08:27)
[2022-07-04] MEDS: PANTOprazole 40 MG TAB PO SCH ×2 (08:27→21:58)
[2022-07-04] MEDS: ASPIRIN 81 MG ECTAB PO SCH ×2 (08:27→21:56)
[2022-07-04] MEDS: DULoxetine HCL 30 MG CAP PO SCH (08:28)
[2022-07-04] MEDS: LOSARTAN POTASSIUM 50 MG TAB PO SCH (08:28)
[2022-07-04] MEDS: ASCORBIC ACID 500 MG TAB PO SCH ×2 (08:28→17:07)
[2022-07-04] MEDS: CALCIUM 600MG + VIT D 400 IU TAB PO SCH (08:28)
[2022-07-04] MEDS: MULTIVITAMIN TAB PO SCH (08:28)
[2022-07-04] MEDS: INSULIN ASPART PER UNIT SC SCH (08:39)
[2022-07-04] MEDS ORDERED: hydroCHLOROthiazide 25 MG TAB PO SCH (09:00)
[2022-07-04] MEDS ORDERED: [UNRECOGNIZED DRUG - OTHER] PO SCH (09:00)
[2022-07-04] MEDS ORDERED: IRON PO SCH (09:00)
[2022-07-04] MEDS ORDERED: MULTIVITAMIN PO SCH (09:00)
[2022-07-04] MEDS ORDERED: FOLIC ACID PO SCH (09:00)
--- NOTE | 2022-07-04 09:50 | Progress Notes ---
SUBJECTIVE: A 51-year-old female postoperative day 1 from a left knee replacement. She have a littl e bit more pain this morning. No chest pain or shortness of breath. Not feeling dizzy or lightheade d. OBJECTIVE: VITAL SIGNS: Temperature 36.8. Vital signs are stable. GENERAL: Shows a pleasant middle-aged female. She is sitting up at her bedside. Downgoing her feet over the edge of the bed, looks reasonably comfortable. LUNGS: Clear to auscultation. HEART: Regular rate and rhythm. ABDOMEN: Soft, nontender, and nondistended. EXTREMITIES: Grossly neurovascularly intact except as follows. Examination of the left lower extremity reveals the dressing clean, dry, and intact. She can dorsifl ex and plantarflex her foot appropriately. She is neurologically intact. LABORATORY DATA: Hemoglobin 10.5, hematocrit 29.7. Electrolytes are fairly stable. Sodium is a lit tle bit low at 121. ASSESSMENT: A 51-year-old female postoperative day 1 from left knee replacement, doing okay. A bit m ore painful this morning, which is . She is neurologically intact. Sodium is a little low, unc lear readings. We are going to recheck that. PLAN: 1. DVT prophylaxis including thigh-high TEDs, SCDs, and aspirin twice daily. 2. PT, OT, and weightbear as tolerated. Left total knee protocol. 3. Pain control. She is doing okay with current pain regimen. 4. Disposition: She is planning to be discharged to home with home health. Her and son are available for assistance. We are going to recheck her sodium Job ID: [id number]
[2022-07-04 10:16] LABS: BUN Creatinine Ratio 23.8 (10-20); Calcium 7.8 mg/dl (8.5-10.1); Creatinine Clr Calc Pharmacy 222.2 ml/min; Est GFR (African American) 139.5 ml/min; Est GFR (Non-African American) 120.4 ml/min
--- NOTE | 2022-07-04 11:00 | Pharmacy Report ---
Pharmacy Glycemic Sign Off Nt - Date of Service July 04, 2022 - Assessment & Plan ASSESSMENT: * Pharmacy was consulted by Dr. Solano on 07/03/22 for glycemic control and to write orders per [facility] inpatient glycemic control protocol. * Major changes made by pharmacy to antidiabetic regimen include: * Adding Novolog * Patient has required no insulin to date * BSGs ranging 100-127 mg/dl * Do not anticipate further changes in patient status that would quickly deteriorate glycemic control (i.e. patient to be NPO for upcoming procedure, steroids tapering, starting tube feedings, etc). * Please see recommendations for outpatient antidiabetic regimen below. PLAN FOR INPATIENT GLYCEMIC CONTROL: * Discontinue all insulin * Resume Metformin 500 mg PO BIDM * Pharmacy is signing off of glycemic consult and will no longer be making adjustments to inpatient regimen. Please feel free to re-consult if needed. Thank you.
[2022-07-04] MEDS: oxyCODONE HCL IR 5 MG TAB (IMMEDIATE RELEASE) PO PRN ×2 (14:41→22:04)
[2022-07-04] MEDS ORDERED: metFORMIN HCL 500 MG TAB PO SCH (17:00)
[2022-07-04 17:48] LABS: Calcium 8.1 mg/dl (8.5-10.1); Creatinine Clr Calc Pharmacy 222.2 ml/min; Est GFR (African American) 139.5 ml/min; Est GFR (Non-African American) 120.4 ml/min; Potassium 3.3 mmol/L (3.5-5.1)
[2022-07-04 17:57] LABS: Appearance Urine Clear (Clear); Bilirubin Urine Negative (Negative); Blood Urine Negative (Negative); Color Urine Yellow; Glucose Urine UA Negative (Negative); Ketones Urine Negative (Negative); Leukocyte Esterase Urine Negative (Negative); Nitrite Urine Negative (Negative); Protein Urine Negative (Negative); Specific Gravity Urine 1.005 (1.000-1.030); Urobilinogen Urine Negative (Negative); pH Urine 5.5 (4.5-7.5)
--- NOTE | 2022-07-04 18:24 | Hospitalist Consultation ---
Date of Consultation July 04, 2022 Assessment & Plan (1) Hyponatremia: Patient severe hyponatremia with a sodium of 08/31/2020 and repeat. Patient denies of hyperglycemia as she does take metformin but this is more for metabolic syndrome. Patient is on acetazolamide and hydrochlorothiazide antidepressant medications and pain medicine and likely received some volume with crystalloid in the intraoperative arena. Subsequently we will move her to PCU give her 100 mL of hypertonic saline with signout to the night call coverage with repeat sodium level at 11:00. She will be on a volume restriction of 1500. She does have low serum awesome high urine sodium (which may be influenced by her hydrochlorothiazide) however she is a low urine osmolality which likely may imply she is trying to put out free water to [employer] her hyponatremia this is either hyponatremia from SIADH or thiazide diuretic (2) Bipolar disorder current episode depressed: Patient will continue on her carbamazepine duloxetine and Abilify (3) Osteoarthritis: Patient underwent left total knee arthroplasty on 07/03/[address] Edwin Solano he will continue to manage her postoperative DVT prevention and wound care (4) Hypertension: Patient's typically on metoprolol and losartan which will be continued her diuretic is held (5) Hyperlipidemia: Atorvastatin is held at this time (6) Pseudotumor cerebri: Patient is typically on acetazolamide for pseudotumor cerebri. Patient previous had a gastric bypass. Acetazolamide may be implicated in her hyponatremia. The patient has significant headache consideration of loop diuretics but this will also have an untoward effect on her hyponatremia. Third line therapy would be topiramate. Perhaps neurological consult may be needed if the patient has head ache with holding her acetazolamide Plan Aspirin twice daily is for DVT prevention History of Present Illness Attending Physician: Edwin Solano MD History of Present Illness Hospitalist team was consulted on the evening of 07/04 for severe hyponatremia with a serum sodium level of 120. Patient appears quite be slightly hypervolemic however her picture is complicated by preadmission use of acetazolamide for pseudotumor cerebri and hydrochlorothiazide. The hydrochlorothiazide was continued postoperatively. Additionally she is on medications for bipolar disorder and also carbamazepine as a mood stabilizer. Evaluated the patient in room she has no immediate distress except for swelling of her hands and she wants to take her acetazolamide. Patient is transfer to higher level of care due to the severe hyponatremia the rapid reduction of level and need for hypertonic saline administration and serial blood work Allergies Allergy/AdvReac Type Severity Reaction Status Date / Time Sulfa (Sulfonamide Allergy Hives Verified 07/03/22 06:49 Antibiotics) Home Medications Medication Instructions Recorded Confirmed Type Ca 600 mg-D3 20 mcg-mag oxide 50 1 tab PO QAM 06/13/18 07/03/22 History uh-Hv-ouxkjt-manganese-boron tablet (Calcium 600-D3 Plus (mag-zinc)) magnesium oxide 400 mg (241.3 mg 400 mg PO BID 06/13/18 07/03/22 History magnesium) tablet omeprazole 40 mg capsule,delayed 40 mg PO BID 06/13/18 07/03/22 History release riboflavin (vitamin B2) 100 mg 200 mg PO BID 06/13/18 07/03/22 History tablet (Vitamin B-2) multivitamin-ferrous 1 tab PO QAM 11/19/18 07/03/22 History fumarate-folic acid 18 mg-400 mcg tablet (Centrum Complete) duloxetine 60 mg capsule,delayed 60 mg PO QAM #1 cap 11/23/18 07/03/22 Rx release duloxetine 30 mg capsule,delayed 30 mg PO QAM 08/02/19 07/03/22 History release (Cymbalta) iron 18 mg tablet 18 mg PO QPM 08/02/19 07/03/22 History losartan 100 mg tablet 100 mg PO QAM 08/02/19 07/03/22 History cholecalciferol (vitamin D3) 50 2,000 unit PO QPM 06/21/20 07/03/22 History mcg (2,000 unit) capsule (Vitamin D3) metformin 500 mg tablet 500 mg PO BID 06/23/20 07/03/22 History acetazolamide See Rx Instructions .Route .COMPLEX 02/13/22 07/03/22 History atorvastatin 20 mg PO QPM 02/13/22 07/03/22 History hydrochlorothiazide 25 mg PO QAM 02/13/22 07/03/22 History hydroxyzine HCl 50 mg PO HS PRN Insomnia 02/13/22 07/03/22 History metoprolol succinate 100 mg PO QPM 02/13/22 07/03/22 History aripiprazole 10 mg tablet (Abilify) 10 mg PO QAM #30 tabs 02/17/22 07/03/22 Rx carbamazepine 200 mg tablet 900 mg PO QPM #1 tab 02/17/22 07/03/22 Rx Wheeled Walker #1 ea 06/25/22 06/25/22 Rx acetaminophen 500 mg capsule 1,000 mg PO TID Pain 30 days #180 07/02/22 07/03/22 Rx caps aspirin 81 mg tablet,delayed 81 mg PO BID 45 days #90 tabs 07/02/22 07/03/22 Rx release (Rossy Low Dose Aspirin) cefadroxil 500 mg capsule 500 mg PO BID 7 days #14 caps 07/02/22 07/03/22 Rx ketorolac 10 mg tablet 10 mg PO Q6 Pain 5 days #20 tabs 07/02/22 07/03/22 Rx ondansetron HCl 4 mg tablet 4 mg PO Q6 PRN nausea #20 tabs 07/02/22 07/03/22 Rx oxycodone 5 mg tablet 5 - 10 mg PO Q6 PRN pain #40 tabs 07/02/22 07/03/22 Rx sennosides 8.6 mg-docusate sodium 1 tab-cap PO BID 14 days #28 tabs 07/02/22 07/03/22 Rx 50 mg tablet (Senokot-S) Patient History Medical History (Updated 07/04/22 @ 18:29 by Van Sung MD) Anxiety Bipolar disorder Degenerative disc disease lumbar Depression Hearing deficit Hyperlipidemia Hypertension Morbid obesity metformin for weight loss Osteoarthritis Pseudotumor cerebri Sleep apnea CPAP (compliant) Surgical History H/O gastric bypass H/O vaginal hysterectomy History of adenoidectomy History of bilateral tubal ligation History of bladder surgery Bladder tack History of section x1 History of cholecystectomy History of colonoscopy History of esophagogastroduodenoscopy (EGD) History of herniorrhaphy multiple History of laparotomy with a large piece of mesh for multiple hernia repairs History of lumbar puncture History of myringotomy BMT (multiple) History of tonsillectomy PONV (postoperative nausea and vomiting) S/P BSO (bilateral salpingo-oophorectomy) S/P epidural steroid injection Family History Other No family history of adverse response to anesthesia Social History Smoking Status: Never smoker Second Hand Exposure: No; Do You Dip or Chew Tobacco: No; Hx Alcohol Use: Yes Alcohol type: wine Hx Substance Use: No Preferred Language: [place] Communication Ability: Effective Visual Impairment: No Limitations Hearing Ability: Normal [place] Required: No Beliefs That Will Affect Care: None marital status: Current Living Situation: Spouse current occupational status: disabled Feels Safe at Home: Yes Safety Concerns: Feels Safe At This Time Assistive Devices: Walker Review of Systems Review of Systems: Mild distress and fatigue no headache, no visual changes no speech or swallowing issues no chest pain, pressure or palpitations no shortness of breath, cough or wheezes no abdominal pain, nausea or vomiting, diarrhea or constipation no dysuria, hematuria or frequency Patient is typical postoperative left knee discomfort no back pain, CVA tenderness or radicular pain no bruising, bleeding or rashes no focal signs of weakness or numbness or altered sensation no complaints of anxiety or depression.. Physical Exam Physical Exam: The patient appeared well nourished and normally developed. She is comfortable and postoperative states she has some mild peripheral edema consistent with mild volume overload Vital signs as documented. Head exam is normocephalic atraumatic Neck is without JVD, thyromegaly, or carotid bruits. Lungs are clear to auscultation, no focal loss of breath sounds Cardiac exam, Rhythm is regular.. No murmurs, rubs or gallops. Abdominal exam reveals normal bowel sounds, soft non tender, no masses Extremities are edematous with regard to her hands and feet this is trace and both pedal pulses are present Neurologic exam is alert and oriented, no focal loss of strength or sensation Skin is without bruises or rashes Psychologically is without concerns for anxiety or depression. Although significant history of both. Results & Data Results & Data ([facility]) Vital Signs (Past 12 Hours) Vital Signs Temp Pulse Resp BP Pulse Ox O2 Del Method 07/04/22 15:22 98.1 F 69 18 137/82 100 Room Air 07/04/22 11:22 98.6 F 63 18 152/91 H 97 Room Air 07/04/22 07:33 98.2 F 63 18 159/95 H 98 Room Air PG Care Time/CCT Total # of Minutes Spent Total Time Spent with Patient: Total time spent is greater than 50% in coordination of care (as documented) at patient's floor/unit and/or counseling patient: Coding Level of Care Code 71259 Inpt Consult Level 4 Diagnoses Hyponatremia E87.1 Bipolar disorder current episode depressed F31.30 Osteoarthritis M19.90 Hypertension I10 Hyperlipidemia E78.5 Pseudotumor cerebri G93.2
[2022-07-04] MEDS ORDERED: STAT IV STA (18:48)
[2022-07-04] MEDS ORDERED: SODIUM CHLORIDE 3 % 100 ML IV ONE (18:48)
[2022-07-04] MEDS: carBAMazepine 200 MG TABLET PO SCH (21:56)
[2022-07-04] MEDS: CHOLECALCIFEROL 1,000 UNITS 25 MCG TAB PO SCH (21:57)
[2022-07-04] MEDS: METOPROLOL SUCC 50MG EXT REL TAB PO SCH (21:58)
[2022-07-04] MEDS: SENNA 8.6 MG TAB PO SCH (21:58)
[2022-07-04 23:39] LABS: BUN Creatinine Ratio 17.9 (10-20); Calcium 8.1 mg/dl (8.5-10.1); Creatinine Clr Calc Pharmacy 239.3 ml/min; Est GFR (African American) 142.9 ml/min; Est GFR (Non-African American) 123.3 ml/min; Potassium 3.3 mmol/L (3.5-5.1)
[2022-07-05] MEDS ORDERED: POTASSIUM CHLORIDE CRTAB 20 MEQ TABCR PO STA (00:42)
[2022-07-05] MEDS: KETOROLAC 30 MG/ML VIAL IV SCH ×3 (00:56→11:36)
[2022-07-05] MEDS: Scopolamine CHECK PATCH PLACEMENT SCH ×3 (00:56→15:39)
[2022-07-05 06:59] LABS: Calcium 8.1 mg/dl (8.5-10.1); Creatinine Clr Calc Pharmacy 252.2 ml/min; Est GFR (African American) 145.4 ml/min; Est GFR (Non-African American) 125.5 ml/min; Potassium 3.9 mmol/L (3.5-5.1)
[2022-07-05 07:20] LABS: Estimated Average Glucose 111 mg/dl; Hemoglobin A1C 5.5 % (4.5-5.6)
[2022-07-05] MEDS: oxyCODONE HCL IR 5 MG TAB (IMMEDIATE RELEASE) PO PRN ×2 (08:32→15:40)
[2022-07-05] MEDS: ACETAMINOPHEN 500 MG TAB PO SCH ×3 (08:42→22:46)
[2022-07-05] MEDS: CALCIUM 600MG + VIT D 400 IU TAB PO SCH (08:43)
[2022-07-05] MEDS: MULTIVITAMIN TAB PO SCH (08:43)
[2022-07-05] MEDS: ARIPiprazole 10 MG TAB PO SCH (08:43)
[2022-07-05] MEDS: LOSARTAN POTASSIUM 50 MG TAB PO SCH (08:43)
[2022-07-05] MEDS: ASCORBIC ACID 500 MG TAB PO SCH ×2 (08:43→16:09)
[2022-07-05] MEDS: DULoxetine HCL 60 MG CAP PO SCH (08:43)
[2022-07-05] MEDS: PANTOprazole 40 MG TAB PO SCH ×2 (08:44→19:59)
[2022-07-05] MEDS: ASPIRIN 81 MG ECTAB PO SCH ×2 (08:44→19:59)
[2022-07-05] MEDS: DOCUSATE SODIUM 100 MG CAP PO SCH ×2 (08:44→20:05)
[2022-07-05] MEDS: DULoxetine HCL 30 MG CAP PO SCH (08:44)
[2022-07-05] MEDS: MAGNESIUM OXIDE 400 MG TAB PO SCH ×2 (08:44→20:05)
--- NOTE | 2022-07-05 09:00 | Progress Notes ---
DATE OF SERVICE: 07/05/2022. SUBJECTIVE: A 51-year-old female, postoperative day 2 from a left knee replacement, complicated by a fairly severe hyponatremia. She is doing pretty well. Pain is controlled. No chest pain or shortn ess of breath. Not feeling dizzy or lightheaded. OBJECTIVE: VITAL SIGNS: Temperature is 37.1. Vital signs are stable. GENERAL: Shows a pleasant middle-aged female. She is sitting up in bed, looks relatively comfortabl e. EXTREMITIES: Examination of the left leg reveals the dressing to be clean, dry and intact. She can dorsiflex and plantarflex her foot appropriately. She is neurologically intact. LABORATORY DATA: Sodium this morning was improved at 125. Rest of her electrolytes are pretty stabl e. ASSESSMENT: A 51-year-old female with multiple medical comorbidities. Postop day 2 from a left knee replacement, complicated by fairly severe hyponatremia for unclear reasons. She could have some deg ree of SIADH from her surgery and then with volume overload in addition to certain medicines she is t aking. In any case, this has been managed by the medicine service and improving. Sodium is up to 12 5. She is asymptomatic. PLAN: 1. DVT prophylaxis includes thigh-high TEDs, SCDs, and aspirin twice a day. 2. PT/OT, weightbear as tolerated. Left total knee protocol. 3. Pain control, doing okay with current pain regimen. 4. Hyponatremia. This has been managed by the medicine service. She is on fluid restrictions. We did give her some hypertonic saline. Hopefully, this will just improve with time, but needs to be mo nitored as a concern is risk of seizure as well. Needs to be corrected relatively slowly. 5. Disposition: She is planning to be discharged to home with some home health once adequately gerber kalyn and stable. We will follow her sodium. Continue therapy. She may need to be in the hospital for a couple of days for observation. We will see how things go over the next 24 hours. Job ID: [id number]
--- NOTE | 2022-07-05 11:36 | Hospitalist Progress Note ---
Date of Service July 05, 2022 Assessment & Plan (1) Hyponatremia: Plan: Patient presents with severe hyponatremia with a sodium of 120. Etiology is uncertain, but could be multifactorial. patient is on HCTZ and Acetazolamide at home, however, she has been on those meds for a long time. She recently had a knee surgery, but pain control has been adequate. Work up shows low serum osmolality and low urine osmolarity, which suggests appropriate response. She received hypertonic saline and currently on fluid restriction 1500/day Repeat serum sodium this morning 125. Will continue, target correction is not more than 10mmol/ day Will continue to hold Acetazolamide and HCTZ (2) Bipolar disorder current episode depressed: Plan: Patient will continue on her carbamazepine duloxetine and Abilify (3) Osteoarthritis: Plan: Patient underwent left total knee arthroplasty on 07/03/[address] Edwin Solano he will continue to manage her postoperative DVT prevention and wound care (4) Hypertension: Plan: Patient's typically on metoprolol and losartan which will be continued her diuretic is held (5) Hyperlipidemia: Plan: Atorvastatin is held at this time (6) Pseudotumor cerebri: Plan: Patient is typically on acetazolamide for pseudotumor cerebri. Patient previous had a gastric bypass. Acetazolamide may be implicated in her hyponatremia. The patient has significant headache consideration of loop diuretics but this will also have an untoward effect on her hyponatremia. Third line therapy would be topiramate. Perhaps neurological consult may be needed if the patient has headache with holding her acetazolamide Plan Aspirin twice daily is for DVT prevention Admission and Anticipated Discharge Date Admission Date: July 04, 2022 Subjective patient seen and examined, no new complaints, knee pain is under good control Review of Systems Review of Systems: The patient is awake, alert and oriented 3, well developed and well nourished, normocephalic and atraumatic, lying in bed and in no acute distress. HEENT--PERRL, EOMI, mucous membranes and oropharynx mildly dry Neck--supple. No JVD. No bruits. Thyroid normal, trachea midline, no adenopathy. Heart--normal S1 and S2. No murmurs, rubs or gallops. Lungs--clear bilaterally, no respiratory distress, no accessory muscle use. Abdomen--normal bowel sounds and soft. Mild epigastric and left sided abdominal pain Extremities--no cyanosis or clubbing. No edema. Dermatologic--normal skin turgor, normal color, no abnormal lymph nodes, no rash. Neurologic--cranial nerves II through XII grossly intact. Rheumatologic--normal range of motion. Psychiatric--normal affect. Results & Data Results & Data ([facility]) Vital Signs (Past 12 Hours) Vital Signs Temp Pulse Pulse Resp BP Pulse Ox O2 Del Method 07/05/22 11:07 98.6 F 76 17 114/74 99 Room Air 07/05/22 07:00 63 07/05/22 07:04 98.8 F 66 20 150/82 H 95 Room Air 07/05/22 04:27 99.7 F H 61 18 140/77 95 Room Air 07/04/22 23:30 99.3 F 68 18 124/80 96 Room Air PG Care Time/CCT Total # of Minutes Spent Total Time Spent with Patient: Total time spent is greater than 50% in coordination of care (as documented) at patient's floor/unit and/or counseling patient: Coding Level of Care Code 33475 Subseq Hosp Care Lvl 2 Diagnoses Hyponatremia E87.1 Bipolar disorder current episode depressed F31.30 Osteoarthritis M19.90 Hypertension I10 Hyperlipidemia E78.5 Pseudotumor cerebri G93.2 Time Spent (min) 35
[2022-07-05] MEDS: HYDROmorphone INJ 0.5 MG/0.5 ML SYR IV PRN (19:47)
[2022-07-05] MEDS: SENNA 8.6 MG TAB PO SCH (19:59)
[2022-07-05] MEDS: carBAMazepine 200 MG TABLET PO SCH (19:59)
[2022-07-05] MEDS: METOPROLOL SUCC 50MG EXT REL TAB PO SCH (20:00)
[2022-07-05] MEDS: CHOLECALCIFEROL 1,000 UNITS 25 MCG TAB PO SCH (20:00)
[2022-07-06] MEDS: Scopolamine CHECK PATCH PLACEMENT SCH (00:17)
[2022-07-06] MEDS: oxyCODONE HCL IR 5 MG TAB (IMMEDIATE RELEASE) PO PRN ×3 (02:27→16:01)
[2022-07-06 07:12] LABS: BUN Creatinine Ratio 23.7 (10-20); Calcium 8.3 mg/dl (8.5-10.1); Creatinine Clr Calc Pharmacy 250.7 ml/min; Est GFR (African American) 144.2 ml/min; Est GFR (Non-African American) 124.4 ml/min; Potassium 4.4 mmol/L (3.5-5.1)
[2022-07-06] MEDS: PANTOprazole 40 MG TAB PO SCH ×2 (08:23→20:19)
[2022-07-06] MEDS: ACETAMINOPHEN 500 MG TAB PO SCH ×3 (08:23→23:28)
[2022-07-06] MEDS: CALCIUM 600MG + VIT D 400 IU TAB PO SCH (08:24)
[2022-07-06] MEDS: DULoxetine HCL 60 MG CAP PO SCH (08:24)
[2022-07-06] MEDS: ASPIRIN 81 MG ECTAB PO SCH ×2 (08:24→20:21)
[2022-07-06] MEDS: ASCORBIC ACID 500 MG TAB PO SCH ×2 (08:24→16:00)
[2022-07-06] MEDS: LOSARTAN POTASSIUM 50 MG TAB PO SCH (08:24)
[2022-07-06] MEDS: DULoxetine HCL 30 MG CAP PO SCH (08:24)
[2022-07-06] MEDS: ARIPiprazole 10 MG TAB PO SCH (08:24)
[2022-07-06] MEDS: MULTIVITAMIN TAB PO SCH (08:24)
--- NOTE | 2022-07-06 08:54 | Progress Notes ---
DATE OF NOTE: 07/06/2022 SUBJECTIVE: A 51-year-old white female postoperative day 3 from right knee replacement complicated b y severe hyponatremia. She is doing well otherwise. Really not having any symptoms. Pain seems to be under control. No chest pain or shortness of breath. Not feeling dizzy or lightheaded. OBJECTIVE: VITAL SIGNS: Temperature 36.6. Vital signs are stable. GENERAL: Shows a pleasant middle-aged female. Lying in bed, looks pretty comfortable. EXTREMITIES: Examination of the left leg reveals dressing clean, dry and intact. She does have fair ly significant fracture blister medially. She can dorsiflex and plantarflex her foot appropriately. She is neurologically intact. LABORATORY DATA: Sodium is up to 130. Electrolytes otherwise stable. ASSESSMENT: A 51-year-old white female postoperative day 3 from left total knee replacement complica gavin by pretty severe hyponatremia. This markedly improved. PLAN: 1. DVT prophylaxis includes thigh-high TEDs, SCDs, and aspirin twice a day. 2. PT/OT, weightbear as tolerated. Left total knee protocol. 3. Pain control, doing okay with current pain regimen. 4. Hyponatremia. She is on fluid restrictions and medical management by the medicine service. Sodi um is markedly improved. Hopeful discharge when sodium is acceptable. 5. Disposition: Plan to discharge to home with some home health. I really just waiting to make jolanta e sodium is stable. She will be ready for discharge when medically stable. Any orthopedic questions can be directed to me at [phone]. Job ID: [id number]
[2022-07-06] MEDS: MAGNESIUM OXIDE 400 MG TAB PO SCH ×2 (09:11→20:18)
[2022-07-06] MEDS: DOCUSATE SODIUM 100 MG CAP PO SCH ×2 (09:11→20:18)
[2022-07-06] MEDS: HYDROmorphone INJ 0.5 MG/0.5 ML SYR IV PRN ×2 (09:50→20:15)
--- NOTE | 2022-07-06 11:00 | Hospitalist Progress Note ---
Date of Service July 06, 2022 Assessment & Plan (1) Hyponatremia: Plan: Patient presents with severe hyponatremia with a sodium of 120. Etiology is uncertain, but could be multifactorial. patient is on HCTZ and Acetazolamide at home, however, she has been on those meds for a long time. She recently had a knee surgery, but pain control has been adequate. Work up shows low serum osmolality and low urine osmolarity, which suggests appropriate response. She received hypertonic saline and currently on fluid restriction 1500/day Repeat serum sodium this morning 130 Will continue, target correction is not more than 10mmol/ day Will continue to hold Acetazolamide and HCTZ Hopefully d/c tomorrow (2) Bipolar disorder current episode depressed: Plan: Patient will continue on her carbamazepine duloxetine and Abilify (3) Osteoarthritis: Plan: Patient underwent left total knee arthroplasty on 07/03/[address] Edwin Solano he will continue to manage her postoperative DVT prevention and wound care (4) Hypertension: Plan: Patient's typically on metoprolol and losartan which will be continued her diuretic is held (5) Hyperlipidemia: Plan: Atorvastatin is held at this time (6) Pseudotumor cerebri: Plan: Patient is typically on acetazolamide for pseudotumor cerebri. Patient previous had a gastric bypass. Acetazolamide may be implicated in her hyponatremia. The patient has significant headache consideration of loop diuretics but this will also have an untoward effect on her hyponatremia. Third line therapy would be topiramate. Perhaps neurological consult may be needed if the patient has headache with holding her acetazolamide Plan Aspirin twice daily is for DVT prevention Hopefully d/c tomorrow Admission and Anticipated Discharge Date Admission Date: July 04, 2022 Subjective patient seen and examined, no new complaints, knee pain is under good control Review of Systems Review of Systems: All systems reviewed are negative, apart from the ones contained in the history. Physical Exam Physical Exam: The patient is awake, alert and oriented 3, well developed and well nourished, normocephalic and atraumatic, lying in bed and in no acute dis tress. HEENT--PERRL, EOMI, mucous membranes and oropharynx mildly dry Neck--supple. No JVD. No bruits. Thyroid normal, trachea midline, no adenopathy. Heart--normal S1 and S2. No murmurs, rubs or gallops. Lungs--clear bilaterally, no respiratory distress, no accessory muscle use. Abdomen--normal bowel sounds and soft. Mild epigastric and left sided abdominal pain Extremities--no cyanosis or clubbing. No edema. Dermatologic--normal skin turgor, normal color, no abnormal lymph nodes, no rash. Neurologic--cranial nerves II through XII grossly intact. Rheumatologic--normal range of motion. Psychiatric--normal affect. Results & Data Results & Data ([facility]) Vital Signs (Past 12 Hours) Vital Signs Temp Pulse Pulse Pulse Resp BP Pulse Ox 07/06/22 09:41 98.4 F 80 18 133/72 98 07/06/22 08:00 07/06/22 07:08 67 07/06/22 02:28 97.9 F 66 19 148/75 H 98 07/06/22 00:52 72 O2 Del Method 07/06/22 09:41 Room Air 07/06/22 08:00 Room Air 07/06/22 07:08 07/06/22 02:28 Room Air 07/06/22 00:52 PG Care Time/CCT Total # of Minutes Spent Total Time Spent with Patient: Total time spent is greater than 50% in coordination of care (as documented) at patient's floor/unit and/or counseling patient: Coding Level of Care Code 03321 Subseq Hosp Care Lvl 2 Diagnoses Hyponatremia E87.1 Bipolar disorder current episode depressed F31.30 Osteoarthritis M19.90 Hypertension I10 Hyperlipidemia E78.5 Pseudotumor cerebri G93.2 Time Spent (min) 35
[2022-07-06] MEDS: SENNA 8.6 MG TAB PO SCH (20:19)
[2022-07-06] MEDS: carBAMazepine 200 MG TABLET PO SCH (20:20)
[2022-07-06] MEDS: CHOLECALCIFEROL 1,000 UNITS 25 MCG TAB PO SCH (20:22)
[2022-07-06] MEDS: METOPROLOL SUCC 50MG EXT REL TAB PO SCH (20:22)
[2022-07-07 07:10] LABS: Calcium 8.8 mg/dl (8.5-10.1); Creatinine Clr Calc Pharmacy 237.3 ml/min; Est GFR (African American) 141.8 ml/min; Est GFR (Non-African American) 122.3 ml/min; Potassium 4.4 mmol/L (3.5-5.1)
[2022-07-07] MEDS: ASPIRIN 81 MG ECTAB PO SCH (08:33)
[2022-07-07] MEDS: LOSARTAN POTASSIUM 50 MG TAB PO SCH (08:34)
[2022-07-07] MEDS: ASCORBIC ACID 500 MG TAB PO SCH (08:34)
[2022-07-07] MEDS: CALCIUM 600MG + VIT D 400 IU TAB PO SCH (08:34)
[2022-07-07] MEDS: DULoxetine HCL 60 MG CAP PO SCH (08:34)
[2022-07-07] MEDS: DULoxetine HCL 30 MG CAP PO SCH (08:34)
[2022-07-07] MEDS: ARIPiprazole 10 MG TAB PO SCH (08:34)
[2022-07-07] MEDS: MULTIVITAMIN TAB PO SCH (08:34)
[2022-07-07] MEDS: PANTOprazole 40 MG TAB PO SCH (08:34)
[2022-07-07] MEDS: MAGNESIUM OXIDE 400 MG TAB PO SCH (08:36)
[2022-07-07] MEDS: ACETAMINOPHEN 500 MG TAB PO SCH (08:36)
[2022-07-07] MEDS: oxyCODONE HCL IR 5 MG TAB (IMMEDIATE RELEASE) PO PRN ×2 (08:36→12:15)
[2022-07-07] MEDS: DOCUSATE SODIUM 100 MG CAP PO SCH (08:40)
--- NOTE | 2022-07-07 08:51 | Progress Notes ---
SUBJECTIVE: A 51-year-old female now postop day 4 from left knee replacement complicated by hyponatr emia. She is doing much better. Really never had any symptoms. Sodium is essentially normal. OBJECTIVE: VITAL SIGNS: Temperature 36.6. Vital signs are stable. GENERAL: Shows a pleasant middle-aged female. She is sitting up in bed, looks completely comfortabl e. EXTREMITIES: Examination of the left leg reveals dressing to be clean, dry and intact. Some mild di ffuse swelling. She can dorsiflex and plantarflex her foot appropriately. She is neurologically int act. LABORATORY DATA: Sodium 135. Rest of the electrolytes are pretty normal. ASSESSMENT: A 51-year-old white female postop day #4 from left knee replacement, complicated by jose re hyponatremia, which is essentially now resolved. She is asymptomatic. Pain is reasonably control led. PLAN: 1. DVT prophylaxis including thigh-high TEDs, SCDs, and aspirin twice a day. 2. PT/OT. She can weightbear as tolerated. Left total knee protocol. 3. Routine wound care. Leave this fracture blister in place and let it resolve as the swelling reso lves. Routine wound care. 4. Hyponatremia. This essentially corrected, asymptomatic. 5. Disposition: Plan to discharge to home with some home health likely later today. Job ID: [id number]
--- NOTE | 2022-07-07 11:01 | Hospitalist Progress Note ---
Date of Service July 07, 2022 Assessment & Plan (1) Hyponatremia: Plan: Patient presents with severe hyponatremia with a sodium of 120. Etiology is uncertain, but could be multifactorial. patient is on HCTZ and Acetazolamide at home, however, she has been on those meds for a long time. She recently had a knee surgery, but pain control has been adequate. Work up shows low serum osmolality and low urine osmolarity, which suggests appropriate response. She received hypertonic saline and currently on fluid restriction 1500/day Repeat serum sodium this morning 135 D/C to follow up with PCP. Recheck BMP before visit (2) Bipolar disorder current episode depressed: Plan: Patient will continue on her carbamazepine duloxetine and Abilify (3) Osteoarthritis: Plan: Patient underwent left total knee arthroplasty on 07/03/[address] Edwin Solano he will continue to manage her postoperative DVT prevention and wound care (4) Hypertension: Plan: Patient's typically on metoprolol and losartan which will be continued her diuretic is held (5) Hyperlipidemia: Plan: Atorvastatin is held at this time (6) Pseudotumor cerebri: Plan: Patient is typically on acetazolamide for pseudotumor cerebri. Patient previous had a gastric bypass. Acetazolamide may be implicated in her hyponatremia. The patient has significant headache consideration of loop diuretics but this will also have an untoward effect on her hyponatremia. Third line therapy would be topiramate. Perhaps neurological consult may be needed if the patient has h eadache with holding her acetazolamide Plan Aspirin twice daily is for DVT prevention Hopefully d/c tomorrow Admission and Anticipated Discharge Date Admission Date: July 04, 2022 Subjective patient seen and examined, no new complaints, knee pain is under good control Review of Systems Review of Systems: All systems reviewed are negative, apart from the ones contained in the history. Physical Exam Physical Exam: The patient is awake, alert and oriented 3, well developed and well nourished, normocephalic and atraumatic, lying in bed and in no acute distress. HEENT--PERRL, EOMI, mucous membranes and oropharynx mildly dry Neck--supple. No JVD. No bruits. Thyroid normal, trachea midline, no adenopathy. Heart--normal S1 and S2. No murmurs, rubs or gallops. Lungs--clear bilaterally, no respiratory distress, no accessory muscle use. Abdomen--normal bowel sounds and soft. Mild epigastric and left sided abdominal pain Extremities--no cyanosis or clubbing. No edema. Dermatologic--normal skin turgor, normal color, no abnormal lymph nodes, no rash. Neurologic--cranial nerves II through XII grossly intact. Rheumatologic--normal range of motion. Psychiatric--normal affect. Results & Data Results & Data ([facility]) Vital Signs (Past 12 Hours) Vital Signs Temp Pulse Pulse Resp BP Pulse Ox O2 Del Method 07/07/22 08:00 Room Air 07/07/22 07:00 75 07/07/22 07:00 97.9 F 63 16 156/87 H 97 Room Air 07/07/22 02:40 97.2 F L 58 L 18 138/78 96 Room Air 07/06/22 23:21 98.4 F 73 16 125/76 97 Room Air 07/06/22 23:05 73 PG Care Time/CCT Total # of Minutes Spent Total Time Spent with Patient: Total time spent is greater than 50% in coordination of care (as documented) at patient's floor/unit and/or counseling patient: Coding Level of Care Code 44203 Inpt Consult Level 2 Diagnoses Hyponatremia E87.1 Bipolar disorder current episode depressed F31.30 Osteoarthritis M19.90 Hypertension I10 Hyperlipidemia E78.5 Pseudotumor cerebri G93.2 Time Spent (min) 35
--- NOTE | 2022-07-13 06:47 | Discharge Summary ---
Date of Service July 13, 2022 Discharge Data Consultations 07/04/22 16:53 Consult Hospitalist Routine Procedures Performed Operation Date: 07/03/22 09:05 Actual Procedures p Left Total Knee Arthroplasty(Left) - Edwin Solano MD Hospital Course (1) Status post total left knee replacement: This is a 51 year old patient admitted on 07/03/22 and underwent total knee arthroplasty. She tolerated the procedure well and there were no complications. Transferred to the PACU post op and later to the orthopedic floor for further care. She was given ancef for antibiotic prophylaxis. She was also given JACK stockings, SCDs, and aspirin for DVT prophylaxis. Hemoglobin, hematocrit, and vital signs were monitored during her hospital stay and remained stable. Did not require any blood transfusions. She did develop hyponatremia post op and the hospitalist service was consulted for further management. She was transferred to the pcu for observation and correction of hyponatremia. By post op day #4 the patient was tolerating a diabetic diet, pain was reasonably controlled with oral pain medicine, and she was participating in physical therapy. On post op day #4 the patient was discharged home and set up with home health care. She was given printed discharge instructions including prescriptions for extra strength tylenol, aspirin, ketorolac, cefadroxil, zofran, senokot, and oxycodone. Continue physical therapy, weight bearing as tolerated. Continue JACK stockings. Follow up approximately 2 weeks post op or sooner if there are problems or concerns. Coding Level of Care Code None Diagnoses Status post total left knee replacement Z96.652
== END 2022-07-07 12:56 | disposition home health service (06) | DRG 470 ==
LOC: ASU 06:24 → PACUINP 06:24 → 3E 13:52 → SUATTDRO 07-04 18:20 → 2E 07-04 18:43

== ENCOUNTER 2023-09-01 06:55 | Observation (INO) ==
--- NOTE | 2023-08-06 14:41 | PAT Medication Instructions ---
Medication Instructions Date of Service August 06, 2023 Home Medications Medication Instructions Recorded duloxetine 60 mg capsule,delayed 60 mg PO QAM #1 cap 11/23/18 release aripiprazole 10 mg tablet (Abilify) 10 mg PO QAM #30 tabs 02/17/22 carbamazepine 200 mg tablet 900 mg (4.5 x 200 mg) PO QPM #1 tab 02/17/22 Wheeled Walker #1 ea 06/25/22 acetaminophen 500 mg capsule 1,000 mg (2 x 500 mg) PO TID Pain 07/02/22 30 days #180 caps Ca 600 mg-D3 20 mcg-mag oxide 50 il-Cf-urcsgj-manganese-boron tablet (Calcium 600-D3 Plus (mag-zinc)) 1 tab PO QAM magnesium oxide 400 mg (241.3 mg magnesium) tablet 400 mg PO BID omeprazole 40 mg capsule,delayed release 40 mg PO QAM riboflavin (vitamin B2) 100 mg tablet (Vitamin B-2) 200 mg PO BID multivitamin-ferrous fumarate-folic acid 18 mg-400 mcg tablet (Centrum Complete) 1 tab PO QAM duloxetine 60 mg capsule,delayed release 60 mg PO QAM duloxetine 30 mg capsule,delayed release (Cymbalta) 30 mg PO QAM iron 18 mg tablet 18 mg PO QPM losartan 100 mg tablet 100 mg PO QAM cholecalciferol (vitamin D3) 50 mcg (2,000 unit) capsule (Vitamin D3) 2,000 unit PO QPM metformin 500 mg tablet 500 mg PO BID aripiprazole 10 mg tablet (Abilify) 10 mg PO QAM carbamazepine 200 mg tablet 900 mg (4.5 x 200 mg) PO QPM acetaminophen 500 mg capsule 1,000 mg (2 x 500 mg) PO TID atorvastatin 20 mg tablet 20 mg PO HS hydrochlorothiazide 25 mg tablet 25 mg PO QAM hydroxyzine HCl 50 mg tablet 75 mg PO HS metoprolol tartrate 100 mg tablet 100 mg PO QPM acetazolamide 500 mg capsule,extended release 500 mg PO BID amoxicillin 500 mg tablet 2,000 mg PO UD PRN buspirone 5 mg tablet 0 mg PO BID cyanocobalamin (vitamin B-12) 1,000 mcg/mL injection solution 1,000 mcg IM UD Check if prescriber has any recommendations, otherwise continue as normal aripiprazole 10 mg tablet (Abilify) 10 mg PO QAM Continue as directed amoxicillin 500 mg tablet 2,000 mg PO UD PRN(if needed) DO NOT take the morning of surgery Ca 600 mg-D3 20 mcg-mag oxide 50 rs-Rb-icnclg-manganese-boron tablet (Calcium 600-D3 Plus (mag-zinc)) 1 tab PO QAM magnesium oxide 400 mg (241.3 mg magnesium) tablet 400 mg PO BID riboflavin (vitamin B2) 100 mg tablet (Vitamin B-2) 200 mg PO BID multivitamin-ferrous fumarate-folic acid 18 mg-400 mcg tablet (Centrum Complete) 1 tab PO QAM losartan 100 mg tablet 100 mg PO QAM metformin 500 mg tablet 500 mg PO BID hydrochlorothiazide 25 mg tablet 25 mg PO QAM acetazolamide 500 mg capsule,extended release 500 mg PO BID cyanocobalamin (vitamin B-12) 1,000 mcg/mL injection solution 1,000 mcg IM UD Take morning of surgery With a small sip of water, OTHERWISE NOTHING TO EAT OR DRINK AFTER MIDNIGHT: omeprazole 40 mg capsule,delayed release 40 mg PO QAM duloxetine 60 mg capsule,delayed release 60 mg PO QAM duloxetine 30 mg capsule,delayed release (Cymbalta) 30 mg PO QAM acetaminophen 500 mg capsule 1,000 mg (2 x 500 mg) PO TID buspirone 5 mg tablet 0 mg PO BID Take evening before surgery magnesium oxide 400 mg (241.3 mg magnesium) tablet 400 mg PO BID riboflavin (vitamin B2) 100 mg tablet (Vitamin B-2) 200 mg PO BID iron 18 mg tablet 18 mg PO QPM cholecalciferol (vitamin D3) 50 mcg (2,000 unit) capsule (Vitamin D3) 2,000 unit PO QPM metformin 500 mg tablet 500 mg PO BID carbamazepine 200 mg tablet 900 mg (4.5 x 200 mg) PO QPM acetaminophen 500 mg capsule 1,000 mg (2 x 500 mg) PO TID atorvastatin 20 mg tablet 20 mg PO HS hydroxyzine HCl 50 mg tablet 75 mg PO HS metoprolol tartrate 100 mg tablet 100 mg PO QPM acetazolamide 500 mg capsule,extended release 500 mg PO BID buspirone 5 mg tablet 0 mg PO BID Other Notes If you have any questions please call us at [phone] or [phone] or [phone] or [phone]
--- NOTE | 2023-08-18 12:48 | Anesthesiology Consultation ---
Date of Service August 18, 2023 Assessment & Plan (1) Encounter for pre-operative examination: - Infectious disease screening: Per assessment on 08/18/23: No known infectious disease contacts or current infectious disease symptoms. No noted recent Covid positive test result. - Outpatient joint assessment: Pt currently scheduled for inpatient pathway. If surgeon requests review for outpatient joint pathway, patient is not recommended candidate for outpatient joint program from anesthesia standpoint. - S/P colonoscopy (05/28/23): MAC at [facility] - Hx Pseudotumor cerebri: Left TKA was performed 07/03/22 at [facility] under GA (Grade view 3, MAC#3, ETT 7.5 + PNB at [facility]). Follows with [facility] neurology- last seen 12/2022. Patient was originally scheduled for Right TKA 03/10/23. At that time, neurology was made aware of upcoming surgery and advised, "no contra indication for surgery with neuraxial anesthesia or spinal or epidural anesthesia" per 02/25/23 neurology note. Patient reports she has been stable since last neurology visit. Received neurology response (08/21/23): "Crystal Reyna has been evaluated by neurology, there is no contraindication for surgery with neuraxial anesthesia, spinal or epidural anesthesia. She is to continue diamox prior and after surgery" Chart Review Chart Review: Acceptable Risk for Surgery and Patient seen in Pre Admission Testing Teaching & Discussion Pre-Anesthesia Teaching/Discussion Notes: Instructed NPO after midnight before surgery,except medications with 15 cc of water. Medication instructions provided according to the PAT guidelines. History Surgery Operation Date: 09/01/23 12:45 Proposed Procedures p Right Total Knee Arthroplasty - Edwin Solano MD Height/Weight Height: 5 ft 6 in Weight: 134.5 kg Allergies Allergy/AdvReac Type Severity Reaction Status Date / Time Sulfa (Sulfonamide Allergy Hives Verified 08/06/23 13:35 Antibiotics) Medications Home Medications Medication Instructions Recorded Confirmed Last Taken Ca 600 mg-D3 20 mcg-mag oxide 50 1 tab PO QAM 06/13/18 08/06/23 05/27/23 rk-Wv-ctxgtf-manganese-boron tablet (Calcium 600-D3 Plus (mag-zinc)) magnesium oxide 400 mg (241.3 mg 400 mg PO BID 06/13/18 08/06/23 05/27/23 magnesium) tablet omeprazole 40 mg capsule,delayed 40 mg PO QAM 06/13/18 08/06/23 05/27/23 release riboflavin (vitamin B2) 100 mg 200 mg PO BID 06/13/18 08/06/23 05/27/23 tablet (Vitamin B-2) multivitamin-ferrous 1 tab PO QAM 11/19/18 08/06/23 05/27/23 fumarate-folic acid 18 mg-400 mcg tablet (Centrum Complete) duloxetine 60 mg capsule,delayed 60 mg PO QAM #1 cap 11/23/18 08/06/23 05/27/23 release duloxetine 30 mg capsule,delayed 30 mg PO QAM 08/02/19 08/06/23 05/27/23 release (Cymbalta) iron 18 mg tablet 18 mg PO QPM 08/02/19 08/06/23 05/27/23 losartan 100 mg tablet 100 mg PO QAM 08/02/19 08/06/23 05/27/23 cholecalciferol (vitamin D3) 50 2,000 unit PO QPM 06/21/20 08/06/23 05/27/23 mcg (2,000 unit) capsule (Vitamin D3) metformin 500 mg tablet 500 mg PO BID 06/23/20 08/06/23 05/27/23 aripiprazole 10 mg tablet (Abilify) 10 mg PO QAM #30 tabs 02/17/22 08/06/23 05/27/23 carbamazepine 200 mg tablet 900 mg (4.5 x 200 mg) PO QPM #1 tab 02/17/22 08/06/23 05/27/23 Wheeled Walker #1 ea 06/25/22 06/25/22 Unknown acetaminophen 500 mg capsule 1,000 mg (2 x 500 mg) PO TID Pain 07/02/22 08/06/23 05/27/23 30 days #180 caps atorvastatin 20 mg tablet 20 mg PO HS 02/10/23 08/06/23 05/27/23 hydrochlorothiazide 25 mg tablet 25 mg PO QAM 02/10/23 08/06/23 05/27/23 hydroxyzine HCl 50 mg tablet 75 mg PO HS 02/10/23 08/06/23 05/27/23 metoprolol tartrate 100 mg tablet 100 mg PO QPM 02/10/23 08/06/23 05/27/23 acetazolamide 500 mg 500 mg PO BID 05/21/23 08/06/23 05/27/23 capsule,extended release amoxicillin 500 mg tablet 2,000 mg PO UD PRN pre dental 05/21/23 08/06/23 Unknown buspirone 5 mg tablet 0 mg PO BID 05/21/23 08/06/23 05/27/23 cyanocobalamin (vitamin B-12) 1,000 mcg IM UD 05/21/23 08/06/23 05/27/23 1,000 mcg/mL injection solution Past Medical History Medical History Right knee DJD Morbid obesity Taking Metformin for weight loss per patient Denies prediabetes/diabetes (A1C 5.5% 06/2022) Bipolar disorder Depression Hearing deficit B/L hearing aids Osteoarthritis Degenerative disc disease lumbar Sleep apnea CPAP (compliant) Pseudotumor cerebri Hypertension Hyperlipidemia Anxiety Exercise / Class Metabolic Activity III < 4 Walking/Shop/Light housework Past Surgical History Surgical History Family history of reaction to anesthesia some other family members: n/v. History of left knee replacement Status post total left knee replacement Left TKA (07/03/22): Grade view 3, MAC#3, ETT 7.5 + PNB at [facility] PONV (postoperative nausea and vomiting) History of lumbar puncture History of myringotomy BMT (multiple) History of bladder surgery Bladder tack H/O vaginal hysterectomy S/P BSO (bilateral salpingo-oophorectomy) History of section x1 History of bilateral tubal ligation S/P epidural steroid injection History of colonoscopy History of esophagogastroduodenoscopy (EGD) History of laparotomy with a large piece of mesh for multiple hernia repairs History of herniorrhaphy multiple History of cholecystectomy History of adenoidectomy History of tonsillectomy H/O gastric bypass Past Anesthesia History No Hx of Anesthesia Complications and No Family Hx of Anesthesia Complications History of PONV No Hx of Motion Sickness and History of PONV (+ nausea) Social History Smoking Status: Never smoker Do You Dip or Chew Tobacco: No Hx Alcohol Use: No Alcohol type: wine alcohol intake frequency: holidays/special occasions only Hx Substance Use: No substance use type: does not use Review of Systems Patient denies chest pain, shortness of breath, fever, chills, cough, wheezing, palpitations. Physical Exam Vital Signs VITALS B 136/85P P 64 TEMP 98.6 SP02 96%RA RESP 16 PHYSICAL Full cervical extension range of motion. Full TMJ range of motion. TMD 4 finger breaths Mallampati Score 1 Dentition: missing sides/molars, upper front metal attachment behind teeth (permanent) Lungs: clear throughout to auscultation Cardiac: regular rate and rhythm, no murmurs noted Spine: normal Carotid arteries: negative bruit Extremities: no LE edema Thick neck Lab Results Anesthesia Preop Results Results Anesthesia Widget: WBC 5.87 K/ul (4.8-10.8) 08/18/23 Hgb 13.4 g/dl (12.0-16.0) 08/18/23 Hct 38.0 % (37.0-47.0) 08/18/23 Plt 190 K/uL (130-400) 08/18/23 Na 134 mmol/L (136-145) L 08/18/23 K 3.8 mmol/L (3.5-5.1) 08/18/23 Cl 100 mmol/L (98-107) 08/18/23 CO2 27 mmol/L (21-32) 08/18/23 BUN 16 mg/dl (6-23) 08/18/23 Creat 0.47 mg/dl (0.6-1.2) L 08/18/23 Glucose Level 82 mg/dl (70-99(Fasting)) 08/18/23 PT 10.2 Seconds (9.0-12.0) 08/18/23 PTT 27 Seconds (21-31) 08/18/23 INR 0.9 (0.9-1.1) 08/18/23 Blood Type O Positive 08/18/23 Antibody Screen NEGATIVE 08/18/23 Testing Electrocardiogram Date: 08/18/23 NSR at 64bpm. Minor NS STA anterolateral leads. No significant change compared to 02/15/2022 per cable splicing technician comparison. Chest X-Ray Date: 08/18/23 FINDINGS: No lines and tubes are seen. The cardiomediastinal silhouette is normal. The lungs are clear. No evidence of pleural effusion or pneumothorax. IMPRESSION: No acute chest disease.
--- NOTE | 2023-08-30 09:14 | History & Physical Report ---
Date of Service August 30, 2023 Assessment & Plan (1) Right knee DJD: 53-year-old female now little over a year out from left knee replacement with advanced right knee DJD. She has failed conservative measures. She would like to proceed with right knee replacement. She was actually scheduled for this in the past but had to cancel. Plan will proceed with a right total knee replacement for the risks Mente this procedure plan the patient clued but not limited to DVT PE infection neurological and vascular bleeding palm pain limb range of motion sepsis fairly with symptoms incomplete relief. Need for further surgery in future excetra. The patient understands and desires to proceed. Informed consent was obtained. At her last surgery she became hyponatremic. Will have to alert to anesthesia this and be careful with her IV fluids. Will likely get some medicine management during her hospitalization as well to try and avoid these issues. As far as discharge plans that she is planned to be discharged to home using [facility]. Will plan on DVT prophylaxis including thigh- high teds, SCDs, aspirin. (2) History of left knee replacement: History of Present Illness Chief Complaint: . Persistent progressive right knee pain and discomfort. Primary Care Provider: Thompson Lillian Patient is a 53-year-old female now little over a year out from left knee replacement who presents for definitive treatment for her right knee. Schedule fairly long history of bilateral knee pain discomfort that is gradually gotten worse over time. She had her left knee replaced little over a year ago and done well from this. She continues to bothered by right knee pain. She been through extensive conservative treatment including steroid shots and viscosupplementation which just have not helped. He was actually planning on doing this about 6 months ago but had to cancel for several reasons. She now like to proceed with right knee replacement. Allergies Allergy/AdvReac Type Severity Reaction Status Date / Time Sulfa (Sulfonamide Allergy Hives Verified 08/06/23 13:35 Antibiotics) Home Medications Medication Instructions Recorded Confirmed Type Ca 600 mg-D3 20 mcg-mag oxide 50 1 tab PO QAM 06/13/18 08/06/23 History po-Xd-uxkjci-manganese-boron tablet (Calcium 600-D3 Plus (mag-zinc)) magnesium oxide 400 mg (241.3 mg 400 mg PO BID 06/13/18 08/06/23 History magnesium) tablet omeprazole 40 mg capsule,delayed 40 mg PO QAM 06/13/18 08/06/23 History release riboflavin (vitamin B2) 100 mg 200 mg PO BID 06/13/18 08/06/23 History tablet (Vitamin B-2) multivitamin-ferrous 1 tab PO QAM 11/19/18 08/06/23 History fumarate-folic acid 18 mg-400 mcg tablet (Centrum Complete) duloxetine 60 mg capsule,delayed 60 mg PO QAM #1 cap 11/23/18 08/06/23 Rx release duloxetine 30 mg capsule,delayed 30 mg PO QAM 08/02/19 08/06/23 History release (Cymbalta) iron 18 mg tablet 18 mg PO QPM 08/02/19 08/06/23 History losartan 100 mg tablet 100 mg PO QAM 08/02/19 08/06/23 History cholecalciferol (vitamin D3) 50 2,000 unit PO QPM 06/21/20 08/06/23 History mcg (2,000 unit) capsule (Vitamin D3) metformin 500 mg tablet 500 mg PO BID 06/23/20 08/06/23 History aripiprazole 10 mg tablet (Abilify) 10 mg PO QAM #30 tabs 02/17/22 08/06/23 Rx carbamazepine 200 mg tablet 900 mg (4.5 x 200 mg) PO QPM #1 tab 02/17/22 08/06/23 Rx Wheeled Walker #1 ea 06/25/22 06/25/22 Rx acetaminophen 500 mg capsule 1,000 mg (2 x 500 mg) PO TID Pain 07/02/22 08/06/23 Rx 30 days #180 caps atorvastatin 20 mg tablet 20 mg PO HS 02/10/23 08/06/23 History hydrochlorothiazide 25 mg tablet 25 mg PO QAM 02/10/23 08/06/23 History hydroxyzine HCl 50 mg tablet 75 mg PO HS 02/10/23 08/06/23 History metoprolol tartrate 100 mg tablet 100 mg PO QPM 02/10/23 08/06/23 History acetazolamide 500 mg 500 mg PO BID 05/21/23 08/06/23 History capsule,extended release amoxicillin 500 mg tablet 2,000 mg PO UD PRN pre dental 05/21/23 08/06/23 History buspirone 5 mg tablet 0 mg PO BID 05/21/23 08/06/23 History cyanocobalamin (vitamin B-12) 1,000 mcg IM UD 05/21/23 08/06/23 History 1,000 mcg/mL injection solution Past Med/Surg History Medical History (Updated 08/30/23 @ 09:12 by Edwin Solano MD) Left knee DJD Right knee DJD Morbid obesity Taking Metformin for weight loss per patient Denies prediabetes/diabetes (A1C 5.5% 06/2022) Bipolar disorder Depression Hearing deficit B/L hearing aids Osteoarthritis Degenerative disc disease lumbar Sleep apnea CPAP (compliant) Pseudotumor cerebri Hypertension Hyperlipidemia Anxiety Surgical History Family history of reaction to anesthesia some other family members: n/v. History of left knee replacement Status post total left knee replacement Left TKA (07/03/22): Grade view 3, MAC#3, ETT 7.5 + PNB at [facility] PONV (postoperative nausea and vomiting) History of lumbar puncture History of myringotomy BMT (multiple) History of bladder surgery Bladder tack H/O vaginal hysterectomy S/P BSO (bilateral salpingo-oophorectomy) History of section x1 History of bilateral tubal ligation S/P epidural steroid injection History of colonoscopy History of esophagogastroduodenoscopy (EGD) History of laparotomy with a large piece of mesh for multiple hernia repairs History of herniorrhaphy multiple History of cholecystectomy History of adenoidectomy History of tonsillectomy H/O gastric bypass Social History Smoking Status: Never smoker Second Hand Exposure: No; Do You Dip or Chew Tobacco: No; Hx Alcohol Use: No Hx Substance Use: No Preferred Language: Hungarian Communication Ability: Effective Visual Impairment: No Limitations Hearing Ability: Normal Driver Examiner Required: No Beliefs That Will Affect Care: None marital status: Current Living Situation: Spouse and Family current occupational status: disabled Feels Safe at Home: Yes Safety Concerns: Feels Safe At This Time Assistive Devices: CPAP, Glasses and Hearing Aid - Bilateral Review of Systems All systems reviewed & are unremarkable except as noted in HPI & below. Physical Exam . Physical examination was a pleasant middle-age female. Looks in reasonably good health. Examination of the knees reveal patient ambulates independently. Examination of the right knee reveals the patient walks with a slight bit of a varus alignment to her knee. Moderate soft tissue envelope. She is tender over the medial joint line. Small knee effusion. Range of motion is 5-1 20. No instability. No pain with hip motion for examination Examination of the left knee reveals well aligned knee. Incisions healed nicely. No swelling. Range of motion 0-1 20. Constitutional WD/WN, vitals as above Respiratory normal respiratory effort, lungs clear to auscultation Cardiovascular RRR, no murmur, no edema Gastrointestinal (Abdomen) normal bowel sounds, soft, nontender, no hepatosplenomegaly Results & Data Results & Data Laboratory Results . Diagnostic Findings . X-rays of the right knee reviewed. Shows advanced right knee DJD. She got complete loss of the medial joint space. Got some osteophytes medially and laterally. The left knee replacement looks me good position without problems. PG Care Time/CCT Total # of Minutes Spent Total Time Spent with Patient: Total time spent is greater than 50% in coordination of care (as documented) at patient's floor/unit and/or counseling patient: Coding Level of Care Code None Diagnoses Right knee DJD M17.11 History of left knee replacement Z96.652
[~2023-09-01 06:55] MED LIST changes: -ACETAMINOPHEN 500 MG TAB PO SCH; -BUPIVACAINE LIPOSOME/PF 266 MG, BUPIVACAINE/EPINEPHRINE 50 ML, SODIUM CHLORIDE 0.9% 30 ... INFIL SCH; -CeleBREX 200 MG CAP PO SCH; -LR 500ML BOLUS, THEN 15ML/HR IV SCH; +ROPIV 0.5% 246mg, Ketorolac 30mg, EPINEPHrine 0.5mg in NSS INFIL SCH; +ROPIVACAINE 0.5% 5 MG/ML 30 ML VIAL ONE; +dexAMETHasone**PF** 10 MG/ML VIAL IV SCH
--- OUTSIDE RECORDS SUMMARY | 2023-09-01 07:05 | External Medical Summary | Summary of Care ---
Author Name Unknown Organization [facility] Address [address] [place] [address] Phone [phone] Care Team Providers Care Credit Assistant Name Role Phone Jay Quiñonez PA-C Primary Care Provider [phone] Reason for Visit * Reason Onset Date Comments Letter Requests 08/22/2023 Encounter Details Date Type Department Care Team (Late st Contact Info) Description 08/22/2023 Telephone Neurology [facility] [place] [address] [place] [address] Sharyn Hernández PA-C [address] [facility] [place] [phone] Letter Requests Allergies Active Allergy Reactions Criticality Noted Date Comments Sulfa Antibiotics Rash Medium documented as of this encounter (statuses as of 08/22/2023) Medications Medication Sig Dispensed Refills Start Date End Date Status CITRACAL PLUS PO TABS Take by mouth 2 times a day. 0 Active IRON 66 MG PO TABS Take by mouth daily with dinner. 0 Active MAGNESIUM OXIDE 500 MG PO TABSIndications:Head ache(784.0) Once daily 30 Tab 3 04/29/2013 Active Additional Information Patient taking differently: 500 mgOralBID (.AM/PM), Informant: Patient, Reported on 09/11/2022 Riboflavin (VITAMIN B-2) 25 MG TABS Take by mouth 2 times a day. 0 Active Multiple Vitamins-Minerals (CENTRUM ADULTS) TABSIndications:Inte stinal postoperative nonabsorption Take by mouth 2 times a day. 0 06/08/2018 Active Cholecalciferol (VITAMIN D) 2000 units Capsule Take by mouth 500 Units daily . 0 Active hydrOXYzine HCl 50 MG TabletIndications:in evening Indications: in evening 30 Tab 0 12/10/2019 Active CPAP every night at bedtime. 0 Active carBAMazepine 200 MG Oral TabletIndications:mo od stabilizer Take 4.5 Tablets by mouth at bedtime. 0 Active DULoxetine HCl 30 MG Oral Capsule Delayed Release Particles Take 1 Capsule by mouth in the morning. 0 Active ARIPiprazole 20 MG Oral Tablet (Abilify) daily . 0 02/21/2022 Active DULoxetine HCl 60 MG Oral Capsule Delayed Release Particles (Cymbalta) Take 1 Capsule by mouth in the morning. 0 Active ALPRAZolam 0.5 MG Oral Tablet (xaNAX) TAKE 1/2 TO 1 (ONE-HALF TO ONE) TABLET BY MOUTH AT BEDTIME NEEDED FOR SLEEP 0 12/05/2022 Active Atorvastatin Calcium 20 MG Oral Tablet (Lipitor) Take 1 Tablet by mouth in the morning. 90 Tablet 1 03/17/2023 Active metFORMIN HCl 500 MG Oral Tablet (Glucophage)Indicati ons:Metabolic syndrome Take 1 Tablet by mouth 2 times a day with morning and evening meals. 180 Tablet 1 03/21/2023 Active hydroCHLOROthiazide 25 MG Oral Tablet (Hydrodiuril) Take 1 Tablet by mouth in the morning. 90 Tablet 3 03/24/2023 Active Metoprolol Succinate ER 50 MG Oral Tablet Extended Release 24 Hour (toPROL XL)Indications:HTN, goal below 140/90 Take 2 Tablets by mouth in the morning. 180 Tablet 3 03/25/2023 Active Losartan Potassium 100 MG Oral Tablet (Cozaar)Indications: HTN, goal below 140/90 Take 1 Tablet by mouth in the morning. 90 Tablet 1 04/09/2023 Active Omeprazole 20 MG Oral Capsule Delayed Release (PriLOSEC)Indication s:Gastroesophageal reflux disease without esophagitis Take 1 Capsule by mouth in the morning. 90 Capsule 3 04/09/2023 Active busPIRone HCl 10 MG Oral Tablet (Buspar) Take 1 Tablet by mouth in the morning and 1 Tablet before bedtime. 0 04/09/2023 Active acetaZOLAMIDE ER 500 MG Oral Capsule Extended Release 12 Hour (Diamox Sequels) Take 1 Capsule by mouth in the morning and 1 Capsule before bedtime. 60 Capsule 11 04/29/2023 Active Hospital, Clinic, or Other Facility Administered Medication Ordered Dose Route Frequency Start Date End Date Status vitamin b-12 (Cyanocobalamin) inj 1,000 mcgIndications:B12 deficiency,Intestinal postoperative nonabsorption 1000 mcg IM [id number] 08/14/2023 07/15/20 24 Active documented as of this encounter (statuses as of 08/22/2023) Active Problems Problem Noted Date Diagnosed Date Food insecurity 04/21/2023 Overview: Per [facility] Protocol Prediabetes 03/24/2023 Overview: Per Prediabetes protocol Bipolar disorder, current ep isode manic without psychotic features, moderate 09/11/2022 Morbid obesity due to excess calories 09/11/2022 Body mass index (BMI) of 45.0 to 49.9 in adult 1 08/24/2021 Overview: Per Obesity protocol - Per Obesity protocol - - Primary osteoarthritis of fi rst carpometacarpal joint of right hand 12/15/2020 Arthritis of hand, right 12/15/2020 Chronic mucoid otitis media 09/29/2020 BOB (obstructive sleep apnea) 12/28/2019 Vitamin D deficiency 06/08/2018 Incisional hernia 09/20/2012 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 INTEST POSTOP NONABSORB 03/11/2006 SCANLON RESEARCH OTHER*[id number] 08/26/2005 HYPERINSULINISM NEC 07/24/2005 Migraine 05/20/2005 Bipolar disorder 05/20/2005 documented as of this encounter (statuses as of 08/22/2023) Resolved Problems Problem Noted Date Diagnosed Date Resolved Date Body mass index (BMI) of 40. 0 to 44.9 in adult 06/18/2021 06/27/2022 Overview: Per Obesity protocol - - Prediabetes 03/19/2021 03/21/2022 Overview: Per Prediabetes protocol Morbid obesity with BMI of 45.0-49.9, adult 08/24/2018 06/21/2021 Overview: Per Obesity protocol #1 - Body mass index (BMI) of 45. 0 to 49.9 in adult 06/22/2018 08/28/2018 Overview: Per Obesity protocol #1 Examination following surgery 11/22/2012 04/09/2023 Neoplasm of uncertain behavior of ovary 10/09/2012 10/09/2012 ABN GLUCOSE-ANTEPARTUM 05/20/200510/09 Morbid obesity, BMI not known 05/20/2005 06/26/2018 documented as of this encounter (statuses as of 08/22/2023) Immunizations Name Administration Dates Next Due COVID-19 mRNA, LNP-s, No Pre serve, 2-Dose Series (Pfizer) 07/21/2021,11/15/2020,10/25/2020 PPD 06/21/2022 Seasonal Influenza, PF, 6 M & above, IM , (FluLaval or Fluzone) 06/04/2023,05/24/2022,05/10/2021,2019,04/16/2019,07/31/2018 TDAP (age 10 and older)(Boostrix) 01/04/2018 Zoster Vaccine Recombinant (Shingrix) 12/11/2022 ,09/11/2022 documented as of this encounter Social History Tobacco Use Types Packs/Day Years Used Date Smoking Tobacco: Never Passive Smoke Exposure: Never Smokeless Tobacco: Never Alcohol Use Standard Drinks/Week Comments Yes 0 (1 standard drink = 0.6 oz pur e alcohol) on occasion PHQ-2 Answer Date Recorded PHQ Adult Total Score 6 07/25/2023 Hunger Vital Sign Answer Date Recorded Within the past 12 months, y ou worried that your food would run out before you got the money to buy more. Sometimes true Within the past 12 months, t he food you bought just didn't last and you didn't have money to get more. Sometimes true Sex and Gender Information Value Date Recorded Sex Assigned at Female 11/27/2021 9:51 PM EDT Gender Identity Female 11/27/2021 9:51 PM EDT Sexual Orientation Straight 12/10/2019 10 :46 AM EDT Job Start Date Occupation Industry Not on file Not on file Not on file documented as of this encounter Functional Status Functional Status Response Date of Assess ment Are you deaf or do you have serious difficulty h earing? No 12/01/2013 Are you blind or do you have serious difficulty seeing, even when wearing glasses? No 12/01/2013 Do you have serious difficul ty walking or climbing stairs? (5 years old or older) No 12/01/2013 Do you have difficulty dress ing or bathing? (5 years old or older) No 12/01/2013 Because of a physical, menta l, or emotional condition, do you have difficulty doing errands alone such as visiting a doctor s office or shopping? (15 years old or older) No 12/02/19 14 Cognitive Status Response Date of Assessm ent Because of a physical, menta l, or emotional condition, do you have serious difficulty concentrating, remembering, or making decisions? (5 years old or older) No 12/01/2013 documented as of this encounter Miscellaneous Notes * Telephone Encounter - Livia Alvarenga MED ASSIST - 08/22/2023 9:32 AM EST Letter of clearance sent to [facility] documented in this encounter Plan of Treatment Upcoming Encounters Date Type Department Care Team (Late st Contact Info) Description 09/10/2023 1:30 PM EST Telemedicine Psychiatry, [facility] [address] [place] [address] Teri Echevarria MD [address] [place] [address] 09/13/2023 1:00 PM EST Nurse Only Ancillary [facility] [address] [phone] [place], Nurse [facility] [address] [address] 10/01/2023 8:00 AM EST Laboratory Laboratory Patient Service [address] [phone] [facility] [address] [place] [address] 10/07/2023 4:00 PM EST Office Visit Neurology [facility] [address] [place] [address] Sharyn Hernández PA-C [address] [place] [address] 10/08/2023 11:40 AM EST Office Visit [address] [phone] Jay Quiñonez PA-C [address] [place] [address] 10/13/2023 11:00 AM EST Nurse Only Ancillary [address] [phone] [place], Nurse [address] [phone] 10/13/2023 2:20 PM EST Office Visit Nutrition & Weight Management, [facility] [address] [facility] [place] [address] Fara Erazo PA-C [facility] [place] [address] 10/27/2023 8:00 AM EDT Office Visit [address] [address] Aston Hanson, DO [address], [place] [phone] Scheduled Procedures Name Priority Associated Diagnoses Date/Ti me COLONOSCOPY FLEXIBLE PROXIMAL DIAGNOSTIC Recall Screen for colon cancer Health Maintenance Due Date Last Done Comments Hepatitis B (1 of 3 - 3-dose series) 1972 HIV Screening 1987 Cologuard 2017 Fecal Occult Blood Test 2017 Sigmoidoscopy 2017 COVID-19 Vaccine ( season) 2023 07/21/2021, 11/15/2020, 10/25/2020 GFR 03/08/2024 03/08/2023, 12/09, 08/23/2022, Additional history exists HbA1c 03/08/2024 03/08/2023, 12/09, 08/23/2022, Additional history exists Mammogram 05/23/2024 05/23/2023, 09/0 01/2022, 03/12/2021, Additional history exists Depression Screening 07/25/2024 07/25/2023 Albumin/Creatinine Ratio 03/08/2026 03/08/2023, 02/08 Lipid Panel 12/27/2027 12/26/2022, 08/11, 03/04/2022, Additional history exists DTaP,Tdap,and Td Vaccines (8 - Td or Tdap) 01/05/2028 01/04/2018, 10/10/1986, 03/28/1978, Additional history exists Colonoscopy 05/28/2033 05/28/2023 Colorectal Cancer Screening 05/28/2033 Zoster Vaccines Completed 12/11/2022, 09/11/2022 Influenza Vaccine (FLU shot) Completed , 05/24/2022, 05/10/2021, Additional history exists GARDASIL-HPV IMMUNIZATION SERIES Aged Out No longer eligible based on patient's age to complete this topic MENINGOCOCCAL (MENACTRA/MENVEO) Aged Out No longer eligible based on patient's age to complete this topic Pneumococcal Vaccine: Pediatrics (0 to 5 Years) and At-Risk Patients (6 to 64 Years) Aged Out No longer eligible based on patient's age to complete this topic documented as of this encounter Medical Devices Implanted Type Area Performance Improvement Analyst Device Identifier Shelf Expiration Date Model / Serial / Lot Mesh Prolit Hernia 30.5x45.7cm - [id number] [place]16[place] [facility] [place] Abdomen [employer] 08/18/2017 [id number] / / [id number] documented as of this encounter Advance Directives Latest Code Status on File Code Status Date Activated Date Inactivated Comments Full Code 01/22/2021 9:57 AM 01/22/2021 3:00 PM This order reflects the patients wishes and were consensually agreed upon. Question Answer Comments Discussion of Advance Directives occurred with: Not Discussed Does the patient have a Living Will? No Does the patient have Health Care Power of Special Tester? No Code Status History Code Status Date Activated Date Inactivated Comments Full Code 11/13/2020 1:39 PM 11/14/2020 11:43 AM This o rder reflects the patients wishes and were consensually agreed upon. Question Answer Comments Discussion of Advance Directives occurred with: Not Discussed Does the patient have a Living Will? No Does the patient have Health Care Power of Special Tester? No Full Code 10/16/2012 2:36 PM 10/26/2012 4:36 PM This o rder reflects the patients wishes and were consensually agreed upon. Question Answer Comments Discussion of Advance Directives occurred with: Not Discussed Does the patient have a Living Will? No Does the patient have Health Care Power of Special Tester? No Full Code 05/14/2012 6:44 PM 05/17/2012 10:49 PM This order reflects the patients wishes and were consensually agreed upon. Question Answer Comments Discussion of Advance Directives occurred with: Patient Does the patient have a Living Will? No Does the patient have Health Care Power of Special Tester? No Full Code 05/14/2012 3:54 PM 05/14/2012 4:25 PM This order reflects the patients wishes and were consensually agreed upon. Question Answer Comments Discussion of Advance Directives occurred with: Patient Does the patient have a Living Will? No Does the patient have Health Care Power of Special Tester? No Care Teams Credit Assistant Relationship Specialty Start Date End Date Jay Quiñonez PA-C [address] [place] [address] [place] [address] PCP - General Physician Teacher Vocal 03/04/22 documented as of this encounter
[2023-09-01] MEDS: ACETAMINOPHEN 500 MG TAB PO SCH ×4 (07:52→21:30)
[2023-09-01] MEDS: LR 500ML BOLUS, THEN 15ML/HR IV SCH (07:52)
[2023-09-01] MEDS ORDERED: PROPOFOL IV EMULSION 10 MG/ML 20 ML VIAL IV ONE ×2 (07:58→09:55)
[2023-09-01] MEDS ORDERED: MIDAZOLAM HCL 1 MG/ML 2ML VIAL ONE (07:58)
[2023-09-01] MEDS ORDERED: fentaNYL citrate PF 100 MCG/2 ML VIAL ONE ×4 (07:58→11:07)
[2023-09-01] MEDS ORDERED: ORTHO JOINT ANESTHETIC ONE (08:40)
--- NOTE | 2023-09-01 08:41 | History & Physical Bridge Note ---
Date of Service September 01, 2023 History & Physical Bridge Note I have examined the patient, reviewed the History & Physical and in the interval since the performance of the History & Physical I have noted the following changes of clinical significance: no changes noted
[2023-09-01] MEDS ORDERED: LIDOCAINE 2% 2 ML VIAL/AMP(20MG/ML) INFIL ONE (09:56)
[2023-09-01] MEDS ORDERED: ONDANSETRON INJ 2 MG/ML 2 ML VIAL ONE (09:56)
[2023-09-01] MEDS ORDERED: ROCURONIUM BROMIDE 10 MG/ML 5 ML VIAL IV ONE ×2 (09:56)
[2023-09-01] MEDS ORDERED: SUGAMMADEX SODIUM 200 MG/2 ML VIAL IV ONE (10:17)
[2023-09-01] MEDS ORDERED: GLYCOPYRROLATE 0.2 MG/ML VIAL ONE (10:18)
[2023-09-01] MEDS ORDERED: GLUCOSE 40% GEL 15 GM TUBE PO PRN (10:59)
[2023-09-01] MEDS ORDERED: CARBOHYDRATES FOR HYPOGLYCEMIA PO PRN (10:59)
[2023-09-01] MEDS ORDERED: GLUCOSE 10 TAB/TUBE PO PRN (10:59)
[2023-09-01] MEDS ORDERED: GLUCAGON FOR INJ 1 MG VIAL SQ PRN (10:59)
[2023-09-01] MEDS ORDERED: DEXTROSE 50% 50 ML SYRINGE IV PRN (10:59)
--- NOTE | 2023-09-01 11:06 | Operative Report ---
PG Post Operative Report Pre & Post Diagnosis Operation Date: 09/01/23 08:50 Pre-Op Diagnosis: Right Knee Advanced Degenerative Joint Disease Post-Op Diagnosis: Right Knee Advanced Degenerative Joint Disease I identified the patient and participated in the time-out.: Yes Procedure Operation Date: 09/01/23 08:50 Actual Procedures p Right Total Knee Arthroplasty(Right) - Edwin Solano MD Surgeon Edwin Solano MD Congressional Aide Vaughn Salinas PA-C Estimated Blood Loss 50 Findings Consistent with Post-Op Diagnosis Operative findings revealed advanced right knee tricompartment DJD. She had extensive diffuse grade 4 changes in the medial compartment and more focal grade 4 changes in the lateral and patellofemoral compartments. She had a moderate- sized joint effusion. Specimens Right knee sent for pathology Anesthesia Type General Regional Complications none Disposition Accompanied Patient To Recovery: No Indications Patient is a 53-year-old female said a long history of bilateral knee pain discomfort describes gotten worse over the past several years. She has been through extensive conservative treatment which became less successful over time. She had her left knee replaced a little over a year ago and done well from this. She continues to be limited by right knee pain discomfort. She elected proceed with total knee arthroplasty. Description of Procedure Operative implants consist of: 1. Biomet Vanguard size 65 right posterior stabilized femoral component. 2. Biomet size 67 tibial tray. 3. 10 mm post stabilized polyethylene insert. 4. 28 x 8 all poly patella. The patient was taken the operating, identified, placed on the operating table in the supine position. All contact areas were appropriately padded. IV antibiotics tried by anesthesia team. An abductor canal block had provided in the holding area. A general anesthetic was implemented. A Mccoy catheter was placed in sterile fashion. Right Tetrick was then placed in the right lower extremities then prepped draped in usual sterile fashion. The right leg was elevated exsanguinated with use of an Esmarch and the tourniquet was placed at 300 mmHg. An anterior approach to the right knee was then performed to longitudinal incision centered over the patella. Sharp dissection carried through subcutaneous tissue down the extensor mechanism. A medial parapatellar arthrotomy incision was made. Some subperiosteal dissection was carried out medially. The fat pad was dissected from Neath patella tendon. Lateral patellofemoral ligament was released. Patella subluxated laterally knee was flexed. The osteophytes taken off distal femur. The ACL and PCL were then released from distal femur the tibia subluxated anteriorly. The external tibial alignment jig was then placed in the interface the tibia and adjusted 12 mm medially. Proximal tibial cut was made remove about 2 to 3 mm of bone from the medial side. Some osteophytes taken out medially. Tibia was sized to a size 67. Attention drawn the femur. The distal femur examined the sharp drop with intramedullary canal was suction. A right 5 degree valgus cutting guide was placed. Distal femoral cutting block was pinned in place. Distal femoral cut was made to take an additional 3 mm of bone off distal femur. The femur was then sized to a size 67.5. The AP cutting block was pinned parallel to the epicondylar axis which was 5 degrees of external rotation. Anterior cut, anterior chamfer, posterior cut, posterior chamfer cuts were made. I assessed the cuts at that point and there was still some anterior bony so we elected cut down to a 65 due to the narrow medial and lateral dimensions of the femur. This 65 cutting guide was placed and the cuts were revisited. The 65 box guide was then placed in just slight lateral and the box cut was made. The knee was flexed. The remnants of the medial and lateral menisci were excised. The osteophyte taken off the posterior aspect the femur. A trial femoral component was placed for the tibial tray was pinned Thelma external rotation and the drill and stem punch were used to create defect in proximal tibia for the tibial tray. Knee was then trialed and the 10 mm insert fit most appropriately. Attention drawn the patella. The patella was cleaned of all soft tissues. Patella thickness measured 22 mm in thickness was cut down to 13. Was sized to a size 28 patella. The lug holes were drilled for the 28 patella. The lateral osteophytes removed. Patella button was placed. Knee was taken through range of motion patella tracked nicely with no thumbs test. Attention drawn to placing permanent components. Nupathe all trial components were removed. Bone plug was placed into this femur limit blood loss. Double batch Palacos G cement was mixed. Biomet Vanguard size 65 right Po stabilized femoral component, size 67 tibial tray, 810 mm post stabilized polyethylene insert, and a 28 x 8 all poly patella then cemented in place. Knee was brought out into full extension till cement hardened. Final cement check was then performed. The pericapsular tissues were injected with total of 100 cc of combination of 2050 cc of normal saline along with 50 cc of half percent ropivacaine with epinephrine and Toradol. The patient did receive 1 g tranexamic acid. The treatment was then let down for final tourniquet time of 53 minutes. Hemostasis assured use electrocautery. Extensor Meclomen closed with combination 1 PDS suture and then 1 Vicryl suture in [id number] fashion. Extensor Meclomen checked found to be intact. The subcutaneous tissue was then closed with 2 Dexon suture in buried interrupted fashion skin was closed skin lorrie. Leg was then cleaned and dried and sterile dressing was Xeroform, 4 fours, sterile cast padding, Tato bandage were applied. Patient then transferred to the recovery room in stable condition. Patient tolerated procedure well and there were no complications. Vaughn Salinas, my physician assistant manager pt, was present for the entire procedure. His assistance was essential and required for appropriate patient positioning, prepping and draping, surgical exposure, performing the technical details of the operation, placement the implants, closure of the wound, and placement of the sterile bandage. I attest to the content of the Intraoperative Record and any orders documented therein. Any exceptions are noted below.
[2023-09-01] MEDS ORDERED: ePHEDrine sulfate 50 MG/ML AMP IV PRN (11:07)
[2023-09-01] MEDS ORDERED: ATROPINE SULFATE 0.1 MG/ML 10ML SYR IV PRN (11:07)
[2023-09-01] MEDS ORDERED: ONDANSETRON INJ 2 MG/ML 2 ML VIAL IV PRN (11:07)
[2023-09-01] MEDS: fentaNYL citrate PF 100 MCG/2 ML VIAL IV PRN ×2 (11:15→11:27)
[2023-09-01] MEDS: HYDROmorphone INJ 2 MG/ML SYR/VIAL IV PRN ×2 (11:44→11:50)
--- NOTE | 2023-09-01 12:00 | Anesthesiology Progress Note ---
Date of Service September 01, 2023 Anesthesia Post Procedure Vital Signs Vital Signs: Temp Pulse Pulse Resp BP Pulse Ox O2 Del Method 09/01/23 11:56 37.5 C 86 17 169/95 H 92 Room Air 09/01/23 11:46 85 23 184/95 H 93 Room Air 09/01/23 11:36 87 14 158/114 H 92 Room Air 09/01/23 11:26 90 23 152/74 H 98 Oxymask 09/01/23 11:16 92 H 20 155/85 H 99 Oxymask 09/01/23 11:06 99 H 16 147/80 H 98 Oxymask 09/01/23 10:58 37.4 C 106 H 16 148/86 H 96 Oxymask 09/01/23 07:28 36.8 C 61 20 161/85 H 97 Room Air O2 Flow Rate 09/01/23 11:56 0 09/01/23 11:46 0 09/01/23 11:36 0 09/01/23 11:26 4 09/01/23 11:16 6 09/01/23 11:06 6 09/01/23 10:58 6 09/01/23 07:28 Pain Intensity Right Knee: Pain Intensity: 5 Transfer of Care Handoff Completed per policy Notes Mental Status: alert / awake / arousable and participated in evaluation Patient Amnestic to Procedure: Yes Nausea / Vomiting: adequately controlled Pain: adequately controlled Airway Patency, RR, SpO2: stable & adequate BP & HR: stable & adequate Hydration State: stable & adequate Anesthetic Complications: no major complications apparent and Pt Satisfied with anesthetic care
--- NOTE | 2023-09-01 12:25 | XRay Report ---
XR knee RT 1 or 2V routine CLINICAL HISTORY: Postoperative evaluation. COMPARISON: Right knee radiographs June 26, 2023. FINDINGS: Alignment of the total right knee arthroplasty is anatomic. There is no periprosthetic fra cture or unexpected radiopaque foreign body. There are skin lorrie. IMPRESSION: Expected findings following total right knee arthroplasty. ACT 112: Negative or not required by law. Electronically signed by: Andrés Benedict M.D. 09/01/2023 12:24 PM
[2023-09-01] MEDS ORDERED: ALUMINUM/MAGNESIUM SUSP 30 ML UDC PO PRN (12:29)
[2023-09-01] MEDS ORDERED: NALOXONE HCL 0.4 MG/1 ML VIAL/CARP IV PRN (12:29)
[2023-09-01] MEDS ORDERED: PHARMACY GLYCEMIC MGMT CONSULT PRN (12:29)
[2023-09-01] MEDS ORDERED: MAGNESIUM HYDROXIDE SUSP 30 ML UDC PO PRN (12:29)
[2023-09-01] MEDS ORDERED: bisacodyL 10 MG SUPP PR PRN (12:29)
[2023-09-01] MEDS ORDERED: METOCLOPRAMIDE HCL INJ 5 MG/ML 2 ML VIAL IV PRN (12:29)
[2023-09-01] MEDS ORDERED: SODIUM CHLORIDE 0.9% 1,000 ML IV SCH (12:29)
[2023-09-01] MEDS ORDERED: diphenhydrAMINE Capsule 25 MG CAP PO PRN (12:29)
[2023-09-01] MEDS: KETOROLAC 30 MG/ML VIAL IV SCH ×2 (12:49→18:19)
[2023-09-01] MEDS: HYDROmorphone INJ 0.5 MG/0.5 ML SYR IV PRN (13:14)
[2023-09-01] MEDS ORDERED: INSULIN ASPART PER UNIT CHARGE SC SCH (13:30)
--- NOTE | 2023-09-01 13:53 | Pharmacy Report ---
Pharmacy Glycemic Short Note 2 - Date of Service September 01, 2023 - Glycemic Short BSG Results (Last 24 hours): 09/01/23 12:48 POC Glucose 154 H OUTPATIENT ANTIDIABETIC REGIMEN: * metformin 500mg PO BID * HbA1c pending (09/02/23) ASSESSMENT: * Crystal is a 53 YOF admitted status post right total knee arthroplasty. Pharmacy has been consulted to assist with glycemic management while inpatient. * Does not appear to have a pre-operative BSG, however on previous admission for left TKA, she required very little insulin. Will hold off on basal insulin at this time. * She received dexamethasone 10 mg IV preop this AM * Lunchtime BSG acceptable, will begin Novolog at a weight based stress of 1 to cover. PLAN FOR INPATIENT GLYCEMIC CONTROL: * Hold outpatient oral diabetes medications * Basal insulin * Hold * Bolus insulin * NovoLog per scale ACHS or Q6hrs while NPO * Goal Range: Low 110 mg/dL - High 140 mg/dL * Correction Factor: 30 mg/dL/unit * Nutritional / Prandial insulin per carb ratio of 1 unit per 11 grams CHO consumed
--- NOTE | 2023-09-01 14:42 | Hospitalist Consultation ---
Date of Consultation September 01, 2023 Assessment & Plan (1) Right knee DJD: This is a 53 y/o female with a history of pseudotumor cerebri, bipolar, BOB, HTN, prediabetes, migraines, and other history as outlined below who underwent right TKA today by Dr. Solano and for whom we have been consulted to assist with post-operative medical management. Pt has a history of post-operative hyponatremia after her left TKR but has not had issues with sodium since then. She is POD #0 - Right TKR - Pain control, activity, DVT prophylaxis per primary team - Check stat labs for baseline electrolytes - if evidence of hyponatremia, will check urine/serum osmolality, urine sodium, and trend BMP - Stop IVF since pt tolerating oral intake - avoid hypervolemia - Hold HCTZ due to potential to cause hyponatremia - Continue acetazolamide and carbamazepine for pseudotumor cerebri and bipolar (chronic, stable) - Medication reconciliation reviewed and updated based on review of outpatient records including review of last psychiatry note - Encourage incentive spirometry (2) Hyponatremia: See plan for #1 (3) Prediabetes: Holding Metformin while admitted - pt reports that she is on this for weight loss. Last A1c on 03/08/23 was 5.8 Hold sliding scale insulin for now since pt is not diabetic - continue Accuchecks to trend blood sugar and re-evaluate tomorrow A1c in AM (4) Pseudotumor cerebri: Chronic, stable Continue acetazolamide (5) Hypertension: Holding HCTZ, continue metoprolol (6) Bipolar disorder: Continue outpatient regiment - last psychiatry note reviewed to ensure accuracy of med doses Plan Pt seen and reviewed with collaborating physician, Dr. Petersen. Plan of care discussed and as outlined. Thank you for this consultation. We will continue to follow this patient with you. [facility] via [employer]. Please don't hesitate to reach out with questions. Jessica Zamora PA-C Supervising Physician Co-Signing Physician Notes Patient seen and examined Reports mild right knee surgical site pain Denied any other complaints at this time Clean dressing over surgical site Check BMP stat Reported history of hyponatremia after left knee replacement in 2021 Take diamox for Pseudotumor cerebri. Will continue this for now Hold home HCTZ, reassess tomorrow Monitor Na closely Reports she takes metformin for weight loss, not DM She is worried about insulin sliding scale ordered Review of HbA1c on EPIC noted patient had normal HbA1c. Last one in 02/2023 was slightly elevated at 5.8. Hence, possible prediabetes Check HbA1c in AM lab Hold sliding scale insulin for now. Continue accucheck ac and HS. May resume sliding scale insulin depending on glucose trend. Patient's RN Espinoza notified Pain control Activity and DVT ppx per Primary Surgical team I spent a total of 50 minutes coordinating, documenting and providing care for this patient excluding time spent in performance of separately billed services History of Present Illness Reason for Consultation: History of post-op hyponatremia/medical management Requesting Physician: Dr. Edwin Solano Attending Physician: Edwin Solano MD History of Present Illness This is a 53 y/o female with a history of pseudotumor cerebri, bipolar, BOB, HTN, prediabetes, migraines, and other history as outlined below who underwent right TKA today by Dr. Solano and for whom we have been consulted to assist with post-operative medical management. Pt has a history of post-operative hyponatremia after her knee replacement in 2021 - thought to be multifactorial but responded to hypertonic saline and fluid restriction. She reports the fluid restriction has been subsequently discontinued, and she has had no issues with her sodium since then. Currently, she is seen post-operatively and overall feeling well. She has some mild surgical site pain of the right knee but overall feels like her pain is controlled. She reports that her stomach feels mildly unsettled with decreased appetite but she was able to eat about half of her lunch. No overt nausea or vomiting. Tolerating liquids without issue. Denies chest pain, palpitations, dyspnea, NUÑEZ, dizziness. Allergies Allergy/AdvReac Type Severity Reaction Status Date / Time Sulfa (Sulfonamide Allergy Hives Verified 09/01/23 07:20 Antibiotics) Home Medications Medication Instructions Recorded Confirmed Type Ca 600 mg-D3 20 mcg-mag oxide 50 1 tab PO QAM 06/13/18 09/01/23 History pt-Mz-nqsmau-manganese-boron tablet (Calcium 600-D3 Plus (mag-zinc)) magnesium oxide 400 mg (241.3 mg 400 mg PO BID 06/13/18 09/01/23 History magnesium) tablet omeprazole 40 mg capsule,delayed 40 mg PO QAM 06/13/18 09/01/23 History release riboflavin (vitamin B2) 100 mg 200 mg PO BID 06/13/18 09/01/23 History tablet (Vitamin B-2) multivitamin-ferrous 1 tab PO QAM 11/19/18 09/01/23 History fumarate-folic acid 18 mg-400 mcg tablet (Centrum Complete) duloxetine 60 mg capsule,delayed 60 mg PO QAM #1 cap 11/23/18 09/01/23 Rx release duloxetine 30 mg capsule,delayed 30 mg PO QAM 08/02/19 09/01/23 History release (Cymbalta) iron 18 mg tablet 18 mg PO QPM 08/02/19 09/01/23 History losartan 100 mg tablet 100 mg PO QAM 08/02/19 09/01/23 History cholecalciferol (vitamin D3) 50 2,000 unit PO QPM 06/21/20 09/01/23 History mcg (2,000 unit) capsule (Vitamin D3) metformin 500 mg tablet 500 mg PO BID 06/23/20 09/01/23 History carbamazepine 200 mg tablet 900 mg (4.5 x 200 mg) PO QPM #1 tab 02/17/22 09/01/23 Rx Wheeled Walker #1 ea 06/25/22 06/25/22 Rx acetaminophen 500 mg capsule 1,000 mg (2 x 500 mg) PO TID Pain 07/02/22 09/01/23 Rx 30 days #180 caps atorvastatin 20 mg tablet 20 mg PO HS 02/10/23 09/01/23 History hydrochlorothiazide 25 mg tablet 25 mg PO QAM 02/10/23 09/01/23 History hydroxyzine HCl 50 mg tablet 75 mg PO HS 02/10/23 09/01/23 History acetazolamide 500 mg 500 mg PO BID 05/21/23 09/01/23 History capsule,extended release amoxicillin 500 mg tablet 2,000 mg PO UD PRN pre dental 05/21/23 09/01/23 History buspirone 5 mg tablet 10 mg PO BID 05/21/23 09/01/23 History cyanocobalamin (vitamin B-12) 1,000 mcg IM UD 05/21/23 09/01/23 History 1,000 mcg/mL injection solution aspirin 81 mg tablet,delayed 81 mg PO BID 45 days #90 tabs 08/30/23 09/01/23 Rx release (Rossy Low Dose Aspirin) cefadroxil 500 mg capsule 500 mg PO BID 7 days #14 caps 08/30/23 09/01/23 Rx ketorolac 10 mg tablet 10 mg PO Q6 pain 5 days #20 tabs 08/30/23 09/01/23 Rx ondansetron 4 mg disintegrating 4 mg PO Q8 PRN nausea #20 tabs 08/30/23 09/01/23 Rx tablet oxycodone 5 mg tablet 5 - 10 mg (1 - 2 x 5 mg) PO Q6 PRN 08/30/23 09/01/23 Rx pain #40 tabs sennosides 8.6 mg tablet (Senokot) 8.6 mg PO BID prevent constipation 08/30/23 09/01/23 Rx 14 days #28 tabs aripiprazole 20 mg tablet 20 mg PO DAILY 09/01/23 09/01/23 History metoprolol succinate 50 mg 100 mg PO DAILY 09/01/23 09/01/23 History tablet,extended release 24 hr Patient History Medical History (Updated 09/01/23 @ 18:15 by Iwona Zamora PA-C) Prediabetes Left knee DJD Right knee DJD Morbid obesity Taking Metformin for weight loss per patient Denies prediabetes/diabetes (A1C 5.5% 06/2022) Bipolar disorder Depression Hearing deficit B/L hearing aids Osteoarthritis Degenerative disc disease lumbar Sleep apnea CPAP (compliant) Pseudotumor cerebri Hypertension Hyperlipidemia Anxiety Surgical History Family history of reaction to anesthesia some other family members: n/v. History of left knee replacement Status post total left knee replacement Left TKA (07/03/22): Grade view 3, MAC#3, ETT 7.5 + PNB at [facility] (postoperative nausea and vomiting) History of lumbar puncture History of myringotomy BMT (multiple) History of bladder surgery Bladder tack H/O vaginal hysterectomy S/P BSO (bilateral salpingo-oophorectomy) History of section x1 History of bilateral tubal ligation S/P epidural steroid injection History of colonoscopy History of esophagogastroduodenoscopy (EGD) History of laparotomy with a large piece of mesh for multiple hernia repairs History of herniorrhaphy multiple History of cholecystectomy History of adenoidectomy History of tonsillectomy H/O gastric bypass Family History Other Diabetes Hypertension Stroke Social History Smoking Status: Never smoker Second Hand Exposure: No; Do You Dip or Chew Tobacco: No; Hx Alcohol Use: No Hx Substance Use: No Preferred Language: Stateless Communication Ability: Effective Visual Impairment: No Limitations Hearing Ability: Normal Microwave Radio Technician Required: No Beliefs That Will Affect Care: None marital status: Current Living Situation: Spouse and Family current occupational status: disabled Feels Safe at Home: Yes Safety Concerns: Feels Safe At This Time Assistive Devices: CPAP, Glasses and Hearing Aid - Bilateral Review of Systems Review of Systems: All systems reviewed & are unremarkable except as noted in HPI & below Constitutional: no fever and no chills Ear, Nose, Mouth, Throat: no nasal congestion and no sore throat Respiratory: no cough and no dyspnea Cardiovascular: no chest pain, no palpitations and no syncope Gastrointestinal: no vomiting and no diarrhea/loose stools Musculoskeletal: as per Subjective / HPI Integumentary: no rash and no yellowing of the skin Neurologic: no seizure-like activity and no syncope Physical Exam Physical Exam: General: awake, alert, NAD HEENT: no scleral icterus Neck: trachea midline Heart: RRR Lungs: CTA bilaterally Abdomen: soft, NT, +BS Extermities: distal pulses intact and equal, no pedal edema Neuro: OX3, drowsy but arousable, moving all extremities Skin: no jaundice Results & Data Results & Data Vital Signs (Past 12 Hours) Vital Signs Temp Pulse Pulse Resp BP Pulse Ox O2 Del Method 09/01/23 12:30 37.1 C 79 16 176/96 H 93 Room Air 09/01/23 12:06 84 13 173/91 H 91 Room Air 09/01/23 11:56 37.5 C 86 17 169/95 H 92 Room Air 09/01/23 11:46 85 23 184/95 H 93 Room Air 09/01/23 11:36 87 14 158/114 H 92 Room Air 09/01/23 11:26 90 23 152/74 H 98 Oxymask 09/01/23 11:16 92 H 20 155/85 H 99 Oxymask 09/01/23 11:06 99 H 16 147/80 H 98 Oxymask 09/01/23 10:58 37.4 C 106 H 16 148/86 H 96 Oxymask 09/01/23 07:28 36.8 C 61 20 161/85 H 97 Room Air O2 Flow Rate 09/01/23 12:30 09/01/23 12:06 0 09/01/23 11:56 0 09/01/23 11:46 0 09/01/23 11:36 0 09/01/23 11:26 4 09/01/23 11:16 6 09/01/23 11:06 6 09/01/23 10:58 6 09/01/23 07:28 Laboratory Results 09/01/23 12:48 POC Glucose 154 H Medications Administered Dexamethasone Sodium Phosphate (DexamethasonePf 10 Mg/Ml Vial) 10 mg IV PREOP CONNIE Stop: 09/01/23 18:00 Last Admin: 09/01/23 07:53 Dose: 10 mg Documented By: BIBIANA Famotidine (Famotidine 20 Mg Tab) 20 mg PO PREOP CONNIE Stop: 09/01/23 18:00 Last Admin: 09/01/23 07:53 Dose: 20 mg Documented By: BIBIANA Fentanyl Citrate (Fentanyl Citrate Pf 100 Mcg/2 Ml Vial) 50 mcg IV Q5M PRN PRN Reason: PACU Use Only-Pain Stop: 09/01/23 19:07 Last Admin: 09/01/23 11:27 Dose: 50 mcg Documented By: Admin: 09/01/23 11:15 Dose: 50 mcg Documented By: CHRISTIANO Hydromorphone HCl (Hydromorphone Inj 2 Mg/Ml Syr/Vial) 0.5 mg IV Q5M PRN PRN Reason: PACU Use Only-Pain Stop: 09/01/23 19:07 Last Admin: 09/01/23 11:50 Dose: 0.5 mg Documented By: Admin: 09/01/23 11:44 Dose: 0.5 mg Documented By: CHRISTIANO Hydromorphone HCl (Hydromorphone Inj 0.5 Mg/0.5 Ml Syr) 0.5 mg IV Q4H PRN PRN Reason: Pain or Pre PT Stop: 09/15/23 12:28 Last Admin: 09/01/23 13:14 Dose: 0.5 mg Documented By: MARYAM Lactated Ringer's (Lr) 1,000 mls @ 15 mls/hr IV .Q24H CONNIE Stop: 10/01/23 05:59 Last Infusion: 09/01/23 09:03 Dose: Infused Documented By: Admin: 09/01/23 07:52 Dose: 15 mls/hr Documented By: BIBIANA Lactated Ringer's (Lr) 1,000 mls @ 60 mls/hr IV .[id number] CONNIE Stop: 09/01/23 22:39 Last Admin: 09/01/23 07:52 Dose: Not Given Documented By: BIBIANA Cefazolin Sodium (Ancef 3000mg) 72.5 mls @ 130 mls/hr IV PREOP [facility]; Protocol Stop: 09/01/23 18:00 Last Admin: 09/01/23 09:06 Dose: 130 mls/hr Documented By: ARUNA Ropivacaine 246 mg/ Ketorolac Tromethamine 30 mg/Epinephrine HCl 0.5 mg/ Sodium Chloride 100.7 mls @ 0 mls/hr INFIL TODAY@0600 [facility]; Protocol Stop: 09/01/23 16:00 Last Admin: 09/01/23 09:38 Dose: 100.7 mls/hr Documented By: ROSY Tranexamic Acid (Tranexamic Acid / 0.7% Nacl) 1,000 mg in 100 mls @ 600 mls/hr IV TODAY@0600 [facility] Stop: 09/01/23 18:00 Last Admin: 09/01/23 10:04 Dose: 600 mls/hr Documented By: DANETTE Sodium Chloride (Nss) 1,000 mls @ 100 mls/hr IV .Q10H [facility] Stop: 09/02/23 06:00 Last Admin: 09/01/23 14:20 Dose: 100 mls/hr Documented By: MARYAM Insulin Aspart (Insulin Aspart Per Unit Charge) 0 units SC ACHS [facility] Stop: 10/01/23 13:29 Last Admin: 09/01/23 14:21 Dose: 2 units Documented By: MARYAM Co-signed By: PEDRO Ketorolac Tromethamine (Ketorolac 30 Mg/Ml Vial) 30 mg IV Q6H [facility] Stop: 09/03/23 07:01 Last Admin: 09/01/23 12:49 Dose: 30 mg Documented By: MARYAM Metoclopramide HCl (Metoclopramide Hcl 10 Mg Tablet) 10 mg PO PREOP CONNIE Stop: 09/01/23 18:00 Last Admin: 09/01/23 07:53 Dose: 10 mg Documented By: BIBIANA Scopolamine (Scopolamine 1 Mg Tdsy) 1 mg TD PREOP CONNIE Stop: 09/01/23 18:00 Last Admin: 09/01/23 07:53 Dose: 1 mg Documented By: BIBIANA Discontinued Medications Miscellaneous (Ortho Joint Anesthetic ) Confirm Administered Dose 1 each .ROUTE .STK-MED ONE Stop: 09/01/23 08:41 Last Admin: 09/01/23 09:38 Dose: Not Given Documented By: RYNE (1) Right knee DJD Osteoarthritis type: unspecified Qualified Code(s): M17.11 - Unilateral primary osteoarthritis, right knee (5) Hypertension Hypertension type: primary hypertension Qualified Code(s): I10 - Essential (primary) hypertension (6) Bipolar disorder Active/Remission status: remission status unspecified Qualified Code(s): F31.9 - Bipolar disorder, unspecified
[2023-09-01] MEDS: oxyCODONE HCL IR 5 MG TAB (IMMEDIATE RELEASE) PO PRN ×2 (14:59→22:18)
[2023-09-01 15:18] LABS: Basophils # (auto) 0.03 K/uL (0.00-0.20); Basophils % (auto) 0.2 %; Hemoglobin 11.9 g/dl (12.0-16.0); Immature Granulocytes # (auto) 0.18 K/uL (0.01-0.20); Immature Granulocytes % (auto) 1.1 %; Lymphocytes # (auto) 0.92 K/uL (1.20-3.40); Lymphocytes % (auto) 5.9 %; Mean Corpuscular Hemoglobin 32.3 pg (25.0-34.0); Mean Corpuscular Volume 92.4 fL (80.0-100.0); Mean Platelet Volume 9.9 fL (9.4-12.4); Monocytes # (auto) 0.63 K/uL (0.11-0.59); Neutrophils # (auto) 13.93 K/uL (1.40-6.50); Neutrophils % (auto) 88.8 %; Platelet Count 192 K/uL (130-400); RDW Coefficient of Variation 11.8 % (11.5-14.5); RDW Standard Deviation 39.8 fL (36.4-46.3); Red Blood Count 3.68 M/uL (4.20-5.40); White Blood Count 15.69 K/ul (4.8-10.8)
[2023-09-01 15:34] LABS: BUN Creatinine Ratio 27.3 (10-20); Calcium 8.3 mg/dl (8.6-10.3); Creatinine Clr Calc Pharmacy 143.8 ml/min; Est GFR (African American) 118.5 ml/min; Est GFR (Non-African American) 102.3 ml/min
[2023-09-01] MEDS: ceFAZolin 2000MG 2,000 MG/15 ML SYR IV SCH (16:48)
[2023-09-01] MEDS: Scopolamine CHECK PATCH PLACEMENT SCH (16:53)
[2023-09-01] MEDS: ASCORBIC ACID 500 MG TAB PO SCH (16:54)
[2023-09-01] MEDS ORDERED: TRANEXAMIC ACID / 0.7% NACL 1,000 MG/100 ML BAG IV SCH (17:00)
[2023-09-01] MEDS: ONDANSETRON INJ 2 MG/ML 2 ML VIAL IV PRN (19:11)
[2023-09-01] MEDS ORDERED: NON-FORMULARY MEDICATION (Riboflavin (Vitamin B2) [Vitamin B-2] 100 mg Tablet) PO SCH (21:00)
[2023-09-01] MEDS ORDERED: SENNA 8.6 MG TAB PO SCH (21:00)
[2023-09-01] MEDS: SENNA 8.6 MG TAB PO SCH (21:30)
[2023-09-01] MEDS: carBAMazepine 200 MG TABLET PO SCH (21:31)
[2023-09-01] MEDS: ATORVASTATIN 20 MG TAB PO SCH (21:32)
[2023-09-01] MEDS: MAGNESIUM OXIDE 400 MG TAB PO SCH (21:32)
[2023-09-01] MEDS: hydrOXYzine HCl 25 MG TAB PO SCH (21:32)
[2023-09-01] MEDS: CHOLECALCIFEROL 1,000 UNITS 25 MCG TAB PO SCH (21:33)
[2023-09-01] MEDS: ASPIRIN 81 MG ECTAB PO SCH (21:33)
[2023-09-01] MEDS: acetaZOLAMIDE 500 MG CAPCR PO SCH (21:34)
[2023-09-01] MEDS: METOPROLOL SUCC 50MG EXT REL TAB PO SCH (21:35)
[2023-09-01] MEDS: busPIRone 5 MG TAB PO SCH (21:36)
[2023-09-01] MEDS: DOCUSATE SODIUM 100 MG CAP PO SCH (21:38)
[2023-09-01 23:16] LABS: BUN Creatinine Ratio 32.3 (10-20); Calcium 8.1 mg/dl (8.6-10.3); Est GFR (African American) 119.1 ml/min; Est GFR (Non-African American) 102.8 ml/min; Potassium 3.9 mmol/L (3.5-5.1)
[2023-09-02] MEDS: Scopolamine CHECK PATCH PLACEMENT SCH ×4 (00:58→23:29)
[2023-09-02] MEDS: ceFAZolin 2000MG 2,000 MG/15 ML SYR IV SCH (00:58)
[2023-09-02] MEDS: KETOROLAC 30 MG/ML VIAL IV SCH ×4 (00:59→18:15)
[2023-09-02] MEDS: LR 500ML BOLUS, THEN 15ML/HR IV SCH (05:54)
[2023-09-02 07:07] LABS: Hematocrit (blood only) 30.2 % (37.0-47.0); Hemoglobin 10.4 g/dl (12.0-16.0); Mean Corpuscular Hemoglobin 31.6 pg (25.0-34.0); Mean Corpuscular Hgb Conc 34.4 g/dL (32.0-36.0); Mean Corpuscular Volume 91.8 fL (80.0-100.0); Mean Platelet Volume 10.1 fL (9.4-12.4); Platelet Count 145 K/uL (130-400); RDW Coefficient of Variation 11.6 % (11.5-14.5); RDW Standard Deviation 39.3 fL (36.4-46.3); Red Blood Count 3.29 M/uL (4.20-5.40)
[2023-09-02 07:20] LABS: BUN Creatinine Ratio 33.9 (10-20); Calcium 8.5 mg/dl (8.6-10.3); Creatinine Clr Calc Pharmacy 169.4 ml/min; Est GFR (African American) 125.1 ml/min; Potassium 3.3 mmol/L (3.5-5.1)
[2023-09-02] MEDS ORDERED: POTASSIUM CHLORIDE CRTAB 20 MEQ TABCR PO STA (07:39)
[2023-09-02] MEDS: oxyCODONE HCL IR 5 MG TAB (IMMEDIATE RELEASE) PO PRN ×2 (07:58→16:45)
[2023-09-02] MEDS: PANTOprazole 40 MG TAB PO SCH (07:59)
[2023-09-02] MEDS: acetaZOLAMIDE 500 MG CAPCR PO SCH ×2 (07:59→20:14)
[2023-09-02] MEDS: ASCORBIC ACID 500 MG TAB PO SCH ×2 (07:59→16:46)
[2023-09-02] MEDS: ACETAMINOPHEN 500 MG TAB PO SCH ×3 (07:59→20:19)
[2023-09-02] MEDS: MULTIVITAMIN TAB PO SCH (07:59)
[2023-09-02] MEDS: CEROVITE ADV FORMULA TAB PO SCH (07:59)
[2023-09-02] MEDS: ARIPiprazole 10 MG TAB PO SCH (08:00)
[2023-09-02] MEDS: MAGNESIUM OXIDE 400 MG TAB PO SCH ×2 (08:00→20:13)
[2023-09-02] MEDS ORDERED: dexAMETHasone 4 MG TAB PO SCH (08:00)
[2023-09-02] MEDS: LOSARTAN POTASSIUM 50 MG TAB PO SCH (08:01)
[2023-09-02] MEDS: busPIRone 5 MG TAB PO SCH ×2 (08:01→20:13)
[2023-09-02] MEDS: DULoxetine HCL 60 MG CAP PO SCH (08:01)
[2023-09-02] MEDS: DULoxetine HCL 30 MG CAP PO SCH (08:01)
[2023-09-02] MEDS: ASPIRIN 81 MG ECTAB PO SCH ×2 (08:01→20:18)
[2023-09-02] MEDS: CALCIUM 600MG + VIT D 400 IU TAB PO SCH (08:01)
[2023-09-02 08:07] LABS: Estimated Average Glucose 120 mg/dl; Hemoglobin A1C 5.8 % (4.5-5.6)
[2023-09-02] MEDS: DOCUSATE SODIUM 100 MG CAP PO SCH ×2 (08:08→20:12)
[2023-09-02] MEDS: ONDANSETRON INJ 2 MG/ML 2 ML VIAL IV PRN ×2 (08:55→16:45)
[2023-09-02] MEDS ORDERED: ARIPiprazole 10 MG TAB PO SCH (09:00)
[2023-09-02] MEDS ORDERED: hydroCHLOROthiazide 25 MG TAB PO SCH (09:00)
--- NOTE | 2023-09-02 10:38 | Orthopedic Progress Note ---
Date of Service September 02, 2023 Assessment & Plan (1) Status post right knee replacement: (2) Hyponatremia: Plan Overall, she is doing quite well today with good pain control to the right knee. She will be seen and evaluated by physical therapy later this morning to work on ambulation and range of motion exercises. She is on aspirin for DVT prophylaxis. She is currently being managed by the hospitalist service on consult for her hyponatremia. Recommendations/implementations are appreciated. She does have a history of hyponatremia postoperatively. She does note a history of a cardiac unit admission due to this issue postoperatively with her left knee. We will hold off on her discharge until medically cleared by the hospitalist service. She will follow-up with Dr. Solano in 2 weeks postdischarge for postoperative care. Will monitor. Subjective . Crystal was seen and evaluated at bedside this morning resting comfortably in no apparent distress. She notes that her pain in her right knee is well- controlled. She has been up and out of bed with no significant issues. She has yet to be seen by physical therapy this morning. She is currently being consulted by the hospitalist service due to her downtrending sodium. She does have a history of downtrending sodium postoperatively. She denies any other concerns today. Review of Systems All systems reviewed & are unremarkable except as noted in HPI & below. Physical Exam . On physical examination of the right knee, her dressings are clean, dry, and intact. Her leg is out in full extension. She has active plantarflexion dorsiflexion to the right ankle. +2 DP and PT pulses. Less than 2-second capillary refill. Normal sensation. Neurovascular intact. Results & Data Results & Data Laboratory Results . Abnormal lab results 09/01/23 09/01/23 09/01/23 Range/Units 12:48 15:03 16:47 WBC 15.69 H (4.8-10.8) K/ul RBC 3.68 L (4.20-5.40) M/uL Hgb 11.9 L (12.0-16.0) g/dl Hct 34.0 L (37.0-47.0) % Neut # (Auto) 13.93 H (1.40-6.50) K/uL Lymph # (Auto) 0.92 L (1.20-3.40) K/uL Dare # (Auto) 0.63 H (0.11-0.59) K/uL Sodium 129 L (136-145) mmol/L Potassium (3.5-5.1) mmol/L Chloride (98-107) mmol/L Creatinine (0.6-1.2) mg/dl BUN/Creatinine Ratio 27.3 H (10-20) Glucose 147 H (70-99(Fasting)) mg/dl POC Glucose 154 H 115 H (70-99) mg/dl Hemoglobin A1c (4.5-5.6) % Osmolality (280-300) mOsm/kg Calcium 8.3 L (8.6-10.3) mg/dl Urine Osmolality (500-800) mOsm/kg 09/01/23 09/01/23 09/01/23 Range/Units 18:40 18:49 20:48 WBC (4.8-10.8) K/ul RBC (4.20-5.40) M/uL Hgb (12.0-16.0) g/dl Hct (37.0-47.0) % Neut # (Auto) (1.40-6.50) K/uL Lymph # (Auto) (1.20-3.40) K/uL Dare # (Auto) (0.11-0.59) K/uL Sodium (136-145) mmol/L Potassium (3.5-5.1) mmol/L Chloride (98-107) mmol/L Creatinine (0.6-1.2) mg/dl BUN/Creatinine Ratio (10-20) Glucose (70-99(Fasting)) mg/dl POC Glucose 141 H (70-99) mg/dl Hemoglobin A1c (4.5-5.6) % Osmolality 273 L (280-300) mOsm/kg Calcium (8.6-10.3) mg/dl Urine Osmolality 877 H (500-800) mOsm/kg 09/01/23 09/02/23 09/02/23 Range/Units 22:37 06:43 07:26 WBC (4.8-10.8) K/ul RBC 3.29 L (4.20-5.40) M/uL Hgb 10.4 L (12.0-16.0) g/dl Hct 30.2 L (37.0-47.0) % Neut # (Auto) (1.40-6.50) K/uL Lymph # (Auto) (1.20-3.40) K/uL Dare # (Auto) (0.11-0.59) K/uL Sodium 128 L 124 L (136-145) mmol/L Potassium 3.3 L (3.5-5.1) mmol/L Chloride 97 L 92 L (98-107) mmol/L Creatinine 0.56 L (0.6-1.2) mg/dl BUN/Creatinine Ratio 32.3 H 33.9 H (10-20) Glucose 128 H 121 H (70-99(Fasting)) mg/dl POC Glucose 129 H (70-99) mg/dl Hemoglobin A1c 5.8 H (4.5-5.6) % Osmolality (280-300) mOsm/kg Calcium 8.1 L 8.5 L (8.6-10.3) mg/dl Urine Osmolality (500-800) mOsm/kg Diagnostic Findings . Postoperative x-rays of the right knee show prosthesis to be in anatomical alignment with no signs of fracture complication or loosening. PG Care Time/CCT Total # of Minutes Spent Total Time Spent with Patient: Total time spent is greater than 50% in coordination of care (as documented) at patient's floor/unit and/or counseling patient: Coding Level of Care Code 69792 Post Operative Follow-Up Diagnoses Status post right knee replacement Z96.651 Hyponatremia E87.1
[2023-09-02] MEDS: HYDROmorphone INJ 0.5 MG/0.5 ML SYR IV PRN (11:37)
--- NOTE | 2023-09-02 11:45 | Nephrology Consultation ---
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 she appears euvolemic to slightly hypervolemic she had borderline low serum sodium even prior to surgery as she was on hydrochlorothiazide and she has history of similar temporary SIADH in 2021 when she had left knee replacement---- given this risk factors it is not surprising she has somewhat worsened hyponatremia. urine Osmo was 877 which is very inappropriately high given serum hyponatremia. recommendation 1. Fluid restriction 1500 mL per day 2 control nausea aggressively 3 Stop HCTZ and would argue should not be used ever again in her case given 2 distinct episodes of severe hyponatremia. she can be on loop diuretics if needed 4 Urea 15 gm bid. 5 Lasix 20 iv q8h x 3 doses.-- this should lower the urine osmolarity sub stantially making the urine dilute and thereby raising serum sodium. 6 BMP twice daily History of Present Illness Reason for Consultation: hyponatremia Attending Physician: Edwin Solano MD History of Present Illness 53-year-old female who had elective right knee replacement surgery done yesterday. She was found to have hyponatremia with a serum sodium of 129 preoperatively in the morning. 2 weeks ago on pre anesthesia labs serum sodium was borderline low at 134. patient does take hydrochlorothiazide which was continued right until the surgery. it is worth noting that even in 2021 when she had the left knee replacement surgery done she had hyponatremia with serum sodium dropping as low as 120. but eventually it did get better and blood work from February 2023 showed a normal sodium consistently up until this pre surgery blood work 2 weeks ago. patient did not have any nausea vomiting diarrhea chest pain or really any other symptoms other than chronic knee pain prior to surgery. however since the surgery patient has had significant nausea and is unable to eat solid food but she is still drinking liquids. hydrochlorothiazide has been stopped just earlier today. no history of alcohol or smoking. She is also getting ketorolac which is an NSAID for pain control. urine osmolarity was done yesterday and was very inappropriately high at 877. patient is urinating but she reports her urine is very dark in color. She is allowed to use the walker to go to bathroom. review of systems----- 12 systems reviewed and negative. Currently she has nausea and some pain Physical Exam Physical Exam: General: awake, alert, NAD. Obesity++ HEENT: mucous membrane is moist neck is supple no JVD Heart: RRR Lungs: CTA bilaterally Abdomen: soft, NT, +BS Extermities: trace pedal edema noted secondary to obesity more in right Neuro: awake alert oriented x3 normal speech, moving all extremities Skin: no rashes noted Allergies Allergy/AdvReac Type Severity Reaction Status Date / Time Sulfa (Sulfonamide Allergy Hives Verified 09/01/23 07:20 Antibiotics) Home Medications Medication Instructions Recorded Confirmed Type Ca 600 mg-D3 20 mcg-mag oxide 50 1 tab PO QAM 06/13/18 09/01/23 History [id number]-manganese-boron tablet (Calcium 600-D3 Plus (mag-zinc)) magnesium oxide 400 mg (241.3 mg 400 mg PO BID 06/13/18 09/01/23 History magnesium) tablet omeprazole 40 mg capsule,delayed 40 mg PO QAM 06/13/18 09/01/23 History release riboflavin (vitamin B2) 100 mg 200 mg PO BID 06/13/18 09/01/23 History tablet (Vitamin B-2) multivitamin-ferrous 1 tab PO QAM 11/19/18 09/01/23 History fumarate-folic acid 18 mg-400 mcg tablet (Centrum Complete) duloxetine 60 mg capsule,delayed 60 mg PO QAM #1 cap 11/23/18 09/01/23 Rx release duloxetine 30 mg capsule,delayed 30 mg PO QAM 08/02/19 09/01/23 History release (Cymbalta) iron 18 mg tablet 18 mg PO QPM 08/02/19 09/01/23 History losartan 100 mg tablet 100 mg PO QAM 08/02/19 09/01/23 History cholecalciferol (vitamin D3) 50 2,000 unit PO QPM 06/21/20 09/01/23 History mcg (2,000 unit) capsule (Vitamin D3) metformin 500 mg tablet 500 mg PO BID 06/23/20 09/01/23 History carbamazepine 200 mg tablet 900 mg (4.5 x 200 mg) PO QPM #1 tab 02/17/22 09/01/23 Rx Wheeled Walker #1 ea 06/25/22 06/25/22 Rx acetaminophen 500 mg capsule 1,000 mg (2 x 500 mg) PO TID Pain 07/02/22 09/01/23 Rx 30 days #180 caps atorvastatin 20 mg tablet 20 mg PO HS 02/10/23 09/01/23 History hydrochlorothiazide 25 mg tablet 25 mg PO QAM 02/10/23 09/01/23 History hydroxyzine HCl 50 mg tablet 75 mg PO HS 02/10/23 09/01/23 History acetazolamide 500 mg 500 mg PO BID 05/21/23 09/01/23 History capsule,extended release amoxicillin 500 mg tablet 2,000 mg PO UD PRN pre dental 05/21/23 09/01/23 History buspirone 5 mg tablet 10 mg PO BID 05/21/23 09/01/23 History cyanocobalamin (vitamin B-12) 1,000 mcg IM UD 05/21/23 09/01/23 History 1,000 mcg/mL injection solution aspirin 81 mg tablet,delayed 81 mg PO BID 45 days #90 tabs 08/30/23 09/01/23 Rx release (Rossy Low Dose Aspirin) cefadroxil 500 mg capsule 500 mg PO BID 7 days #14 caps 08/30/23 09/01/23 Rx ketorolac 10 mg tablet 10 mg PO Q6 pain 5 days #20 tabs 08/30/23 09/01/23 Rx ondansetron 4 mg disintegrating 4 mg PO Q8 PRN nausea #20 tabs 08/30/23 09/01/23 Rx tablet oxycodone 5 mg tablet 5 - 10 mg (1 - 2 x 5 mg) PO Q6 PRN 08/30/23 09/01/23 Rx pain #40 tabs sennosides 8.6 mg tablet (Senokot) 8.6 mg PO BID prevent constipation 08/30/23 09/01/23 Rx 14 days #28 tabs aripiprazole 20 mg tablet 20 mg PO DAILY 09/01/23 09/01/23 History metoprolol succinate 50 mg 100 mg PO DAILY 09/01/23 09/01/23 History tablet,extended release 24 hr Patient History Medical History Prediabetes Left knee DJD Right knee DJD Morbid obesity Taking Metformin for weight loss per patient Denies prediabetes/diabetes (A1C 5.5% 06/2022) Bipolar disorder Depression Hearing deficit B/L hearing aids Osteoarthritis Degenerative disc disease lumbar Sleep apnea CPAP (compliant) Pseudotumor cerebri Hypertension Hyperlipidemia Anxiety Surgical History Family history of reaction to anesthesia some other family members: n/v. History of left knee replacement Status post total left knee replacement Left TKA (07/03/22): Grade view 3, MAC#3, ETT 7.5 + PNB at [facility] (postoperative nausea and vomiting) History of lumbar puncture History of myringotomy BMT (multiple) History of bladder surgery Bladder tack H/O vaginal hysterectomy S/P BSO (bilateral salpingo-oophorectomy) History of section x1 History of bilateral tubal ligation S/P epidural steroid injection History of colonoscopy History of esophagogastroduodenoscopy (EGD) History of laparotomy with a large piece of mesh for multiple hernia repairs History of herniorrhaphy multiple History of cholecystectomy History of adenoidectomy History of tonsillectomy H/O gastric bypass Family History Other Diabetes Hypertension Stroke Social History Smoking Status: Never smoker Second Hand Exposure: No; Do You Dip or Chew Tobacco: No; Hx Alcohol Use: No Hx Substance Use: No Preferred Language: Indonesian Communication Ability: Effective Visual Impairment: No Limitations Hearing Ability: Normal 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
[2023-09-02] MEDS: POTASSIUM CHLORIDE CRTAB 20 MEQ TABCR PO SCH ×2 (12:35→20:12)
[2023-09-02] MEDS: FUROSEMIDE INJ 20 MG/2 ML VIAL IV SCH ×2 (12:35→20:11)
[2023-09-02 13:27] LABS: Calcium 8.5 mg/dl (8.6-10.3); Potassium 3.9 mmol/L (3.5-5.1)
[2023-09-02] MEDS ORDERED: Nursing to Pharmacy Communication SCH (13:30)
[2023-09-02] MEDS: UREA (UREA-NA) 15 GM PACK PO SCH ×2 (13:30→20:10)
[2023-09-02 13:33] LABS: BUN Creatinine Ratio 26.7 (10-20); Creatinine Clr Calc Pharmacy 158.1 ml/min; Est GFR (African American) 122.3 ml/min; Est GFR (Non-African American) 105.5 ml/min
[2023-09-02] MEDS ORDERED: Scopolamine 1 MG TDSY TD SCH (13:45)
--- NOTE | 2023-09-02 14:44 | Hospitalist Progress Note ---
Date of Service September 02, 2023 Assessment & Plan (1) Hyponatremia: Plan: Acute on Chronic Hyponatremia 2nd episode of severe hyponatremia post op on HCTZ Nephrology consulted 134 pre op, 129-->124 this a.m. High urine osm, IV lasix 20mg IV q8, UREA, fluid restriction Recommend to STOP HCTZ at discharge in favor of low dose lasix BMP q12hr, sodium improving this afternoon to 127 Pt is not yet medically stable for d/c Will Re assess in a.m. (2) Right knee DJD: Plan: This is a 53 y/o female with a history of pseudotumor cerebri, bipolar, BOB, HTN, prediabetes, migraines, and other history as outlined below who underwent right TKA today by Dr. Solano and for whom we have been consulted to assist with post-operative medical management. Pt has a history of post-operative hyponatremia after her left TKR but has not had issues with sodium since then. She is POD #1 - Right TKR - Pain control, activity, DVT prophylaxis per primary team - Continue acetazolamide and carbamazepine for pseudotumor cerebri and bipolar (chronic, stable) - Medication reconciliation reviewed and updated based on review of outpatient records including review of last psychiatry note - Encourage incentive spirometry (3) Prediabetes: Plan: Holding Metformin while admitted - pt reports that she is on this for weight loss. A1C 5.8 D/C sliding scale and glycemic consult, not indicated at this time (4) Pseudotumor cerebri: Plan: Chronic, stable Continue acetazolamide (5) Hypertension: Plan: Holding HCTZ, continue metoprolol Would D/C HCTZ at discharge in favor of lasix as needed (6) Bipolar disorder: Plan: Continue outpatient regiment - last psychiatry note reviewed to ensure accuracy of med doses Plan Dispo: per primary Pt was seen and examined in collaboration with Dr. Wilson, please see addendum A total of 56 minutes was spent coordinating, documenting, and providing care for this patient excluding time spent in the performance of separately billed services. This included personally viewing all current laboratories and imaging studies, medication reconciliation, outpatient chart review, and discussion with specialists. Admission and Anticipated Discharge Date Admission Date: September 01, 2023 Supervising Physician Co-Signing Physician Notes Pt seen and examined by me, care coordinated w/ Aline Tony PA-C, pls refer to her note above for further detail. Pt is s/p TKA and hyponatremic, hx of hyponatremia after her previous TKA. Currently laying in bed, in no distress, only complains of nausea, + knee pain. She is awake alert oriented answering appropriately. Heart sounds are regular, lung sounds clear to auscultation. Abdomen soft nontender nondistended, obese. Patient is passing flatus. Moving lower extremities, right lower extremity dressings. Discussed hyponatremia with nephrology. Continue fluid restriction. Started IV Lasix, urea. Stop HCTZ. Patient is nauseous, and therefore her oral intake is poor. This does not help her hyponatremia, and will need to further work on her nausea. Patient reports nausea since having surgery. No history of nausea with anesthesia in the past. MD Steve Subjective Patient was seen and examined in room 378. Follow-up right TKA and acute hyponatremia She complains of nausea specifically after meals. She also complains of increased pain to her right knee. She denies fever, chills, sweats, lightheadedness, dizziness, chest pain, shortness of breath, vomiting or abdominal pain. She is passing flatus. Review of Systems Review of Systems: All systems reviewed & are unremarkable except as noted in HPI & below Physical Exam Physical Exam: Gen: WD/WN, NAD, A&O x3, sitting up in bed HEENT: Normocephalic, atraumatic, conjunctivae moist, sclerae anicteric, mucous membranes moist. Lung: Clear to Auscultation bilaterally, no wheezes/rales/rhonchi Heart: Regular rate, regular rhythm, no murmurs, rubs, or gallops Abdomen: Soft, NT, ND +BS x 4 Extremities: Right lower extremity dressing CDI Skin: Warm, no rash, negative turgor. Results & Data Results & Data Vital Signs (Past 12 Hours) Vital Signs Temp Pulse Resp BP BP Pulse Ox O2 Del Method 09/02/23 11:22 37.4 C 67 18 154/84 H 97 Room Air 09/02/23 07:34 36.7 C 70 18 154/74 H 97 Room Air 09/02/23 03:26 36.8 C 64 20 126/80 96 Room Air Laboratory Results Short CBC 09/01/23 09/02/23 Range/Units 15:03 06:43 WBC 15.69 H 9.90 (4.8-10.8) K/ul Hgb 11.9 L 10.4 L (12.0-16.0) g/dl Hct 34.0 L 30.2 L (37.0-47.0) % Plt Count 192 145 (130-400) K/uL BMP 09/01/23 09/01/23 09/02/23 15:03 22:37 06:43 Sodium 129 L 128 L 124 L Potassium 4.0 3.9 3.3 L Chloride 98 97 L 92 L Carbon Dioxide 21 23 23 BUN 18 21 19 Creatinine 0.66 0.65 0.56 L Glucose 147 H 128 H 121 H Calcium 8.3 L 8.1 L 8.5 L 09/02/23 12:57 Sodium 127 L Potassium 3.9 Chloride 94 L Carbon Dioxide 23 BUN 16 Creatinine 0.60 Glucose 158 H Calcium 8.5 L I have independently reviewed and interpreted patient's labs including CBC, BMP, A1c. Medications Administered Current Inpatient Medications Acetaminophen (Acetaminophen 500 Mg Tab) 1,000 mg PO TID CONNIE Stop: 10/01/23 13:59 Last Admin: 09/02/23 13:30 Dose: 1,000 mg Acetazolamide (Acetazolamide 500 Mg Capcr) 500 mg PO BID CONNIE Stop: 10/01/23 20:59 Last Admin: 09/02/23 07:59 Dose: 500 mg Al Hydrox/Mg Hydrox/Simethicone (Aluminum/Magnesium Susp 30 Ml Udc) 15 ml PO Q4H PRN PRN Reason: Heartburn Stop: 10/01/23 12:28 Aripiprazole (Aripiprazole 10 Mg Tab) 20 mg PO DAILY CONNIE Stop: 10/02/23 08:59 Last Admin: 09/02/23 08:00 Dose: 20 mg Ascorbic Acid (Ascorbic Acid 500 Mg Tab) 500 mg PO BIDM CONNIE Stop: 10/01/23 16:59 Last Admin: 09/02/23 07:59 Dose: 500 mg Aspirin (Aspirin 81 Mg Ectab) 81 mg PO BID CONNIE Stop: 10/01/23 20:59 Last Admin: 09/02/23 08:01 Dose: 81 mg Atorvastatin Calcium (Atorvastatin 20 Mg Tab) 20 mg PO HS CONNIE Stop: 10/01/23 20:59 Last Admin: 09/01/23 21:32 Dose: 20 mg Bisacodyl (Bisacodyl 10 Mg Supp) 10 mg NM DAILY PRN PRN Reason: Constipation Stop: 10/01/23 12:28 Buspirone HCl (Buspirone 5 Mg Tab) 10 mg PO BID CONNIE Stop: 10/01/23 20:59 Last Admin: 09/02/23 08:01 Dose: 10 mg Calcium/Vitamin D (Calcium 600mg + Vit D 400 Iu Tab) 1 tab PO QAM CONNIE Stop: 10/02/23 08:59 Last Admin: 09/02/23 08:01 Dose: 1 tab Carbamazepine (Carbamazepine 200 Mg Tablet) 900 mg PO QPM CONNIE Stop: 10/01/23 20:59 Last Admin: 09/01/23 21:31 Dose: 900 mg Cyanocobalamin (Cyanocobalamin 1000 Mcg/Ml Vial) 1,000 mcg IM Q30D CONNIE Stop: 10/13/23 08:59 Dextrose (Dextrose 50% 50 Ml Syringe) 25 - 50 ml IV UD PRN; Protocol PRN Reason: Hypoglycemia Protocol Stop: 10/01/23 10:58 Diphenhydramine HCl (Diphenhydramine Capsule 25 Mg Cap) 25 mg PO Q8H PRN PRN Reason: Itching Stop: 10/01/23 12:28 Docusate Sodium (Docusate Sodium 100 Mg Cap) 100 mg PO BID [facility] Stop: 10/01/23 20:59 Last Admin: 09/02/23 08:08 Dose: 100 mg Duloxetine HCl (Duloxetine Hcl 30 Mg Cap) 30 mg PO QAM [facility] Stop: 10/02/23 08:59 Last Admin: 09/02/23 08:01 Dose: 30 mg Duloxetine HCl (Duloxetine Hcl 60 Mg Cap) 60 mg PO QAM [facility] Stop: 10/02/23 08:59 Last Admin: 09/02/23 08:01 Dose: 60 mg Furosemide (Furosemide Inj 20 Mg/2 Ml Vial) 20 mg IV [id number] [facility] Stop: 10/02/23 11:59 Last Admin: 09/02/23 12:35 Dose: 20 mg Glucagon (Glucagon For Inj 1 Mg Vial) 1 mg SQ UD PRN; Protocol PRN Reason: Hypoglycemia Protocol Stop: 10/01/23 10:58 Glucose (Glucose 10 Tab/Tube) 4 - 8 tab PO UD PRN; Protocol PRN Reason: Hypoglycemia Treatment Stop: 10/01/23 10:58 Glucose (Glucose 40% Gel 15 Gm Tube) 15 - 30 gm PO UD PRN; Protocol PRN Reason: Hypoglycemia Protocol Stop: 10/01/23 10:58 Hydromorphone HCl (Hydromorphone Inj 0.5 Mg/0.5 Ml Syr) 0.5 mg IV Q4H PRN PRN Reason: Pain or Pre PT Stop: 09/15/23 12:28 Last Admin: 09/02/23 11:37 Dose: 0.5 mg Hydroxyzine HCl (Hydroxyzine Hcl 25 Mg Tab) 75 mg PO HS [facility] Stop: 10/01/23 20:59 Last Admin: 09/01/23 21:32 Dose: 75 mg Lactated Ringer's (Lr) 1,000 mls @ 15 mls/hr IV .Q24H [facility] Stop: 10/01/23 05:59 Last Admin: 09/02/23 05:54 Dose: Not Given Insulin Aspart (Insulin Aspart Per Unit Charge) 0 units SC ACHS [facility] Stop: 10/01/23 13:29 Last Admin: 09/01/23 14:21 Dose: 2 units Ketorolac Tromethamine (Ketorolac 30 Mg/Ml Vial) 30 mg IV Q6H [facility] Stop: 09/03/23 07:01 Last Admin: 09/02/23 13:30 Dose: 30 mg Losartan Potassium (Losartan Potassium 50 Mg Tab) 100 mg PO QAM [facility] Stop: 10/02/23 08:59 Last Admin: 09/02/23 08:01 Dose: 100 mg Magnesium Hydroxide (Magnesium Hydroxide Susp 30 Ml Udc) 30 ml PO Q6H PRN PRN Reason: Constipation Stop: 10/01/23 12:28 Magnesium Oxide (Magnesium Oxide 400 Mg Tab) 400 mg PO BID [facility] Stop: 10/01/23 20:59 Last Admin: 09/02/23 08:00 Dose: 400 mg Metoclopramide HCl (Metoclopramide Hcl Inj 5 Mg/Ml 2 Ml Vial) 10 mg IV Q6H PRN PRN Reason: Nausea And Vomiting Stop: 10/01/23 12:28 Last Admin: 09/02/23 11:43 Dose: 10 mg Metoprolol Succinate (Metoprolol Succ 50mg Ext Rel Tab) 100 mg PO QPM CONNIE Stop: 10/01/23 20:59 Last Admin: 09/01/23 21:35 Dose: 100 mg Miscellaneous (Scopolamine Check Patch Placement) 1 each N/A QS [facility] Stop: 09/04/23 07:59 Last Admin: 09/02/23 08:01 Dose: 1 each Miscellaneous (Scopolamine Remove Transderm Patch) 1 each N/A ONE ONE Stop: 09/04/23 08:01 Miscellaneous (Carbohydrates For Hypoglycemia ) 15 - 30 gm PO UD PRN PRN Reason: Hypoglycemia Protocol Stop: 10/01/23 10:58 Multivitamins (Multivitamin Tab) 1 tab PO QAM [facility] Stop: 10/02/23 08:59 Last Admin: 09/02/23 07:59 Dose: 1 tab Multivitamins/Minerals (Cerovite Adv Formula Tab) 1 tab PO QAM [facility] Stop: 10/02/23 08:59 Last Admin: 09/02/23 07:59 Dose: 1 tab Naloxone HCl (Naloxone Hcl 0.4 Mg/1 Ml Vial/Carp) 0.1 mg IV Q5M PRN PRN Reason: Oversedation/Resp Depression Stop: 10/01/23 12:28 Ondansetron HCl (Ondansetron Inj 2 Mg/Ml 2 Ml Vial) 4 mg IV Q6H PRN PRN Reason: Nausea And Vomiting Stop: 10/01/23 12:28 Last Admin: 09/02/23 08:55 Dose: 4 mg Oxycodone HCl (Oxycodone Hcl Ir 5 Mg Tab (Immediate Release)) 5 - 10 mg PO Q6 PRN PRN Reason: pain Stop: 09/15/23 12:28 Last Admin: 09/02/23 07:58 Dose: 10 mg Pantoprazole Sodium (Pantoprazole 40 Mg Tab) 40 mg PO QAM [facility]; Protocol Stop: 10/02/23 08:59 Last Admin: 09/02/23 07:59 Dose: 40 mg Potassium Chloride (Potassium Chloride Crtab 20 Meq Tabcr) 40 meq PO BID [facility] Stop: 10/02/23 11:59 Last Admin: 09/02/23 12:35 Dose: 40 meq Scopolamine (Scopolamine 1 Mg Tdsy) 1 mg TD PREOP [facility] Stop: 09/02/23 13:46 Last Admin: 09/02/23 14:27 Dose: 1 mg Sennosides (Senna 8.6 Mg Tab) 17.2 mg PO HS CONNIE Stop: 10/01/23 20:59 Last Admin: 09/01/23 21:30 Dose: 17.2 mg Urea (Urea (Urea-Na) 15 Gm Pack) 15 gm PO BID CONNIE Stop: 10/02/23 11:59 Last Admin: 09/02/23 13:30 Dose: 15 gm Vitamin D (Cholecalciferol 1,000 Units 25 Mcg Tab) 2,000 units PO QPM CONNIE Stop: 10/01/23 20:59 Last Admin: 09/01/23 21:33 Dose: 2,000 units (2) Right knee DJD Osteoarthritis type: unspecified Qualified Code(s): M17.11 - Unilateral primary osteoarthritis, right knee (5) Hypertension Hypertension type: primary hypertension Qualified Code(s): I10 - Essential (primary) hypertension (6) Bipolar disorder Active/Remission status: remission status unspecified Qualified Code(s): F31.9 - Bipolar disorder, unspecified
[2023-09-02] MEDS: METOPROLOL SUCC 50MG EXT REL TAB PO SCH (20:12)
[2023-09-02] MEDS: hydrOXYzine HCl 25 MG TAB PO SCH (20:12)
[2023-09-02] MEDS: ATORVASTATIN 20 MG TAB PO SCH (20:13)
[2023-09-02] MEDS: carBAMazepine 200 MG TABLET PO SCH (20:13)
[2023-09-02] MEDS: CHOLECALCIFEROL 1,000 UNITS 25 MCG TAB PO SCH (20:20)
[2023-09-02] MEDS: SENNA 8.6 MG TAB PO SCH (20:22)
[2023-09-03] MEDS: KETOROLAC 30 MG/ML VIAL IV SCH ×2 (00:37→06:05)
[2023-09-03 01:11] LABS: BUN Creatinine Ratio 56.9 (10-20); Calcium 8.5 mg/dl (8.6-10.3); Creatinine Clr Calc Pharmacy 163.6 ml/min; Est GFR (African American) 123.7 ml/min; Est GFR (Non-African American) 106.7 ml/min; Potassium 3.9 mmol/L (3.5-5.1)
[2023-09-03] MEDS: oxyCODONE HCL IR 5 MG TAB (IMMEDIATE RELEASE) PO PRN (05:09)
[2023-09-03] MEDS: ASCORBIC ACID 500 MG TAB PO SCH (07:50)
[2023-09-03] MEDS: Scopolamine CHECK PATCH PLACEMENT SCH (07:52)
[2023-09-03 08:11] LABS: Calcium 8.8 mg/dl (8.6-10.3); Magnesium 2.3 mg/dl (1.7-2.4); Potassium 4.2 mmol/L (3.5-5.1)
[2023-09-03 08:17] LABS: BUN Creatinine Ratio 55.8 (10-20); Creatinine Clr Calc Pharmacy 182.5 ml/min; Est GFR (African American) 128.2 ml/min; Est GFR (Non-African American) 110.6 ml/min; Phosphorus 3.2 mg/dl (2.5-4.9)
[2023-09-03] MEDS: PANTOprazole 40 MG TAB PO SCH (08:30)
[2023-09-03] MEDS: ACETAMINOPHEN 500 MG TAB PO SCH (08:30)
[2023-09-03] MEDS: busPIRone 5 MG TAB PO SCH (08:30)
[2023-09-03] MEDS: POTASSIUM CHLORIDE CRTAB 20 MEQ TABCR PO SCH (08:31)
[2023-09-03] MEDS: CALCIUM 600MG + VIT D 400 IU TAB PO SCH (08:31)
[2023-09-03] MEDS: DULoxetine HCL 30 MG CAP PO SCH (08:31)
[2023-09-03] MEDS: DOCUSATE SODIUM 100 MG CAP PO SCH (08:31)
[2023-09-03] MEDS: acetaZOLAMIDE 500 MG CAPCR PO SCH (08:32)
[2023-09-03] MEDS: ARIPiprazole 10 MG TAB PO SCH (08:32)
[2023-09-03] MEDS: ASPIRIN 81 MG ECTAB PO SCH (08:32)
[2023-09-03] MEDS: MULTIVITAMIN TAB PO SCH (08:32)
[2023-09-03] MEDS: LOSARTAN POTASSIUM 50 MG TAB PO SCH (08:32)
[2023-09-03] MEDS: UREA (UREA-NA) 15 GM PACK PO SCH (08:33)
[2023-09-03] MEDS: DULoxetine HCL 60 MG CAP PO SCH (08:33)
[2023-09-03] MEDS: MAGNESIUM OXIDE 400 MG TAB PO SCH (08:33)
[2023-09-03] MEDS: CEROVITE ADV FORMULA TAB PO SCH (08:33)
[2023-09-03] MEDS: FUROSEMIDE INJ 20 MG/2 ML VIAL IV SCH (08:38)
--- NOTE | 2023-09-03 11:26 | Hospitalist Progress Note ---
Date of Service September 03, 2023 Assessment & Plan (1) Hyponatremia: Plan: Acute on Chronic Hyponatremia 2nd episode of severe hyponatremia post op on HCTZ Nephrology consulted 134 pre op, 129-->124 High urine osm, IV lasix 20mg IV q8, UREA, fluid restriction @ 1200ml Recommend to STOP HCTZ at discharge in favor of low dose lasix BMP q12hr Sodium has significantly improved and is back to preop level of 134 D/C HCTZ Start Lasix 20mg po twice daily along with potassium chloride 20meq po twice daily Pt will get BMP on Friday and will follow up with Dr. Villeda in Clinic- he is arrange this - I discussed this with DR. Villeda Continue FR 1500ml We will arrange follow-up with patient's PCP. Pt to be discharged today (2) Right knee DJD: Plan: This is a 53 y/o female with a history of pseudotumor cerebri, bipolar, BOB, HTN, prediabetes, migraines, and other history as outlined below who underwent right TKA today by Dr. Solano and for whom we have been consulted to assist with post-operative medical management. Pt has a history of post-operative hyponatremia after her left TKR but has not had issues with sodium since then. She is POD #2 - Right TKR - Pain control, activity, DVT prophylaxis per primary team - Continue acetazolamide and carbamazepine for pseudotumor cerebri and bipolar (chronic, stable) - Medication reconciliation reviewed and updated based on review of outpatient records including review of last psychiatry note - Encourage incentive spirometry (3) Prediabetes: Plan: Holding Metformin while admitted - pt reports that she is on this for weight loss. A1C 5.8 D/C sliding scale and glycemic consult, not indicated at this time (4) Pseudotumor cerebri: Plan: Chronic, stable Continue acetazolamide (5) Hypertension: Plan: Holding HCTZ, continue metoprolol Would D/C HCTZ at discharge in favor of lasix (6) Bipolar disorder: Plan: Continue outpatient regiment - last psychiatry note reviewed to ensure accuracy of med doses Plan Dispo: per primary Pt was seen and examined in collaboration with Dr. Guevara, please see addendum A total of 56 minutes was spent coordinating, documenting, and providing care for this patient excluding time spent in the performance of separately billed services. This included personally viewing all current laboratories and imaging studies, medication reconciliation, outpatient chart review, and discussion with specialists. Admission and Anticipated Discharge Date Admission Date: September 01, 2023 Subjective Patient was seen and examined in room 378. Follow-up right TKA and acute hyponatremia Her nausea is significantly improved. She is continuing to have right knee pain and states that this is different than her last knee replacement. She is tolerating diet. She denies fever, chills, sweats, chest pain, shortness breath, nausea, vomiting or abdominal pain. She is passing flatus but no bowel movement yet. Review of Systems Review of Systems: All systems reviewed & are unremarkable except as noted in HPI & below Physical Exam Physical Exam: Gen: WD/WN, NAD, A&O x3, sitting up in bed HEENT: Normocephalic, atraumatic, conjunctivae moist, sclerae anicteric, mucous membranes moist. Lung: Clear to Auscultation bilaterally, no wheezes/rales/rhonchi Heart: Regular rate, regular rhythm, no murmurs, rubs, or gallops Abdomen: Soft, NT, ND +BS x 4 Extremities: Right lower extremity dressing CDI Skin: Warm, no rash, negative turgor. Results & Data Results & Data Vital Signs (Past 12 Hours) Vital Signs Temp Pulse Resp BP Pulse Ox O2 Del Method 09/03/23 07:25 36.5 C 79 18 111/76 93 Room Air Laboratory Results BMP 09/02/23 09/03/23 09/03/23 12:57 00:33 06:38 Sodium 127 L 133 L 134 L Potassium 3.9 3.9 4.2 Chloride 94 L 101 103 Carbon Dioxide 23 25 22 BUN 16 33 H 29 H Creatinine 0.60 0.58 L 0.52 L Glucose 158 H 112 H 118 H Calcium 8.5 L 8.5 L 8.8 Independently reviewed and personally interpreted patient's BMP. She had 1 at midnight as well as 1 at 6:38 AM. Medications Administered Current Inpatient Medications Acetaminophen (Acetaminophen 500 Mg Tab) 1,000 mg PO TID [facility] Stop: 10/01/23 13:59 Last Admin: 09/03/23 08:30 Dose: 1,000 mg Acetazolamide (Acetazolamide 500 Mg Capcr) 500 mg PO BID CONNIE Stop: 10/01/23 20:59 Last Admin: 09/03/23 08:32 Dose: 500 mg Al Hydrox/Mg Hydrox/Simethicone (Aluminum/Magnesium Susp 30 Ml Udc) 15 ml PO Q4H PRN PRN Reason: Heartburn Stop: 10/01/23 12:28 Aripiprazole (Aripiprazole 10 Mg Tab) 20 mg PO DAILY CONNIE Stop: 10/02/23 08:59 Last Admin: 09/03/23 08:32 Dose: 20 mg Ascorbic Acid (Ascorbic Acid 500 Mg Tab) 500 mg PO BIDM CONNIE Stop: 10/01/23 16:59 Last Admin: 09/03/23 07:50 Dose: 500 mg Aspirin (Aspirin 81 Mg Ectab) 81 mg PO BID CONNIE Stop: 10/01/23 20:59 Last Admin: 09/03/23 08:32 Dose: 81 mg Atorvastatin Calcium (Atorvastatin 20 Mg Tab) 20 mg PO HS [facility] Stop: 10/01/23 20:59 Last Admin: 09/02/23 20:13 Dose: 20 mg Bisacodyl (Bisacodyl 10 Mg Supp) 10 mg AK DAILY PRN PRN Reason: Constipation Stop: 10/01/23 12:28 Buspirone HCl (Buspirone 5 Mg Tab) 10 mg PO BID CONNIE Stop: 10/01/23 20:59 Last Admin: 09/03/23 08:30 Dose: 10 mg Calcium/Vitamin D (Calcium 600mg + Vit D 400 Iu Tab) 1 tab PO QAM CONNIE Stop: 10/02/23 08:59 Last Admin: 09/03/23 08:31 Dose: 1 tab Carbamazepine (Carbamazepine 200 Mg Tablet) 900 mg PO QPM CONNIE Stop: 10/01/23 20:59 Last Admin: 09/02/23 20:13 Dose: 900 mg Cyanocobalamin (Cyanocobalamin 1000 Mcg/Ml Vial) 1,000 mcg IM Q30D CONNIE Stop: 10/13/23 08:59 Dextrose (Dextrose 50% 50 Ml Syringe) 25 - 50 ml IV UD PRN; Protocol PRN Reason: Hypoglycemia Protocol Stop: 10/01/23 10:58 Diphenhydramine HCl (Diphenhydramine Capsule 25 Mg Cap) 25 mg PO Q8H PRN PRN Reason: Itching Stop: 10/01/23 12:28 Docusate Sodium (Docusate Sodium 100 Mg Cap) 100 mg PO BID CONNIE Stop: 10/01/23 20:59 Last Admin: 09/03/23 08:31 Dose: 100 mg Duloxetine HCl (Duloxetine Hcl 30 Mg Cap) 30 mg PO QAM CONNIE Stop: 10/02/23 08:59 Last Admin: 09/03/23 08:31 Dose: 30 mg Duloxetine HCl (Duloxetine Hcl 60 Mg Cap) 60 mg PO QAM CONNIE Stop: 10/02/23 08:59 Last Admin: 09/03/23 08:33 Dose: 60 mg Furosemide (Furosemide Inj 20 Mg/2 Ml Vial) 20 mg IV BID17 CONNIE Stop: 10/02/23 11:59 Last Admin: 09/03/23 08:38 Dose: 20 mg Glucagon (Glucagon For Inj 1 Mg Vial) 1 mg SQ UD PRN; Protocol PRN Reason: Hypoglycemia Protocol Stop: 10/01/23 10:58 Glucose (Glucose 10 Tab/Tube) 4 - 8 tab PO UD PRN; Protocol PRN Reason: Hypoglycemia Treatment Stop: 10/01/23 10:58 Glucose (Glucose 40% Gel 15 Gm Tube) 15 - 30 gm PO UD PRN; Protocol PRN Reason: Hypoglycemia Protocol Stop: 10/01/23 10:58 Hydromorphone HCl (Hydromorphone Inj 0.5 Mg/0.5 Ml Syr) 0.5 mg IV Q4H PRN PRN Reason: Pain or Pre PT Stop: 09/15/23 12:28 Last Admin: 09/02/23 11:37 Dose: 0.5 mg Hydroxyzine HCl (Hydroxyzine Hcl 25 Mg Tab) 75 mg PO HS [facility] Stop: 10/01/23 20:59 Last Admin: 09/02/23 20:12 Dose: 75 mg Insulin Aspart (Insulin Aspart Per Unit Charge) 0 units SC ACHS CONNIE Stop: 10/01/23 13:29 Last Admin: 09/01/23 14:21 Dose: 2 units Losartan Potassium (Losartan Potassium 50 Mg Tab) 100 mg PO QAM CONNIE Stop: 10/02/23 08:59 Last Admin: 09/03/23 08:32 Dose: 100 mg Magnesium Hydroxide (Magnesium Hydroxide Susp 30 Ml Udc) 30 ml PO Q6H PRN PRN Reason: Constipation Stop: 10/01/23 12:28 Last Admin: 09/03/23 07:49 Dose: 30 ml Magnesium Oxide (Magnesium Oxide 400 Mg Tab) 400 mg PO BID [facility] Stop: 10/01/23 20:59 Last Admin: 09/03/23 08:33 Dose: 400 mg Metoclopramide HCl (Metoclopramide Hcl Inj 5 Mg/Ml 2 Ml Vial) 10 mg IV Q6H PRN PRN Reason: Nausea And Vomiting Stop: 10/01/23 12:28 Last Admin: 09/02/23 11:43 Dose: 10 mg Metoprolol Succinate (Metoprolol Succ 50mg Ext Rel Tab) 100 mg PO QPM [facility] Stop: 10/01/23 20:59 Last Admin: 09/02/23 20:12 Dose: 100 mg Miscellaneous (Scopolamine Check Patch Placement) 1 each N/A QS [facility] Stop: 09/04/23 07:59 Last Admin: 09/03/23 07:52 Dose: 1 each Miscellaneous (Scopolamine Remove Transderm Patch) 1 each N/A ONE ONE Stop: 09/04/23 08:01 Miscellaneous (Carbohydrates For Hypoglycemia ) 15 - 30 gm PO UD PRN PRN Reason: Hypoglycemia Protocol Stop: 10/01/23 10:58 Multivitamins (Multivitamin Tab) 1 tab PO QAM [facility] Stop: 10/02/23 08:59 Last Admin: 09/03/23 08:32 Dose: 1 tab Multivitamins/Minerals (Cerovite Adv Formula Tab) 1 tab PO QAM [facility] Stop: 10/02/23 08:59 Last Admin: 09/03/23 08:33 Dose: 1 tab Naloxone HCl (Naloxone Hcl 0.4 Mg/1 Ml Vial/Carp) 0.1 mg IV Q5M PRN PRN Reason: Oversedation/Resp Depression Stop: 10/01/23 12:28 Ondansetron HCl (Ondansetron Inj 2 Mg/Ml 2 Ml Vial) 4 mg IV Q6H PRN PRN Reason: Nausea And Vomiting Stop: 10/01/23 12:28 Last Admin: 09/02/23 16:45 Dose: 4 mg Oxycodone HCl (Oxycodone Hcl Ir 5 Mg Tab (Immediate Release)) 5 - 10 mg PO Q6 PRN PRN Reason: pain Stop: 09/15/23 12:28 Last Admin: 09/03/23 05:09 Dose: 10 mg Pantoprazole Sodium (Pantoprazole 40 Mg Tab) 40 mg PO QAM CONNIE; Protocol Stop: 10/02/23 08:59 Last Admin: 09/03/23 08:30 Dose: 40 mg Potassium Chloride (Potassium Chloride Crtab 20 Meq Tabcr) 40 meq PO BID CONNIE Stop: 10/02/23 11:59 Last Admin: 09/03/23 08:31 Dose: 40 meq Sennosides (Senna 8.6 Mg Tab) 17.2 mg PO HS CONNIE Stop: 10/01/23 20:59 Last Admin: 09/02/23 20:22 Dose: 17.2 mg Urea (Urea (Urea-Na) 15 Gm Pack) 15 gm PO BID CONNIE Stop: 10/02/23 11:59 Last Admin: 09/03/23 08:33 Dose: 15 gm Vitamin D (Cholecalciferol 1,000 Units 25 Mcg Tab) 2,000 units PO QPM CONNIE Stop: 10/01/23 20:59 Last Admin: 09/02/23 20:20 Dose: 2,000 units (2) Right knee DJD Osteoarthritis type: unspecified Qualified Code(s): M17.11 - Unilateral primary osteoarthritis, right knee (5) Hypertension Hypertension type: primary hypertension Qualified Code(s): I10 - Essential (primary) hypertension (6) Bipolar disorder Active/Remission status: remission status unspecified Qualified Code(s): F31.9 - Bipolar disorder, unspecified
--- NOTE | 2023-09-03 11:43 | Orthopedic Progress Note ---
Date of Service September 03, 2023 Assessment & Plan (1) Status post right knee replacement: (2) Hyponatremia: Plan Overall, she is doing quite well today with good pain control to the right knee. She will continue with physical therapy later this morning to work on ambulation and range of motion exercises. She is on aspirin for DVT prophylaxis. She is currently being managed by the hospitalist service on consult for her hyponatremia. Recommendations/implementations are appreciated. She does have a history of hyponatremia postoperatively. She does note a history of a cardiac unit admission due to this issue postoperatively with her left knee. We will hold off on her discharge until medically cleared by the hospitalist service. Pending recommendations from nephrology to determine if medically stable for discharge today. She will follow-up with Dr. Solano in 2 weeks postdischarge for postoperative care. Will monitor. Subjective .Crystal was seen and evaluated at bedside this morning resting comfortably in no apparent distress. She notes that her pain in her right knee is well- controlled. She has been up and out of bed with no significant issues. She has worked with physical therapy and notes that this went well. She is currently being consulted by the hospitalist service due to her downtrending sodium. She does have a history of downtrending sodium postoperatively. They are currently awaiting nephrology's recommendations to determine if patient is medically stable for discharge today. She denies any other concerns today. Review of Systems All systems reviewed & are unremarkable except as noted in HPI & below. Physical Exam .On physical examination of the right knee, her dressings are clean, dry, and intact. Her leg is out in full extension. She has active plantarflexion dorsiflexion to the right ankle. +2 DP and PT pulses. Less than 2-second capillary refill. Normal sensation. Neurovascular intact. Results & Data Results & Data Laboratory Results . Diagnostic Findings . PG Care Time/CCT Total # of Minutes Spent Total Time Spent with Patient: Total time spent is greater than 50% in coordination of care (as documented) at patient's floor/unit and/or counseling patient: Coding Level of Care Code 26124 Post Operative Follow-Up Diagnoses Status post right knee replacement Z96.651 Hyponatremia E87.1
--- NOTE | 2023-09-03 11:49 | Nephrology Progress Note ---
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 she appears euvolemic to slightly hypervolemic she had borderline low serum sodium even prior to surgery as she was on hydrochlorothiazide and she has history of similar temporary SIADH in 2021 when she had left knee replacement---- given this risk factors it is not surprising she has somewhat worsened hyponatremia. urine Osmo was 877 which is very inappropriately high given serum hyponatremia. recommendation for discharge: 1. Fluid restriction 1500 mL per day 2 control nausea aggressively 3 Stop HCTZ and would argue should not be used ever again in her case given 2 distinct episodes of severe hyponatremia. she can be on loop diuretics if needed 4 Urea 15 gm daily (do confirm if she can even get it outpt) if not then do lasix 40 daily with 20 kcl daily. 5 No lasix and no Kcl for now unless we dont get urea. 6 BMP to be done on friday at the [facility]hab [facility]. S--labs better. ? discharge today. More urine and na is better. Physical Exam Physical Exam: General: awake, alert, NAD. Obesity++ HEENT: mucous membrane is moist neck is supple no JVD Heart: RRR Lungs: CTA bilaterally Abdomen: soft, NT, +BS Extermities: trace pedal edema noted secondary to obesity more in right Neuro: awake alert oriented x3 normal speech, moving all extremities Skin: no rashes noted Results & Data Vital Signs (Past 12 Hours) Vital Signs Temp Pulse Resp BP Pulse Ox O2 Del Method 09/03/23 07:25 36.5 C 79 18 111/76 93 Room Air
[2023-09-03 13:21] LABS: Calcium 8.6 mg/dl (8.6-10.3); Potassium 4.6 mmol/L (3.5-5.1)
[2023-09-03 13:30] LABS: BUN Creatinine Ratio 58.1 (10-20); Est GFR (Non-African American) 104.4 ml/min
--- NOTE | 2023-09-04 12:00 | Discharge Summary ---
Date of Service September 03, 2023 Admission HPI (Per Admitting) Patient is a 53-year-old female now little over a year out from left knee replacement who presents for definitive treatment for her right knee. Schedule fairly long history of bilateral knee pain discomfort that is gradually gotten worse over time. She had her left knee replaced little over a year ago and done well from this. She continues to bothered by right knee pain. She been through extensive conservative treatment including steroid shots and viscosupplementation which just have not helped. He was actually planning on doing this about 6 months ago but had to cancel for several reasons. She now like to proceed with right knee replacement. Admission Exam (Per Admitting) . Physical examination was a pleasant middle-age female. Looks in reasonably good health. Examination of the knees reveal patient ambulates independently. Examination of the right knee reveals the patient walks with a slight bit of a varus alignment to her knee. Moderate soft tissue envelope. She is tender over the medial joint line. Small knee effusion. Range of motion is 5-1 20. No instability. No pain with hip motion for examination Examination of the left knee reveals well aligned knee. Incisions healed nicely. No swelling. Range of motion 0-1 20. Principal Diagnosis Same as "Discharge Diagnosis" noted below under Discharge Instructions. Discharge Exam .On physical examination of the right knee, her dressings are clean, dry, and intact. Her leg is out in full extension. She has active plantarflexion dorsiflexion to the right ankle. +2 DP and PT pulses. Less than 2-second capillary refill. Normal sensation. Neurovascular intact. Discharge Data Consultations 09/01/23 12:29 Consult Hospitalist Routine 09/02/23 07:39 Consult Nephrology Routine Procedures Performed Operation Date: 09/01/23 08:50 Actual Procedures p Right Total Knee Arthroplasty(Right) - Edwin Solano MD Ordered Studies 09/01/23 05:00 US - OR guided needle placemen Routine Hospital Course (1) Status post right knee replacement: On September 01, 2023 Crystal arrived at [facility] and underwent a right total knee arthroplasty performed by Dr. Solano with no complications. She had a general anesthetic. Postoperatively, she was started on aspirin for DVT prophylaxis and transferred to the general orthopedic floor in stable condition. Her hospital course was complicated by hyponatremia. Hospitalist service was consulted for medical management as well as nephrology for recommendations. On postoperative day #1, she participated well with physical therapy doing ambulation and range of motion exercises. Her lab results showed that her sodium levels were downtrending. At that point, IV fluids were discontinued, HCTZ was placed on hold. Nephrology then recommended a fluid restriction of 1500 mL/day with urea 15 g twice daily and Lasix 20 mg IV every 8 hours for 3 doses. There is no other significant events that happened on this day. On postoperative day #2, her lab values were stabilizing. Her pain was well-controlled and her vital signs were within normal limits. She again worked well with physical therapy doing ambulation and range of motion exercises. Disc harge planning from the hospitalist service as well as nephrology recommended discontinuing HCTZ and starting Lasix 20 mg p.o. twice daily along with potassium chloride 20 meq by mouth twice daily. They also recommended continuing fluid restrictions of 1500 mL. She is going to be following up on Friday with Dr. Villeda for monitoring this issue. At that point, she was deemed medically cleared from the hospitalist service as well as nephrology for discharge. She was then discharged home in stable condition. She will follow- up with Dr. Solano in 2 weeks for postoperative care. PG Care Time/CCT Total # of Minutes Spent Total Time Spent with Patient: Total time spent is greater than 50% in coordination of care (as documented) at patient's floor/unit and/or counseling patient: Discharge Plan Discharge Items Patient Disposition: Home - Home Health Services Reason For Visit: DJD Knee Right Discharge Diagnosis: Right Knee Replacement Activity: Per Instructions section Weightbearing: Full weightbearing Non-emergency contact: Surgeon Call non-emergency contact if: you have any medication questions Follow-up/Referrals: Jay Quiñonez PA-C [Primary Care Provider] - (Date & Time 09/08/2023 10:00 AM Provider Jay Quiñonez PA-C Department [facility] ) Diet: Carb Consistent or DM2 Addtl Attending Provider Instructions: ACTIVITY RECOMMENDATIONS: Physical Therapy: * You will go to physical therapy three times each week for four to six weeks after your surgery in order to regain your knee range of motion and to retrain your knee to work properly. * It is just as important to make sure you are getting your knee perfectly straight as it is to regain your knee bend. * Taking a pain pill an hour before therapy can help you have a more productive and comfortable therapy session. Home Exercise: * You were shown a series of exercises (heel props, heel slides, etc.) in the hospital. Do these exercises three to four times each day including the exercises you were shown in physical therapy. Walking: * Get up and walk several times each day. For the first four weeks, try not to stand or walk for more than one hour at a time. If you do stand or walk for more than one hour, you will not hurt anything, but your knee and leg will likely swell. * As you feel comfortable, you may change from the walker or crutches to a cane and then to independent walking. MEDICATIONS: New Medicine: * You will likely be taking one or more of these medications: 1. Oxycodone - A quick and shorter-acting pain medication. Take one to two tablets every six hours to lessen your pain. 2. Aspirin - Thins your blood to lessen the chance of forming a blood clot. * The most common side effects of pain medicine and iron are nausea and constipation. If nausea or constipation is too much of a problem or if you have any questions about your new medicines or doses, call [facility] at . We will try to help you manage these issues. "VERY IMPORTANT TO READ AND REVIEW" Pain: * The immediate post-operative period after knee replacement surgery is often quite painful. * You are given a prescription for pain medicine. You should take it, as directed, when you need it, especially before physical therapy and before going to bed. Pain that interferes with sleep is very common and can last several months. * You will likely need pain medicine for the first four to six weeks. It will not stop all of the pain. The pain will lessen and as you feel better, you may change to milder pain medicine such as Tylenol. * The most common side effects of pain medicine are nausea and constipation, so don't take more than you need. SPECIAL CARE INSTRUCTIONS: TEDs/Elastic Stockings: * The white elastic stockings help limit swelling and prevent blood clots from forming in your legs. The more you wear them, the more they work. * Wear them for six weeks after knee replacement surgery and four weeks after partial knee replacement. Incision Site Care: * Remove dressing postoperative day 2 and then shower. Keep direct shower pressure off the incision site. * After showering, cover lorrie with dry gauze and change daily or more frequently if the dressing is getting saturated with drainage. * Use the JACK stockings to hold dressing in place. DO NOT apply tape on the skin. * May completely stop using bandage if wound is dry and no drainage * Lorrie are removed between 2 and 3 weeks post-op. If your follow-up appointment is made before 2 weeks, please have your appointment re- scheduled. It is too early to remove the lorrie. Prevention of Infection: * Take antibiotics one hour before any dental cleaning, dental work, urological procedure, gastrointestinal procedure or any invasive surgery in order to prevent your new joint from getting infected. * You may get the antibiotics from the doctor performing the procedure or you may call our office at [phone] before and we will call in a prescription to the pharmacy of your choice. Things to Watch For: * Drainage from the incision site that occurs more than one week after your surgery. * Severely increased knee/leg pain or swelling. * Increased redness at the incision site. * Fever above 102 degrees Fahrenheit. * Unusual chest pain or shortness of breath. * Unusual pain or burning with urination. Call [facility] at [phone] with any of the above problems or if you have any questions about your medicines or recovery. FOLLOW UP VISIT: Make an appointment to see your doctor for approximately two weeks after surgery for a progress check and staple removal by calling the office at [phone]. Addtl Kil[facility] Provider Instructions: Furosemide 20mg by mouth twice daily. Potassium Chloride 20 meq by mouth twice daily. Please follow up with your Primary Care Provider as scheduled. Please go to [facility] on Friday09/05/23 to have blood work drawn. You are to follow up with DR. Villeda, [facility], Next week. Please keep this appointment. STOP taking hydrochlorthiazide. Continue to Fluid Restrict at 1500ml/24hours. Pending Studies at Discharge: No Stand-Alone Forms: [facility], Pain - Opioid Pain Management, Smoking Cessation Medications and DC Order Prescriptions: New furosemide [Lasix] 20 mg tablet 20 mg PO BID Qty: 60 0RF potassium chloride 20 mEq tablet extended release 20 meq PO BID Qty: 60 0RF Continued duloxetine [Cymbalta] 30 mg capsule,delayed release(DR/EC) 30 mg PO QAM Rx Instructions: total of 90 mg losartan 100 mg tablet 100 mg PO QAM acetaminophen 500 mg capsule 1,000 mg PO TID 30 Days Qty: 180 0RF Rx Instructions: Take 3 times per day to lessen pain. oxycodone 5 mg tablet 5 - 10 mg PO Q6 PRN (Reason: pain) Qty: 40 0RF Rx Instructions: Take as needed for pain. Do not take more than 6 tablets per day. sennosides [Senokot] 8.6 mg tablet 8.6 mg PO BID 14 Days Qty: 28 0RF Rx Instructions: Take two times a day to prevent/treat constipation aspirin [Rossy Low Dose Aspirin] 81 mg tablet,delayed release (DR/EC) 81 mg PO BID 45 Days Qty: 90 0RF Rx Instructions: Take to prevent blood clots. ketorolac 10 mg tablet 10 mg PO Q6 5 Days Qty: 20 0RF Rx Instructions: Take 4 times per day with food for 5 days to lessen pain and swelling. cefadroxil 500 mg capsule 500 mg PO BID 7 Days Qty: 14 0RF Rx Instructions: Take 1 cap twice a day to prevent infection ondansetron 4 mg tablet,disintegrating 4 mg PO Q8 PRN (Reason: nausea) Qty: 20 1RF Rx Instructions: Take as needed for nausea (DME) Wheeled Walker Misc See Rx Instructions .MEDSUPPLY Qty: 1 0RF Rx Instructions: As directed riboflavin (vitamin B2) [Vitamin B-2] 100 mg Tablet 200 mg PO BID omeprazole 40 mg Capsule,Delayed Release(Dr/Ec) 40 mg PO QAM magnesium oxide 400 mg (241.3 mg magnesium) Tablet 400 mg PO BID Ca-D3-mag [id number] [Calcium 600-D3 Plus (mag-zinc)] 600 mg calcium- 800 unit-50 mg Tablet 1 tab PO QAM Rx Instructions: 630+500 d iron 18 mg tablet 18 mg PO QPM cholecalciferol (vitamin D3) [Vitamin D3] 50 mcg (2,000 unit) Capsule 2,000 unit PO QPM metformin 500 mg Tablet 500 mg PO BID Centrum Complete 18-400 mg-mcg Tablet 1 tab PO QAM duloxetine 60 mg Capsule,Delayed Release(Dr/Ec) 60 mg PO QAM Qty: 1 0RF Rx Instructions: total dose 90mg carbamazepine 200 mg Tablet 900 mg PO QPM Qty: 1 0RF atorvastatin 20 mg Tablet 20 mg PO HS hydroxyzine HCl 50 mg Tablet 75 mg PO HS buspirone 5 mg Tablet 10 mg PO BID acetazolamide 500 mg Capsule, Extended Release 500 mg PO BID cyanocobalamin (vitamin B-12) 1,000 mcg/mL Solution 1,000 mcg IM UD Patient Comments: monthly amoxicillin 500 mg tablet 2,000 mg PO UD PRN (Reason: pre dental) Rx Instructions: TAKE 4 TABLETS ONE HOUR PRIOR TO DENTAL WORK metoprolol succinate 50 mg tablet extended release 24 hr 100 mg PO DAILY aripiprazole 20 mg tablet 20 mg PO DAILY Discontinued hydrochlorothiazide 25 mg Tablet 25 mg PO QAM Krames/Other Patient Handouts: DVT Post Op Prevention, Hyponatremia Dc Admission Data Admit Date/Time: 09/01/23 10:58 Attending Provider: Edwin Solano Admit Provider: Edwin Solano Primary Care Provider: Jay Quiñonez Other Providers: [facility]; Kalen Villeda Other Interventions: Discharge Summary Assessment (RN) Last Done: 09/03/23 13:00
[2023-09-13] MEDS ORDERED: CYANOCOBALAMIN 1000 MCG/ML VIAL IM SCH (09:00)
== END 2023-09-03 14:11 | disposition home health service (06) ==
LOC: 3N 06:55 → ASU 06:55